=== PATIENT | male | born 1950 | race Caucasian/White ===

== ENCOUNTER 2018-02-13 07:35 | Inpatient (IN) ==
[2018-02-13] MEDS ORDERED: DUONEB 0.5 MG/3 MG NEB ONE (07:51)
[2018-02-13] MEDS ORDERED: DUONEB 0.5 MG/3 MG ONE (07:52)
[2018-02-13] MEDS ORDERED: SALINE 3% 15 ML NEB TX ONE (07:52)
[2018-02-13] MEDS ORDERED: SALINE 3% 15 ML NEB TX NEB ONE (07:55)
[2018-02-13] MEDS ORDERED: NS 1000 ML 1,000 ML IV ONE ×2 (07:58→09:52)
[2018-02-13] MEDS ORDERED: NS 1000 ML 1,000 ML ONE ×2 (07:58→09:50)
[2018-02-13] MEDS ORDERED: SOLU-Medrol 125 MG VIAL IVP ONE (08:11)
[2018-02-13 08:12] LABS: ABG ALLEN TEST POS; ABG HCO3 21.1 mmol/L (22-26)
[2018-02-13] MEDS ORDERED: SOLU-Medrol 125 MG VIAL ONE (08:12)
[2018-02-13 08:13] LABS: BASOPHILS # (AUTO) 0.1 X10^3/uL (0.0-0.1); BASOPHILS % (AUTO) 0.6 % (0.2-1.0); LYMPHOCYTES # (AUTO) 0.5 X10^3/uL (1.3-2.9); LYMPHOCYTES % (AUTO) 2.9 % (21.0-51.0); MEAN CORPUSCULAR HEMOGLOBIN 32.6 pg (27.0-34.0); MEAN CORPUSCULAR HGB CONC 34.9 g/dL (33.0-35.0); MEAN CORPUSCULAR VOLUME 93.3 fL (80.0-100.0); MONOCYTES # (AUTO) 2.8 x10^3/uL (0.3-0.8); NEUTROPHILS # (AUTO) 13.2 x10^3/uL (2.2-4.8); NEUTROPHILS % (AUTO) 79.5 % (42.0-75.0); PLATELET COUNT 135 X10^3/uL (150.0-450.0); RED BLOOD COUNT 4.61 X10^6/uL (4.7-6.0); RED CELL DISTRIBUTION WIDTH 13.5 % (11.6-16.5); WHITE BLOOD COUNT 16.6 X10^3/uL (3.6-10.0)
[2018-02-13 08:24] LABS: BLOOD UREA NITROGEN 24 mg/dL (7-18); CALCIUM 7.9 mg/dL (8.5-10.1); CARBON DIOXIDE 25.8 mmol/L (21-32); CHLORIDE 91 mmol/L (98-107); COR NA(FOR HYPERGLY) 127 mmol/L (136-145); CREATININE 1.47 mg/dL (0.70-1.30); SODIUM 126 mmol/L (136-145); TROPONIN I < 0.02 ng/mL (0-1.5); eGFR NON BLACK RACES 51 (>60)
[2018-02-13 08:28] LABS: ALANINE AMINOTRANSFERASE 10 Units/L (12-78); ALKALINE PHOSPHATASE 56 Units/L (46-116); ASPARTATE AMINO TRANSFERASE 10 Units/L (15-37); CKMB % 1.7 % (<4); COR CA(FOR HYPOALB) 8.7 mg/dL (8.5-10.1); CREATINE KINASE 59 Units/L (39-308); CREATINE KINASE MB < 1.0 ng/mL (0-4.0); MAGNESIUM 1.6 mg/dL (1.7-2.9); TOTAL PROTEIN 7.2 g/dL (6.4-8.2)
[2018-02-13 08:40] LABS: BAND NEUTROPHILS % 6 % (0-10); PLATELET MORPHOLOGY COMMENT NORMAL (NORMAL)
--- NOTE | 2018-02-13 08:41 | RAD ---
Chest, AP Indication: Left-sided chest pain Comparison: 01/16/2015 Findings: The costophrenic sulci were excluded. There is lung hyperinflation and chronic interstitial changes suggestive for COPD. There is dense infiltrate within the left upper lobe. The left lower daly ng and right lung are grossly clear. No evidence for large pleural effusion. The heart size is normal . Impression: Left upper lobe pneumonia. Radiographic follow-up to resolution recommended to exclude underlying les ion. Chronic findings of COPD. Reported By:
[2018-02-13] MEDS ORDERED: NS 1/2 1000 ML IV 1,000 ML IV ONE ×2 (09:16→22:31)
[2018-02-13] MEDS: LEVAQUIN PREMIX IV 750 MG 750 MG/150 ML BAG IV SCH (09:23)
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
[2018-02-13] MEDS: NS 1/2 1000 ML IV 1,000 ML IV SCH ×2 (09:53→22:34)
[2018-02-13] MEDS: ZOFRAN INJ 4 MG VIAL IVP PRN (11:15)
--- NOTE | 2018-02-13 11:24 | CT ---
HISTORY: Chest pain radiating to back Study: CT chest without contrast Comparison: None Technique: Axial noncontrast images with coronal and sagittal reformats. Dose reduction procedures we re used with mA/kv adjusted for body size. This examination is limited due to the lack of intravenous contrast. This limits the evaluation of the thoracic aorta the examination was performed in this mat ter at the sole discretion of the ordering caregiver and without input from Radiology. Findings: Examination of the mediastinum demonstrated no evidence for mediastinal masses, enlarged mediastinal adenopathy, or enlarged hilar adenopathy. Evaluation of the thoracic aorta is limited due to the lack of intravenous contrast. Mild calcific atherosclerotic changes present in a nondilated thoracic aort a. Dissection cannot be excluded due to the lack of contrast. No pleural effusions are identified. No chest wall or axillary abnormality is identified. Those portions of the upper abdominal organs visua lized were within normal limits to the limitations of an unenhanced examination. Examination of the l jason montejo demonstrated changes of centrilobular emphysema to be present bilaterally. There is alveol ar pneumonia involving the apical posterior segment of the left upper lobe as was identified on the c onventional chest x-ray. The remainder of the lung montejo are clear. IMPRESSION: Limited evaluation of the thoracic aorta demonstrates mild atherosclerotic change and no significant dilatation. Dissection cannot be excluded in the absence of contrast. Segmental pneumonia involving the apical posterior segment of the left upper lobe as was described on the conventional chest x-ray Centrilobular emphysema Reported By:
[2018-02-13] MEDS ORDERED: PREVNAR 13 IM ONE ×2 (11:29→21:23)
[2018-02-13] MEDS: TUSSIONEX PENNKINETIC SUSP PO PRN (11:49)
[2018-02-13 12:27] LABS: BILIRUBIN,URINE NEGATIVE (NEGATIVE); BLOOD/HEMOGLOBIN,URINE 2+ (NEGATIVE); GLUCOSE, URINE NEGATIVE (NEGATIVE); KETONES,URINE 1+ (NEGATIVE); LEUKOCYTE ESTERASE ,URINE 1+ (NEGATIVE); NITRITES,URINE NEGATIVE (NEGATIVE); PROTEIN,URINE 2+ (NEGATIVE); UROBILINOGEN,URINE NORMAL (NORMAL)
[2018-02-13 12:29] LABS: COLOR,URINE ORANGE (YELLOW)
[2018-02-13 12:30] LABS: APPEARANCE,URINE CLEAR (CLEAR)
[2018-02-13 12:38] LABS: BACTERIA,URINE TRACE /HPF (NEGATIVE); HYALINE CASTS, URINE MODERATE /LPF (NEGATIVE); MUCUS,URINE MODERATE /HPF (NEGATIVE); SQUAMOUS EPITHELIAL CELL,UR FEW /HPF (NEGATIVE)
[2018-02-13] MEDS: DUONEB 0.5 MG/3 MG NEB SCH ×4 (13:30→20:45)
[2018-02-13] MEDS: ROBITUSSIN DM PO SCH ×3 (13:41→21:11)
[2018-02-13] MEDS: FORTAZ or TAZICEF VIAL INJ 1 G in NS 100 ML IV + SPIKE MINIBAG* 100 ML IV SCH ×2 (13:41→21:45)
[2018-02-13 14:40] LABS: CKMB % 1.9 % (<4); CREATINE KINASE 54 Units/L (39-308); CREATINE KINASE MB < 1.0 ng/mL (0-4.0); TROPONIN I < 0.02 ng/mL (0-1.5)
[2018-02-13] MEDS: NICOTINE PATCH TD SCH (17:37)
[2018-02-13 20:26] LABS: CKMB % 1.8 % (<4); CREATINE KINASE 55 Units/L (39-308); TROPONIN I < 0.02 ng/mL (0-1.5)
[2018-02-14] MEDS ORDERED: XOPENEX 1.25 MG/3 ML NEBULE NEB ONE (04:57)
[2018-02-14] MEDS ORDERED: NS 1/2 1000 ML IV 1,000 ML IV ONE (06:12)
[2018-02-14] MEDS ORDERED: MAGNESIUM SULFATE 1 GRAM/100 mL PREMIX 2 G/200 ML BAG IV ONE (06:54)
[2018-02-14] MEDS ORDERED: NS 1000 ML 1,000 ML ONE (06:59)
[2018-02-14] MEDS ORDERED: K-DUR TAB 20 MEQ PO STA (07:20)
[2018-02-14] MEDS ORDERED: K-DUR TAB 20 MEQ PO ONE (07:46)
[2018-02-14] MEDS: LIBRIUM PO PRN ×2 (09:00→20:34)
[2018-02-14] MEDS ORDERED: LIBRIUM PO ONE (11:11)
[2018-02-14] MEDS ORDERED: CARDIZEM INJ 50 MG VIAL IVP ONE (12:32)
[2018-02-14] MEDS: FORTAZ or TAZICEF VIAL INJ 1 G in NS 100 ML IV + SPIKE MINIBAG* 100 ML IV SCH ×3 (13:30→21:20)
[2018-02-14 14:09] LABS: ALANINE AMINOTRANSFERASE 14 Units/L (12-78); ALBUMIN 2.2 g/dL (3.4-5.0); ALKALINE PHOSPHATASE 40 Units/L (46-116); ASPARTATE AMINO TRANSFERASE 9 Units/L (15-37); BASOPHILS % (AUTO) 0.2 % (0.2-1.0); BLOOD UREA NITROGEN 13 mg/dL (7-18); CALCIUM 7.2 mg/dL (8.5-10.1); CARBON DIOXIDE 21.4 mmol/L (21-32); CHLORIDE 98 mmol/L (98-107); CHOL/HDL RATIO 2.3 (0.0-5.0); CHOLESTEROL 83 mg/dL (0-200); COR CA(FOR HYPOALB) 8.6 mg/dL (8.5-10.1); COR NA(FOR HYPERGLY) 131 mmol/L (136-145); CREATININE 0.87 mg/dL (0.70-1.30); HDL CHOLESTEROL 36 mg/dL (40-60); HEMOGLOBIN 12.2 g/dL (13.5-18.0); LYMPHOCYTES # (AUTO) 0.3 X10^3/uL (1.3-2.9); LYMPHOCYTES % (AUTO) 2.6 % (21.0-51.0); MAGNESIUM 1.7 mg/dL (1.7-2.9); MEAN CORPUSCULAR HEMOGLOBIN 32.1 pg (27.0-34.0); MEAN CORPUSCULAR HGB CONC 34.7 g/dL (33.0-35.0); MEAN CORPUSCULAR VOLUME 92.4 fL (80.0-100.0); MEAN PLATELET VOLUME 8.7 fL (7.4-11.0); MONOCYTES # (AUTO) 2.3 x10^3/uL (0.3-0.8); MONOCYTES % (AUTO) 17.6 % (0.0-13.0); NEUTROPHILS # (AUTO) 10.2 x10^3/uL (2.2-4.8); NEUTROPHILS % (AUTO) 79.6 % (42.0-75.0); PLATELET COUNT 111 X10^3/uL (150.0-450.0); RED BLOOD COUNT 3.79 X10^6/uL (4.7-6.0); RED CELL DISTRIBUTION WIDTH 13.4 % (11.6-16.5); SODIUM 130 mmol/L (136-145); TOTAL PROTEIN 5.8 g/dL (6.4-8.2); TRIGLYCERIDES 50 mg/dL (0-150); WHITE BLOOD COUNT 12.9 X10^3/uL (3.6-10.0); eGFR NON BLACK RACES > 60 (>60)
[2018-02-14 15:21] LABS: BAND NEUTROPHILS % 4 % (0-10); PLATELET MORPHOLOGY COMMENT NORMAL (NORMAL)
[2018-02-14] MEDS: XOPENEX 1.25 MG/3 ML NEBULE NEB SCH ×2 (16:24→20:22)
[2018-02-14] MEDS: TYLENOL 325 MG TAB PO PRN (16:45)
[2018-02-14] MEDS ORDERED: TYLENOL 325 MG TAB PO ONE (16:46)
[2018-02-14] MEDS: MAGNESIUM SULFATE 1 GRAM/100 mL PREMIX 2 GM/200 ML BAG IV SCH (16:49)
[2018-02-14] MEDS: NICOTINE PATCH TD SCH (16:50)
[2018-02-14] MEDS: NS 1000 ML 1,000 ML IV SCH (16:50)
[2018-02-14] MEDS: LEVAQUIN PREMIX IV 750 MG 750 MG/150 ML BAG IV SCH (16:51)
[2018-02-14] MEDS: ROBITUSSIN DM PO SCH ×3 (16:51→20:34)
[2018-02-14] MEDS: MAALOX or MYLANTA PO PRN (19:25)
[2018-02-15] MEDS: TYLENOL 325 MG TAB PO PRN ×3 (00:50→15:34)
[2018-02-15] MEDS: FORTAZ or TAZICEF VIAL INJ 1 G in NS 100 ML IV + SPIKE MINIBAG* 100 ML IV SCH ×2 (05:15→14:40)
[2018-02-15 05:26] LABS: CRYPTOSPORIDIUM PARVUM ANTIGEN NEGATIVE (NEGATIVE); GIARDIA LAMBLIA ANTIGEN NEGATIVE (NEGATIVE)
[2018-02-15] MEDS: NS 1000 ML 1,000 ML IV SCH ×2 (05:28→06:43)
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
[2018-02-15 06:11] LABS: BASOPHILS % (AUTO) 0.2 % (0.2-1.0); HEMATOCRIT 40.4 % (42.0-54.0); HEMOGLOBIN 13.9 g/dL (13.5-18.0); LYMPHOCYTES # (AUTO) 0.3 X10^3/uL (1.3-2.9); LYMPHOCYTES % (AUTO) 2.4 % (21.0-51.0); MEAN CORPUSCULAR HEMOGLOBIN 31.9 pg (27.0-34.0); MEAN CORPUSCULAR HGB CONC 34.3 g/dL (33.0-35.0); MEAN CORPUSCULAR VOLUME 92.9 fL (80.0-100.0); MEAN PLATELET VOLUME 8.9 fL (7.4-11.0); MONOCYTES # (AUTO) 1.9 x10^3/uL (0.3-0.8); MONOCYTES % (AUTO) 16.3 % (0.0-13.0); NEUTROPHILS # (AUTO) 9.3 x10^3/uL (2.2-4.8); NEUTROPHILS % (AUTO) 81.1 % (42.0-75.0); PLATELET COUNT 132 X10^3/uL (150.0-450.0); RED BLOOD COUNT 4.35 X10^6/uL (4.7-6.0); RED CELL DISTRIBUTION WIDTH 13.6 % (11.6-16.5); WHITE BLOOD COUNT 11.4 X10^3/uL (3.6-10.0)
[2018-02-15 06:15] LABS: ALANINE AMINOTRANSFERASE 13 Units/L (12-78); ALBUMIN 2.2 g/dL (3.4-5.0); ALKALINE PHOSPHATASE 41 Units/L (46-116); ASPARTATE AMINO TRANSFERASE 17 Units/L (15-37); BLOOD UREA NITROGEN 5 mg/dL (7-18); CALCIUM 7.4 mg/dL (8.5-10.1); CHLORIDE 99 mmol/L (98-107); COR CA(FOR HYPOALB) 8.8 mg/dL (8.5-10.1); COR NA(FOR HYPERGLY) 132 mmol/L (136-145); CREATININE 0.86 mg/dL (0.70-1.30); MAGNESIUM 1.8 mg/dL (1.7-2.9); SODIUM 132 mmol/L (136-145); TOTAL PROTEIN 6.2 g/dL (6.4-8.2); eGFR NON BLACK RACES > 60 (>60)
[2018-02-15] MEDS ORDERED: POTASSIUM CHL 60 MEQ/NS 0.45% 500 ML IV PRN (06:23)
[2018-02-15] MEDS ORDERED: K-RIDER 10 MEQ/NS 100 ML 10 MEQ/100 ML BAG IV PRN (06:23)
[2018-02-15] MEDS ORDERED: POTASSIUM CHLORIDE LIQ 20 MEQ UDC PO PRN (06:23)
[2018-02-15] MEDS ORDERED: POTASSIUM CHL 40 MEQ/NS 0.45% 500 ML IV PRN (06:23)
[2018-02-15] MEDS: MAGNESIUM SULFATE 1 GRAM/100 mL PREMIX 1 GM/100 ML BAG IV PRN ×2 (06:37→07:45)
[2018-02-15] MEDS: K-LYTE EFFERVESCENT PO PRN (06:38)
[2018-02-15 07:51] LABS: BAND NEUTROPHILS % 3 % (0-10); BASOPHILS % (MANUAL) 1 % (0-1); PLATELET MORPHOLOGY COMMENT NORMAL (NORMAL)
[2018-02-15] MEDS: XOPENEX 1.25 MG/3 ML NEBULE NEB SCH ×4 (08:48→20:48)
[2018-02-15] MEDS: ROBITUSSIN DM PO SCH ×4 (09:00→20:21)
[2018-02-15] MEDS: LEVAQUIN PREMIX IV 750 MG 750 MG/150 ML BAG IV SCH (09:00)
--- NOTE | 2018-02-15 12:49 | PCM.PROG ---
Progress Note - Progress Note for Day of Date: 02/15/18 - Subjective Subjective: 67 WM ER ADMIT ON 02/13 WITH PNEUMONIA, CHEST CONGESTION, RESP DISTRESS. PT CURRENTLY ON IV ATBX AND RESP THERAPY WITH SUPPLEMENTAL O2, SPUTUM CUTLURE PENDING. PT CONTINUES WITH SOB AT REST, MODERATE DISTRESS WITH DIFFUSE RHONCHI. PT REPORTS HE FEELS MORE IMPROVED THIS AM, CONTINUES WITH PRODUCTIVE COUGH - Past Medical Family Social History Past Med/Fam/Surg Hx: No changes since H&P Allergies: Allergies No Known Drug Allergies Allergy (Verified 02/13/18 07:42) - Review of Systems ROS: No change since H&P - Vital Signs and I&O's Vital Signs: Temperature 100.7 F Pulse Rate [Apical] 107 Pulse Rate 116 Respiratory Rate 34 Blood Pressure [Right Arm] 118/73 Blood Pressure 107/55 O2 Sat by Pulse Oximetry 94 Intake and Output: Intake & Output 02/13/18 02/14/18 02/15/18 02/16/18 11:59 11:59 11:59 11:59 Intake Total 1450 / 1450 3151 / 3151 Output Total 1920 / 1920 Balance 1450 / 1450 1231 / 1231 - Physical Exam Oriented: Normal Eyes: Normal Ear: Normal Nose: Normal Throat: Normal Respiratory: Rhonchi Cardiovascular: Tachycardia : Normal Tenderness: Normal Skin: Normal Musculoskeletal: Normal Psychiatric: Normal Speech Pattern: Clear, Appropriate - Laboratory and Diagnostics Result Diagrams: 02/15/18 05:21 02/15/18 05:21 Labs: 02/13/18 07:55 Blood Blood Culture - Preliminary 02/13/18 07:50 Blood Blood Culture - Preliminary 02/14/18 07:25 Sputum - Expectorated Sputum Sputum Culture - Preliminary 02/14/18 07:25 Sputum - Expectorated Sputum - Final 02/13/18 08:26 Sputum - Expectorated Sputum Sputum Culture - Final Pseudomonas Aeruginosa 02/13/18 08:26 Sputum - Expectorated Sputum - Final 02/14/18 18:09 Stool - Final 02/15/18 02:28 Sputum - Expectorated Sputum - Final Laboratory WBC 11.4 X10^3/uL (3.6-10.0) H 02/15/18 05:21 RBC 4.35 X10^6/uL (4.7-6.0) L 02/15/18 05:21 Hgb 13.9 g/dL (13.5-18.0) 02/15/18 05:21 Hct 40.4 % (42.0-54.0) L 02/15/18 05:21 MCV 92.9 fL (80.0-100.0) 02/15/18 05:21 MCH 31.9 pg (27.0-34.0) 02/15/18 05:21 MCHC 34.3 g/dL (33.0-35.0) 02/15/18 05:21 RDW 13.6 % (11.6-16.5) 02/15/18 05:21 Plt Count 132 X10^3/uL (150.0-450.0) L 02/15/18 05:21 Plt Count Comment Decreased (ADEQUATE) 02/15/18 05:21 MPV 8.9 fL (7.4-11.0) 02/15/18 05:21 Neut % (Auto) 81.1 % (42.0-75.0) H 02/15/18 05:21 Lymph % (Auto) 2.4 % (21.0-51.0) L 02/15/18 05:21 [place] % (Auto) 16.3 % (0.0-13.0) H 02/15/18 05:21 Eos % (Auto) 0.0 % (0.9-2.9) L 02/15/18 05:21 Baso % (Auto) 0.2 % (0.2-1.0) 02/15/18 05:21 Neut # (Auto) 9.3 x10^3/uL (2.2-4.8) H 02/15/18 05:21 Lymph # (Auto) 0.3 X10^3/uL (1.3-2.9) L 02/15/18 05:21 [place] # (Auto) 1.9 x10^3/uL (0.3-0.8) H 02/15/18 05:21 Eos # (Auto) 0.0 x10^3/uL (0.0-0.2) 02/15/18 05:21 Baso # (Auto) 0.0 X10^3/uL (0.0-0.1) 02/15/18 05:21 Absolute Nucleated RBC 0.0 /100WBC 02/15/18 05:21 Total Counted 100 02/15/18 05:21 Neutrophils % (Manual) 78 % (39-76) H 02/15/18 05:21 Band Neutrophils % 3 % (0-10) 02/15/18 05:21 Lymphocytes % (Manual) 5 % (13-43) L 02/15/18 05:21 Monocytes % (Manual) 12 % (4-9) H 02/15/18 05:21 Eosinophils % (Manual) 1 % (0-6) 02/15/18 05:21 Basophils % (Manual) 1 % (0-1) 02/15/18 05:21 Plt Morphology Comment Normal (NORMAL) 02/15/18 05:21 RBC Morphology Normal (NORMAL) 02/15/18 05:21 INR Target Range - 02/13/18 07:50 INR 1.05 (0.8-1.3) 02/13/18 07:50 APTT 34.2 SECONDS (22.9-36.5) 02/13/18 07:50 PTT Comment - 02/13/18 07:50 Sample Site Lra 02/13/18 08:03 ABG pH 7.500 (7.35-7.45) H 02/13/18 08:03 ABG pCO2 27.0 mmHg (35.0-45.0) L 02/13/18 08:03 ABG pO2 78.0 mmHg (80.0-100.0) L 02/13/18 08:03 ABG HCO3 21.1 mmol/L (22-26) L 02/13/18 08:03 ABG O2 Saturation 97.0 % (90-100) 02/13/18 08:03 ABG Base Excess -1.0 mmol/L (-2.0-2.0) 02/13/18 08:03 Fernando Test Pos 02/13/18 08:03 A-a Gradient 88.0 mmHg 02/13/18 08:03 FiO2 28.000 02/13/18 08:03 Blood Gas Comments Samm well cn/cs 02/13/18 08:03 Sodium 132 mmol/L (136-145) L 02/15/18 05:21 Corrected Sodium 132 mmol/L (136-145) L 02/15/18 05:21 Potassium 3.5 mmol/L (3.5-5.1) 02/15/18 05:21 Chloride 99 mmol/L (98-107) 02/15/18 05:21 Carbon Dioxide 29.0 mmol/L (21-32) 02/15/18 05:21 BUN 5 mg/dL (7-18) L 02/15/18 05:21 Creatinine 0.86 mg/dL (0.70-1.30) 02/15/18 05:21 Est GFR (MDRD) Af Amer > 60 (>60) 02/15/18 05:21 Est GFR (MDRD) Non-Af > 60 (>60) 02/15/18 05:21 Glucose 112 mg/dL (65-99) H 02/15/18 05:21 Lactic Acid 1.6 mmol/L (0.4-2.0) 02/13/18 07:50 Calcium 7.4 mg/dL (8.5-10.1) L 02/15/18 05:21 Corrected Calcium 8.8 mg/dL (8.5-10.1) 02/15/18 05:21 Magnesium 1.8 mg/dL (1.7-2.9) 02/15/18 05:21 Total Bilirubin 0.40 mg/dL (0.2-1.0) 02/15/18 05:21 AST 17 Units/L (15-37) 02/15/18 05:21 ALT 13 Units/L (12-78) 02/15/18 05:21 Alkaline Phosphatase 41 Units/L (46-116) L 02/15/18 05:21 Creatine Kinase 55 Units/L (39-308) 02/13/18 19:59 CK-MB (CK-2) 1.0 ng/mL (0-4.0) 02/13/18 19:59 CK/CKMB % Calc 1.8 % (<4) 02/13/18 19:59 Troponin I < 0.02 ng/mL (0-1.5) 02/13/18 19:59 Total Protein 6.2 g/dL (6.4-8.2) L 02/15/18 05:21 Albumin 2.2 g/dL (3.4-5.0) L 02/15/18 05:21 Globulin 4.0 g/dL (2.5-4.5) 02/15/18 05:21 Albumin/Globulin Ratio 0.6 Ratio (1.1-2.1) L 02/15/18 05:21 Triglycerides 50 mg/dL (0-150) 02/14/18 05:29 Cholesterol 83 mg/dL (0-200) 02/14/18 05:29 LDL Cholesterol, Calc 37 mg/dL (0-100) 02/14/18 05:29 HDL Cholesterol 36 mg/dL (40-60) L 02/14/18 05:29 Cholesterol/HDL Ratio 2.3 (0.0-5.0) 02/14/18 05:29 Specimen Type Random urine 02/13/18 12:15 Urine Color [place] (YELLOW) 02/13/18 12:15 Urine Appearance Clear (CLEAR) 02/13/18 12:15 Urine pH 5.0 (5.0 - 8.0) 02/13/18 12:15 Ur Specific [place] 1.020 (1.000-1.030) 02/13/18 12:15 Urine Protein 2+ (NEGATIVE) 02/13/18 12:15 Urine Glucose (UA) Negative (NEGATIVE) 02/13/18 12:15 Urine Ketones 1+ (NEGATIVE) 02/13/18 12:15 Urine Occult Blood 2+ (NEGATIVE) 02/13/18 12:15 Urine Nitrite Negative (NEGATIVE) 02/13/18 12:15 Urine Bilirubin Negative (NEGATIVE) 02/13/18 12:15 Urine Urobilinogen Normal (NORMAL) 02/13/18 12:15 Ur Leukocyte Esterase 1+ (NEGATIVE) 02/13/18 12:15 Urine RBC 3-5 /HPF (NONE SEEN) 02/13/18 12:15 Urine WBC 3-5 /HPF (NONE SEEN) 02/13/18 12:15 Ur Squamous Epith Cells Few /HPF (NEGATIVE) 02/13/18 12:15 Urine Bacteria Trace /HPF (NEGATIVE) 02/13/18 12:15 Hyaline Casts Moderate /LPF (NEGATIVE) 02/13/18 12:15 Urine Mucus Moderate /HPF (NEGATIVE) 02/13/18 12:15 Ur Culture Indicated? No/not indicated 02/13/18 12:15 Stool Description 5g pale green 02/14/18 18:09 Stl Occult Blood (IFOB) Positive (NEGATIVE) A 02/14/18 18:09 Stl C. diff Tox B Gene Negative (NEGATIVE) 02/14/18 18:09 Stl C. diff [id number] Negative (NEGATIVE) 02/14/18 18:09 Cryptosporid parvum Ag Negative (NEGATIVE) 02/14/18 18:09 E. histolytica Antigen Negative (NEGATIVE) 02/14/18 18:09 Giardia lamblia Ag Negative (NEGATIVE) 02/14/18 18:09 - Plan (1) SOB (shortness of breath) Status: Acute Plan: CONTINUE PNEUMONIA PROTOCOL WITH SPUTUM AND BLOOD CULTURES PENDING. RESP THERAPY, SUPPLEMENTAL O2, HYDRATION. CARDIAC MONITORING, BP MONITORING. REPEAT AM LABS, VERIFY HOME MEDS (2) Respiratory distress Status: Acute (3) Pneumonia Status: Acute (4) Tachycardia Status: Acute
[2018-02-15] MEDS: NICOTINE PATCH TD SCH (14:39)
[2018-02-15] MEDS: LIBRIUM PO PRN (15:46)
[2018-02-15] MEDS ORDERED: XOPENEX 1.25 MG/3 ML NEBULE NEB PRN (20:15)
[2018-02-15] MEDS: TUSSIONEX PENNKINETIC SUSP PO PRN (20:21)
[2018-02-15] MEDS: MAALOX or MYLANTA PO PRN (20:25)
[2018-02-15] MEDS ORDERED: NS 100 ML IV 100 ML IV ONE (20:37)
[2018-02-15] MEDS ORDERED: MERREM VIAL ONE (20:38)
[2018-02-15] MEDS: Atrovent NEB TX 0.02% NEB SCH (20:48)
[2018-02-15] MEDS: PULMICORT NEB TX 0.5 MG NEB SCH (20:48)
[2018-02-15] MEDS: BROVANA IN SCH (20:48)
[2018-02-15] MEDS: MERREM VIAL 1 G in NS 100 ML IV + SPIKE MINIBAG* 100 ML IV SCH ×2 (20:49→21:37)
[2018-02-15] MEDS: SOLU-Medrol 40 MG VIAL IVP SCH ×2 (20:49→21:38)
[2018-02-15] MEDS: ULTRAM PO PRN (21:02)
[2018-02-15 22:36] LABS: CKMB % 0.6 % (<4); CREATINE KINASE 99 Units/L (39-308); CREATINE KINASE MB 0.6 ng/mL (0-4.0)
[2018-02-15 22:37] LABS: TROPONIN I < 0.02 ng/mL (0-1.5)
[2018-02-16] MEDS ORDERED: NS 100 ML IV 100 ML IV ONE ×3 (05:00→20:15)
[2018-02-16] MEDS ORDERED: MERREM VIAL ONE ×3 (05:00→20:15)
[2018-02-16] MEDS: SOLU-Medrol 40 MG VIAL IVP SCH ×3 (05:23→20:48)
[2018-02-16] MEDS: MERREM VIAL 1 G in NS 100 ML IV + SPIKE MINIBAG* 100 ML IV SCH ×3 (05:32→21:00)
[2018-02-16] MEDS: NS 1000 ML 1,000 ML IV SCH ×2 (05:32→06:41)
[2018-02-16 06:10] LABS: BASOPHILS % (AUTO) 0.1 % (0.2-1.0); HEMATOCRIT 40.2 % (42.0-54.0); HEMOGLOBIN 13.9 g/dL (13.5-18.0); LYMPHOCYTES # (AUTO) 0.2 X10^3/uL (1.3-2.9); LYMPHOCYTES % (AUTO) 1.6 % (21.0-51.0); MEAN CORPUSCULAR HEMOGLOBIN 32.3 pg (27.0-34.0); MEAN CORPUSCULAR HGB CONC 34.6 g/dL (33.0-35.0); MEAN CORPUSCULAR VOLUME 93.5 fL (80.0-100.0); MEAN PLATELET VOLUME 9.4 fL (7.4-11.0); MONOCYTES # (AUTO) 0.3 x10^3/uL (0.3-0.8); MONOCYTES % (AUTO) 2.4 % (0.0-13.0); NEUTROPHILS # (AUTO) 11.2 x10^3/uL (2.2-4.8); NEUTROPHILS % (AUTO) 95.9 % (42.0-75.0); PLATELET COUNT 139 X10^3/uL (150.0-450.0); WHITE BLOOD COUNT 11.7 X10^3/uL (3.6-10.0)
--- NOTE | 2018-02-16 06:21 | RAD ---
Chest portable Indication: Shortness of breath Comparison February 13, 2018 Findings: Changes of COPD are again seen. There is progressive left apical airspace opacity with supe rimposed increasing interstitial pneumonitis and/or other edema. The right lung remains negative for acute changes. The skeleton is stable. Impression: 1. Progressive left lung infiltrate. 2. Superimposed COPD. Reported By:
[2018-02-16 07:06] LABS: PLATELET MORPHOLOGY COMMENT NORMAL (NORMAL)
[2018-02-16 07:52] LABS: ALANINE AMINOTRANSFERASE 20 Units/L (12-78); ALBUMIN 2.1 g/dL (3.4-5.0); ALKALINE PHOSPHATASE 57 Units/L (46-116); ASPARTATE AMINO TRANSFERASE 25 Units/L (15-37); BLOOD UREA NITROGEN 9 mg/dL (7-18); CALCIUM 7.6 mg/dL (8.5-10.1); CARBON DIOXIDE 29.1 mmol/L (21-32); CHLORIDE 98 mmol/L (98-107); COR CA(FOR HYPOALB) 9.1 mg/dL (8.5-10.1); COR NA(FOR HYPERGLY) 137 mmol/L (136-145); CREATINE KINASE 99 Units/L (39-308); CREATINE KINASE MB < 1.0 ng/mL (0-4.0); CREATININE 0.82 mg/dL (0.70-1.30); MAGNESIUM 2.2 mg/dL (1.7-2.9); SODIUM 136 mmol/L (136-145); TOTAL PROTEIN 6.5 g/dL (6.4-8.2); TROPONIN I < 0.02 ng/mL (0-1.5); eGFR NON BLACK RACES > 60 (>60)
[2018-02-16] MEDS: LEVAQUIN PREMIX IV 750 MG 750 MG/150 ML BAG IV SCH (08:51)
[2018-02-16] MEDS: BROVANA IN SCH ×2 (08:51→21:52)
[2018-02-16] MEDS: Atrovent NEB TX 0.02% NEB SCH ×4 (08:51→21:52)
[2018-02-16] MEDS: ROBITUSSIN DM PO SCH ×5 (08:51→23:55)
[2018-02-16] MEDS: XOPENEX 1.25 MG/3 ML NEBULE NEB SCH ×4 (08:51→21:52)
[2018-02-16] MEDS: NICOTINE PATCH TD SCH (08:52)
[2018-02-16] MEDS: PULMICORT NEB TX 0.5 MG NEB SCH ×2 (08:52→21:52)
[2018-02-16] MEDS: MAALOX or MYLANTA PO PRN ×2 (13:42→19:50)
[2018-02-16] MEDS: LIBRIUM PO PRN (17:56)
[2018-02-16] MEDS: TUSSIONEX PENNKINETIC SUSP PO PRN (20:48)
[2018-02-17] MEDS: NS 1000 ML 1,000 ML IV SCH ×3 (00:30→21:39)
[2018-02-17] MEDS ORDERED: MERREM VIAL ONE ×3 (04:42→20:43)
[2018-02-17] MEDS ORDERED: NS 100 ML IV 100 ML IV ONE ×2 (04:42→20:43)
[2018-02-17] MEDS: MERREM VIAL 1 G in NS 100 ML IV + SPIKE MINIBAG* 100 ML IV SCH ×3 (05:03→21:38)
[2018-02-17] MEDS: SOLU-Medrol 40 MG VIAL IVP SCH ×3 (05:03→21:38)
[2018-02-17 06:12] LABS: BASOPHILS % (AUTO) 0.1 % (0.2-1.0); HEMATOCRIT 33.8 % (42.0-54.0); HEMOGLOBIN 11.6 g/dL (13.5-18.0); LYMPHOCYTES # (AUTO) 0.3 X10^3/uL (1.3-2.9); LYMPHOCYTES % (AUTO) 2.3 % (21.0-51.0); MEAN CORPUSCULAR HEMOGLOBIN 31.8 pg (27.0-34.0); MEAN CORPUSCULAR HGB CONC 34.3 g/dL (33.0-35.0); MEAN CORPUSCULAR VOLUME 92.8 fL (80.0-100.0); MEAN PLATELET VOLUME 8.9 fL (7.4-11.0); MONOCYTES # (AUTO) 0.6 x10^3/uL (0.3-0.8); MONOCYTES % (AUTO) 4.9 % (0.0-13.0); NEUTROPHILS # (AUTO) 10.6 x10^3/uL (2.2-4.8); NEUTROPHILS % (AUTO) 92.7 % (42.0-75.0); PLATELET COUNT 162 X10^3/uL (150.0-450.0); RED BLOOD COUNT 3.65 X10^6/uL (4.7-6.0); RED CELL DISTRIBUTION WIDTH 13.9 % (11.6-16.5); WHITE BLOOD COUNT 11.4 X10^3/uL (3.6-10.0)
[2018-02-17 06:25] LABS: ALANINE AMINOTRANSFERASE 13 Units/L (12-78); ALBUMIN 1.7 g/dL (3.4-5.0); ALKALINE PHOSPHATASE 46 Units/L (46-116); ASPARTATE AMINO TRANSFERASE 13 Units/L (15-37); BLOOD UREA NITROGEN 9 mg/dL (7-18); CALCIUM 7.4 mg/dL (8.5-10.1); CARBON DIOXIDE 30.3 mmol/L (21-32); CHLORIDE 102 mmol/L (98-107); COR CA(FOR HYPOALB) 9.2 mg/dL (8.5-10.1); COR NA(FOR HYPERGLY) 139 mmol/L (136-145); CREATININE 0.64 mg/dL (0.70-1.30); SODIUM 138 mmol/L (136-145); TOTAL PROTEIN 5.5 g/dL (6.4-8.2); eGFR NON BLACK RACES > 60 (>60)
[2018-02-17 07:11] LABS: BAND NEUTROPHILS % 1 % (0-10); PLATELET MORPHOLOGY COMMENT NORMAL (NORMAL)
[2018-02-17] MEDS: NICOTINE PATCH TD SCH (08:07)
[2018-02-17] MEDS: LEVAQUIN PREMIX IV 750 MG 750 MG/150 ML BAG IV SCH (08:08)
[2018-02-17] MEDS: ROBITUSSIN DM PO SCH ×4 (08:09→21:38)
[2018-02-17 08:26] VITALS: BMI 20.9
[2018-02-17] MEDS: XOPENEX 1.25 MG/3 ML NEBULE NEB SCH ×4 (08:48→20:22)
[2018-02-17] MEDS: PULMICORT NEB TX 0.5 MG NEB SCH ×2 (08:48→20:22)
[2018-02-17] MEDS: BROVANA IN SCH ×2 (08:48→20:22)
[2018-02-17] MEDS: Atrovent NEB TX 0.02% NEB SCH ×4 (08:48→20:22)
--- NOTE | 2018-02-17 11:54 | PCM.PROG ---
Progress Note - Progress Note for Day of Date: 02/16/18 - Subjective Subjective: 67 WM ER ADMIT ON 02/13 WITH PNEUMONIA, CHEST CONGESTION, RESP DISTRESS. PT CURRENTLY ON IV ATBX AND RESP THERAPY WITH SUPPLEMENTAL O2, SPUTUM CUTLURE PENDING. PT CONTINUES WITH SOB AT REST, MODERATE DISTRESS WITH DIFFUSE RHONCHI. PT REPORTS HE FEELS MORE IMPROVED THIS AM, CONTINUES WITH PRODUCTIVE COUGH - Past Medical Family Social History Past Med/Fam/Surg Hx: No changes since H&P Allergies: Allergies No Known Drug Allergies Allergy (Verified 02/13/18 07:42) - Review of Systems ROS: No change since H&P - Vital Signs and I&O's Vital Signs: Temperature 97.7 F Pulse Rate [Apical] 84 Pulse Rate 106 Respiratory Rate 22 Blood Pressure [Right Arm] 103/58 Blood Pressure 107/55 O2 Sat by Pulse Oximetry 96 Intake and Output: Intake & Output 02/14/18 02/15/18 02/16/18 02/17/18 11:59 11:59 11:59 11:59 Intake Total 1450 / 1450 3151 / 3151 1862 / 1862 3355 / 3355 Output Total 1920 / 1920 1320 / 1320 1500 / 1500 Balance 1450 / 1450 1231 / 1231 542 / 542 1855 / 1855 - Physical Exam Oriented: Normal Eyes: Normal Ear: Normal Nose: Normal Throat: Normal Respiratory: Rhonchi Cardiovascular: Tachycardia : Normal Tenderness: Normal Skin: Normal Musculoskeletal: Normal Psychiatric: Normal Speech Pattern: Clear, Appropriate - Laboratory and Diagnostics Result Diagrams: 02/17/18 04:35 02/17/18 04:35 Labs: 02/15/18 02:28 Sputum - Expectorated Sputum Sputum Culture - Preliminary 02/15/18 02:28 Sputum - Expectorated Sputum - Final 02/14/18 18:09 Stool Stool Culture - Final 02/14/18 18:09 Stool - Final 02/14/18 16:58 Blood Blood Culture - Preliminary 02/14/18 17:04 Blood Blood Culture - Preliminary 02/14/18 07:25 Sputum - Expectorated Sputum Sputum Culture - Final 02/14/18 07:25 Sputum - Expectorated Sputum - Final 02/13/18 07:55 Blood Blood Culture - Preliminary 02/13/18 07:50 Blood Blood Culture - Preliminary 02/13/18 08:26 Sputum - Expectorated Sputum Sputum Culture - Final Pseudomonas Aeruginosa 02/13/18 08:26 Sputum - Expectorated Sputum - Final Laboratory WBC 11.4 X10^3/uL (3.6-10.0) H 02/17/18 04:35 RBC 3.65 X10^6/uL (4.7-6.0) L 02/17/18 04:35 Hgb 11.6 g/dL (13.5-18.0) L D 02/17/18 04:35 Hct 33.8 % (42.0-54.0) L 02/17/18 04:35 MCV 92.8 fL (80.0-100.0) 02/17/18 04:35 MCH 31.8 pg (27.0-34.0) 02/17/18 04:35 MCHC 34.3 g/dL (33.0-35.0) 02/17/18 04:35 RDW 13.9 % (11.6-16.5) 02/17/18 04:35 Plt Count 162 X10^3/uL (150.0-450.0) 02/17/18 04:35 Plt Count Comment Adequate (ADEQUATE) 02/17/18 04:35 MPV 8.9 fL (7.4-11.0) 02/17/18 04:35 Neut % (Auto) 92.7 % (42.0-75.0) H 02/17/18 04:35 Lymph % (Auto) 2.3 % (21.0-51.0) L 02/17/18 04:35 [place] % (Auto) 4.9 % (0.0-13.0) 02/17/18 04:35 Eos % (Auto) 0.0 % (0.9-2.9) L 02/17/18 04:35 Baso % (Auto) 0.1 % (0.2-1.0) L 02/17/18 04:35 Neut # (Auto) 10.6 x10^3/uL (2.2-4.8) H 02/17/18 04:35 Lymph # (Auto) 0.3 X10^3/uL (1.3-2.9) L 02/17/18 04:35 [place] # (Auto) 0.6 x10^3/uL (0.3-0.8) 02/17/18 04:35 Eos # (Auto) 0.0 x10^3/uL (0.0-0.2) 02/17/18 04:35 Baso # (Auto) 0.0 X10^3/uL (0.0-0.1) 02/17/18 04:35 Absolute Nucleated RBC 0.0 /100WBC 02/17/18 04:35 Total Counted 100 02/17/18 04:35 Neutrophils % (Manual) 94 % (39-76) H 02/17/18 04:35 Band Neutrophils % 1 % (0-10) 02/17/18 04:35 Lymphocytes % (Manual) 3 % (13-43) L 02/17/18 04:35 Monocytes % (Manual) 2 % (4-9) L 02/17/18 04:35 Eosinophils % (Manual) 1 % (0-6) 02/15/18 05:21 Basophils % (Manual) 1 % (0-1) 02/15/18 05:21 Plt Morphology Comment Normal (NORMAL) 02/17/18 04:35 RBC Morphology Normal (NORMAL) 02/17/18 04:35 INR Target Range - 02/13/18 07:50 INR 1.05 (0.8-1.3) 02/13/18 07:50 APTT 34.2 SECONDS (22.9-36.5) 02/13/18 07:50 PTT Comment - 02/13/18 07:50 Sample Site Lra 02/13/18 08:03 ABG pH 7.500 (7.35-7.45) H 02/13/18 08:03 ABG pCO2 27.0 mmHg (35.0-45.0) L 02/13/18 08:03 ABG pO2 78.0 mmHg (80.0-100.0) L 02/13/18 08:03 ABG HCO3 21.1 mmol/L (22-26) L 02/13/18 08:03 ABG O2 Saturation 97.0 % (90-100) 02/13/18 08:03 ABG Base Excess -1.0 mmol/L (-2.0-2.0) 02/13/18 08:03 Fernando Test Pos 02/13/18 08:03 A-a Gradient 88.0 mmHg 02/13/18 08:03 FiO2 28.000 02/13/18 08:03 Blood Gas Comments Samm well cn/cs 02/13/18 08:03 Sodium 138 mmol/L (136-145) 02/17/18 04:35 Corrected Sodium 139 mmol/L (136-145) 02/17/18 04:35 Potassium 3.6 mmol/L (3.5-5.1) 02/17/18 04:35 Chloride 102 mmol/L (98-107) 02/17/18 04:35 Carbon Dioxide 30.3 mmol/L (21-32) 02/17/18 04:35 BUN 9 mg/dL (7-18) 02/17/18 04:35 Creatinine 0.64 mg/dL (0.70-1.30) L 02/17/18 04:35 Est GFR (MDRD) Af Amer > 60 (>60) 02/17/18 04:35 Est GFR (MDRD) Non-Af > 60 (>60) 02/17/18 04:35 Glucose 159 mg/dL (65-99) H 02/17/18 04:35 Lactic Acid 1.6 mmol/L (0.4-2.0) 02/13/18 07:50 Calcium 7.4 mg/dL (8.5-10.1) L 02/17/18 04:35 Corrected Calcium 9.2 mg/dL (8.5-10.1) 02/17/18 04:35 Magnesium 2.2 mg/dL (1.7-2.9) 02/16/18 04:35 Total Bilirubin 0.20 mg/dL (0.2-1.0) 02/17/18 04:35 AST 13 Units/L (15-37) L 02/17/18 04:35 ALT 13 Units/L (12-78) 02/17/18 04:35 Alkaline Phosphatase 46 Units/L (46-116) 02/17/18 04:35 Creatine Kinase 99 Units/L (39-308) 02/16/18 04:35 CK-MB (CK-2) < 1.0 ng/mL (0-4.0) 02/16/18 04:35 CK/CKMB % Calc 1.0 % (<4) 02/16/18 04:35 Troponin I < 0.02 ng/mL (0-1.5) 02/16/18 04:35 Total Protein 5.5 g/dL (6.4-8.2) L 02/17/18 04:35 Albumin 1.7 g/dL (3.4-5.0) L 02/17/18 04:35 Globulin 3.8 g/dL (2.5-4.5) 02/17/18 04:35 Albumin/Globulin Ratio 0.4 Ratio (1.1-2.1) L 02/17/18 04:35 Triglycerides 50 mg/dL (0-150) 02/14/18 05:29 Cholesterol 83 mg/dL (0-200) 02/14/18 05:29 LDL Cholesterol, Calc 37 mg/dL (0-100) 02/14/18 05:29 HDL Cholesterol 36 mg/dL (40-60) L 02/14/18 05:29 Cholesterol/HDL Ratio 2.3 (0.0-5.0) 02/14/18 05:29 Specimen Type Random urine 02/13/18 12:15 Urine Color [place] (YELLOW) 02/13/18 12:15 Urine Appearance Clear (CLEAR) 02/13/18 12:15 Urine pH 5.0 (5.0 - 8.0) 02/13/18 12:15 Ur Specific [place] 1.020 (1.000-1.030) 02/13/18 12:15 Urine Protein 2+ (NEGATIVE) 02/13/18 12:15 Urine Glucose (UA) Negative (NEGATIVE) 02/13/18 12:15 Urine Ketones 1+ (NEGATIVE) 02/13/18 12:15 Urine Occult Blood 2+ (NEGATIVE) 02/13/18 12:15 Urine Nitrite Negative (NEGATIVE) 02/13/18 12:15 Urine Bilirubin Negative (NEGATIVE) 02/13/18 12:15 Urine Urobilinogen Normal (NORMAL) 02/13/18 12:15 Ur Leukocyte Esterase 1+ (NEGATIVE) 02/13/18 12:15 Urine RBC 3-5 /HPF (NONE SEEN) 02/13/18 12:15 Urine WBC 3-5 /HPF (NONE SEEN) 02/13/18 12:15 Ur Squamous Epith Cells Few /HPF (NEGATIVE) 02/13/18 12:15 Urine Bacteria Trace /HPF (NEGATIVE) 02/13/18 12:15 Hyaline Casts Moderate /LPF (NEGATIVE) 02/13/18 12:15 Urine Mucus Moderate /HPF (NEGATIVE) 02/13/18 12:15 Ur Culture Indicated? No/not indicated 02/13/18 12:15 Stool Description 5g pale green 02/14/18 18:09 Stl Occult Blood (IFOB) Positive (NEGATIVE) A 02/14/18 18:09 Stl C. diff Tox B Gene Negative (NEGATIVE) 02/14/18 18:09 Stl C. diff [id number] Negative (NEGATIVE) 02/14/18 18:09 Cryptosporid parvum Ag Negative (NEGATIVE) 02/14/18 18:09 E. histolytica Antigen Negative (NEGATIVE) 02/14/18 18:09 Giardia lamblia Ag Negative (NEGATIVE) 02/14/18 18:09 - Plan (1) SOB (shortness of breath) Status: Acute Plan: CONTINUE PNEUMONIA PROTOCOL WITH SPUTUM AND BLOOD CULTURES PENDING. RESP THERAPY, SUPPLEMENTAL O2, HYDRATION. CARDIAC MONITORING, BP MONITORING. REPEAT AM LABS, VERIFY HOME MEDS (2) Respiratory distress Status: Acute (3) Pneumonia Status: Acute Plan: sputum positive for pseudomonas, continue iv atbx. resp therapy (4) Tachycardia Status: Acute
--- NOTE | 2018-02-17 12:28 | RAD ---
STUDY: CHEST, ONE VIEW History: Shortness of breath. Pneumonia. Comparison: February 16, 2018. Findings: The trachea is midline. Since prior examination there has been no significant change in previously no yue airspace disease involving the left upper lobe left lower lobe. There may be a small pleural effu bhupendra at the left lung base. The right lung is clear. The cardiac silhouette, mediastinum and osseous structures are unremarkable. IMPRESSION: 1. No significant change in airspace opacity in the left lung. Reported By:
[2018-02-17] MEDS ORDERED: NS 100 ML IV + SPIKE MINIBAG* 100 ML IV ONE (13:56)
[2018-02-17] MEDS: TUSSIONEX PENNKINETIC SUSP PO PRN (14:11)
[2018-02-17] MEDS ORDERED: LASIX IVP ONE (17:51)
[2018-02-17] MEDS: K-DUR TAB 20 MEQ PO SCH (18:17)
[2018-02-17] MEDS: ZOFRAN INJ 4 MG VIAL IVP PRN (19:50)
[2018-02-17] MEDS: MAALOX or MYLANTA PO PRN (21:39)
[2018-02-17] MEDS: ULTRAM PO PRN (21:50)
[2018-02-17] MEDS: LIBRIUM PO PRN (21:50)
[2018-02-18] MEDS: ULTRAM PO PRN ×3 (03:06→22:48)
[2018-02-18] MEDS: TUSSIONEX PENNKINETIC SUSP PO PRN (03:15)
[2018-02-18] MEDS: MAALOX or MYLANTA PO PRN ×2 (04:39→18:36)
[2018-02-18] MEDS: SOLU-Medrol 40 MG VIAL IVP SCH ×2 (05:04→13:14)
[2018-02-18] MEDS: MERREM VIAL 1 G in NS 100 ML IV + SPIKE MINIBAG* 100 ML IV SCH ×3 (05:04→22:31)
[2018-02-18 06:13] LABS: ALANINE AMINOTRANSFERASE 16 Units/L (12-78); ALBUMIN 1.9 g/dL (3.4-5.0); ALKALINE PHOSPHATASE 40 Units/L (46-116); ASPARTATE AMINO TRANSFERASE 17 Units/L (15-37); BLOOD UREA NITROGEN 12 mg/dL (7-18); CALCIUM 7.4 mg/dL (8.5-10.1); CARBON DIOXIDE 33.3 mmol/L (21-32); CHLORIDE 104 mmol/L (98-107); COR CA(FOR HYPOALB) 9.1 mg/dL (8.5-10.1); COR NA(FOR HYPERGLY) 143 mmol/L (136-145); CREATININE 0.74 mg/dL (0.70-1.30); SODIUM 142 mmol/L (136-145); TOTAL PROTEIN 5.6 g/dL (6.4-8.2); eGFR NON BLACK RACES > 60 (>60)
[2018-02-18] MEDS: NS 1000 ML 1,000 ML IV SCH (06:20)
[2018-02-18 06:22] LABS: BASOPHILS % (AUTO) 0.1 % (0.2-1.0); HEMOGLOBIN 12.2 g/dL (13.5-18.0); LYMPHOCYTES # (AUTO) 0.3 X10^3/uL (1.3-2.9); LYMPHOCYTES % (AUTO) 3.2 % (21.0-51.0); MEAN CORPUSCULAR HEMOGLOBIN 31.8 pg (27.0-34.0); MEAN CORPUSCULAR HGB CONC 33.9 g/dL (33.0-35.0); MEAN CORPUSCULAR VOLUME 93.9 fL (80.0-100.0); MEAN PLATELET VOLUME 8.4 fL (7.4-11.0); MONOCYTES # (AUTO) 0.5 x10^3/uL (0.3-0.8); MONOCYTES % (AUTO) 6.6 % (0.0-13.0); NEUTROPHILS # (AUTO) 7.3 x10^3/uL (2.2-4.8); NEUTROPHILS % (AUTO) 90.1 % (42.0-75.0); PLATELET COUNT 226 X10^3/uL (150.0-450.0); RED BLOOD COUNT 3.84 X10^6/uL (4.7-6.0); RED CELL DISTRIBUTION WIDTH 13.7 % (11.6-16.5); WHITE BLOOD COUNT 8.1 X10^3/uL (3.6-10.0)
[2018-02-18 06:25] LABS: ABG BASE EXCESS 13.2 mmol/L (-2.0-2.0)
[2018-02-18 06:27] LABS: ABG HCO3 38.7 mmol/L (22-26)
[2018-02-18] MEDS: PEPCID 20 MG IV PREMIX* 20 MG/50 ML BAG IV SCH ×2 (06:40→22:30)
[2018-02-18 07:07] LABS: PLATELET MORPHOLOGY COMMENT NORMAL (NORMAL)
[2018-02-18] MEDS: K-LYTE EFFERVESCENT PO PRN (07:08)
[2018-02-18] MEDS: ROBITUSSIN DM PO SCH ×4 (08:53→22:31)
[2018-02-18] MEDS: K-DUR TAB 20 MEQ PO SCH (08:53)
[2018-02-18] MEDS: LIBRIUM PO PRN ×2 (08:54→22:50)
[2018-02-18] MEDS: NICOTINE PATCH TD SCH (08:54)
[2018-02-18] MEDS: LEVAQUIN PREMIX IV 750 MG 750 MG/150 ML BAG IV SCH (08:54)
[2018-02-18] MEDS: PULMICORT NEB TX 0.5 MG NEB SCH ×2 (09:55→20:07)
[2018-02-18] MEDS: BROVANA IN SCH ×2 (09:55→20:06)
[2018-02-18] MEDS: XOPENEX 1.25 MG/3 ML NEBULE NEB SCH ×5 (09:55→20:07)
[2018-02-18] MEDS: Atrovent NEB TX 0.02% NEB SCH ×4 (09:55→20:06)
[2018-02-19 04:57] LABS: ABG BASE EXCESS 12.2 mmol/L (-2.0-2.0)
[2018-02-19 04:59] LABS: ABG ALLEN TEST POS; ABG HCO3 37.3 mmol/L (22-26)
[2018-02-19] MEDS: MERREM VIAL 1 G in NS 100 ML IV + SPIKE MINIBAG* 100 ML IV SCH ×3 (05:37→21:23)
[2018-02-19 06:16] LABS: BASOPHILS % (AUTO) 0.1 % (0.2-1.0); HEMOGLOBIN 12.1 g/dL (13.5-18.0); LYMPHOCYTES # (AUTO) 0.3 X10^3/uL (1.3-2.9); LYMPHOCYTES % (AUTO) 3.8 % (21.0-51.0); MEAN CORPUSCULAR HEMOGLOBIN 32.2 pg (27.0-34.0); MEAN CORPUSCULAR HGB CONC 34.7 g/dL (33.0-35.0); MEAN CORPUSCULAR VOLUME 92.8 fL (80.0-100.0); MONOCYTES # (AUTO) 0.3 x10^3/uL (0.3-0.8); MONOCYTES % (AUTO) 4.3 % (0.0-13.0); NEUTROPHILS # (AUTO) 6.7 x10^3/uL (2.2-4.8); NEUTROPHILS % (AUTO) 91.8 % (42.0-75.0); PLATELET COUNT 248 X10^3/uL (150.0-450.0); RED BLOOD COUNT 3.77 X10^6/uL (4.7-6.0); RED CELL DISTRIBUTION WIDTH 13.7 % (11.6-16.5); WHITE BLOOD COUNT 7.3 X10^3/uL (3.6-10.0)
[2018-02-19 06:33] LABS: ALANINE AMINOTRANSFERASE 19 Units/L (12-78); ALBUMIN 1.9 g/dL (3.4-5.0); ALKALINE PHOSPHATASE 43 Units/L (46-116); ASPARTATE AMINO TRANSFERASE 22 Units/L (15-37); BLOOD UREA NITROGEN 13 mg/dL (7-18); CALCIUM 7.4 mg/dL (8.5-10.1); CARBON DIOXIDE 33.7 mmol/L (21-32); CHLORIDE 104 mmol/L (98-107); COR CA(FOR HYPOALB) 9.1 mg/dL (8.5-10.1); COR NA(FOR HYPERGLY) 141 mmol/L (136-145); CREATININE 0.59 mg/dL (0.70-1.30); SODIUM 140 mmol/L (136-145); TOTAL PROTEIN 5.4 g/dL (6.4-8.2); eGFR NON BLACK RACES > 60 (>60)
[2018-02-19] MEDS ORDERED: NS 100 ML IV 100 ML IV ONE (06:41)
[2018-02-19 06:52] LABS: PLATELET MORPHOLOGY COMMENT NORMAL (NORMAL)
--- NOTE | 2018-02-19 07:31 | CT ---
HISTORY: Shortness of breath, pneumonia Study: CT chest with contrast Comparison: 02/13/2018 Technique: Axial post-contrast images with coronal and sagittal reformats. Dose reduction procedures were used with mA/kv adjusted for body size. Findings: Examination of the mediastinum demonstrated no evidence for mediastinal masses, enlarged mediastinal adenopathy, or enlarged hilar adenopathy. The thoracic aorta is within normal limits. Bilateral pleur al effusions are present left greater than right. No chest wall or axillary abnormality is identified . Those portions of the upper abdominal organs visualized were within normal limits. A examination of the lung montejo demonstrated changes of centrilobular emphysema to be present bilaterally. The right lung is free of acute alveolar infiltrates nodules and masses. Increasing consolidation is present i n the left upper lobe when compared with the prior examination. There is now some associated upper lo be volume loss. The left lower lobe is clear. IMPRESSION: Increasing consolidation involving a larger portion of the left upper lobe than on the prior examinat ion and now of also some underlying volume loss Interval development of bilateral pleural effusions, small, left greater than right Centrilobular emphysema Reported By:
[2018-02-19] MEDS: BROVANA IN SCH ×2 (08:49→20:10)
[2018-02-19] MEDS: PULMICORT NEB TX 0.5 MG NEB SCH ×2 (08:49→20:10)
[2018-02-19] MEDS: Atrovent NEB TX 0.02% NEB SCH ×4 (08:49→20:10)
[2018-02-19] MEDS: XOPENEX 1.25 MG/3 ML NEBULE NEB SCH ×4 (08:49→20:10)
[2018-02-19] MEDS: NS 1000 ML 1,000 ML IV SCH (09:41)
[2018-02-19] MEDS: NICOTINE PATCH TD SCH (09:42)
[2018-02-19] MEDS: LEVAQUIN PREMIX IV 750 MG 750 MG/150 ML BAG IV SCH (09:42)
[2018-02-19] MEDS: K-DUR TAB 20 MEQ PO SCH (09:42)
[2018-02-19] MEDS: ROBITUSSIN DM PO SCH ×4 (09:43→20:01)
[2018-02-19] MEDS: PEPCID 20 MG IV PREMIX* 20 MG/50 ML BAG IV SCH ×2 (09:43→20:00)
[2018-02-19] MEDS: ULTRAM PO PRN ×3 (09:46→21:22)
--- NOTE | 2018-02-19 13:19 | PCM.PROG ---
Progress Note - Progress Note for Day of Date: 02/19/18 - Subjective Subjective: 67 WM ER ADMIT ON 02/13 WITH PNEUMONIA, CHEST CONGESTION, RESP DISTRESS. PT CURRENTLY ON IV ATBX AND RESP THERAPY WITH SUPPLEMENTAL O2, SPUTUM CUTLURE PENDING. PT CONTINUES WITH SOB AT REST, MODERATE DISTRESS WITH DIFFUSE RHONCHI. PT REPORTS HE FEELS MORE IMPROVED THIS AM, CONTINUES WITH PRODUCTIVE COUGH. CT CHEST REVEALS WORSENED INFILTRATE, DISCUSSED REPEAT STEROIDS, SMART VEST AND MUCOMYST, PT - Past Medical Family Social History Past Med/Fam/Surg Hx: No changes since H&P Allergies: Allergies No Known Drug Allergies Allergy (Verified 02/13/18 07:42) - Review of Systems ROS: No change since H&P - Vital Signs and I&O's Vital Signs: Temperature 98.0 F Pulse Rate [Apical] 90 Pulse Rate 90 Respiratory Rate 20 Blood Pressure [Right Arm] 138/70 Blood Pressure 107/55 O2 Sat by Pulse Oximetry 90 Intake and Output: Intake & Output 02/17/18 02/18/18 02/19/18 02/20/18 11:59 11:59 11:59 11:59 Intake Total 3355 / 3355 2141 / 2141 1392 / 1392 Output Total 1500 / 1500 3553 / 3553 200 / 200 Balance 1855 / 1855 -1412 / -1412 1192 / 1192 - Physical Exam Oriented: Normal Eyes: Normal Ear: Normal Nose: Normal Throat: Normal Respiratory: Diminished, Rhonchi Cardiovascular: Tachycardia : Normal Tenderness: Normal Skin: Normal Musculoskeletal: Normal Psychiatric: Normal Speech Pattern: Clear, Appropriate - Laboratory and Diagnostics Result Diagrams: 02/19/18 05:00 02/19/18 05:00 Labs: 02/13/18 07:55 Blood Blood Culture - Final 02/13/18 07:50 Blood Blood Culture - Final 02/15/18 02:28 Sputum - Expectorated Sputum Sputum Culture - Preliminary 02/15/18 02:28 Sputum - Expectorated Sputum - Final 02/14/18 18:09 Stool Stool Culture - Final 02/14/18 18:09 Stool - Final 02/14/18 16:58 Blood Blood Culture - Preliminary 02/14/18 17:04 Blood Blood Culture - Preliminary 02/14/18 07:25 Sputum - Expectorated Sputum Sputum Culture - Final 02/14/18 07:25 Sputum - Expectorated Sputum - Final 02/13/18 08:26 Sputum - Expectorated Sputum Sputum Culture - Final Pseudomonas Aeruginosa 02/13/18 08:26 Sputum - Expectorated Sputum - Final Laboratory WBC 7.3 X10^3/uL (3.6-10.0) 02/19/18 05:00 RBC 3.77 X10^6/uL (4.7-6.0) L 02/19/18 05:00 Hgb 12.1 g/dL (13.5-18.0) L 02/19/18 05:00 Hct 35.0 % (42.0-54.0) L 02/19/18 05:00 MCV 92.8 fL (80.0-100.0) 02/19/18 05:00 MCH 32.2 pg (27.0-34.0) 02/19/18 05:00 MCHC 34.7 g/dL (33.0-35.0) 02/19/18 05:00 RDW 13.7 % (11.6-16.5) 02/19/18 05:00 Plt Count 248 X10^3/uL (150.0-450.0) 02/19/18 05:00 Plt Count Comment Adequate (ADEQUATE) 02/19/18 05:00 MPV 8.0 fL (7.4-11.0) 02/19/18 05:00 Neut % (Auto) 91.8 % (42.0-75.0) H 02/19/18 05:00 Lymph % (Auto) 3.8 % (21.0-51.0) L 02/19/18 05:00 [place] % (Auto) 4.3 % (0.0-13.0) 02/19/18 05:00 Eos % (Auto) 0.0 % (0.9-2.9) L 02/19/18 05:00 Baso % (Auto) 0.1 % (0.2-1.0) L 02/19/18 05:00 Neut # (Auto) 6.7 x10^3/uL (2.2-4.8) H 02/19/18 05:00 Lymph # (Auto) 0.3 X10^3/uL (1.3-2.9) L 02/19/18 05:00 [place] # (Auto) 0.3 x10^3/uL (0.3-0.8) 02/19/18 05:00 Eos # (Auto) 0.0 x10^3/uL (0.0-0.2) 02/19/18 05:00 Baso # (Auto) 0.0 X10^3/uL (0.0-0.1) 02/19/18 05:00 Absolute Nucleated RBC 0.1 /100WBC 02/19/18 05:00 Total Counted 100 02/19/18 05:00 Neutrophils % (Manual) 89 % (39-76) H 02/19/18 05:00 Band Neutrophils % 1 % (0-10) 02/17/18 04:35 Lymphocytes % (Manual) 9 % (13-43) L 02/19/18 05:00 Monocytes % (Manual) 2 % (4-9) L 02/19/18 05:00 Eosinophils % (Manual) 1 % (0-6) 02/15/18 05:21 Basophils % (Manual) 1 % (0-1) 02/15/18 05:21 Plt Morphology Comment Normal (NORMAL) 02/19/18 05:00 RBC Morphology Normal (NORMAL) 02/19/18 05:00 INR Target Range - 02/13/18 07:50 INR 1.05 (0.8-1.3) 02/13/18 07:50 APTT 34.2 SECONDS (22.9-36.5) 02/13/18 07:50 PTT Comment - 02/13/18 07:50 Sample Site Rr 02/19/18 04:46 ABG pH 7.490 (7.35-7.45) H 02/19/18 04:46 ABG pCO2 49.0 mmHg (35.0-45.0) H 02/19/18 04:46 ABG pO2 50.0 mmHg (80.0-100.0) L 02/19/18 04:46 ABG HCO3 37.3 mmol/L (22-26) H* 02/19/18 04:46 ABG O2 Saturation 88.0 % (90-100) L 02/19/18 04:46 ABG Base Excess 12.2 mmol/L (-2.0-2.0) H 02/19/18 04:46 Fernando Test Pos 02/19/18 04:46 A-a Gradient 88.0 mmHg 02/19/18 04:46 FiO2 28.000 02/19/18 04:46 Blood Gas Comments Samm well ae 02/19/18 04:46 Sodium 140 mmol/L (136-145) 02/19/18 05:00 Corrected Sodium 141 mmol/L (136-145) 02/19/18 05:00 Potassium 3.8 mmol/L (3.5-5.1) 02/19/18 05:00 Chloride 104 mmol/L (98-107) 02/19/18 05:00 Carbon Dioxide 33.7 mmol/L (21-32) H 02/19/18 05:00 BUN 13 mg/dL (7-18) 02/19/18 05:00 Creatinine 0.59 mg/dL (0.70-1.30) L 02/19/18 05:00 Est GFR (MDRD) Af Amer > 60 (>60) 02/19/18 05:00 Est GFR (MDRD) Non-Af > 60 (>60) 02/19/18 05:00 Glucose 127 mg/dL (65-99) H 02/19/18 05:00 Lactic Acid 1.6 mmol/L (0.4-2.0) 02/13/18 07:50 Calcium 7.4 mg/dL (8.5-10.1) L 02/19/18 05:00 Corrected Calcium 9.1 mg/dL (8.5-10.1) 02/19/18 05:00 Magnesium 2.2 mg/dL (1.7-2.9) 02/18/18 04:33 Total Bilirubin 0.20 mg/dL (0.2-1.0) 02/19/18 05:00 AST 22 Units/L (15-37) 02/19/18 05:00 ALT 19 Units/L (12-78) 02/19/18 05:00 Alkaline Phosphatase 43 Units/L (46-116) L 02/19/18 05:00 Creatine Kinase 99 Units/L (39-308) 02/16/18 04:35 CK-MB (CK-2) < 1.0 ng/mL (0-4.0) 02/16/18 04:35 CK/CKMB % Calc 1.0 % (<4) 02/16/18 04:35 Troponin I < 0.02 ng/mL (0-1.5) 02/16/18 04:35 Total Protein 5.4 g/dL (6.4-8.2) L 02/19/18 05:00 Albumin 1.9 g/dL (3.4-5.0) L 02/19/18 05:00 Globulin 3.5 g/dL (2.5-4.5) 02/19/18 05:00 Albumin/Globulin Ratio 0.5 Ratio (1.1-2.1) L 02/19/18 05:00 Triglycerides 50 mg/dL (0-150) 02/14/18 05:29 Cholesterol 83 mg/dL (0-200) 02/14/18 05:29 LDL Cholesterol, Calc 37 mg/dL (0-100) 02/14/18 05:29 HDL Cholesterol 36 mg/dL (40-60) L 02/14/18 05:29 Cholesterol/HDL Ratio 2.3 (0.0-5.0) 02/14/18 05:29 Specimen Type Random urine 02/13/18 12:15 Urine Color [place] (YELLOW) 02/13/18 12:15 Urine Appearance Clear (CLEAR) 02/13/18 12:15 Urine pH 5.0 (5.0 - 8.0) 02/13/18 12:15 Ur Specific [place] 1.020 (1.000-1.030) 02/13/18 12:15 Urine Protein 2+ (NEGATIVE) 02/13/18 12:15 Urine Glucose (UA) Negative (NEGATIVE) 02/13/18 12:15 Urine Ketones 1+ (NEGATIVE) 02/13/18 12:15 Urine Occult Blood 2+ (NEGATIVE) 02/13/18 12:15 Urine Nitrite Negative (NEGATIVE) 02/13/18 12:15 Urine Bilirubin Negative (NEGATIVE) 02/13/18 12:15 Urine Urobilinogen Normal (NORMAL) 02/13/18 12:15 Ur Leukocyte Esterase 1+ (NEGATIVE) 02/13/18 12:15 Urine RBC 3-5 /HPF (NONE SEEN) 02/13/18 12:15 Urine WBC 3-5 /HPF (NONE SEEN) 02/13/18 12:15 Ur Squamous Epith Cells Few /HPF (NEGATIVE) 02/13/18 12:15 Urine Bacteria Trace /HPF (NEGATIVE) 02/13/18 12:15 Hyaline Casts Moderate /LPF (NEGATIVE) 02/13/18 12:15 Urine Mucus Moderate /HPF (NEGATIVE) 02/13/18 12:15 Ur Culture Indicated? No/not indicated 02/13/18 12:15 Stool Description 5g pale green 02/14/18 18:09 Stl Occult Blood (IFOB) Positive (NEGATIVE) A 02/14/18 18:09 Stl C. diff Tox B Gene Negative (NEGATIVE) 02/14/18 18:09 Stl C. diff [id number] Negative (NEGATIVE) 02/14/18 18:09 Cryptosporid parvum Ag Negative (NEGATIVE) 02/14/18 18:09 E. histolytica Antigen Negative (NEGATIVE) 02/14/18 18:09 Giardia lamblia Ag Negative (NEGATIVE) 02/14/18 18:09 - Plan (1) SOB (shortness of breath) Status: Acute Plan: CONTINUE PNEUMONIA PROTOCOL WITH SPUTUM AND BLOOD CULTURES COLLECTED ON ADMISSION. RESP THERAPY, SUPPLEMENTAL O2, HYDRATION. CARDIAC MONITORING, BP MONITORING. REPEAT AM LABS, VERIFY HOME MEDS (2) Respiratory distress Status: Acute Plan: AM ABG, SUPPLEMENTAL O2 (3) Pneumonia Status: Acute Plan: sputum positive for pseudomonas, continue iv atbx. resp therapy (4) Tachycardia Status: Acute Plan: CONTINUE CARDIAC MONITORING
[2018-02-19] MEDS: SOLU-Medrol 40 MG VIAL IVP SCH ×2 (13:59→21:23)
[2018-02-19] MEDS ORDERED: LASIX IVP SCH (14:00)
[2018-02-19] MEDS: MUCOMYST 20% 200 MG/ML NEB SCH ×3 (17:05→20:10)
[2018-02-19] MEDS: LIBRIUM PO PRN (20:01)
[2018-02-20] MEDS: ULTRAM PO PRN ×2 (04:45→21:25)
[2018-02-20] MEDS: SOLU-Medrol 40 MG VIAL IVP SCH ×3 (05:07→21:22)
[2018-02-20] MEDS: MERREM VIAL 1 G in NS 100 ML IV + SPIKE MINIBAG* 100 ML IV SCH ×3 (05:07→21:26)
[2018-02-20 06:15] LABS: BASOPHILS % (AUTO) 0.1 % (0.2-1.0); HEMATOCRIT 38.5 % (42.0-54.0); HEMOGLOBIN 13.2 g/dL (13.5-18.0); LYMPHOCYTES # (AUTO) 0.4 X10^3/uL (1.3-2.9); MEAN CORPUSCULAR HEMOGLOBIN 31.9 pg (27.0-34.0); MEAN CORPUSCULAR HGB CONC 34.2 g/dL (33.0-35.0); MEAN CORPUSCULAR VOLUME 93.1 fL (80.0-100.0); MEAN PLATELET VOLUME 8.2 fL (7.4-11.0); MONOCYTES # (AUTO) 0.1 x10^3/uL (0.3-0.8); NEUTROPHILS # (AUTO) 9.1 x10^3/uL (2.2-4.8); NEUTROPHILS % (AUTO) 94.9 % (42.0-75.0); PLATELET COUNT 260 X10^3/uL (150.0-450.0); RED BLOOD COUNT 4.14 X10^6/uL (4.7-6.0); RED CELL DISTRIBUTION WIDTH 13.7 % (11.6-16.5); WHITE BLOOD COUNT 9.5 X10^3/uL (3.6-10.0)
[2018-02-20 06:19] LABS: ALANINE AMINOTRANSFERASE 13 Units/L (12-78); ALBUMIN 2.1 g/dL (3.4-5.0); ALKALINE PHOSPHATASE 54 Units/L (46-116); ASPARTATE AMINO TRANSFERASE 20 Units/L (15-37); BLOOD UREA NITROGEN 13 mg/dL (7-18); CALCIUM 8.1 mg/dL (8.5-10.1); CARBON DIOXIDE 31.3 mmol/L (21-32); CHLORIDE 103 mmol/L (98-107); COR CA(FOR HYPOALB) 9.6 mg/dL (8.5-10.1); COR NA(FOR HYPERGLY) 140 mmol/L (136-145); CREATININE 0.69 mg/dL (0.70-1.30); SODIUM 139 mmol/L (136-145); TOTAL PROTEIN 5.7 g/dL (6.4-8.2); eGFR NON BLACK RACES > 60 (>60)
[2018-02-20 06:42] LABS: PLATELET MORPHOLOGY COMMENT NORMAL (NORMAL)
[2018-02-20] MEDS: BROVANA IN SCH ×2 (09:00→21:59)
[2018-02-20] MEDS: MUCOMYST 20% 200 MG/ML NEB SCH ×4 (09:00→21:59)
[2018-02-20] MEDS: XOPENEX 1.25 MG/3 ML NEBULE NEB SCH ×4 (09:00→21:59)
[2018-02-20] MEDS: PULMICORT NEB TX 0.5 MG NEB SCH ×2 (09:00→21:59)
[2018-02-20] MEDS: Atrovent NEB TX 0.02% NEB SCH ×4 (09:00→21:59)
[2018-02-20] MEDS: K-DUR TAB 20 MEQ PO SCH (09:19)
[2018-02-20] MEDS: NS 1000 ML 1,000 ML IV SCH (09:19)
[2018-02-20] MEDS: ROBITUSSIN DM PO SCH ×4 (09:19→21:25)
[2018-02-20] MEDS: PEPCID 20 MG IV PREMIX* 20 MG/50 ML BAG IV SCH ×2 (09:20→21:22)
[2018-02-20] MEDS: LEVAQUIN PREMIX IV 750 MG 750 MG/150 ML BAG IV SCH (09:20)
[2018-02-20] MEDS: LIBRIUM PO PRN ×2 (09:20→21:25)
[2018-02-20] MEDS: NICOTINE PATCH TD SCH (09:20)
[2018-02-20 10:10] LABS: ABG BASE EXCESS 10.4 mmol/L (-2.0-2.0)
[2018-02-20 10:11] LABS: ABG ALLEN TEST POS; ABG HCO3 35.1 mmol/L (22-26)
[2018-02-20] MEDS ORDERED: NS 100 ML IV 100 ML IV ONE ×2 (13:13→21:08)
[2018-02-20] MEDS ORDERED: MERREM VIAL ONE ×2 (13:13→21:08)
--- NOTE | 2018-02-20 13:16 | PCM.PROG ---
Progress Note - Progress Note for Day of Date: 02/20/18 - Subjective Subjective: 67 WM ER ADMIT ON 02/13 WITH PNEUMONIA, CHEST CONGESTION, RESP DISTRESS. PT CURRENTLY ON IV ATBX AND RESP THERAPY WITH SUPPLEMENTAL O2, SPUTUM CUTLURE PENDING. PT CONTINUES WITH SOB AT REST, MODERATE DISTRESS WITH DIFFUSE RHONCHI. PT REPORTS HE FEELS MORE IMPROVED THIS AM, CONTINUES WITH PRODUCTIVE COUGH. REPEAT CT CHEST REVEALED WORSENED INFILTRATE, CONTINUE STEROIDS, SMART VEST AND MUCOMYST, PT STATES HE FEELS LITTLE IMPROVEMENT, NOT MUCH SOB - Past Medical Family Social History Past Med/Fam/Surg Hx: No changes since H&P Allergies: Allergies No Known Drug Allergies Allergy (Verified 02/13/18 07:42) - Review of Systems ROS: No change since H&P - Vital Signs and I&O's Vital Signs: Temperature 98.5 F Pulse Rate [Apical] 92 Pulse Rate 71 Respiratory Rate 22 Blood Pressure [Right Arm] 142/80 Blood Pressure 107/55 O2 Sat by Pulse Oximetry 97 Intake and Output: Intake & Output 02/18/18 02/19/18 02/20/18 02/21/18 11:59 11:59 11:59 11:59 Intake Total 2141 / 2141 1392 / 1392 1625 / 1625 Output Total 3553 / 3553 200 / 200 700 / 700 Balance -1412 / -1412 1192 / 1192 925 / 925 - Physical Exam Oriented: Normal Eyes: Normal Ear: Normal Nose: Normal Throat: Normal Respiratory: Diminished, Rhonchi Cardiovascular: Tachycardia : Normal Tenderness: Normal Skin: Normal Musculoskeletal: Normal Psychiatric: Normal Speech Pattern: Clear, Appropriate - Laboratory and Diagnostics Result Diagrams: 02/20/18 04:40 02/20/18 04:40 Labs: 02/14/18 17:04 Blood Blood Culture - Final 02/14/18 16:58 Blood Blood Culture - Final 02/13/18 07:55 Blood Blood Culture - Final 02/13/18 07:50 Blood Blood Culture - Final 02/15/18 02:28 Sputum - Expectorated Sputum Sputum Culture - Preliminary 02/15/18 02:28 Sputum - Expectorated Sputum - Final 02/14/18 18:09 Stool Stool Culture - Final 02/14/18 18:09 Stool - Final 02/14/18 07:25 Sputum - Expectorated Sputum Sputum Culture - Final 02/14/18 07:25 Sputum - Expectorated Sputum - Final 02/13/18 08:26 Sputum - Expectorated Sputum Sputum Culture - Final Pseudomonas Aeruginosa 02/13/18 08:26 Sputum - Expectorated Sputum - Final Laboratory WBC 9.5 X10^3/uL (3.6-10.0) 02/20/18 04:40 RBC 4.14 X10^6/uL (4.7-6.0) L 02/20/18 04:40 Hgb 13.2 g/dL (13.5-18.0) L 02/20/18 04:40 Hct 38.5 % (42.0-54.0) L 02/20/18 04:40 MCV 93.1 fL (80.0-100.0) 02/20/18 04:40 MCH 31.9 pg (27.0-34.0) 02/20/18 04:40 MCHC 34.2 g/dL (33.0-35.0) 02/20/18 04:40 RDW 13.7 % (11.6-16.5) 02/20/18 04:40 Plt Count 260 X10^3/uL (150.0-450.0) 02/20/18 04:40 Plt Count Comment Adequate (ADEQUATE) 02/20/18 04:40 MPV 8.2 fL (7.4-11.0) 02/20/18 04:40 Neut % (Auto) 94.9 % (42.0-75.0) H 02/20/18 04:40 Lymph % (Auto) 4.0 % (21.0-51.0) L 02/20/18 04:40 [place] % (Auto) 1.0 % (0.0-13.0) 02/20/18 04:40 Eos % (Auto) 0.0 % (0.9-2.9) L 02/20/18 04:40 Baso % (Auto) 0.1 % (0.2-1.0) L 02/20/18 04:40 Neut # (Auto) 9.1 x10^3/uL (2.2-4.8) H 02/20/18 04:40 Lymph # (Auto) 0.4 X10^3/uL (1.3-2.9) L 02/20/18 04:40 [place] # (Auto) 0.1 x10^3/uL (0.3-0.8) L 02/20/18 04:40 Eos # (Auto) 0.0 x10^3/uL (0.0-0.2) 02/20/18 04:40 Baso # (Auto) 0.0 X10^3/uL (0.0-0.1) 02/20/18 04:40 Absolute Nucleated RBC 0.0 /100WBC 02/20/18 04:40 Total Counted 100 02/20/18 04:40 Neutrophils % (Manual) 91 % (39-76) H 02/20/18 04:40 Band Neutrophils % 1 % (0-10) 02/17/18 04:35 Lymphocytes % (Manual) 8 % (13-43) L 02/20/18 04:40 Monocytes % (Manual) 1 % (4-9) L 02/20/18 04:40 Eosinophils % (Manual) 1 % (0-6) 02/15/18 05:21 Basophils % (Manual) 1 % (0-1) 02/15/18 05:21 Plt Morphology Comment Normal (NORMAL) 02/20/18 04:40 RBC Morphology Normal (NORMAL) 02/20/18 04:40 INR Target Range - 02/13/18 07:50 INR 1.05 (0.8-1.3) 02/13/18 07:50 APTT 34.2 SECONDS (22.9-36.5) 02/13/18 07:50 PTT Comment - 02/13/18 07:50 Sample Site Rra 02/20/18 10:00 ABG pH 7.490 (7.35-7.45) H 02/20/18 10:00 ABG pCO2 46.0 mmHg (35.0-45.0) H 02/20/18 10:00 ABG pO2 66.0 mmHg (80.0-100.0) L 02/20/18 10:00 ABG HCO3 35.1 mmol/L (22-26) H* 02/20/18 10:00 ABG O2 Saturation 94.0 % (90-100) 02/20/18 10:00 ABG Base Excess 10.4 mmol/L (-2.0-2.0) H 02/20/18 10:00 Fernando Test Pos 02/20/18 10:00 A-a Gradient 76.0 mmHg 02/20/18 10:00 FiO2 28.000 02/20/18 10:00 Blood Gas Comments Samm well cs 02/20/18 10:00 Sodium 139 mmol/L (136-145) 02/20/18 04:40 Corrected Sodium 140 mmol/L (136-145) 02/20/18 04:40 Potassium 4.2 mmol/L (3.5-5.1) 02/20/18 04:40 Chloride 103 mmol/L (98-107) 02/20/18 04:40 Carbon Dioxide 31.3 mmol/L (21-32) 02/20/18 04:40 BUN 13 mg/dL (7-18) 02/20/18 04:40 Creatinine 0.69 mg/dL (0.70-1.30) L 02/20/18 04:40 Est GFR (MDRD) Af Amer > 60 (>60) 02/20/18 04:40 Est GFR (MDRD) Non-Af > 60 (>60) 02/20/18 04:40 Glucose 132 mg/dL (65-99) H 02/20/18 04:40 Lactic Acid 1.6 mmol/L (0.4-2.0) 02/13/18 07:50 Calcium 8.1 mg/dL (8.5-10.1) L 02/20/18 04:40 Corrected Calcium 9.6 mg/dL (8.5-10.1) 02/20/18 04:40 Magnesium 2.2 mg/dL (1.7-2.9) 02/18/18 04:33 Total Bilirubin 0.20 mg/dL (0.2-1.0) 02/20/18 04:40 AST 20 Units/L (15-37) 02/20/18 04:40 ALT 13 Units/L (12-78) 02/20/18 04:40 Alkaline Phosphatase 54 Units/L (46-116) 02/20/18 04:40 Creatine Kinase 99 Units/L (39-308) 02/16/18 04:35 CK-MB (CK-2) < 1.0 ng/mL (0-4.0) 02/16/18 04:35 CK/CKMB % Calc 1.0 % (<4) 02/16/18 04:35 Troponin I < 0.02 ng/mL (0-1.5) 02/16/18 04:35 Total Protein 5.7 g/dL (6.4-8.2) L 02/20/18 04:40 Albumin 2.1 g/dL (3.4-5.0) L 02/20/18 04:40 Globulin 3.6 g/dL (2.5-4.5) 02/20/18 04:40 Albumin/Globulin Ratio 0.6 Ratio (1.1-2.1) L 02/20/18 04:40 Triglycerides 50 mg/dL (0-150) 02/14/18 05:29 Cholesterol 83 mg/dL (0-200) 02/14/18 05:29 LDL Cholesterol, Calc 37 mg/dL (0-100) 02/14/18 05:29 HDL Cholesterol 36 mg/dL (40-60) L 02/14/18 05:29 Cholesterol/HDL Ratio 2.3 (0.0-5.0) 02/14/18 05:29 Specimen Type Random urine 02/13/18 12:15 Urine Color [place] (YELLOW) 02/13/18 12:15 Urine Appearance Clear (CLEAR) 02/13/18 12:15 Urine pH 5.0 (5.0 - 8.0) 02/13/18 12:15 Ur Specific [place] 1.020 (1.000-1.030) 02/13/18 12:15 Urine Protein 2+ (NEGATIVE) 02/13/18 12:15 Urine Glucose (UA) Negative (NEGATIVE) 02/13/18 12:15 Urine Ketones 1+ (NEGATIVE) 02/13/18 12:15 Urine Occult Blood 2+ (NEGATIVE) 02/13/18 12:15 Urine Nitrite Negative (NEGATIVE) 02/13/18 12:15 Urine Bilirubin Negative (NEGATIVE) 02/13/18 12:15 Urine Urobilinogen Normal (NORMAL) 02/13/18 12:15 Ur Leukocyte Esterase 1+ (NEGATIVE) 02/13/18 12:15 Urine RBC 3-5 /HPF (NONE SEEN) 02/13/18 12:15 Urine WBC 3-5 /HPF (NONE SEEN) 02/13/18 12:15 Ur Squamous Epith Cells Few /HPF (NEGATIVE) 02/13/18 12:15 Urine Bacteria Trace /HPF (NEGATIVE) 02/13/18 12:15 Hyaline Casts Moderate /LPF (NEGATIVE) 02/13/18 12:15 Urine Mucus Moderate /HPF (NEGATIVE) 02/13/18 12:15 Ur Culture Indicated? No/not indicated 02/13/18 12:15 Stool Description 5g pale green 02/14/18 18:09 Stl Occult Blood (IFOB) Positive (NEGATIVE) A 02/14/18 18:09 Stl C. diff Tox B Gene Negative (NEGATIVE) 02/14/18 18:09 Stl C. diff [id number] Negative (NEGATIVE) 02/14/18 18:09 Cryptosporid parvum Ag Negative (NEGATIVE) 02/14/18 18:09 E. histolytica Antigen Negative (NEGATIVE) 02/14/18 18:09 Giardia lamblia Ag Negative (NEGATIVE) 02/14/18 18:09 - Plan (1) SOB (shortness of breath) Status: Acute Plan: CONTINUE PNEUMONIA PROTOCOL WITH SPUTUM AND BLOOD CULTURES COLLECTED ON ADMISSION. RESP THERAPY, SUPPLEMENTAL O2, HYDRATION. CARDIAC MONITORING, BP MONITORING. REPEAT AM LABS, VERIFY HOME MEDS (2) Respiratory distress Status: Acute Plan: AM ABG, SUPPLEMENTAL O2 (3) Pneumonia Status: Acute Plan: sputum positive for pseudomonas, continue iv atbx. resp therapy, pulmonary toileting (4) Tachycardia Status: Acute Plan: CONTINUE CARDIAC MONITORING
[2018-02-21] MEDS ORDERED: MERREM VIAL ONE ×2 (05:36→14:01)
[2018-02-21] MEDS ORDERED: NS 100 ML IV 100 ML IV ONE ×2 (05:37→14:00)
[2018-02-21] MEDS: SOLU-Medrol 40 MG VIAL IVP SCH ×3 (05:52→21:00)
[2018-02-21] MEDS: MERREM VIAL 1 G in NS 100 ML IV + SPIKE MINIBAG* 100 ML IV SCH ×3 (05:52→21:43)
[2018-02-21 05:54] LABS: BASOPHILS % (AUTO) 0.2 % (0.2-1.0); HEMATOCRIT 39.4 % (42.0-54.0); HEMOGLOBIN 13.4 g/dL (13.5-18.0); LYMPHOCYTES # (AUTO) 0.5 X10^3/uL (1.3-2.9); LYMPHOCYTES % (AUTO) 4.5 % (21.0-51.0); MEAN CORPUSCULAR HEMOGLOBIN 32.1 pg (27.0-34.0); MEAN CORPUSCULAR HGB CONC 34.1 g/dL (33.0-35.0); MEAN CORPUSCULAR VOLUME 94.2 fL (80.0-100.0); MEAN PLATELET VOLUME 7.5 fL (7.4-11.0); MONOCYTES # (AUTO) 0.7 x10^3/uL (0.3-0.8); MONOCYTES % (AUTO) 6.6 % (0.0-13.0); NEUTROPHILS # (AUTO) 9.7 x10^3/uL (2.2-4.8); NEUTROPHILS % (AUTO) 88.7 % (42.0-75.0); PLATELET COUNT 299 X10^3/uL (150.0-450.0); RED BLOOD COUNT 4.18 X10^6/uL (4.7-6.0); RED CELL DISTRIBUTION WIDTH 14.1 % (11.6-16.5)
[2018-02-21 06:19] LABS: ALANINE AMINOTRANSFERASE 22 Units/L (12-78); ALBUMIN 2.2 g/dL (3.4-5.0); ALKALINE PHOSPHATASE 57 Units/L (46-116); ASPARTATE AMINO TRANSFERASE 17 Units/L (15-37); BLOOD UREA NITROGEN 12 mg/dL (7-18); CALCIUM 7.8 mg/dL (8.5-10.1); CHLORIDE 103 mmol/L (98-107); COR CA(FOR HYPOALB) 9.2 mg/dL (8.5-10.1); COR NA(FOR HYPERGLY) 141 mmol/L (136-145); CREATININE 0.66 mg/dL (0.70-1.30); SODIUM 140 mmol/L (136-145); TOTAL PROTEIN 5.8 g/dL (6.4-8.2); eGFR NON BLACK RACES > 60 (>60)
[2018-02-21] MEDS: Atrovent NEB TX 0.02% NEB SCH ×4 (08:53→21:57)
[2018-02-21] MEDS: MUCOMYST 20% 200 MG/ML NEB SCH ×4 (08:53→21:57)
[2018-02-21] MEDS: BROVANA IN SCH ×2 (08:53→21:57)
[2018-02-21] MEDS: PULMICORT NEB TX 0.5 MG NEB SCH ×2 (08:54→21:57)
[2018-02-21] MEDS: XOPENEX 1.25 MG/3 ML NEBULE NEB SCH ×4 (08:54→21:57)
[2018-02-21] MEDS: K-DUR TAB 20 MEQ PO SCH (09:20)
[2018-02-21] MEDS: ROBITUSSIN DM PO SCH ×4 (09:20→21:00)
[2018-02-21] MEDS: NICOTINE PATCH TD SCH (09:20)
[2018-02-21] MEDS: PEPCID 20 MG IV PREMIX* 20 MG/50 ML BAG IV SCH ×2 (09:21→21:00)
[2018-02-21] MEDS: LEVAQUIN PREMIX IV 750 MG 750 MG/150 ML BAG IV SCH (09:23)
[2018-02-21] MEDS: NS 1000 ML 1,000 ML IV SCH (11:40)
[2018-02-21] MEDS: LIBRIUM PO PRN (21:00)
[2018-02-21] MEDS: ULTRAM PO PRN (21:00)
[2018-02-22] MEDS: MERREM VIAL 1 G in NS 100 ML IV + SPIKE MINIBAG* 100 ML IV SCH ×3 (05:45→21:12)
[2018-02-22] MEDS: SOLU-Medrol 40 MG VIAL IVP SCH ×2 (05:45→13:35)
[2018-02-22 06:08] LABS: BASOPHILS % (AUTO) 0.1 % (0.2-1.0); EOSINOPHILS % (AUTO) 0.1 % (0.9-2.9); HEMATOCRIT 36.5 % (42.0-54.0); HEMOGLOBIN 12.5 g/dL (13.5-18.0); LYMPHOCYTES # (AUTO) 0.5 X10^3/uL (1.3-2.9); LYMPHOCYTES % (AUTO) 4.7 % (21.0-51.0); MEAN CORPUSCULAR HEMOGLOBIN 31.5 pg (27.0-34.0); MEAN CORPUSCULAR HGB CONC 34.1 g/dL (33.0-35.0); MEAN CORPUSCULAR VOLUME 92.6 fL (80.0-100.0); MEAN PLATELET VOLUME 7.8 fL (7.4-11.0); MONOCYTES # (AUTO) 0.7 x10^3/uL (0.3-0.8); MONOCYTES % (AUTO) 6.8 % (0.0-13.0); NEUTROPHILS # (AUTO) 9.6 x10^3/uL (2.2-4.8); NEUTROPHILS % (AUTO) 88.3 % (42.0-75.0); PLATELET COUNT 280 X10^3/uL (150.0-450.0); RED BLOOD COUNT 3.95 X10^6/uL (4.7-6.0); RED CELL DISTRIBUTION WIDTH 13.9 % (11.6-16.5); WHITE BLOOD COUNT 10.8 X10^3/uL (3.6-10.0)
--- NOTE | 2018-02-22 06:24 | RAD ---
Examination: AP chest History: SOB Comparison 02/17/2018 Findings: Persistent extensive infiltrate and consolidation involving the left lung. The diaphragm re christy obscured. Heart size normal. There may be early developing infiltrate in the right base, this i s equivocal. No pneumothorax is seen. Impression: Persistent consolidation left lung. Suspect early developing infiltrate right lower lobe. Continued follow-up indicated. Reported By:
[2018-02-22 06:25] LABS: ALANINE AMINOTRANSFERASE 19 Units/L (12-78); ALKALINE PHOSPHATASE 55 Units/L (46-116); ASPARTATE AMINO TRANSFERASE 15 Units/L (15-37); BLOOD UREA NITROGEN 11 mg/dL (7-18); CALCIUM 7.9 mg/dL (8.5-10.1); CARBON DIOXIDE 31.1 mmol/L (21-32); CHLORIDE 104 mmol/L (98-107); COR CA(FOR HYPOALB) 9.5 mg/dL (8.5-10.1); CREATININE 0.59 mg/dL (0.70-1.30); SODIUM 140 mmol/L (136-145); TOTAL PROTEIN 5.3 g/dL (6.4-8.2); eGFR NON BLACK RACES > 60 (>60)
[2018-02-22 06:29] LABS: BAND NEUTROPHILS % 1 % (0-10); PLATELET MORPHOLOGY COMMENT NORMAL (NORMAL)
[2018-02-22] MEDS: NICOTINE PATCH TD SCH (08:34)
[2018-02-22] MEDS: ULTRAM PO PRN ×2 (08:35→20:55)
[2018-02-22] MEDS: ROBITUSSIN DM PO SCH ×4 (08:35→20:53)
[2018-02-22] MEDS: LEVAQUIN PREMIX IV 750 MG 750 MG/150 ML BAG IV SCH (08:35)
[2018-02-22] MEDS: PEPCID 20 MG IV PREMIX* 20 MG/50 ML BAG IV SCH ×2 (08:35→20:53)
[2018-02-22] MEDS: TUSSIONEX PENNKINETIC SUSP PO PRN (08:35)
[2018-02-22] MEDS: NS 1000 ML 1,000 ML IV SCH (08:36)
[2018-02-22] MEDS: K-DUR TAB 20 MEQ PO SCH (08:36)
[2018-02-22] MEDS: Atrovent NEB TX 0.02% NEB SCH ×4 (10:00→21:08)
[2018-02-22] MEDS: XOPENEX 1.25 MG/3 ML NEBULE NEB SCH ×4 (10:00→21:08)
[2018-02-22] MEDS: BROVANA IN SCH ×2 (10:00→21:08)
[2018-02-22] MEDS: MUCOMYST 20% 200 MG/ML NEB SCH (10:00)
[2018-02-22] MEDS: PULMICORT NEB TX 0.5 MG NEB SCH ×2 (10:00→21:08)
[2018-02-22] MEDS: LIBRIUM PO PRN (20:54)
[2018-02-23] MEDS: MERREM VIAL 1 G in NS 100 ML IV + SPIKE MINIBAG* 100 ML IV SCH ×3 (05:36→21:26)
[2018-02-23 06:46] LABS: BASOPHILS % (AUTO) 0.3 % (0.2-1.0); EOSINOPHILS % (AUTO) 0.1 % (0.9-2.9); HEMATOCRIT 38.2 % (42.0-54.0); HEMOGLOBIN 12.9 g/dL (13.5-18.0); LYMPHOCYTES # (AUTO) 1.3 X10^3/uL (1.3-2.9); LYMPHOCYTES % (AUTO) 9.6 % (21.0-51.0); MEAN CORPUSCULAR HEMOGLOBIN 31.6 pg (27.0-34.0); MEAN CORPUSCULAR HGB CONC 33.8 g/dL (33.0-35.0); MEAN CORPUSCULAR VOLUME 93.5 fL (80.0-100.0); MEAN PLATELET VOLUME 7.4 fL (7.4-11.0); MONOCYTES # (AUTO) 1.8 x10^3/uL (0.3-0.8); MONOCYTES % (AUTO) 13.1 % (0.0-13.0); NEUTROPHILS # (AUTO) 10.7 x10^3/uL (2.2-4.8); NEUTROPHILS % (AUTO) 76.9 % (42.0-75.0); PLATELET COUNT 286 X10^3/uL (150.0-450.0); RED BLOOD COUNT 4.09 X10^6/uL (4.7-6.0)
[2018-02-23 07:05] LABS: ALANINE AMINOTRANSFERASE 22 Units/L (12-78); ALBUMIN 2.2 g/dL (3.4-5.0); ALKALINE PHOSPHATASE 63 Units/L (46-116); ASPARTATE AMINO TRANSFERASE 17 Units/L (15-37); BLOOD UREA NITROGEN 10 mg/dL (7-18); CALCIUM 8.1 mg/dL (8.5-10.1); CARBON DIOXIDE 34.4 mmol/L (21-32); CHLORIDE 102 mmol/L (98-107); COR CA(FOR HYPOALB) 9.5 mg/dL (8.5-10.1); CREATININE 0.74 mg/dL (0.70-1.30); SODIUM 140 mmol/L (136-145); TOTAL PROTEIN 5.7 g/dL (6.4-8.2); eGFR NON BLACK RACES > 60 (>60)
--- NOTE | 2018-02-23 07:25 | RAD ---
Examination: AP chest History: SOB, COPD Comparison reference 02/22/2018 Findings: Normal heart size. The right lung is now clear and well inflated. There is increasing airsp vale consolidation in the left upper lobe. There is persistent opacity at the left base consistent wit h infiltrate and pleural fluid. No pneumothorax is seen. Impression: Increasing airspace disease/pneumonia left upper lobe. Persistent similar findings left b ase. Previous suspicion of developing right lower lobe infiltrate not confirmed on this follow-up aristeo dy. Reported By:
[2018-02-23] MEDS: PULMICORT NEB TX 0.5 MG NEB SCH ×2 (08:35→21:24)
[2018-02-23] MEDS: Atrovent NEB TX 0.02% NEB SCH ×4 (08:35→21:23)
[2018-02-23] MEDS: BROVANA IN SCH ×2 (08:35→21:23)
[2018-02-23] MEDS: XOPENEX 1.25 MG/3 ML NEBULE NEB SCH ×4 (08:35→21:24)
[2018-02-23] MEDS: NS 1000 ML 1,000 ML IV SCH (09:43)
[2018-02-23] MEDS: NICOTINE PATCH TD SCH (09:43)
[2018-02-23] MEDS: TUSSIONEX PENNKINETIC SUSP PO PRN (09:44)
[2018-02-23] MEDS: ULTRAM PO PRN ×2 (09:44→20:26)
[2018-02-23] MEDS: ROBITUSSIN DM PO SCH ×4 (09:44→20:21)
[2018-02-23] MEDS: K-DUR TAB 20 MEQ PO SCH (09:45)
[2018-02-23] MEDS: LEVAQUIN PREMIX IV 750 MG 750 MG/150 ML BAG IV SCH (09:45)
[2018-02-23] MEDS: PEPCID 20 MG IV PREMIX* 20 MG/50 ML BAG IV SCH ×2 (09:45→20:21)
[2018-02-23 14:10] LABS: BILIRUBIN,URINE NEGATIVE (NEGATIVE); BLOOD/HEMOGLOBIN,URINE 2+ (NEGATIVE); GLUCOSE, URINE NEGATIVE (NEGATIVE); KETONES,URINE NEGATIVE (NEGATIVE); LEUKOCYTE ESTERASE ,URINE NEGATIVE (NEGATIVE); NITRITES,URINE NEGATIVE (NEGATIVE); PROTEIN,URINE 1+ (NEGATIVE); UROBILINOGEN,URINE NORMAL (NORMAL)
[2018-02-23 14:22] LABS: APPEARANCE,URINE CLEAR (CLEAR); COLOR,URINE YELLOW (YELLOW)
[2018-02-23 14:33] LABS: BACTERIA,URINE NEGATIVE /HPF (NEGATIVE); HYALINE CASTS, URINE RARE /LPF (NEGATIVE); MUCUS,URINE MODERATE /HPF (NEGATIVE); SQUAMOUS EPITHELIAL CELL,UR RARE /HPF (NEGATIVE)
[2018-02-23 14:34] LABS: SPERM,URINE FEW /HPF (NEGATIVE)
--- NOTE | 2018-02-23 19:08 | PCM.PROG ---
Progress Note - Progress Note for Day of Date: 02/22/18 - Subjective Subjective: 67 WM ER ADMIT ON 02/13 WITH PNEUMONIA, CHEST CONGESTION, RESP DISTRESS. PT CURRENTLY ON IV ATBX AND RESP THERAPY WITH SUPPLEMENTAL O2, SPUTUM CUTLURE REPORTS GROWTH OF PSEUDOMONAS AERUGINOSA. PT CONTINUES WITH SOB AT REST , MODERATE DISTRESS WITH DIFFUSE RHONCHI. HE CONTINUES WITH PRODUCTIVE COUGH. TODAYS CHEST XRAY REVEALED PERSISTENT CONSOLIDATION LEFT LUNG. SUSPECT EARLY DEVELOPING INFILTRATE RIGHT LOWER LOBE. ABNORMAL LAB VALUES TODAY INCLUDE THE FOLLOWING: WBC 10.8, RBC 3.95, HGB 12.5, HCT 36.5, CREATININE 0.59, GLUCOSE 101 , CALCIUM 7.9, TOTAL PROTEIN 5.3, ALBUMIN 2.0. WE WILL CONTINUE WITH IV ANTIBIOTICS AND RESPIRATORY TREATMENTS TODAY. OTHERWISE, WE WILL FOLLOW UP WITH AM LABS AND CONTINUE TO MONITOR PATIENT. - Past Medical Family Social History Past Med/Fam/Surg Hx: No changes since H&P Allergies: Allergies No Known Drug Allergies Allergy (Verified 02/13/18 07:42) - Review of Systems ROS: No change since H&P - Vital Signs and I&O's Vital Signs: Temperature 99.0 F Pulse Rate [Apical] 104 Pulse Rate 80 Respiratory Rate 19 Blood Pressure [Right Arm] 118/71 Blood Pressure 107/55 O2 Sat by Pulse Oximetry 97 Intake and Output: Intake & Output 02/21/18 02/22/18 02/23/18 02/24/18 11:59 11:59 11:59 11:59 Intake Total 2488 / 2488 2792 / 2792 3412 / 3412 1420 / 1420 Output Total 1150 / 1150 820 / 820 1400 / 1400 1000 / 1000 Balance 1338 / 1338 1971 / 1971 2011 / 2011 420 / 420 - Physical Exam Oriented: Normal Eyes: Normal Ear: Normal Nose: Normal Throat: Normal Respiratory: Diminished, Rhonchi Cardiovascular: Tachycardia : Normal Tenderness: Normal Skin: Normal Musculoskeletal: Normal Psychiatric: Normal Speech Pattern: Clear, Appropriate - Laboratory and Diagnostics Result Diagrams: 02/23/18 06:22 02/23/18 06:22 Labs: 02/14/18 17:04 Blood Blood Culture - Final 02/14/18 16:58 Blood Blood Culture - Final 02/13/18 07:55 Blood Blood Culture - Final 02/13/18 07:50 Blood Blood Culture - Final 02/15/18 02:28 Sputum - Expectorated Sputum Sputum Culture - Preliminary 02/15/18 02:28 Sputum - Expectorated Sputum - Final 02/14/18 18:09 Stool Stool Culture - Final 02/14/18 18:09 Stool - Final 02/14/18 07:25 Sputum - Expectorated Sputum Sputum Culture - Final 02/14/18 07:25 Sputum - Expectorated Sputum - Final 02/13/18 08:26 Sputum - Expectorated Sputum Sputum Culture - Final Pseudomonas Aeruginosa 02/13/18 08:26 Sputum - Expectorated Sputum - Final Laboratory WBC 14.0 X10^3/uL (3.6-10.0) H 02/23/18 06:22 RBC 4.09 X10^6/uL (4.7-6.0) L 02/23/18 06:22 Hgb 12.9 g/dL (13.5-18.0) L 02/23/18 06:22 Hct 38.2 % (42.0-54.0) L 02/23/18 06:22 MCV 93.5 fL (80.0-100.0) 02/23/18 06:22 MCH 31.6 pg (27.0-34.0) 02/23/18 06:22 MCHC 33.8 g/dL (33.0-35.0) 02/23/18 06:22 RDW 14.0 % (11.6-16.5) 02/23/18 06:22 Plt Count 286 X10^3/uL (150.0-450.0) 02/23/18 06:22 Plt Count Comment Adequate (ADEQUATE) 02/22/18 05:19 MPV 7.4 fL (7.4-11.0) 02/23/18 06:22 Neut % (Auto) 76.9 % (42.0-75.0) H 02/23/18 06:22 Lymph % (Auto) 9.6 % (21.0-51.0) L 02/23/18 06:22 [place] % (Auto) 13.1 % (0.0-13.0) H 02/23/18 06:22 Eos % (Auto) 0.1 % (0.9-2.9) L 02/23/18 06:22 Baso % (Auto) 0.3 % (0.2-1.0) 02/23/18 06:22 Neut # (Auto) 10.7 x10^3/uL (2.2-4.8) H 02/23/18 06:22 Lymph # (Auto) 1.3 X10^3/uL (1.3-2.9) 02/23/18 06:22 [place] # (Auto) 1.8 x10^3/uL (0.3-0.8) H 02/23/18 06:22 Eos # (Auto) 0.0 x10^3/uL (0.0-0.2) 02/23/18 06:22 Baso # (Auto) 0.0 X10^3/uL (0.0-0.1) 02/23/18 06:22 Absolute Nucleated RBC 0.0 /100WBC 02/23/18 06:22 Total Counted 100 02/22/18 05:19 Neutrophils % (Manual) 85 % (39-76) H 02/22/18 05:19 Band Neutrophils % 1 % (0-10) 02/22/18 05:19 Lymphocytes % (Manual) 6 % (13-43) L 02/22/18 05:19 Monocytes % (Manual) 8 % (4-9) 02/22/18 05:19 Eosinophils % (Manual) 1 % (0-6) 02/15/18 05:21 Basophils % (Manual) 1 % (0-1) 02/15/18 05:21 Plt Morphology Comment Normal (NORMAL) 02/22/18 05:19 RBC Morphology Normal (NORMAL) 02/22/18 05:19 INR Target Range - 02/13/18 07:50 INR 1.05 (0.8-1.3) 02/13/18 07:50 APTT 34.2 SECONDS (22.9-36.5) 02/13/18 07:50 PTT Comment - 02/13/18 07:50 Sample Site Rra 02/20/18 10:00 ABG pH 7.490 (7.35-7.45) H 02/20/18 10:00 ABG pCO2 46.0 mmHg (35.0-45.0) H 02/20/18 10:00 ABG pO2 66.0 mmHg (80.0-100.0) L 02/20/18 10:00 ABG HCO3 35.1 mmol/L (22-26) H* 02/20/18 10:00 ABG O2 Saturation 94.0 % (90-100) 02/20/18 10:00 ABG Base Excess 10.4 mmol/L (-2.0-2.0) H 02/20/18 10:00 Fernando Test Pos 02/20/18 10:00 A-a Gradient 76.0 mmHg 02/20/18 10:00 FiO2 28.000 02/20/18 10:00 Blood Gas Comments Samm well cs 02/20/18 10:00 Sodium 140 mmol/L (136-145) 02/23/18 06:22 Corrected Sodium TNP 02/23/18 06:22 Potassium 3.7 mmol/L (3.5-5.1) 02/23/18 06:22 Chloride 102 mmol/L (98-107) 02/23/18 06:22 Carbon Dioxide 34.4 mmol/L (21-32) H 02/23/18 06:22 BUN 10 mg/dL (7-18) 02/23/18 06:22 Creatinine 0.74 mg/dL (0.70-1.30) 02/23/18 06:22 Est GFR (MDRD) Af Amer > 60 (>60) 02/23/18 06:22 Est GFR (MDRD) Non-Af > 60 (>60) 02/23/18 06:22 Glucose 80 mg/dL (65-99) 02/23/18 06:22 Lactic Acid 1.6 mmol/L (0.4-2.0) 02/13/18 07:50 Calcium 8.1 mg/dL (8.5-10.1) L 02/23/18 06:22 Corrected Calcium 9.5 mg/dL (8.5-10.1) 02/23/18 06:22 Magnesium 2.2 mg/dL (1.7-2.9) 02/18/18 04:33 Total Bilirubin 0.20 mg/dL (0.2-1.0) 02/23/18 06:22 AST 17 Units/L (15-37) 02/23/18 06:22 ALT 22 Units/L (12-78) 02/23/18 06:22 Alkaline Phosphatase 63 Units/L (46-116) 02/23/18 06:22 Creatine Kinase 99 Units/L (39-308) 02/16/18 04:35 CK-MB (CK-2) < 1.0 ng/mL (0-4.0) 02/16/18 04:35 CK/CKMB % Calc 1.0 % (<4) 02/16/18 04:35 Troponin I < 0.02 ng/mL (0-1.5) 02/16/18 04:35 Total Protein 5.7 g/dL (6.4-8.2) L 02/23/18 06:22 Albumin 2.2 g/dL (3.4-5.0) L 02/23/18 06:22 Globulin 3.5 g/dL (2.5-4.5) 02/23/18 06:22 Albumin/Globulin Ratio 0.6 Ratio (1.1-2.1) L 02/23/18 06:22 Triglycerides 50 mg/dL (0-150) 02/14/18 05:29 Cholesterol 83 mg/dL (0-200) 02/14/18 05:29 LDL Cholesterol, Calc 37 mg/dL (0-100) 02/14/18 05:29 HDL Cholesterol 36 mg/dL (40-60) L 02/14/18 05:29 Cholesterol/HDL Ratio 2.3 (0.0-5.0) 02/14/18 05:29 Specimen Type Catherized urine 02/23/18 14:01 Urine Color Yellow (YELLOW) 02/23/18 14:01 Urine Appearance Clear (CLEAR) 02/23/18 14:01 Urine pH 7.0 (5.0 - 8.0) 02/23/18 14:01 Ur Specific [place] 1.010 (1.000-1.030) 02/23/18 14:01 Urine Protein 1+ (NEGATIVE) 02/23/18 14:01 Urine Glucose (UA) Negative (NEGATIVE) 02/23/18 14:01 Urine Ketones Negative (NEGATIVE) 02/23/18 14:01 Urine Occult Blood 2+ (NEGATIVE) 02/23/18 14:01 Urine Nitrite Negative (NEGATIVE) 02/23/18 14:01 Urine Bilirubin Negative (NEGATIVE) 02/23/18 14:01 Urine Urobilinogen Normal (NORMAL) 02/23/18 14:01 Ur Leukocyte Esterase Negative (NEGATIVE) 02/23/18 14:01 Urine RBC 3-5 /HPF (NONE SEEN) 02/23/18 14:01 Urine WBC 0-2 /HPF (NONE SEEN) 02/23/18 14:01 Ur Squamous Epith Cells Rare /HPF (NEGATIVE) 02/23/18 14:01 Urine Bacteria Negative /HPF (NEGATIVE) 02/23/18 14:01 Hyaline Casts Rare /LPF (NEGATIVE) 02/23/18 14:01 Urine Mucus Moderate /HPF (NEGATIVE) 02/23/18 14:01 Urine Sperm Few /HPF (NEGATIVE) 02/23/18 14:01 Ur Culture Indicated? No/not indicated 02/23/18 14:01 Stool Description 5g pale green 02/14/18 18:09 Stl Occult Blood (IFOB) Positive (NEGATIVE) A 02/14/18 18:09 Stl C. diff Tox B Gene Negative (NEGATIVE) 02/14/18 18:09 Stl C. diff [id number] Negative (NEGATIVE) 02/14/18 18:09 Cryptosporid parvum Ag Negative (NEGATIVE) 02/14/18 18:09 E. histolytica Antigen Negative (NEGATIVE) 02/14/18 18:09 Giardia lamblia Ag Negative (NEGATIVE) 02/14/18 18:09
--- NOTE | 2018-02-23 19:09 | PCM.PROG ---
Progress Note - Progress Note for Day of Date: 02/23/18 - Subjective Subjective: 67 WM ER ADMIT ON 02/13 WITH PNEUMONIA, CHEST CONGESTION, RESP DISTRESS. PT CURRENTLY ON IV ATBX AND RESP THERAPY WITH SUPPLEMENTAL O2, SPUTUM CUTLURE REPORTS GROWTH OF PSEUDOMONAS AERUGINOSA. PT CONTINUES WITH SOB AT REST , MODERATE DISTRESS WITH DIFFUSE RHONCHI. HE CONTINUES WITH PRODUCTIVE COUGH. TODAYS CHEST XRAY REVEALED INCREASING AIRSPACE DISEASE/PNEUMONIA LEFT UPPER LOBE. PERSISTENT SIMILAR FINDINGS LEFT BASE, PREVIOUS SUSPICION OF DEVELOPING RIGHT LOWER LOBE INFILTRATE NOT CONFIRMED ON THIS FOLLOW UP STUDY. ABNORMAL LAB VALUES TODAY INCLUDE THE FOLLOWING: WBC 14.0, RBC 4.09, HGB 12.9, HCT 32.8, CARBON DIOXIDE 34.4, CALCIUM 8.1, TOTAL PROTEIN 5.7, ALBUMIN 2.2. WE WILL CONTINUE WITH IV ANTIBIOTICS AND RESPIRATORY TREATMENTS TODAY. OTHERWISE, WE WILL FOLLOW UP WITH AM LABS AND CONTINUE TO MONITOR PATIENT. - Past Medical Family Social History Past Med/Fam/Surg Hx: No changes since H&P Allergies: Allergies No Known Drug Allergies Allergy (Verified 02/13/18 07:42) - Review of Systems ROS: No change since H&P - Vital Signs and I&O's Vital Signs: Temperature 99.0 F Pulse Rate [Apical] 104 Pulse Rate 80 Respiratory Rate 19 Blood Pressure [Right Arm] 118/71 Blood Pressure 107/55 O2 Sat by Pulse Oximetry 97 Intake and Output: Intake & Output 02/21/18 02/22/18 02/23/18 02/24/18 11:59 11:59 11:59 11:59 Intake Total 2488 / 2488 2792 / 2792 3412 / 3412 1420 / 1420 Output Total 1150 / 1150 820 / 820 1400 / 1400 1000 / 1000 Balance 1338 / 1338 1971 / 1971 420 / 420 - Physical Exam Oriented: Normal Eyes: Normal Ear: Normal Nose: Normal Throat: Normal Respiratory: Diminished, Rhonchi Cardiovascular: Tachycardia : Normal Tenderness: Normal Skin: Normal Musculoskeletal: Normal Psychiatric: Normal Speech Pattern: Clear, Appropriate - Laboratory and Diagnostics Result Diagrams: 02/23/18 06:22 02/23/18 06:22 Labs: 02/14/18 17:04 Blood Blood Culture - Final 02/14/18 16:58 Blood Blood Culture - Final 02/13/18 07:55 Blood Blood Culture - Final 02/13/18 07:50 Blood Blood Culture - Final 02/15/18 02:28 Sputum - Expectorated Sputum Sputum Culture - Preliminary 02/15/18 02:28 Sputum - Expectorated Sputum - Final 02/14/18 18:09 Stool Stool Culture - Final 02/14/18 18:09 Stool - Final 02/14/18 07:25 Sputum - Expectorated Sputum Sputum Culture - Final 02/14/18 07:25 Sputum - Expectorated Sputum - Final 02/13/18 08:26 Sputum - Expectorated Sputum Sputum Culture - Final Pseudomonas Aeruginosa 02/13/18 08:26 Sputum - Expectorated Sputum - Final Laboratory WBC 14.0 X10^3/uL (3.6-10.0) H 02/23/18 06:22 RBC 4.09 X10^6/uL (4.7-6.0) L 02/23/18 06:22 Hgb 12.9 g/dL (13.5-18.0) L 02/23/18 06:22 Hct 38.2 % (42.0-54.0) L 02/23/18 06:22 MCV 93.5 fL (80.0-100.0) 02/23/18 06:22 MCH 31.6 pg (27.0-34.0) 02/23/18 06:22 MCHC 33.8 g/dL (33.0-35.0) 02/23/18 06:22 RDW 14.0 % (11.6-16.5) 02/23/18 06:22 Plt Count 286 X10^3/uL (150.0-450.0) 02/23/18 06:22 Plt Count Comment Adequate (ADEQUATE) 02/22/18 05:19 MPV 7.4 fL (7.4-11.0) 02/23/18 06:22 Neut % (Auto) 76.9 % (42.0-75.0) H 02/23/18 06:22 Lymph % (Auto) 9.6 % (21.0-51.0) L 02/23/18 06:22 [place] % (Auto) 13.1 % (0.0-13.0) H 02/23/18 06:22 Eos % (Auto) 0.1 % (0.9-2.9) L 02/23/18 06:22 Baso % (Auto) 0.3 % (0.2-1.0) 02/23/18 06:22 Neut # (Auto) 10.7 x10^3/uL (2.2-4.8) H 02/23/18 06:22 Lymph # (Auto) 1.3 X10^3/uL (1.3-2.9) 02/23/18 06:22 [place] # (Auto) 1.8 x10^3/uL (0.3-0.8) H 02/23/18 06:22 Eos # (Auto) 0.0 x10^3/uL (0.0-0.2) 02/23/18 06:22 Baso # (Auto) 0.0 X10^3/uL (0.0-0.1) 02/23/18 06:22 Absolute Nucleated RBC 0.0 /100WBC 02/23/18 06:22 Total Counted 100 02/22/18 05:19 Neutrophils % (Manual) 85 % (39-76) H 02/22/18 05:19 Band Neutrophils % 1 % (0-10) 02/22/18 05:19 Lymphocytes % (Manual) 6 % (13-43) L 02/22/18 05:19 Monocytes % (Manual) 8 % (4-9) 02/22/18 05:19 Eosinophils % (Manual) 1 % (0-6) 02/15/18 05:21 Basophils % (Manual) 1 % (0-1) 02/15/18 05:21 Plt Morphology Comment Normal (NORMAL) 02/22/18 05:19 RBC Morphology Normal (NORMAL) 02/22/18 05:19 INR Target Range - 02/13/18 07:50 INR 1.05 (0.8-1.3) 02/13/18 07:50 APTT 34.2 SECONDS (22.9-36.5) 02/13/18 07:50 PTT Comment - 02/13/18 07:50 Sample Site Rra 02/20/18 10:00 ABG pH 7.490 (7.35-7.45) H 02/20/18 10:00 ABG pCO2 46.0 mmHg (35.0-45.0) H 02/20/18 10:00 ABG pO2 66.0 mmHg (80.0-100.0) L 02/20/18 10:00 ABG HCO3 35.1 mmol/L (22-26) H* 02/20/18 10:00 ABG O2 Saturation 94.0 % (90-100) 02/20/18 10:00 ABG Base Excess 10.4 mmol/L (-2.0-2.0) H 02/20/18 10:00 Fernando Test Pos 02/20/18 10:00 A-a Gradient 76.0 mmHg 02/20/18 10:00 FiO2 28.000 02/20/18 10:00 Blood Gas Comments Samm well cs 02/20/18 10:00 Sodium 140 mmol/L (136-145) 02/23/18 06:22 Corrected Sodium TNP 02/23/18 06:22 Potassium 3.7 mmol/L (3.5-5.1) 02/23/18 06:22 Chloride 102 mmol/L (98-107) 02/23/18 06:22 Carbon Dioxide 34.4 mmol/L (21-32) H 02/23/18 06:22 BUN 10 mg/dL (7-18) 02/23/18 06:22 Creatinine 0.74 mg/dL (0.70-1.30) 02/23/18 06:22 Est GFR (MDRD) Af Amer > 60 (>60) 02/23/18 06:22 Est GFR (MDRD) Non-Af > 60 (>60) 02/23/18 06:22 Glucose 80 mg/dL (65-99) 02/23/18 06:22 Lactic Acid 1.6 mmol/L (0.4-2.0) 02/13/18 07:50 Calcium 8.1 mg/dL (8.5-10.1) L 02/23/18 06:22 Corrected Calcium 9.5 mg/dL (8.5-10.1) 02/23/18 06:22 Magnesium 2.2 mg/dL (1.7-2.9) 02/18/18 04:33 Total Bilirubin 0.20 mg/dL (0.2-1.0) 02/23/18 06:22 AST 17 Units/L (15-37) 02/23/18 06:22 ALT 22 Units/L (12-78) 02/23/18 06:22 Alkaline Phosphatase 63 Units/L (46-116) 02/23/18 06:22 Creatine Kinase 99 Units/L (39-308) 02/16/18 04:35 CK-MB (CK-2) < 1.0 ng/mL (0-4.0) 02/16/18 04:35 CK/CKMB % Calc 1.0 % (<4) 02/16/18 04:35 Troponin I < 0.02 ng/mL (0-1.5) 02/16/18 04:35 Total Protein 5.7 g/dL (6.4-8.2) L 02/23/18 06:22 Albumin 2.2 g/dL (3.4-5.0) L 02/23/18 06:22 Globulin 3.5 g/dL (2.5-4.5) 02/23/18 06:22 Albumin/Globulin Ratio 0.6 Ratio (1.1-2.1) L 02/23/18 06:22 Triglycerides 50 mg/dL (0-150) 02/14/18 05:29 Cholesterol 83 mg/dL (0-200) 02/14/18 05:29 LDL Cholesterol, Calc 37 mg/dL (0-100) 02/14/18 05:29 HDL Cholesterol 36 mg/dL (40-60) L 02/14/18 05:29 Cholesterol/HDL Ratio 2.3 (0.0-5.0) 02/14/18 05:29 Specimen Type Catherized urine 02/23/18 14:01 Urine Color Yellow (YELLOW) 02/23/18 14:01 Urine Appearance Clear (CLEAR) 02/23/18 14:01 Urine pH 7.0 (5.0 - 8.0) 02/23/18 14:01 Ur Specific [place] 1.010 (1.000-1.030) 02/23/18 14:01 Urine Protein 1+ (NEGATIVE) 02/23/18 14:01 Urine Glucose (UA) Negative (NEGATIVE) 02/23/18 14:01 Urine Ketones Negative (NEGATIVE) 02/23/18 14:01 Urine Occult Blood 2+ (NEGATIVE) 02/23/18 14:01 Urine Nitrite Negative (NEGATIVE) 02/23/18 14:01 Urine Bilirubin Negative (NEGATIVE) 02/23/18 14:01 Urine Urobilinogen Normal (NORMAL) 02/23/18 14:01 Ur Leukocyte Esterase Negative (NEGATIVE) 02/23/18 14:01 Urine RBC 3-5 /HPF (NONE SEEN) 02/23/18 14:01 Urine WBC 0-2 /HPF (NONE SEEN) 02/23/18 14:01 Ur Squamous Epith Cells Rare /HPF (NEGATIVE) 02/23/18 14:01 Urine Bacteria Negative /HPF (NEGATIVE) 02/23/18 14:01 Hyaline Casts Rare /LPF (NEGATIVE) 02/23/18 14:01 Urine Mucus Moderate /HPF (NEGATIVE) 02/23/18 14:01 Urine Sperm Few /HPF (NEGATIVE) 02/23/18 14:01 Ur Culture Indicated? No/not indicated 02/23/18 14:01 Stool Description 5g pale green 02/14/18 18:09 Stl Occult Blood (IFOB) Positive (NEGATIVE) A 02/14/18 18:09 Stl C. diff Tox B Gene Negative (NEGATIVE) 02/14/18 18:09 Stl C. diff [id number] Negative (NEGATIVE) 02/14/18 18:09 Cryptosporid parvum Ag Negative (NEGATIVE) 02/14/18 18:09 E. histolytica Antigen Negative (NEGATIVE) 02/14/18 18:09 Giardia lamblia Ag Negative (NEGATIVE) 02/14/18 18:09
[2018-02-24] MEDS: MERREM VIAL 1 G in NS 100 ML IV + SPIKE MINIBAG* 100 ML IV SCH ×2 (05:39→14:14)
[2018-02-24 06:27] LABS: BASOPHILS # (AUTO) 0.1 X10^3/uL (0.0-0.1); BASOPHILS % (AUTO) 0.4 % (0.2-1.0); EOSINOPHILS % (AUTO) 0.1 % (0.9-2.9); HEMATOCRIT 39.4 % (42.0-54.0); HEMOGLOBIN 13.4 g/dL (13.5-18.0); LYMPHOCYTES % (AUTO) 7.2 % (21.0-51.0); MEAN CORPUSCULAR HEMOGLOBIN 31.4 pg (27.0-34.0); MEAN CORPUSCULAR HGB CONC 33.9 g/dL (33.0-35.0); MEAN CORPUSCULAR VOLUME 92.6 fL (80.0-100.0); MEAN PLATELET VOLUME 7.5 fL (7.4-11.0); MONOCYTES # (AUTO) 2.2 x10^3/uL (0.3-0.8); MONOCYTES % (AUTO) 16.5 % (0.0-13.0); NEUTROPHILS # (AUTO) 10.3 x10^3/uL (2.2-4.8); NEUTROPHILS % (AUTO) 75.8 % (42.0-75.0); PLATELET COUNT 270 X10^3/uL (150.0-450.0); RED BLOOD COUNT 4.26 X10^6/uL (4.7-6.0); RED CELL DISTRIBUTION WIDTH 13.7 % (11.6-16.5); WHITE BLOOD COUNT 13.5 X10^3/uL (3.6-10.0)
--- NOTE | 2018-02-24 06:53 | RAD ---
HISTORY: Shortness of breath Study: Chest AP portable Comparison: 02/23/2018, 02/22/2018, CT chest 02/19/2018 Findings: The heart is within normal limits in size. The juice are normal. The right lung is clear. Emphysematou s changes are present in the upper lobes. Persistent left upper lobe consolidation is again identifie d. There is increasing density in the retrocardiac area of the left lower lobe which could be on the basis of increasing left pleural effusion, however, underlying atelectasis or infiltrate cannot be ex cluded. The bony thorax is unremarkable. IMPRESSION: Persistent consolidation in the left upper lobe most consistent with pneumonia Increasing density in the retrocardiac area of the left lower lobe which could be due to increasing l eft pleural effusion however underlying atelectasis or infiltrate cannot be excluded. Emphysematous changes in the upper lobes Reported By:
[2018-02-24 07:05] LABS: ALANINE AMINOTRANSFERASE 21 Units/L (12-78); ALBUMIN 2.2 g/dL (3.4-5.0); ALKALINE PHOSPHATASE 66 Units/L (46-116); ASPARTATE AMINO TRANSFERASE 21 Units/L (15-37); BLOOD UREA NITROGEN 10 mg/dL (7-18); CALCIUM 8.1 mg/dL (8.5-10.1); CARBON DIOXIDE 33.4 mmol/L (21-32); CHLORIDE 99 mmol/L (98-107); COR CA(FOR HYPOALB) 9.5 mg/dL (8.5-10.1); CREATININE 0.58 mg/dL (0.70-1.30); SODIUM 135 mmol/L (136-145); TOTAL PROTEIN 5.9 g/dL (6.4-8.2); eGFR NON BLACK RACES > 60 (>60)
[2018-02-24 07:28] LABS: BAND NEUTROPHILS % 6 % (0-10)
[2018-02-24 07:30] LABS: PLATELET MORPHOLOGY COMMENT NORMAL (NORMAL)
[2018-02-24] MEDS: Atrovent NEB TX 0.02% NEB SCH ×4 (09:17→21:09)
[2018-02-24] MEDS: XOPENEX 1.25 MG/3 ML NEBULE NEB SCH ×4 (09:17→21:09)
[2018-02-24] MEDS: BROVANA IN SCH ×2 (09:17→21:09)
[2018-02-24] MEDS: PULMICORT NEB TX 0.5 MG NEB SCH ×2 (09:17→21:09)
[2018-02-24] MEDS: LEVAQUIN PREMIX IV 750 MG 750 MG/150 ML BAG IV SCH (09:49)
[2018-02-24] MEDS: ROBITUSSIN DM PO SCH ×4 (09:50→21:21)
[2018-02-24] MEDS: K-DUR TAB 20 MEQ PO SCH (09:50)
[2018-02-24] MEDS: PEPCID 20 MG IV PREMIX* 20 MG/50 ML BAG IV SCH ×2 (09:50→21:17)
[2018-02-24] MEDS: NICOTINE PATCH TD SCH (09:51)
[2018-02-24] MEDS: LASIX IVP SCH ×2 (09:53→21:17)
[2018-02-24] MEDS: LIBRIUM PO PRN ×2 (10:15→21:19)
[2018-02-24] MEDS: ULTRAM PO PRN ×2 (10:16→21:20)
--- NOTE | 2018-02-24 13:41 | PCM.PROG ---
Progress Note - Progress Note for Day of Date: 02/24/18 - Subjective Subjective: 67 WM ER ADMIT ON 02/13 WITH PNEUMONIA, CHEST CONGESTION, RESP DISTRESS. PT CURRENTLY ON IV ATBX AND RESP THERAPY WITH SUPPLEMENTAL O2, SPUTUM CUTLURE REPORTS GROWTH OF PSEUDOMONAS AERUGINOSA. PT IMPROVING SOB AT REST, MODERATE DISTRESS WITH DIFFUSE RHONCHI. HE CONTINUES WITH PRODUCTIVE COUGH. TODAYS CHEST XRAY REVEALED INCREASING AIRSPACE DISEASE/PNEUMONIA LEFT UPPER LOBE. PE WE WILL CONTINUE WITH IV ANTIBIOTICS AND RESPIRATORY TREATMENTS TODAY, IV LASIX X 2 DOSES, AND ECHO ORDERED. OTHERWISE, WE WILL FOLLOW UP WITH AM LABS AND CONTINUE TO MONITOR PATIENT. - Past Medical Family Social History Past Med/Fam/Surg Hx: No changes since H&P Allergies: Allergies No Known Drug Allergies Allergy (Verified 02/13/18 07:42) - Review of Systems ROS: No change since H&P - Vital Signs and I&O's Vital Signs: Temperature 98.2 F Pulse Rate [Apical] 86 Pulse Rate 101 Respiratory Rate 20 Blood Pressure [Right Arm] 130/68 Blood Pressure 107/55 O2 Sat by Pulse Oximetry 97 Intake and Output: Intake & Output 02/22/18 02/23/18 02/24/18 02/25/18 11:59 11:59 11:59 11:59 Intake Total 2792 / 2792 3412 / 3412 2299 / 2299 Output Total 820 / 820 1400 / 1400 3520 / 3520 Balance 1971 / 1971 2011 / 2011 -1221 / -1221 - Physical Exam Oriented: Normal Eyes: Normal Ear: Normal Nose: Normal Throat: Normal Respiratory: Diminished, Rhonchi Cardiovascular: Tachycardia : Normal Tenderness: Normal Skin: Normal Musculoskeletal: Normal Psychiatric: Normal Speech Pattern: Clear, Appropriate - Laboratory and Diagnostics Result Diagrams: 02/24/18 05:14 02/24/18 05:14 Labs: 02/23/18 14:01 Urine,Catheterized Urine Culture - Preliminary 02/15/18 02:28 Sputum - Expectorated Sputum Sputum Culture - Final 02/15/18 02:28 Sputum - Expectorated Sputum - Final 02/14/18 17:04 Blood Blood Culture - Final 02/14/18 16:58 Blood Blood Culture - Final 02/13/18 07:55 Blood Blood Culture - Final 02/13/18 07:50 Blood Blood Culture - Final 02/14/18 18:09 Stool Stool Culture - Final 02/14/18 18:09 Stool - Final 02/14/18 07:25 Sputum - Expectorated Sputum Sputum Culture - Final 02/14/18 07:25 Sputum - Expectorated Sputum - Final 02/13/18 08:26 Sputum - Expectorated Sputum Sputum Culture - Final Pseudomonas Aeruginosa 02/13/18 08:26 Sputum - Expectorated Sputum - Final Laboratory WBC 13.5 X10^3/uL (3.6-10.0) H 02/24/18 05:14 RBC 4.26 X10^6/uL (4.7-6.0) L 02/24/18 05:14 Hgb 13.4 g/dL (13.5-18.0) L 02/24/18 05:14 Hct 39.4 % (42.0-54.0) L 02/24/18 05:14 MCV 92.6 fL (80.0-100.0) 02/24/18 05:14 MCH 31.4 pg (27.0-34.0) 02/24/18 05:14 MCHC 33.9 g/dL (33.0-35.0) 02/24/18 05:14 RDW 13.7 % (11.6-16.5) 02/24/18 05:14 Plt Count 270 X10^3/uL (150.0-450.0) 02/24/18 05:14 Plt Count Comment Adequate (ADEQUATE) 02/24/18 05:14 MPV 7.5 fL (7.4-11.0) 02/24/18 05:14 Neut % (Auto) 75.8 % (42.0-75.0) H 02/24/18 05:14 Lymph % (Auto) 7.2 % (21.0-51.0) L 02/24/18 05:14 [place] % (Auto) 16.5 % (0.0-13.0) H 02/24/18 05:14 Eos % (Auto) 0.1 % (0.9-2.9) L 02/24/18 05:14 Baso % (Auto) 0.4 % (0.2-1.0) 02/24/18 05:14 Neut # (Auto) 10.3 x10^3/uL (2.2-4.8) H 02/24/18 05:14 Lymph # (Auto) 1.0 X10^3/uL (1.3-2.9) L 02/24/18 05:14 [place] # (Auto) 2.2 x10^3/uL (0.3-0.8) H 02/24/18 05:14 Eos # (Auto) 0.0 x10^3/uL (0.0-0.2) 02/24/18 05:14 Baso # (Auto) 0.1 X10^3/uL (0.0-0.1) 02/24/18 05:14 Absolute Nucleated RBC 0.0 /100WBC 02/24/18 05:14 Total Counted 100 02/24/18 05:14 Neutrophils % (Manual) 72 % (39-76) 02/24/18 05:14 Band Neutrophils % 6 % (0-10) 02/24/18 05:14 Lymphocytes % (Manual) 12 % (13-43) L 02/24/18 05:14 Monocytes % (Manual) 8 % (4-9) 02/24/18 05:14 Eosinophils % (Manual) 2 % (0-6) 02/24/18 05:14 Basophils % (Manual) 1 % (0-1) 02/15/18 05:21 Plt Morphology Comment Normal (NORMAL) 02/24/18 05:14 RBC Morphology Normal (NORMAL) 02/24/18 05:14 INR Target Range - 02/13/18 07:50 INR 1.05 (0.8-1.3) 02/13/18 07:50 APTT 34.2 SECONDS (22.9-36.5) 02/13/18 07:50 PTT Comment - 02/13/18 07:50 Sample Site Rra 02/20/18 10:00 ABG pH 7.490 (7.35-7.45) H 02/20/18 10:00 ABG pCO2 46.0 mmHg (35.0-45.0) H 02/20/18 10:00 ABG pO2 66.0 mmHg (80.0-100.0) L 02/20/18 10:00 ABG HCO3 35.1 mmol/L (22-26) H* 02/20/18 10:00 ABG O2 Saturation 94.0 % (90-100) 02/20/18 10:00 ABG Base Excess 10.4 mmol/L (-2.0-2.0) H 02/20/18 10:00 Fernando Test Pos 02/20/18 10:00 A-a Gradient 76.0 mmHg 02/20/18 10:00 FiO2 28.000 02/20/18 10:00 Blood Gas Comments Samm well cs 02/20/18 10:00 Sodium 135 mmol/L (136-145) L 02/24/18 05:14 Corrected Sodium TNP 02/24/18 05:14 Potassium 4.4 mmol/L (3.5-5.1) 02/24/18 05:14 Chloride 99 mmol/L (98-107) 02/24/18 05:14 Carbon Dioxide 33.4 mmol/L (21-32) H 02/24/18 05:14 BUN 10 mg/dL (7-18) 02/24/18 05:14 Creatinine 0.58 mg/dL (0.70-1.30) L 02/24/18 05:14 Est GFR (MDRD) Af Amer > 60 (>60) 02/24/18 05:14 Est GFR (MDRD) Non-Af > 60 (>60) 02/24/18 05:14 Glucose 83 mg/dL (65-99) 02/24/18 05:14 Lactic Acid 1.6 mmol/L (0.4-2.0) 02/13/18 07:50 Calcium 8.1 mg/dL (8.5-10.1) L 02/24/18 05:14 Corrected Calcium 9.5 mg/dL (8.5-10.1) 02/24/18 05:14 Magnesium 2.2 mg/dL (1.7-2.9) 02/18/18 04:33 Total Bilirubin 0.40 mg/dL (0.2-1.0) 02/24/18 05:14 AST 21 Units/L (15-37) 02/24/18 05:14 ALT 21 Units/L (12-78) 02/24/18 05:14 Alkaline Phosphatase 66 Units/L (46-116) 02/24/18 05:14 Creatine Kinase 99 Units/L (39-308) 02/16/18 04:35 CK-MB (CK-2) < 1.0 ng/mL (0-4.0) 02/16/18 04:35 CK/CKMB % Calc 1.0 % (<4) 02/16/18 04:35 Troponin I < 0.02 ng/mL (0-1.5) 02/16/18 04:35 Total Protein 5.9 g/dL (6.4-8.2) L 02/24/18 05:14 Albumin 2.2 g/dL (3.4-5.0) L 02/24/18 05:14 Globulin 3.7 g/dL (2.5-4.5) 02/24/18 05:14 Albumin/Globulin Ratio 0.6 Ratio (1.1-2.1) L 02/24/18 05:14 Triglycerides 50 mg/dL (0-150) 02/14/18 05:29 Cholesterol 83 mg/dL (0-200) 02/14/18 05:29 LDL Cholesterol, Calc 37 mg/dL (0-100) 02/14/18 05:29 HDL Cholesterol 36 mg/dL (40-60) L 02/14/18 05:29 Cholesterol/HDL Ratio 2.3 (0.0-5.0) 02/14/18 05:29 Specimen Type Catherized urine 02/23/18 14:01 Urine Color Yellow (YELLOW) 02/23/18 14:01 Urine Appearance Clear (CLEAR) 02/23/18 14:01 Urine pH 7.0 (5.0 - 8.0) 02/23/18 14:01 Ur Specific [place] 1.010 (1.000-1.030) 02/23/18 14:01 Urine Protein 1+ (NEGATIVE) 02/23/18 14:01 Urine Glucose (UA) Negative (NEGATIVE) 02/23/18 14:01 Urine Ketones Negative (NEGATIVE) 02/23/18 14:01 Urine Occult Blood 2+ (NEGATIVE) 02/23/18 14:01 Urine Nitrite Negative (NEGATIVE) 02/23/18 14:01 Urine Bilirubin Negative (NEGATIVE) 02/23/18 14:01 Urine Urobilinogen Normal (NORMAL) 02/23/18 14:01 Ur Leukocyte Esterase Negative (NEGATIVE) 02/23/18 14:01 Urine RBC 3-5 /HPF (NONE SEEN) 02/23/18 14:01 Urine WBC 0-2 /HPF (NONE SEEN) 02/23/18 14:01 Ur Squamous Epith Cells Rare /HPF (NEGATIVE) 02/23/18 14:01 Urine Bacteria Negative /HPF (NEGATIVE) 02/23/18 14:01 Hyaline Casts Rare /LPF (NEGATIVE) 02/23/18 14:01 Urine Mucus Moderate /HPF (NEGATIVE) 02/23/18 14:01 Urine Sperm Few /HPF (NEGATIVE) 02/23/18 14:01 Ur Culture Indicated? No/not indicated 02/23/18 14:01 Stool Description 5g pale green 02/14/18 18:09 Stl Occult Blood (IFOB) Positive (NEGATIVE) A 02/14/18 18:09 Stl C. diff Tox B Gene Negative (NEGATIVE) 02/14/18 18:09 Stl C. diff [id number] Negative (NEGATIVE) 02/14/18 18:09 Cryptosporid parvum Ag Negative (NEGATIVE) 02/14/18 18:09 E. histolytica Antigen Negative (NEGATIVE) 02/14/18 18:09 Giardia lamblia Ag Negative (NEGATIVE) 02/14/18 18:09 - Plan (1) SOB (shortness of breath) Status: Acute Plan: CONTINUE PNEUMONIA PROTOCOL WITH SPUTUM AND BLOOD CULTURES COLLECTED ON ADMISSION. RESP THERAPY, SUPPLEMENTAL O2, HYDRATION. CARDIAC MONITORING, BP MONITORING. REPEAT AM LABS, VERIFY HOME MEDS (2) Respiratory distress Status: Acute Plan: AM ABG, SUPPLEMENTAL O2 (3) Pneumonia Status: Acute Plan: sputum positive for pseudomonas, continue iv atbx. resp therapy, pulmonary toileting (4) Tachycardia Status: Acute Plan: CONTINUE CARDIAC MONITORING (5) Pleural effusion Status: Acute Plan: IV LASIX, O2, RESP THERAPY. TREATMENT FOR PNEUMONIA, ECHO
[2018-02-24] MEDS: NS 1000 ML 1,000 ML IV SCH (13:53)
[2018-02-24] MEDS: ZYVOX 600MG IV 600 MG/300 ML BAG IV SCH (21:19)
[2018-02-24] MEDS: TUSSIONEX PENNKINETIC SUSP PO PRN (21:20)
[2018-02-25 06:45] LABS: BASOPHILS % (AUTO) 0.2 % (0.2-1.0); EOSINOPHILS % (AUTO) 0.1 % (0.9-2.9); HEMATOCRIT 38.9 % (42.0-54.0); HEMOGLOBIN 13.4 g/dL (13.5-18.0); LYMPHOCYTES # (AUTO) 1.2 X10^3/uL (1.3-2.9); MEAN CORPUSCULAR HGB CONC 34.6 g/dL (33.0-35.0); MEAN CORPUSCULAR VOLUME 92.6 fL (80.0-100.0); MEAN PLATELET VOLUME 7.5 fL (7.4-11.0); NEUTROPHILS # (AUTO) 10.3 x10^3/uL (2.2-4.8); NEUTROPHILS % (AUTO) 75.7 % (42.0-75.0); PLATELET COUNT 216 X10^3/uL (150.0-450.0); RED CELL DISTRIBUTION WIDTH 14.3 % (11.6-16.5); WHITE BLOOD COUNT 13.6 X10^3/uL (3.6-10.0)
[2018-02-25 07:08] LABS: BAND NEUTROPHILS % 6 % (0-10); PLATELET MORPHOLOGY COMMENT NORMAL (NORMAL)
[2018-02-25 07:18] LABS: ALANINE AMINOTRANSFERASE 19 Units/L (12-78); ALBUMIN 2.2 g/dL (3.4-5.0); ALKALINE PHOSPHATASE 65 Units/L (46-116); ASPARTATE AMINO TRANSFERASE 15 Units/L (15-37); BLOOD UREA NITROGEN 13 mg/dL (7-18); CALCIUM 8.2 mg/dL (8.5-10.1); CARBON DIOXIDE 32.4 mmol/L (21-32); CHLORIDE 100 mmol/L (98-107); COR CA(FOR HYPOALB) 9.6 mg/dL (8.5-10.1); CREATININE 0.74 mg/dL (0.70-1.30); SODIUM 136 mmol/L (136-145); eGFR NON BLACK RACES > 60 (>60)
[2018-02-25] MEDS: ZYVOX 600MG IV 600 MG/300 ML BAG IV SCH ×2 (09:11→20:13)
[2018-02-25] MEDS: K-DUR TAB 20 MEQ PO SCH (09:12)
[2018-02-25] MEDS: PEPCID 20 MG IV PREMIX* 20 MG/50 ML BAG IV SCH ×2 (09:12→20:13)
[2018-02-25] MEDS: NICOTINE PATCH TD SCH (09:12)
[2018-02-25] MEDS: ROBITUSSIN DM PO SCH ×3 (09:13→20:13)
[2018-02-25] MEDS: PULMICORT NEB TX 0.5 MG NEB SCH ×2 (09:18→21:56)
[2018-02-25] MEDS: Atrovent NEB TX 0.02% NEB SCH ×4 (09:18→21:56)
[2018-02-25] MEDS: BROVANA IN SCH ×2 (09:18→21:56)
[2018-02-25] MEDS: XOPENEX 1.25 MG/3 ML NEBULE NEB SCH ×4 (09:18→21:56)
[2018-02-25] MEDS ORDERED: FLOMAX ONE (09:50)
[2018-02-25] MEDS ORDERED: FLOMAX PO SCH (10:00)
[2018-02-25 13:39] LABS: CRYPTOSPORIDIUM PARVUM ANTIGEN NEGATIVE (NEGATIVE); GIARDIA LAMBLIA ANTIGEN NEGATIVE (NEGATIVE)
--- NOTE | 2018-02-25 17:42 | PCM.PROG ---
Progress Note - Progress Note for Day of Date: 02/25/18 - Subjective Subjective: 67 WM ER ADMIT ON 02/13 WITH PNEUMONIA, CHEST CONGESTION, RESP DISTRESS. PT CURRENTLY ON IV ATBX AND RESP THERAPY WITH SUPPLEMENTAL O2, SPUTUM CUTLURE REPORTS GROWTH OF PSEUDOMONAS AERUGINOSA. PT IMPROVING SOB AT REST, MODERATE DISTRESS WITH DIFFUSE RHONCHI. HE CONTINUES WITH PRODUCTIVE COUGH, REPORTS FEELING BETTER. CO DIFFICULTY URINATING. CURRENTLY HAS MARRERO, ADD FLOMAX PO AND PSA. CT CHEST Q AM - Past Medical Family Social History Past Med/Fam/Surg Hx: No changes since H&P Allergies: Allergies No Known Drug Allergies Allergy (Verified 02/13/18 07:42) - Review of Systems ROS: No change since H&P - Vital Signs and I&O's Vital Signs: Temperature 98.5 F Pulse Rate [Apical] 103 Pulse Rate 100 Respiratory Rate 22 Blood Pressure [Right Arm] 139/79 Blood Pressure 107/55 O2 Sat by Pulse Oximetry 96 Intake and Output: Intake & Output 02/23/18 02/24/18 02/25/18 02/26/18 11:59 11:59 11:59 11:59 Intake Total 3412 / 3412 2299 / 2299 3236 / 3236 1235 / 1235 Output Total 1400 / 1400 3520 / 3520 5000 / 5000 1350 / 1350 Balance 2011 -1221 / -1221 -1764 / -1764 -115 / -115 - Physical Exam Oriented: Normal Eyes: Normal Ear: Normal Nose: Normal Throat: Normal Respiratory: Diminished, Rhonchi Cardiovascular: Tachycardia : Normal Tenderness: Normal Skin: Normal Musculoskeletal: Normal Psychiatric: Normal Speech Pattern: Clear, Appropriate - Laboratory and Diagnostics Result Diagrams: 02/25/18 05:50 02/25/18 05:50 Labs: 02/25/18 11:35 Stool - Final 02/23/18 14:01 Urine,Catheterized Urine Culture - Final 02/15/18 02:28 Sputum - Expectorated Sputum Sputum Culture - Final 02/15/18 02:28 Sputum - Expectorated Sputum - Final 02/14/18 17:04 Blood Blood Culture - Final 02/14/18 16:58 Blood Blood Culture - Final 02/13/18 07:55 Blood Blood Culture - Final 02/13/18 07:50 Blood Blood Culture - Final 06/01/18 18:09 Stool Stool Culture - Final 02/14/18 18:09 Stool - Final 02/14/18 07:25 Sputum - Expectorated Sputum Sputum Culture - Final 02/14/18 07:25 Sputum - Expectorated Sputum - Final 02/13/18 08:26 Sputum - Expectorated Sputum Sputum Culture - Final Pseudomonas Aeruginosa 02/13/18 08:26 Sputum - Expectorated Sputum - Final Laboratory WBC 13.6 X10^3/uL (3.6-10.0) H 02/25/18 05:50 RBC 4.20 X10^6/uL (4.7-6.0) L 02/25/18 05:50 Hgb 13.4 g/dL (13.5-18.0) L 02/25/18 05:50 Hct 38.9 % (42.0-54.0) L 02/25/18 05:50 MCV 92.6 fL (80.0-100.0) 02/25/18 05:50 MCH 32.0 pg (27.0-34.0) 02/25/18 05:50 MCHC 34.6 g/dL (33.0-35.0) 02/25/18 05:50 RDW 14.3 % (11.6-16.5) 02/25/18 05:50 Plt Count 216 X10^3/uL (150.0-450.0) 02/25/18 05:50 Plt Count Comment Adequate (ADEQUATE) 02/25/18 05:50 MPV 7.5 fL (7.4-11.0) 02/25/18 05:50 Neut % (Auto) 75.7 % (42.0-75.0) H 02/25/18 05:50 Lymph % (Auto) 9.0 % (21.0-51.0) L 02/25/18 05:50 [place] % (Auto) 15.0 % (0.0-13.0) H 02/25/18 05:50 Eos % (Auto) 0.1 % (0.9-2.9) L 02/25/18 05:50 Baso % (Auto) 0.2 % (0.2-1.0) 02/25/18 05:50 Neut # (Auto) 10.3 x10^3/uL (2.2-4.8) H 02/25/18 05:50 Lymph # (Auto) 1.2 X10^3/uL (1.3-2.9) L 02/25/18 05:50 [place] # (Auto) 2.0 x10^3/uL (0.3-0.8) H 02/25/18 05:50 Eos # (Auto) 0.0 x10^3/uL (0.0-0.2) 02/25/18 05:50 Baso # (Auto) 0.0 X10^3/uL (0.0-0.1) 02/25/18 05:50 Absolute Nucleated RBC 0.0 /100WBC 02/25/18 05:50 Total Counted 100 02/25/18 05:50 Neutrophils % (Manual) 79 % (39-76) H 02/25/18 05:50 Band Neutrophils % 6 % (0-10) 02/25/18 05:50 Lymphocytes % (Manual) 10 % (13-43) L 02/25/18 05:50 Monocytes % (Manual) 5 % (4-9) 02/25/18 05:50 Eosinophils % (Manual) 2 % (0-6) 02/24/18 05:14 Basophils % (Manual) 1 % (0-1) 02/15/18 05:21 Plt Morphology Comment Normal (NORMAL) 02/25/18 05:50 RBC Morphology Normal (NORMAL) 02/25/18 05:50 INR Target Range - 02/13/18 07:50 INR 1.05 (0.8-1.3) 02/13/18 07:50 APTT 34.2 SECONDS (22.9-36.5) 02/13/18 07:50 PTT Comment - 02/13/18 07:50 Sample Site Rra 02/20/18 10:00 ABG pH 7.490 (7.35-7.45) H 02/20/18 10:00 ABG pCO2 46.0 mmHg (35.0-45.0) H 02/20/18 10:00 ABG pO2 66.0 mmHg (80.0-100.0) L 02/20/18 10:00 ABG HCO3 35.1 mmol/L (22-26) H* 02/20/18 10:00 ABG O2 Saturation 94.0 % (90-100) 02/20/18 10:00 ABG Base Excess 10.4 mmol/L (-2.0-2.0) H 02/20/18 10:00 Fernando Test Pos 02/20/18 10:00 A-a Gradient 76.0 mmHg 02/20/18 10:00 FiO2 28.000 02/20/18 10:00 Blood Gas Comments Samm well cs 02/20/18 10:00 Sodium 136 mmol/L (136-145) 02/25/18 05:50 Corrected Sodium TNP 02/25/18 05:50 Potassium 4.4 mmol/L (3.5-5.1) 02/25/18 05:50 Chloride 100 mmol/L (98-107) 02/25/18 05:50 Carbon Dioxide 32.4 mmol/L (21-32) H 02/25/18 05:50 BUN 13 mg/dL (7-18) 02/25/18 05:50 Creatinine 0.74 mg/dL (0.70-1.30) 02/25/18 05:50 Est GFR (MDRD) Af Amer > 60 (>60) 02/25/18 05:50 Est GFR (MDRD) Non-Af > 60 (>60) 02/25/18 05:50 Glucose 89 mg/dL (65-99) 02/25/18 05:50 Lactic Acid 1.6 mmol/L (0.4-2.0) 02/13/18 07:50 Calcium 8.2 mg/dL (8.5-10.1) L 02/25/18 05:50 Corrected Calcium 9.6 mg/dL (8.5-10.1) 02/25/18 05:50 Magnesium 2.2 mg/dL (1.7-2.9) 02/18/18 04:33 Total Bilirubin 0.40 mg/dL (0.2-1.0) 02/25/18 05:50 AST 15 Units/L (15-37) 02/25/18 05:50 ALT 19 Units/L (12-78) 02/25/18 05:50 Alkaline Phosphatase 65 Units/L (46-116) 02/25/18 05:50 Creatine Kinase 99 Units/L (39-308) 02/16/18 04:35 CK-MB (CK-2) < 1.0 ng/mL (0-4.0) 02/16/18 04:35 CK/CKMB % Calc 1.0 % (<4) 02/16/18 04:35 Troponin I < 0.02 ng/mL (0-1.5) 02/16/18 04:35 Total Protein 6.0 g/dL (6.4-8.2) L 02/25/18 05:50 Albumin 2.2 g/dL (3.4-5.0) L 02/25/18 05:50 Globulin 3.8 g/dL (2.5-4.5) 02/25/18 05:50 Albumin/Globulin Ratio 0.6 Ratio (1.1-2.1) L 02/25/18 05:50 Triglycerides 50 mg/dL (0-150) 02/14/18 05:29 Cholesterol 83 mg/dL (0-200) 02/14/18 05:29 LDL Cholesterol, Calc 37 mg/dL (0-100) 02/14/18 05:29 HDL Cholesterol 36 mg/dL (40-60) L 02/14/18 05:29 Cholesterol/HDL Ratio 2.3 (0.0-5.0) 02/14/18 05:29 Total PSA 6.18 ng/mL (0.13-4.0) H 02/25/18 05:50 Specimen Type Catherized urine 02/23/18 14:01 Urine Color Yellow (YELLOW) 02/23/18 14:01 Urine Appearance Clear (CLEAR) 02/23/18 14:01 Urine pH 7.0 (5.0 - 8.0) 02/23/18 14:01 Ur Specific [place] 1.010 (1.000-1.030) 02/23/18 14:01 Urine Protein 1+ (NEGATIVE) 02/23/18 14:01 Urine Glucose (UA) Negative (NEGATIVE) 02/23/18 14: Urine Ketones Negative (NEGATIVE) 02/23/18 14:01 Urine Occult Blood 2+ (NEGATIVE) 02/23/18 14:01 Urine Nitrite Negative (NEGATIVE) 02/23/18 14:01 Urine Bilirubin Negative (NEGATIVE) 02/23/18 14:01 Urine Urobilinogen Normal (NORMAL) 02/23/18 14:01 Ur Leukocyte Esterase Negative (NEGATIVE) 02/23/18 14:01 Urine RBC 3-5 /HPF (NONE SEEN) 02/23/18 14:01 Urine WBC 0-2 /HPF (NONE SEEN) 02/23/18 14:01 Ur Squamous Epith Cells Rare /HPF (NEGATIVE) 02/23/18 14:01 Urine Bacteria Negative /HPF (NEGATIVE) 02/23/18 14:01 Hyaline Casts Rare /LPF (NEGATIVE) 02/23/18 14:01 Urine Mucus Moderate /HPF (NEGATIVE) 02/23/18 14:01 Urine Sperm Few /HPF (NEGATIVE) 02/23/18 14:01 Ur Culture Indicated? No/not indicated 02/23/18 14:01 Stool Description 10g brown mucoid 02/25/18 11:35 Stl Occult Blood (IFOB) Positive (NEGATIVE) A 02/14/18 18:09 Stl C. diff Tox B Gene Negative (NEGATIVE) 02/25/18 11:35 Stl C. diff [id number] Negative (NEGATIVE) 02/25/18 11:35 Cryptosporid parvum Ag Negative (NEGATIVE) 02/25/18 11:35 E. histolytica Antigen Negative (NEGATIVE) 02/14/18 18:09 Giardia lamblia Ag Negative (NEGATIVE) 02/25/18 11:35 - Plan (1) SOB (shortness of breath) Status: Acute Plan: CONTINUE PNEUMONIA PROTOCOL WITH SPUTUM AND BLOOD CULTURES COLLECTED ON ADMISSION. RESP THERAPY, SUPPLEMENTAL O2, HYDRATION. CARDIAC MONITORING, BP MONITORING. REPEAT AM LABS, VERIFY HOME MEDS (2) Respiratory distress Status: Acute Plan: AM ABG, SUPPLEMENTAL O2 (3) Pneumonia Status: Acute Plan: sputum positive for pseudomonas, continue iv atbx. resp therapy, pulmonary toileting (4) Tachycardia Status: Acute Plan: CONTINUE CARDIAC MONITORING (5) Pleural effusion Status: Acute Plan: IV LASIX, O2, RESP THERAPY. TREATMENT FOR PNEUMONIA, ECHO (6) BPH (benign prostatic hyperplasia) Status: Acute Plan: PSA, FLOMAX. CURRENTLY HAS MARRERO, CONTINUE I & OS, WILL ATTEMPT TO BLADDER TRAINING AND D/C MARRERO PRIOR TO DC
[2018-02-25] MEDS: TUSSIONEX PENNKINETIC SUSP PO PRN (20:12)
[2018-02-25] MEDS: ULTRAM PO PRN (20:12)
[2018-02-25] MEDS: LIBRIUM PO PRN (20:12)
[2018-02-25] MEDS: NS 1000 ML 1,000 ML IV SCH (20:12)
[2018-02-26 05:16] LABS: BASOPHILS % (AUTO) 0.3 % (0.2-1.0); EOSINOPHILS % (AUTO) 0.2 % (0.9-2.9); HEMATOCRIT 41.7 % (42.0-54.0); HEMOGLOBIN 14.1 g/dL (13.5-18.0); LYMPHOCYTES # (AUTO) 1.2 X10^3/uL (1.3-2.9); LYMPHOCYTES % (AUTO) 8.4 % (21.0-51.0); MEAN CORPUSCULAR HEMOGLOBIN 31.8 pg (27.0-34.0); MEAN CORPUSCULAR HGB CONC 33.8 g/dL (33.0-35.0); MEAN CORPUSCULAR VOLUME 94.1 fL (80.0-100.0); MEAN PLATELET VOLUME 7.4 fL (7.4-11.0); MONOCYTES # (AUTO) 2.6 x10^3/uL (0.3-0.8); NEUTROPHILS # (AUTO) 10.5 x10^3/uL (2.2-4.8); NEUTROPHILS % (AUTO) 73.1 % (42.0-75.0); PLATELET COUNT 177 X10^3/uL (150.0-450.0); RED BLOOD COUNT 4.43 X10^6/uL (4.7-6.0); RED CELL DISTRIBUTION WIDTH 14.1 % (11.6-16.5); WHITE BLOOD COUNT 14.4 X10^3/uL (3.6-10.0)
[2018-02-26 05:33] LABS: ALANINE AMINOTRANSFERASE 18 Units/L (12-78); ALBUMIN 2.2 g/dL (3.4-5.0); ALKALINE PHOSPHATASE 67 Units/L (46-116); ASPARTATE AMINO TRANSFERASE 15 Units/L (15-37); BLOOD UREA NITROGEN 10 mg/dL (7-18); CALCIUM 8.2 mg/dL (8.5-10.1); CARBON DIOXIDE 29.2 mmol/L (21-32); CHLORIDE 99 mmol/L (98-107); COR CA(FOR HYPOALB) 9.6 mg/dL (8.5-10.1); SODIUM 135 mmol/L (136-145); TOTAL PROTEIN 6.3 g/dL (6.4-8.2); eGFR NON BLACK RACES > 60 (>60)
[2018-02-26 05:47] LABS: BAND NEUTROPHILS % 1 % (0-10); PLATELET MORPHOLOGY COMMENT NORMAL (NORMAL)
[2018-02-26] MEDS ORDERED: NS 100 ML IV 100 ML IV ONE (06:25)
--- NOTE | 2018-02-26 07:04 | CT ---
HISTORY: Shortness of breath, follow-up pneumonia Study: CT chest with contrast Comparison: 02/19/2018 Technique: Axial post-contrast images with coronal and sagittal reformats. Dose reduction procedures were used with mA/kv adjusted for body size. Findings: Examination of the mediastinum demonstrated no evidence for mediastinal masses, enlarged mediastinal adenopathy, or enlarged hilar adenopathy. Left pleural effusion is unchanged. No right pleural effusi on of significance is identified. No chest wall or axillary abnormality is identified. Those portions of the upper abdominal organs visualized were within normal limits. Examination of the lung monte[place] a gain demonstrate changes of centrilobular emphysema. The right lung is clear with the exception of a focus of subsegmental atelectasis in the right lung base. Consolidating pneumonia is present predomin antly apical posterior segment of the left upper lobe. The it is not significantly changed from the p rior examination. Continued follow-up is recommended until complete resolution. If this does not reso lve bronchoscopy may be of further diagnostic value in excluding an endobronchial abnormality. There is some subsegmental atelectasis in the left lung base. IMPRESSION: No significant change in the consolidating pneumonia involving the apical posterior segment of the le ft upper lobe. No change left pleural effusion Centrilobular emphysema Reported By:
[2018-02-26] MEDS: ROBITUSSIN DM PO SCH ×4 (08:40→21:10)
[2018-02-26] MEDS: PEPCID 20 MG IV PREMIX* 20 MG/50 ML BAG IV SCH ×2 (08:40→21:10)
[2018-02-26] MEDS: K-DUR TAB 20 MEQ PO SCH (08:40)
[2018-02-26] MEDS: ZYVOX 600MG IV 600 MG/300 ML BAG IV SCH ×2 (08:40→21:35)
[2018-02-26] MEDS: NICOTINE PATCH TD SCH (08:41)
[2018-02-26] MEDS: PULMICORT NEB TX 0.5 MG NEB SCH ×2 (09:10→22:04)
[2018-02-26] MEDS: XOPENEX 1.25 MG/3 ML NEBULE NEB SCH ×4 (09:10→22:04)
[2018-02-26] MEDS: BROVANA IN SCH ×2 (09:10→22:04)
[2018-02-26] MEDS: Atrovent NEB TX 0.02% NEB SCH ×4 (09:10→22:04)
[2018-02-26] MEDS: ULTRAM PO PRN ×2 (12:03→16:14)
--- NOTE | 2018-02-26 13:37 | PCM.PROG ---
Progress Note - Progress Note for Day of Date: 02/26/18 - Subjective Subjective: 67 WM ER ADMIT ON 02/13 WITH PNEUMONIA, CHEST CONGESTION, RESP DISTRESS. PT CURRENTLY ON IV ATBX AND RESP THERAPY WITH SUPPLEMENTAL O2, PT IMPROVING SOB AT REST, IMPROVING WHEEZING BUT CONTINUES WITH DIFFUSE DIMINISHED LEFT LUNG HARVEY. HE CONTINUES WITH PRODUCTIVE COUGH. PT CT CHEST WITH CONTRAST REVEALED CONTINUE LEFT UL PNEUMONIA WITH EFFUSION. PT WAS STARTED ON FLOMAX 0.4 FOR BPH, TOLERATING WELL, DISCUSSED BLADDER TRAINING - Past Medical Family Social History Past Med/Fam/Surg Hx: No changes since H&P Allergies: Allergies No Known Drug Allergies Allergy (Verified 02/13/18 07:42) - Review of Systems ROS: No change since H&P - Vital Signs and I&O's Vital Signs: Temperature 99.1 F Pulse Rate [Apical] 109 Pulse Rate 80 Respiratory Rate 22 Blood Pressure [Right Arm] 122/66 Blood Pressure 107/55 O2 Sat by Pulse Oximetry 98 Intake and Output: Intake & Output 02/24/18 02/25/18 02/26/18 02/27/18 11:59 11:59 11:59 11:59 Intake Total 2299 / 2299 3236 / 3236 2089 / 2089 Output Total 3520 / 3520 5000 / 5000 3050 / 3050 Balance -1221 / -1221 -1764 / -1764 -961 / -961 - Physical Exam Oriented: Normal Eyes: Normal Ear: Normal Nose: Normal Throat: Normal Respiratory: Diminished, Rhonchi Cardiovascular: Tachycardia : Normal Tenderness: Normal Skin: Normal Musculoskeletal: Normal Psychiatric: Normal Speech Pattern: Clear, Appropriate - Laboratory and Diagnostics Result Diagrams: 02/26/18 05:00 02/26/18 05:00 Labs: 02/25/18 11:35 Stool Stool Culture - Preliminary 02/25/18 11:35 Stool - Final 02/23/18 14:01 Urine,Catheterized Urine Culture - Final 02/15/18 02:28 Sputum - Expectorated Sputum Sputum Culture - Final 02/15/18 02:28 Sputum - Expectorated Sputum - Final 02/14/18 17:04 Blood Blood Culture - Final 02/14/18 16:58 Blood Blood Culture - Final 02/13/18 07:55 Blood Blood Culture - Final 02/13/18 07:50 Blood Blood Culture - Final 02/14/18 18:09 Stool Stool Culture - Final 02/14/18 18:09 Stool - Final 02/14/18 07:25 Sputum - Expectorated Sputum Sputum Culture - Final 02/14/18 07:25 Sputum - Expectorated Sputum - Final 02/13/18 08:26 Sputum - Expectorated Sputum Sputum Culture - Final Pseudomonas Aeruginosa 02/13/18 08:26 Sputum - Expectorated Sputum - Final Laboratory WBC 14.4 X10^3/uL (3.6-10.0) H 02/26/18 05:00 RBC 4.43 X10^6/uL (4.7-6.0) L 02/26/18 05:00 Hgb 14.1 g/dL (13.5-18.0) 02/26/18 05:00 Hct 41.7 % (42.0-54.0) L 02/26/18 05:00 MCV 94.1 fL (80.0-100.0) 02/26/18 05:00 MCH 31.8 pg (27.0-34.0) 02/26/18 05:00 MCHC 33.8 g/dL (33.0-35.0) 02/26/18 05:00 RDW 14.1 % (11.6-16.5) 02/26/18 05:00 Plt Count 177 X10^3/uL (150.0-450.0) 02/26/18 05:00 Plt Count Comment Adequate (ADEQUATE) 02/26/18 05:00 MPV 7.4 fL (7.4-11.0) 02/26/18 05:00 Neut % (Auto) 73.1 % (42.0-75.0) 02/26/18 05:00 Lymph % (Auto) 8.4 % (21.0-51.0) L 02/26/18 05:00 [place] % (Auto) 18.0 % (0.0-13.0) H 02/26/18 05:00 Eos % (Auto) 0.2 % (0.9-2.9) L 02/26/18 05:00 Baso % (Auto) 0.3 % (0.2-1.0) 02/26/18 05:00 Neut # (Auto) 10.5 x10^3/uL (2.2-4.8) H 02/26/18 05:00 Lymph # (Auto) 1.2 X10^3/uL (1.3-2.9) L 02/26/18 05:00 [place] # (Auto) 2.6 x10^3/uL (0.3-0.8) H 02/26/18 05:00 Eos # (Auto) 0.0 x10^3/uL (0.0-0.2) 02/26/18 05:00 Baso # (Auto) 0.0 X10^3/uL (0.0-0.1) 02/26/18 05:00 Absolute Nucleated RBC 0.0 /100WBC 02/26/18 05:00 Total Counted 100 02/26/18 05:00 Neutrophils % (Manual) 78 % (39-76) H 02/26/18 05:00 Band Neutrophils % 1 % (0-10) 02/26/18 05:00 Lymphocytes % (Manual) 6 % (13-43) L 02/26/18 05:00 Monocytes % (Manual) 15 % (4-9) H 02/26/18 05:00 Eosinophils % (Manual) 2 % (0-6) 02/24/18 05:14 Basophils % (Manual) 1 % (0-1) 02/15/18 05:21 Plt Morphology Comment Normal (NORMAL) 02/26/18 05:00 RBC Morphology Normal (NORMAL) 02/26/18 05:00 INR Target Range - 02/13/18 07:50 INR 1.05 (0.8-1.3) 02/13/18 07:50 APTT 34.2 SECONDS (22.9-36.5) 02/13/18 07:50 PTT Comment - 02/13/18 07:50 Sample Site Rra 02/20/18 10:00 ABG pH 7.490 (7.35-7.45) H 02/20/18 10:00 ABG pCO2 46.0 mmHg (35.0-45.0) H 02/20/18 10:00 ABG pO2 66.0 mmHg (80.0-100.0) L 02/20/18 10:00 ABG HCO3 35.1 mmol/L (22-26) H* 02/20/18 10:00 ABG O2 Saturation 94.0 % (90-100) 02/20/18 10:00 ABG Base Excess 10.4 mmol/L (-2.0-2.0) H 02/20/18 10:00 Fernando Test Pos 02/20/18 10:00 A-a Gradient 76.0 mmHg 02/20/18 10:00 FiO2 28.000 02/20/18 10:00 Blood Gas Comments Samm well cs 02/20/18 10:00 Sodium 135 mmol/L (136-145) L 02/26/18 05:00 Corrected Sodium TNP 02/26/18 05:00 Potassium 4.8 mmol/L (3.5-5.1) 02/26/18 05:00 Chloride 99 mmol/L (98-107) 02/26/18 05:00 Carbon Dioxide 29.2 mmol/L (21-32) 02/26/18 05:00 BUN 10 mg/dL (7-18) 02/26/18 05:00 Creatinine 0.70 mg/dL (0.70-1.30) 02/26/18 05:00 Est GFR (MDRD) Af Amer > 60 (>60) 02/26/18 05:00 Est GFR (MDRD) Non-Af > 60 (>60) 02/26/18 05:00 Glucose 85 mg/dL (65-99) 02/26/18 05:00 Lactic Acid 1.6 mmol/L (0.4-2.0) 02/13/18 07:50 Calcium 8.2 mg/dL (8.5-10.1) L 02/26/18 05:00 Corrected Calcium 9.6 mg/dL (8.5-10.1) 02/26/18 05:00 Magnesium 2.2 mg/dL (1.7-2.9) 02/18/18 04:33 Total Bilirubin 0.50 mg/dL (0.2-1.0) 02/26/18 05:00 AST 15 Units/L (15-37) 02/26/18 05:00 ALT 18 Units/L (12-78) 02/26/18 05:00 Alkaline Phosphatase 67 Units/L (46-116) 02/26/18 05:00 Creatine Kinase 99 Units/L (39-308) 02/16/18 04:35 CK-MB (CK-2) < 1.0 ng/mL (0-4.0) 02/16/18 04:35 CK/CKMB % Calc 1.0 % (<4) 02/16/18 04:35 Troponin I < 0.02 ng/mL (0-1.5) 02/16/18 04:35 Total Protein 6.3 g/dL (6.4-8.2) L 02/26/18 05:00 Albumin 2.2 g/dL (3.4-5.0) L 02/26/18 05:00 Globulin 4.1 g/dL (2.5-4.5) 02/26/18 05:00 Albumin/Globulin Ratio 0.5 Ratio (1.1-2.1) L 02/26/18 05:00 Triglycerides 50 mg/dL (0-150) 02/14/18 05:29 Cholesterol 83 mg/dL (0-200) 02/14/18 05:29 LDL Cholesterol, Calc 37 mg/dL (0-100) 02/14/18 05:29 HDL Cholesterol 36 mg/dL (40-60) L 02/14/18 05:29 Cholesterol/HDL Ratio 2.3 (0.0-5.0) 02/14/18 05:29 Total PSA 6.18 ng/mL (0.13-4.0) H 02/25/18 05:50 Specimen Type Catherized urine 02/23/18 14:01 Urine Color Yellow (YELLOW) 02/23/18 14:01 Urine Appearance Clear (CLEAR) 02/23/18 14:01 Urine pH 7.0 (5.0 - 8.0) 02/23/18 14:01 Ur Specific [place] 1.010 (1.000-1.030) 02/23/18 14:01 Urine Protein 1+ (NEGATIVE) 02/23/18 14:01 Urine Glucose (UA) Negative (NEGATIVE) 02/23/18 14:01 Urine Ketones Negative (NEGATIVE) 02/23/18 14:01 Urine Occult Blood 2+ (NEGATIVE) 02/23/18 14:01 Urine Nitrite Negative (NEGATIVE) 02/23/18 14:01 Urine Bilirubin Negative (NEGATIVE) 02/23/18 14:01 Urine Urobilinogen Normal (NORMAL) 02/23/18 14:01 Ur Leukocyte Esterase Negative (NEGATIVE) 02/23/18 14:01 Urine RBC 3-5 /HPF (NONE SEEN) 02/23/18 14:01 Urine WBC 0-2 /HPF (NONE SEEN) 02/23/18 14:01 Ur Squamous Epith Cells Rare /HPF (NEGATIVE) 02/23/18 14:01 Urine Bacteria Negative /HPF (NEGATIVE) 02/23/18 14:01 Hyaline Casts Rare /LPF (NEGATIVE) 02/23/18 14:01 Urine Mucus Moderate /HPF (NEGATIVE) 02/23/18 14:01 Urine Sperm Few /HPF (NEGATIVE) 02/23/18 14:01 Ur Culture Indicated? No/not indicated 02/23/18 14:01 Stool Description 10g brown mucoid 02/25/18 11:35 Stl Occult Blood (IFOB) Positive (NEGATIVE) A 02/14/18 18:09 Stl C. diff Tox B Gene Negative (NEGATIVE) 02/25/18 11:35 Stl C. diff 027-NAP1-BI Negative (NEGATIVE) 02/25/18 11:35 Cryptosporid parvum Ag Negative (NEGATIVE) 02/25/18 11:35 E. histolytica Antigen Negative (NEGATIVE) 02/14/18 18:09 Giardia lamblia Ag Negative (NEGATIVE) 02/25/18 11:35 - Plan (1) SOB (shortness of breath) Status: Acute Plan: CONTINUE PNEUMONIA PROTOCOL WITH SPUTUM AND BLOOD CULTURES COLLECTED ON ADMISSION. RESP THERAPY, SUPPLEMENTAL O2, HYDRATION. CARDIAC MONITORING, BP MONITORING. REPEAT AM LABS, PERSISTANT RICHIE PNEUMONIA, DISCUSSED TRANSFER FOR PULMONOLOGY INTERVENTION (2) Respiratory distress Status: Acute Plan: REPEAT ROOM AIR ABG, SUPPLEMENTAL O2 (3) Pneumonia Status: Acute Plan: sputum positive for pseudomonas, continue iv atbx. resp therapy, pulmonary toileting (4) Pleural effusion Status: Acute Plan: IV LASIX, O2, RESP THERAPY. TREATMENT FOR PNEUMONIA, ECHO (5) BPH (benign prostatic hyperplasia) Status: Acute Plan: PSA, FLOMAX. CURRENTLY HAS MARRERO, CONTINUE I & OS, WILL ATTEMPT TO BLADDER TRAINING AND D/C MARRERO PRIOR TO DC
[2018-02-26 14:52] LABS: ABG BASE EXCESS 5.6 mmol/L (-2.0-2.0); ABG HCO3 29.8 mmol/L (22-26)
[2018-02-26 14:53] LABS: ABG ALLEN TEST POS
[2018-02-26] MEDS ORDERED: FLOMAX PO SCH (21:00)
[2018-02-27 05:40] LABS: BASOPHILS % (AUTO) 0.3 % (0.2-1.0); EOSINOPHILS % (AUTO) 0.2 % (0.9-2.9); HEMATOCRIT 37.8 % (42.0-54.0); LYMPHOCYTES # (AUTO) 0.8 X10^3/uL (1.3-2.9); LYMPHOCYTES % (AUTO) 8.1 % (21.0-51.0); MEAN CORPUSCULAR HEMOGLOBIN 32.1 pg (27.0-34.0); MEAN CORPUSCULAR HGB CONC 34.3 g/dL (33.0-35.0); MEAN CORPUSCULAR VOLUME 93.5 fL (80.0-100.0); MEAN PLATELET VOLUME 7.3 fL (7.4-11.0); MONOCYTES # (AUTO) 1.9 x10^3/uL (0.3-0.8); MONOCYTES % (AUTO) 18.2 % (0.0-13.0); NEUTROPHILS # (AUTO) 7.5 x10^3/uL (2.2-4.8); NEUTROPHILS % (AUTO) 73.2 % (42.0-75.0); PLATELET COUNT 242 X10^3/uL (150.0-450.0); RED BLOOD COUNT 4.04 X10^6/uL (4.7-6.0); RED CELL DISTRIBUTION WIDTH 14.2 % (11.6-16.5); WHITE BLOOD COUNT 10.2 X10^3/uL (3.6-10.0)
[2018-02-27 05:55] LABS: ALANINE AMINOTRANSFERASE 19 Units/L (12-78); ALBUMIN 2.1 g/dL (3.4-5.0); ALKALINE PHOSPHATASE 62 Units/L (46-116); ASPARTATE AMINO TRANSFERASE 16 Units/L (15-37); BLOOD UREA NITROGEN 6 mg/dL (7-18); CALCIUM 8.1 mg/dL (8.5-10.1); CARBON DIOXIDE 30.1 mmol/L (21-32); CHLORIDE 100 mmol/L (98-107); COR CA(FOR HYPOALB) 9.6 mg/dL (8.5-10.1); SODIUM 135 mmol/L (136-145); TOTAL PROTEIN 6.1 g/dL (6.4-8.2); eGFR NON BLACK RACES > 60 (>60)
[2018-02-27] MEDS: BROVANA IN SCH (09:10)
[2018-02-27] MEDS: XOPENEX 1.25 MG/3 ML NEBULE NEB SCH ×3 (09:10→16:00)
[2018-02-27] MEDS: Atrovent NEB TX 0.02% NEB SCH ×3 (09:10→16:00)
[2018-02-27] MEDS: PULMICORT NEB TX 0.5 MG NEB SCH (09:10)
[2018-02-27] MEDS: ZYVOX 600MG IV 600 MG/300 ML BAG IV SCH (09:15)
[2018-02-27] MEDS: PEPCID 20 MG IV PREMIX* 20 MG/50 ML BAG IV SCH (09:15)
[2018-02-27] MEDS: ROBITUSSIN DM PO SCH (09:15)
[2018-02-27] MEDS: K-DUR TAB 20 MEQ PO SCH (09:15)
[2018-02-27] MEDS: NICOTINE PATCH TD SCH (09:15)
[2018-02-27] MEDS: NS 1000 ML 1,000 ML IV SCH ×2 (10:30→10:31)
[2018-02-27 16:09] VITALS: BP 125/76
--- NOTE | 2018-03-11 22:45 | PCM.DCPLAN ---
Discharge Summary - Admission Date Date of Admission: 02/13/18 - Discharge Date Discharge Date: 02/27/18 - Admission Diagnoses (1) BPH (benign prostatic hyperplasia) Status: Acute (2) Pleural effusion Status: Acute (3) Pneumonia Status: Acute (4) Respiratory distress Status: Acute (5) SOB (shortness of breath) Status: Acute - Discharge Diagnoses Discharge Diagnosis: SAME ADMISSION DIAGNOSIS - Discharge Medications Discharge Medications: Home Medication List NK 02/13/18 [History] Prescriptions: - Hospital Course Vital Signs: Temperature 99.7 F Pulse Rate [Apical] 95 Pulse Rate 100 Respiratory Rate 15 Blood Pressure [Right Arm] 125/76 Blood Pressure 107/55 O2 Sat by Pulse Oximetry 96 Latest Lab Results: Laboratory Last Values WBC 10.2 X10^3/uL (3.6-10.0) H 02/27/18 05:18 RBC 4.04 X10^6/uL (4.7-6.0) L 02/27/18 05:18 Hgb 13.0 g/dL (13.5-18.0) L 02/27/18 05:18 Hct 37.8 % (42.0-54.0) L 02/27/18 05:18 MCV 93.5 fL (80.0-100.0) 02/27/18 05:18 MCH 32.1 pg (27.0-34.0) 02/27/18 05:18 MCHC 34.3 g/dL (33.0-35.0) 02/27/18 05:18 RDW 14.2 % (11.6-16.5) 02/27/18 05:18 Plt Count 242 X10^3/uL (150.0-450.0) 02/27/18 05:18 Plt Count Comment Adequate (ADEQUATE) 02/26/18 05:00 MPV 7.3 fL (7.4-11.0) L 02/27/18 05:18 Neut % (Auto) 73.2 % (42.0-75.0) 02/27/18 05:18 Lymph % (Auto) 8.1 % (21.0-51.0) L 02/27/18 05:18 [place] % (Auto) 18.2 % (0.0-13.0) H 02/27/18 05:18 Eos % (Auto) 0.2 % (0.9-2.9) L 02/27/18 05:18 Baso % (Auto) 0.3 % (0.2-1.0) 02/27/18 05:18 Neut # (Auto) 7.5 x10^3/uL (2.2-4.8) H 02/27/18 05:18 Lymph # (Auto) 0.8 X10^3/uL (1.3-2.9) L 02/27/18 05:18 [place] # (Auto) 1.9 x10^3/uL (0.3-0.8) H 02/27/18 05:18 Eos # (Auto) 0.0 x10^3/uL (0.0-0.2) 02/27/18 05:18 Baso # (Auto) 0.0 X10^3/uL (0.0-0.1) 02/27/18 05:18 Absolute Nucleated RBC 0.0 /100WBC 02/27/18 05:18 Total Counted 100 02/26/18 05:00 Neutrophils % (Manual) 78 % (39-76) H 02/26/18 05:00 Band Neutrophils % 1 % (0-10) 02/26/18 05:00 Lymphocytes % (Manual) 6 % (13-43) L 02/26/18 05:00 Monocytes % (Manual) 15 % (4-9) H 02/26/18 05:00 Eosinophils % (Manual) 2 % (0-6) 02/24/18 05:14 Basophils % (Manual) 1 % (0-1) 02/15/18 05:21 Plt Morphology Comment Normal (NORMAL) 02/26/18 05:00 RBC Morphology Normal (NORMAL) 02/26/18 05:00 INR Target Range - 02/13/18 07:50 INR 1.05 (0.8-1.3) 02/13/18 07:50 APTT 34.2 SECONDS (22.9-36.5) 02/13/18 07:50 PTT Comment - 02/13/18 07:50 Sample Site Rra 02/26/18 14:45 ABG pH 7.470 (7.35-7.45) H 02/26/18 14:45 ABG pCO2 41.0 mmHg (35.0-45.0) 02/26/18 14:45 ABG pO2 91.0 mmHg (80.0-100.0) 02/26/18 14:45 ABG HCO3 29.8 mmol/L (22-26) H 02/26/18 14:45 ABG O2 Saturation 98.0 % (90-100) 02/26/18 14:45 ABG Base Excess 5.6 mmol/L (-2.0-2.0) H 02/26/18 14:45 Fernando Test Pos 02/26/18 14:45 A-a Gradient 57.0 mmHg 02/26/18 14:45 FiO2 28.000 02/26/18 14:45 Blood Gas Comments Samm well cs 02/26/18 14:45 Sodium 135 mmol/L (136-145) L 02/27/18 05:18 Corrected Sodium TNP 02/27/18 05:18 Potassium 4.5 mmol/L (3.5-5.1) 02/27/18 05:18 Chloride 100 mmol/L (98-107) 02/27/18 05:18 Carbon Dioxide 30.1 mmol/L (21-32) 02/27/18 05:18 BUN 6 mg/dL (7-18) L 02/27/18 05:18 Creatinine 0.70 mg/dL (0.70-1.30) 02/27/18 05:18 Est GFR (MDRD) Af Amer > 60 (>60) 02/27/18 05:18 Est GFR (MDRD) Non-Af > 60 (>60) 02/27/18 05:18 Glucose 105 mg/dL (65-99) H 02/27/18 05:18 Lactic Acid 1.6 mmol/L (0.4-2.0) 02/13/18 07:50 Calcium 8.1 mg/dL (8.5-10.1) L 02/27/18 05:18 Corrected Calcium 9.6 mg/dL (8.5-10.1) 02/27/18 05:18 Magnesium 2.2 mg/dL (1.7-2.9) 02/18/18 04:33 Total Bilirubin 0.40 mg/dL (0.2-1.0) 02/27/18 05:18 AST 16 Units/L (15-37) 02/27/18 05:18 ALT 19 Units/L (12-78) 02/27/18 05:18 Alkaline Phosphatase 62 Units/L (46-116) 02/27/18 05:18 Creatine Kinase 99 Units/L (39-308) 02/16/18 04:35 CK-MB (CK-2) < 1.0 ng/mL (0-4.0) 02/16/18 04:35 CK/CKMB % Calc 1.0 % (<4) 02/16/18 04:35 Troponin I < 0.02 ng/mL (0-1.5) 02/16/18 04:35 Total Protein 6.1 g/dL (6.4-8.2) L 02/27/18 05:18 Albumin 2.1 g/dL (3.4-5.0) L 02/27/18 05:18 Globulin 4.0 g/dL (2.5-4.5) 02/27/18 05:18 Albumin/Globulin Ratio 0.5 Ratio (1.1-2.1) L 02/27/18 05:18 Triglycerides 50 mg/dL (0-150) 02/14/18 05:29 Cholesterol 83 mg/dL (0-200) 02/14/18 05:29 LDL Cholesterol, Calc 37 mg/dL (0-100) 02/14/18 05:29 HDL Cholesterol 36 mg/dL (40-60) L 02/14/18 05:29 Cholesterol/HDL Ratio 2.3 (0.0-5.0) 02/14/18 05:29 Total PSA 6.18 ng/mL (0.13-4.0) H 02/25/18 05:50 Specimen Type Catherized urine 02/23/18 14:01 Urine Color Yellow (YELLOW) 02/23/18 14:01 Urine Appearance Clear (CLEAR) 02/23/18 14:01 Urine pH 7.0 (5.0 - 8.0) 02/23/18 14:01 Ur Specific [place] 1.010 (1.000-1.030) 02/23/18 14:01 Urine Protein 1+ (NEGATIVE) 02/23/18 14:01 Urine Glucose (UA) Negative (NEGATIVE) 02/23/18 14:01 Urine Ketones Negative (NEGATIVE) 02/23/18 14:01 Urine Occult Blood 2+ (NEGATIVE) 02/23/18 14:01 Urine Nitrite Negative (NEGATIVE) 02/23/18 14:01 Urine Bilirubin Negative (NEGATIVE) 02/23/18 14:01 Urine Urobilinogen Normal (NORMAL) 02/23/18 14:01 Ur Leukocyte Esterase Negative (NEGATIVE) 02/23/18 14:01 Urine RBC 3-5 /HPF (NONE SEEN) 02/23/18 14:01 Urine WBC 0-2 /HPF (NONE SEEN) 02/23/18 14:01 Ur Squamous Epith Cells Rare /HPF (NEGATIVE) 02/23/18 14:01 Urine Bacteria Negative /HPF (NEGATIVE) 02/23/18 14:01 Hyaline Casts Rare /LPF (NEGATIVE) 02/23/18 14:01 Urine Mucus Moderate /HPF (NEGATIVE) 02/23/18 14:01 Urine Sperm Few /HPF (NEGATIVE) 02/23/18 14:01 Ur Culture Indicated? No/not indicated 02/23/18 14:01 Stool Description 10g brown mucoid 02/25/18 11:35 Stool Neutral Fats Normal (Normal) 02/25/18 11:35 Stool Split Fat Normal (Normal) 02/25/18 11:35 Stool Sodium Cancelled 02/25/18 11:35 Stool Potassium Cancelled 02/25/18 11:35 Stool Chloride Cancelled 02/25/18 11:35 Stl Occult Blood (IFOB) Positive (NEGATIVE) A 02/14/18 18:09 Stl C. diff Tox B Gene Negative (NEGATIVE) 02/25/18 11:35 Stl C. diff 027-NAP1-BI Negative (NEGATIVE) 02/25/18 11:35 Cryptosporid parvum Ag Negative (NEGATIVE) 02/25/18 11:35 E. histolytica Antigen Negative (NEGATIVE) 02/14/18 18:09 Giardia lamblia Ag Negative (NEGATIVE) 02/25/18 11:35 Hospital Course: 67 WM ER ADMIT ON 02/13 WITH PNEUMONIA, CHEST CONGESTION, RESP DISTRESS. PATIENT FOUND TO HAVE PSEUDOMONAS AERUGINOSA. PATIENT GIVEN IV ANTIBIOTICS, NEBS AND OXYGEN THERAPY. PATIENT DID HAVE VOIDING DIFFICULTY AND WAS STARTED ON FLOMAX AND MARRERO CATHETER WITH BLADDER TRAINING. PATIENT WAS TRANSFERRED TO [facility] FOR FURTHER CARE. - Discharge Plan Disposition: XFER T-[facility] Condition: Stable - Follow ups/Referrals Follow ups/Referrals: [facility] [Other] - 1 WEEK NFD,None [Primary Care Provider] - 3 days - Instructions
== END 2018-02-27 16:24 | disposition short-term general hospital (02) | DRG 178 ==
LOC: ER 07:47 → ICU 10:22
PROVIDERS: ADMIT Internal Medicine; ATTEND Internal Medicine
DX: R07.89 Other chest pain; R11.2 Nausea with vomiting, unspecified; J15.1 Pneumonia due to Pseudomonas; R00.0 Tachycardia, unspecified; J44.9 Chronic obstructive pulmonary disease, unspecified; N40.0 Benign prostatic hyperplasia without lower urinary tract symptoms; Z66 Do not resuscitate; R06.03 Acute respiratory distress; I95.89 Other hypotension; Z23 Encounter for immunization; R06.02 Shortness of breath; J90 Pleural effusion, not elsewhere classified
CPT/HCPCS: 36415; 36600; 71010; 71020; 71045; 71046; 71250; 71260; 80053; 80061; 81001; 82270; 82438; 82550; 82553; 82705; 82803; 83605; 83735; 84153; 84302; 84484; 84999; 85025; 85610; 85730; 87040; 87045; 87070; 87077; 87086; 87153; 87186; 87205; 87328; 87329; 87336; 87427; 87449; 87493; 87899; 93005; 93010; 93306; 94640; 94669; 96365; 96367; 96374; 99231; 99283; 99285; A4222; S0028; 90670; J0713; J1940; J1956; J2020; J2185; J2405; J2920; J2930; J3475; J3490; J7030; J7050; J7608; J7620; J7626; J7644; J8499

== ENCOUNTER 2018-12-03 21:17 | Inpatient (IN) ==
[2018-12-03 21:49] VITALS: BMI 20.7
[2018-12-03] MEDS ORDERED: ZOFRAN INJ 4 MG VIAL IVP ONE (22:04)
[2018-12-03] MEDS ORDERED: PEPCID 20 MG IV PREMIX* 20 MG/50 ML BAG IV ONE (22:04)
[2018-12-03] MEDS ORDERED: NS 1000 ML 1,000 ML IV ONE (22:06)
--- NOTE | 2018-12-03 22:08 | DR.ABDMALE ---
HPI Time seen Time Seen by Provider: 12/03/18 22:02 PCP Primary Care Physician: SANTHOSH HPI comment HPI Comment: PATIENT IS 68YR OLD WHITE MALE HERE IN ED WITH ABDOMINAL PAIN, NAUSEA AND VOMITING. STARTED 3 DAYS AGO. PATIENT HAVE HISTORY OF RUPTURE VISCUS LEADING TO BOWEL RESECTION IN THE PAST. TONIGHT PAIN SEVERE. NO FEVER. NO DIARRHEA. Complaint Chief Complaint Doctors Comments: LOWER ABDOMINAL PAIN , INTERMITTENT TIMES 3 DAYS. Chief Complaint:: PT IN BY EMS COMPLAINTS OF LOWER STOMACH/PUBIC PAIN THAT STARTED 3 DAYS AGO , WENT AWAY AND COME BACK THIS MORNING. Self Treatment fo Chief Complaint: FLOMAX Reviewed Nurses Notes Review: Yes Mode of arrival Mode of Arrival: EMS Timing Onset of Chief Complaint: 12/03/18 Came on: Suddenly Duration Duration: Intermittent Duration: Days Location Location: RLQ, LLQ and Suprapubic Quality Quality: Sharp and Generalized Context Onset: Suddenly History of: Abdominal surgery Modifying factors Worsening Factors: Food Improving Factors: Nothing Associated signs and symptoms Associated Signs and Symptoms: Nausea and Vomiting Other history Other History: HISTORY BOWEL RESECTION. PMH PMH Past Medical History: Yes Past Medical History: COPD Past Medical History Comment: EYE DISEASE Past Surgical History: Yes Surgical History: Abdominal Surgery and Ortho Surgery Past Surgical History Comment: PROSTATE SURGERY ULCER RUPTURED 12 FOOT OF INTESTINE REMOVED Family History History of Family Medical Conditions: Yes Family Medical History: Diabetes Mellitus, Heart Failure and Hypertension Social History Does patient currently use any type of tobacco product: Yes Have you used tobacco products in the last 12 months: Yes Type of Tobacco Use: Cigarettes Does any household member use tobacco: No Alcohol Use: DAILY Do you use any recreational Drugs:: No Lives With: Alone Lives Where: Home infectious screening In the last 2 months have you had wt loss of >10#?: NO Have you had fever, night sweats or hemotysis?: No Have you traveled outside the country in the last 6 months?: No Isolation: Standard ROS Review of Systems Constitutional: Weakness and Fatigue; negative Fever Eyes: Tearing ENTM: No Symptoms Reported Respiratoy: No Symptoms Reported Cardiovascular: No Symptoms Reported Gastrointestinal/Abdominal: Abdominal Pain, Nausea and Vomiting Genitourinary: No Symptoms Reported Neurological: Weakness Musculoskeletal: No Symptoms Reported Integumentary: Dryness Hematologic/Lymphatic: No Symptoms Reported Endocrine: No Symptoms Reported Psychiatric: No Symptoms Reported All Other Systems: Reviewed and Negative PE Vital Signs Vital Signs: Temp Pulse Pulse Resp BP BP Pulse Ox 12/05/18 01:35 18 12/05/18 01:05 18 12/05/18 00:00 97.9 F 86 20 131/64 93 L 12/04/18 21:34 20 12/04/18 21:04 20 12/04/18 20:00 97.7 F 88 20 129/76 93 L 12/04/18 17:18 20 12/04/18 16:48 20 12/04/18 16:00 98.1 F 91 H 20 141/77 94 L 12/04/18 13:12 20 12/04/18 12:42 22 12/04/18 12:00 98.5 F 76 22 150/80 96 12/04/18 09:00 22 12/04/18 08:30 22 12/04/18 08:00 97.8 F 90 22 142/69 96 12/04/18 04:50 20 12/04/18 04:20 20 12/04/18 03:55 97 F L 90 18 147/85 97 12/04/18 02:37 22 12/04/18 02:30 90 24 135/84 95 12/04/18 02:14 22 12/04/18 01:44 20 12/03/18 23:21 20 12/03/18 22:53 87 120/67 12/03/18 22:52 89 134/85 12/03/18 22:51 24 12/03/18 21:42 98.2 F 93 H 22 138/94 98 02/27/18 16:00 125/76 125/76 General Limitations: No Limitations General Appearance: Alert and In No Apparent Distress Head Head Exam: Normal Inspection Eyes Eye exam: Normal Appearance ENT ENT Exam: Normal Exam Neck Neck Exam: Normal Inspection Chest Chest Inspection: Normal Inspection Respiratory Respiratory Exam: Normal Lung Sounds Bilat Respiratory Exam: Bilateral: Clear to Auscultation Cardiovascular Cardiovascular Exam: Regular Rate and Normal Rhythm Abdominal Exam Abdominal Exam: Distention, Tenderness and Dimnished Bowel Sounds Abdominal Tenderness: Diffuse and Moderate Rectal Rectal Exam: Deferred Back Back Exam: Normal Inspection Extremeties Extremities Exam: Normal Inspection Exam: Male: Deferred Neurologic Neurological Exam: Alert, Oriented X3 and CN II-XII Intact; negative Motor Sensory Deficit Psychiatric Psychiatric Exam: Normal Affect and Normal Mood Skin Skin Exam: Dry MDM Differential Diagnosis Differential Diagnosis: Bowel Obstruction, Diverticular disease, Gastritus/PUD, Gastroenteritis, Pancreatitis, Urinary tract infection and Urolithiasis COURSE Treatment Treatment: SEE ORDERS. IV NS, ZOFRAN AND PAIN MED. Consultation Consultation Comments: DISCUSS PATIENT WITH SURGEON DR. BARLOW. DR HERNANDEZ WILL ADMIT PATIENT. Education/Counseling Education/Counseling: Patient Educated On: Diagnosis ROR Labs Reviewed Laboratory Results Reviewed?: Yes Result Diagrams: 12/04/18 04:32 12/04/18 04:32 Laboratory: WBC 6.1 X10^3/uL (3.6-10.0) 12/04/18 04:32 RBC 4.64 X10^6/uL (4.7-6.0) L 12/04/18 04:32 Hgb 13.8 g/dL (13.5-18.0) 12/04/18 04:32 Hct 41.3 % (42.0-54.0) L 12/04/18 04:32 MCV 89.1 fL (80.0-100.0) 12/04/18 04:32 MCH 29.8 pg (27.0-34.0) 12/04/18 04:32 MCHC 33.5 g/dL (33.0-35.0) 12/04/18 04:32 RDW 13.7 % (11.6-16.5) 12/04/18 04:32 Plt Count 320 X10^3/uL (150.0-450.0) 12/04/18 04:32 Plt Count Comment Adequate (ADEQUATE) 12/03/18 22:15 MPV 8.2 fL (7.4-11.0) 12/04/18 04:32 Neut % (Auto) 77.5 % (42.0-75.0) H 12/04/18 04:32 Lymph % (Auto) 9.4 % (21.0-51.0) L 12/04/18 04:32 [place] % (Auto) 12.4 % (0.0-13.0) 12/04/18 04:32 Eos % (Auto) 0.2 % (0.9-2.9) L 12/04/18 04:32 Baso % (Auto) 0.5 % (0.2-1.0) 12/04/18 04:32 Neut # (Auto) 4.7 x10^3/uL (2.2-4.8) 12/04/18 04:32 Lymph # (Auto) 0.6 X10^3/uL (1.3-2.9) L 12/04/18 04:32 [place] # (Auto) 0.8 x10^3/uL (0.3-0.8) 12/04/18 04:32 Eos # (Auto) 0.0 x10^3/uL (0.0-0.2) 12/04/18 04:32 Baso # (Auto) 0.0 X10^3/uL (0.0-0.1) 12/04/18 04:32 Absolute Nucleated RBC 0.0 /100WBC 12/04/18 04:32 Total Counted 100 12/03/18 22:15 Neutrophils % (Manual) 77 % (39-76) H 12/03/18 22:15 Lymphocytes % (Manual) 13 % (13-43) 12/03/18 22:15 Monocytes % (Manual) 10 % (4-9) H 12/03/18 22:15 Plt Morphology Comment Normal (NORMAL) 12/03/18 22:15 RBC Morphology Normal (NORMAL) 12/03/18 22:15 Sodium 138 mmol/L (136-145) 12/04/18 04:32 Corrected Sodium 139 mmol/L (136-145) 12/04/18 04:32 Potassium 3.2 mmol/L (3.5-5.1) L 12/04/18 04:32 Chloride 101 mmol/L (98-107) 12/04/18 04:32 Carbon Dioxide 25.2 mmol/L (21-32) 12/04/18 04:32 BUN 8 mg/dL (7-18) 12/04/18 04:32 Creatinine 0.80 mg/dL (0.70-1.30) 12/04/18 04:32 Est GFR (MDRD) Af Amer > 60 (>60) 12/04/18 04:32 Est GFR (MDRD) Non-Af > 60 (>60) 12/04/18 04:32 Glucose 133 mg/dL (65-99) H 12/04/18 04:32 Calcium 8.4 mg/dL (8.5-10.1) L 12/04/18 04:32 Corrected Calcium TNP 12/04/18 04:32 Magnesium 1.9 mg/dL (1.7-2.9) 12/04/18 04:32 Total Bilirubin 0.60 mg/dL (0.2-1.0) 12/04/18 04:32 AST 15 Units/L (15-37) 12/04/18 04:32 ALT 12 Units/L (12-78) 12/04/18 04:32 Alkaline Phosphatase 78 Units/L (46-116) 12/04/18 04:32 Total Protein 7.1 g/dL (6.4-8.2) 12/04/18 04:32 Albumin 3.6 g/dL (3.4-5.0) 12/04/18 04:32 Globulin 3.5 g/dL (2.5-4.5) 12/04/18 04:32 Albumin/Globulin Ratio 1.0 Ratio (1.1-2.1) L 12/04/18 04:32 Amylase 26 Units/L (25-115) 12/04/18 04:32 Lipase 69 Units/L (73-393) L 12/04/18 04:32 Specimen Type Clean catch urine 12/04/18 08:56 Urine Color Dark yellow (YELLOW) 12/04/18 08:56 Urine Appearance Clear (CLEAR) 12/04/18 08:56 Urine pH 5.0 (5.0 - 8.0) 12/04/18 08:56 Ur Specific [place] 1.015 (1.000-1.030) 12/04/18 08:56 Urine Protein 2+ (NEGATIVE) 12/04/18 08:56 Urine Glucose (UA) Negative (NEGATIVE) 12/04/18 08:56 Urine Ketones 3+ (NEGATIVE) 12/04/18 08:56 Urine Occult Blood 5+ (NEGATIVE) 12/04/18 08:56 Urine Nitrite Negative (NEGATIVE) 12/04/18 08:56 Urine Bilirubin Negative (NEGATIVE) 12/04/18 08:56 Urine Urobilinogen Normal (NORMAL) 12/04/18 08:56 Ur Leukocyte Esterase 1+ (NEGATIVE) 12/04/18 08:56 Urine RBC 0-2 /HPF (NONE SEEN) 12/04/18 08:56 Urine WBC 5-10 /HPF (NONE SEEN) 12/04/18 08:56 Ur Squamous Epith Cells Negative /HPF (NEGATIVE) 12/04/18 08:56 Urine Bacteria Negative /HPF (NEGATIVE) 12/04/18 08:56 Urine Mucus Few /HPF (NEGATIVE) 12/04/18 08:56 Ur Culture Indicated? No/not indicated 12/04/18 08:56 XRAY XRAY Interpreted by: Radiologist XRAY Findings: REPORT ON RECORD NOTED AND DISCUSS WITH PATIENT.
[2018-12-03] MEDS ORDERED: ZOFRAN INJ 4 MG VIAL ONE (22:19)
[2018-12-03] MEDS ORDERED: NS 1000 ML 1,000 ML ONE (22:19)
[2018-12-03] MEDS ORDERED: PEPCID 20 MG IV PREMIX* 20 MG/50 ML BAG ONE (22:19)
[2018-12-03 22:25] LABS: BASOPHILS # (AUTO) 0.1 X10^3/uL (0.0-0.1); BASOPHILS % (AUTO) 0.8 % (0.2-1.0); EOSINOPHILS % (AUTO) 0.5 % (0.9-2.9); HEMATOCRIT 39.5 % (42.0-54.0); HEMOGLOBIN 13.4 g/dL (13.5-18.0); LYMPHOCYTES # (AUTO) 0.6 X10^3/uL (1.3-2.9); LYMPHOCYTES % (AUTO) 9.5 % (21.0-51.0); MEAN CORPUSCULAR HEMOGLOBIN 30.4 pg (27.0-34.0); MEAN CORPUSCULAR VOLUME 89.3 fL (80.0-100.0); MEAN PLATELET VOLUME 7.5 fL (7.4-11.0); MONOCYTES # (AUTO) 0.9 x10^3/uL (0.3-0.8); MONOCYTES % (AUTO) 14.1 % (0.0-13.0); NEUTROPHILS # (AUTO) 4.8 x10^3/uL (2.2-4.8); NEUTROPHILS % (AUTO) 75.1 % (42.0-75.0); PLATELET COUNT 339 X10^3/uL (150.0-450.0); RED BLOOD COUNT 4.43 X10^6/uL (4.7-6.0); RED CELL DISTRIBUTION WIDTH 13.6 % (11.6-16.5); WHITE BLOOD COUNT 6.4 X10^3/uL (3.6-10.0)
[2018-12-03 22:34] LABS: ALANINE AMINOTRANSFERASE 12 Units/L (12-78); ALBUMIN 3.5 g/dL (3.4-5.0); ALKALINE PHOSPHATASE 78 Units/L (46-116); AMYLASE 30 Units/L (25-115); ASPARTATE AMINO TRANSFERASE 13 Units/L (15-37); BLOOD UREA NITROGEN 10 mg/dL (7-18); CALCIUM 8.6 mg/dL (8.5-10.1); CARBON DIOXIDE 27.7 mmol/L (21-32); CHLORIDE 100 mmol/L (98-107); COR NA(FOR HYPERGLY) 139 mmol/L (136-145); CREATININE 0.96 mg/dL (0.70-1.30); LIPASE 88 Units/L (73-393); SODIUM 138 mmol/L (136-145); eGFR NON BLACK RACES > 60 (>60)
[2018-12-03] MEDS ORDERED: MORPHINE SULFATE INJ 4 MG IVP ONE (22:37)
[2018-12-03] MEDS ORDERED: MORPHINE SULFATE INJ 4 MG ONE (22:40)
[2018-12-03 22:41] LABS: PLATELET MORPHOLOGY COMMENT NORMAL (NORMAL)
[2018-12-04] MEDS ORDERED: NS 100 ML IV 100 ML ONE (00:28)
--- NOTE | 2018-12-04 01:22 | CT ---
CT abdomen and pelvis with contrast Indication: Abdominal pain Technique: Helical CT images of the abdomen and pelvis were obtained with IV contrast. Reformatted images in the coronal and sagittal planes were also generated for review. Comparison: 01/17/2015 Findings: Limited images of the lower chest demonstrate emphysema, small left pleural effusion and mild atelectasis of the left lower lobe. Degenerative changes of the lumbar spine noted. No acute osseous abnormality is identified. There is a significant amount of stool throughout the cecum and proximal colon with diffuse gaseous dilatation of the remaining colon to the level of the rectum. There is short segment narrowing of the distal rectum at what appears to be a distal rectal anastomosis, concerning for anastomotic stricture. Prior postsurgical changes from partial small-bowel resection with bowel anastomoses within the upper abdomen noted. There is a right inguinal hernia which contains a short segment of small bowel. There is no associated small bowel obstruction. A small amount of fluid is present within the right inguinal hernia. The appendix is normal. The liver, gallbladder, spleen, pancreas and adrenals are unremarkable. Both kidneys are normal apart from small bilateral probable cysts. 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 Scattered calcifications are present throughout the abdomen, compatible with free contrast related to prior perforated duodenal ulcer. The urinary bladder is grossly normal. The prostate is moderately enlarged. No free air, significant free fluid or bulky lymphadenopathy is identified. Impression: Imaging findings concerning for distal colonic obstruction secondary to suspected rectal anastomotic stricture as above. Direct visualization with colonoscopy is recommended to exclude underlying neoplasm. Small bowel containing right inguinal hernia without associated small bowel obstruction. However, there is small fluid within the hernia sac which could represent bowel strangulation. Clinical correlation for incarceration is necessary. Emphysema, small left pleural effusion, chronic occlusion of the left common iliac artery and multiple additional chronic findings as above. Reported By:
[2018-12-04] MEDS ORDERED: DEMEROL INJ IVP ONE ×2 (01:42→02:34)
[2018-12-04] MEDS ORDERED: DEMEROL INJ ONE ×2 (01:42→02:35)
[2018-12-04] MEDS ORDERED: ZOFRAN INJ 4 MG VIAL IVP ONE (01:43)
[2018-12-04] MEDS ORDERED: ZOFRAN INJ 4 MG VIAL ONE (01:43)
--- NOTE | 2018-12-04 02:18 | RAD ---
Abdomen, one view Indication: NG tube placement Comparison: CT from same day Findings: Tip of the nasogastric tube terminates over the mid lower abdomen with side-port distal to the GE junction. Moderate diffuse gaseous distention of the colon is again seen and unchanged since earlier today. No significant free air is identified. Small left pleural effusion noted. Impression: Satisfactory NG tube placement as above. Reported By:
[2018-12-04] MEDS ORDERED: NS 1000 ML 1,000 ML IV SCH (03:00)
[2018-12-04] MEDS ORDERED: NS 1000 ML 1,000 ML ONE (03:28)
[2018-12-04] MEDS: DILAUDID INJ IVP PRN ×5 (04:20→21:04)
[2018-12-04] MEDS: ZOFRAN INJ 4 MG VIAL IVP PRN (04:30)
[2018-12-04 05:02] LABS: BASOPHILS % (AUTO) 0.5 % (0.2-1.0); EOSINOPHILS % (AUTO) 0.2 % (0.9-2.9); HEMATOCRIT 41.3 % (42.0-54.0); HEMOGLOBIN 13.8 g/dL (13.5-18.0); LYMPHOCYTES # (AUTO) 0.6 X10^3/uL (1.3-2.9); LYMPHOCYTES % (AUTO) 9.4 % (21.0-51.0); MEAN CORPUSCULAR HEMOGLOBIN 29.8 pg (27.0-34.0); MEAN CORPUSCULAR HGB CONC 33.5 g/dL (33.0-35.0); MEAN CORPUSCULAR VOLUME 89.1 fL (80.0-100.0); MEAN PLATELET VOLUME 8.2 fL (7.4-11.0); MONOCYTES # (AUTO) 0.8 x10^3/uL (0.3-0.8); MONOCYTES % (AUTO) 12.4 % (0.0-13.0); NEUTROPHILS # (AUTO) 4.7 x10^3/uL (2.2-4.8); NEUTROPHILS % (AUTO) 77.5 % (42.0-75.0); PLATELET COUNT 320 X10^3/uL (150.0-450.0); RED BLOOD COUNT 4.64 X10^6/uL (4.7-6.0); RED CELL DISTRIBUTION WIDTH 13.7 % (11.6-16.5); WHITE BLOOD COUNT 6.1 X10^3/uL (3.6-10.0)
[2018-12-04 05:10] LABS: ALANINE AMINOTRANSFERASE 12 Units/L (12-78); ALBUMIN 3.6 g/dL (3.4-5.0); ALKALINE PHOSPHATASE 78 Units/L (46-116); AMYLASE 26 Units/L (25-115); ASPARTATE AMINO TRANSFERASE 15 Units/L (15-37); BLOOD UREA NITROGEN 8 mg/dL (7-18); CALCIUM 8.4 mg/dL (8.5-10.1); CARBON DIOXIDE 25.2 mmol/L (21-32); CHLORIDE 101 mmol/L (98-107); COR NA(FOR HYPERGLY) 139 mmol/L (136-145); LIPASE 69 Units/L (73-393); SODIUM 138 mmol/L (136-145); TOTAL PROTEIN 7.1 g/dL (6.4-8.2); eGFR NON BLACK RACES > 60 (>60)
[2018-12-04] MEDS ORDERED: POTASSIUM CHL 40 MEQ/NS 0.45% 500 ML IV PRN (06:11)
[2018-12-04] MEDS ORDERED: POTASSIUM CHLORIDE LIQ 20 MEQ UDC PO PRN (06:11)
[2018-12-04] MEDS ORDERED: K-RIDER 10 MEQ/NS 100 ML 10 MEQ/100 ML BAG IV PRN (06:11)
[2018-12-04] MEDS ORDERED: POTASSIUM CHL 60 MEQ/NS 0.45% 500 ML IV PRN (06:11)
[2018-12-04] MEDS ORDERED: MICRO K EXTEN CAP 10 MEQ PO PRN (06:11)
[2018-12-04] MEDS ORDERED: NS 1/2 + KCL 20 MEQ/L 1,000 ML IV ONE (06:16)
[2018-12-04] MEDS: NS 1/2 + KCL 20 MEQ/L 1,000 ML IV SCH ×4 (06:40→23:20)
[2018-12-04] MEDS: NICOTINE PATCH TD SCH (08:24)
[2018-12-04 09:07] LABS: BILIRUBIN,URINE NEGATIVE (NEGATIVE); BLOOD/HEMOGLOBIN,URINE 5+ (NEGATIVE); GLUCOSE, URINE NEGATIVE (NEGATIVE); KETONES,URINE 3+ (NEGATIVE); LEUKOCYTE ESTERASE ,URINE 1+ (NEGATIVE); NITRITES,URINE NEGATIVE (NEGATIVE); PROTEIN,URINE 2+ (NEGATIVE); UROBILINOGEN,URINE NORMAL (NORMAL)
[2018-12-04 09:14] LABS: APPEARANCE,URINE CLEAR (CLEAR); BACTERIA,URINE NEGATIVE /HPF (NEGATIVE); COLOR,URINE DARK YELLOW (YELLOW); MUCUS,URINE FEW /HPF (NEGATIVE); RBC,URINE 0-2 /HPF (NONE SEEN); SQUAMOUS EPITHELIAL CELL,UR NEGATIVE /HPF (NEGATIVE)
[2018-12-04] MEDS: PHENERGAN INJ 25 MG IM PRN ×3 (10:53→22:00)
[2018-12-04] MEDS: PEPCID 20 MG IV PREMIX* 20 MG/50 ML BAG IV PRN (10:53)
[2018-12-04] MEDS: ALBUMIN HUMAN 25%- 100 ML 100 ML IV SCH (10:54)
--- NOTE | 2018-12-04 11:12 | RAD ---
HISTORY: Bowel obstruction Study: Frontal view of the chest, flat and upright views of the abdomen Comparison: CT 1 day prior Findings: Cardiomediastinal silhouette is normal in size. Scarring and volume loss of the left lung. Findings of COPD.. Flat and upright views of the abdomen demonstrates a redemonstration of multiple loops of dilated large bowel as well as a large stool ball in the colon. No free air. No abnormal calcifications or abnormal soft tissue shadows. No acute bony abnormalities. IMPRESSION: 1. No acute cardiopulmonary disease. 2. Redemonstration of findings concerning for distal large bowel obstruction. Reported By:
--- NOTE | 2018-12-04 18:18 | DR.H&P ---
H&P - History & Physical for Day of: H&P Date: 12/04/18 - Chief Complaint Chief Complaint: ABDOMINAL PAIN, N/V - History of Present Illness History of Present Illness: This is a 68-year-old male who presented to the emergency room with acute onset of abdominal pain which was localized to the mid and lower abdomen. The pain was steady with episodes of increased intensity. This started about 3-4 days ago. The patient was complaining of nausea and a few episodes of vomiting. No bowel movement for a couple of days. In the emergency room, the patient was found to be distended. He has a right inguinal hernia and two incisional hernias of the mid abdomen and lower abdomen. Actually, the pain was more involving the mid abdomen around the hernia itself. His workup in the emergency room revealed dilated colon with a possible obstruction or stricture involving the rectal anastomosis. The patient has a previous surgery involving, as per the patients statement, a ruptured bowel that they had to remove several feet of the bowel. The exact nature of the procedure is not certain. We will obtain all of the records from [place]. The patient claims that he has a hernia for a long time but it wasnt giving him any trouble and he was planning on having it fixed after taking care of the prostate. PT HAS PMH OF COPD, PROSTATE CANCER IN REMISSION, HX PERFORATED BOWEL. PT ADMITTED NPO, NG TUBE PLACEMENT, SURGICAL CONSULTATION FOR TREATMENT OF ACUTE BOWEL OBSTRUCTION. - Past Medical History Past Medical History: COPD - Past Surgical History Surgical History: Abdominal Surgery, Bowel Resection, TURP - Family History Family Medical History: Diabetes Mellitus, Heart Failure, Hypertension - Social History Does patient currently use any type of tobacco product: Yes Have you used tobacco products in the last 12 months: Yes Type of Tobacco Use: Cigarettes Does any household member use tobacco: No Alcohol Use: Occasionally Drug Use: None - Medications Home Medications: No Known Drug Allergies Allergy (Verified 12/03/18 21:48) CONTINUE taking the following medications tamsulosin 1 cap PO DAILY 12/03/18 [History] - Review of Systems Constitutional: Weakness Eyes: No Symptoms Reported ENT: No Symptoms Reported Respiratory: No Symptoms Reported Cardiovascular: No Symptoms Reported Gastrointestinal: Nausea, Vomiting, Abdominal Pain Genitourinary: No Symptoms Reported Musculoskeletal: Back Pain Skin: No Symptoms Reported Neurological: Weakness - Physical Exam Vital Signs: Temperature 98.1 F Pulse Rate [Right] 91 Pulse Rate 93 Respiratory Rate 20 Blood Pressure [Right Arm] 141/77 Blood Pressure 138/94 O2 Sat by Pulse Oximetry 94 Oriented: Normal Eyes: Normal Ear: Normal Nose: Normal Throat: Normal Respiratory: RLL Diminished, LLL Diminished Cardiovascular: Tachycardia : Normal Auscultation: Bowel Sounds: Increased Palpation: Normal Tenderness: Diffuse Skin: Decreased Turgur Musculoskeletal: Back:Lumbar Psychiatric: Anxiety Affect: Anxious Speech Pattern: Clear, Appropriate - Assessment/Plan (1) Bowel obstruction Status: Acute Plan: NG tube to lower intermitted suction,IV Protonix. IV Hydration, pain and nausea control. EKG AND CXR ON ADMISSION. SURGICAL CONSULTATION (2) COPD (chronic obstructive pulmonary disease) Status: Acute - Allergies Allergies/Adverse Reactions: Allergies Allergy/AdvReac Type Severity Reaction Status Date / Time No Known Drug Allergies Allergy Verified 12/03/18 21:48
[2018-12-05] MEDS: DILAUDID INJ IVP PRN ×7 (01:05→22:08)
[2018-12-05] MEDS: PEPCID 20 MG IV PREMIX* 20 MG/50 ML BAG IV PRN (01:15)
[2018-12-05 05:05] LABS: BASOPHILS % (AUTO) 0.4 % (0.2-1.0); EOSINOPHILS % (AUTO) 0.2 % (0.9-2.9); HEMATOCRIT 38.8 % (42.0-54.0); LYMPHOCYTES # (AUTO) 0.7 X10^3/uL (1.3-2.9); LYMPHOCYTES % (AUTO) 7.9 % (21.0-51.0); MEAN CORPUSCULAR HEMOGLOBIN 29.7 pg (27.0-34.0); MEAN CORPUSCULAR HGB CONC 33.6 g/dL (33.0-35.0); MEAN CORPUSCULAR VOLUME 88.6 fL (80.0-100.0); MONOCYTES # (AUTO) 1.5 x10^3/uL (0.3-0.8); MONOCYTES % (AUTO) 16.9 % (0.0-13.0); NEUTROPHILS # (AUTO) 6.7 x10^3/uL (2.2-4.8); NEUTROPHILS % (AUTO) 74.6 % (42.0-75.0); PLATELET COUNT 304 X10^3/uL (150.0-450.0); RED BLOOD COUNT 4.38 X10^6/uL (4.7-6.0); RED CELL DISTRIBUTION WIDTH 13.5 % (11.6-16.5)
[2018-12-05 05:11] LABS: ALANINE AMINOTRANSFERASE 12 Units/L (12-78); ALBUMIN 3.3 g/dL (3.4-5.0); ALKALINE PHOSPHATASE 61 Units/L (46-116); ASPARTATE AMINO TRANSFERASE 20 Units/L (15-37); BLOOD UREA NITROGEN 8 mg/dL (7-18); CALCIUM 8.3 mg/dL (8.5-10.1); CARBON DIOXIDE 25.5 mmol/L (21-32); CHLORIDE 103 mmol/L (98-107); COR CA(FOR HYPOALB) 8.9 mg/dL (8.5-10.1); CREATININE 0.72 mg/dL (0.70-1.30); SODIUM 140 mmol/L (136-145); TOTAL PROTEIN 6.2 g/dL (6.4-8.2); eGFR NON BLACK RACES > 60 (>60)
[2018-12-05] MEDS: NS 1/2 + KCL 20 MEQ/L 1,000 ML IV SCH ×2 (05:20→06:25)
[2018-12-05] MEDS ORDERED: PHARMACY CONSULT - DOSE _____ XX SCH (07:00)
[2018-12-05] MEDS: NICOTINE PATCH TD SCH (08:13)
[2018-12-05] MEDS: ALBUMIN HUMAN 25%- 100 ML 100 ML IV SCH (08:13)
[2018-12-05] MEDS ORDERED: STERILE WATER IRRIGATION ONE (09:55)
--- NOTE | 2018-12-05 10:22 | RAD ---
HISTORY: Bowel obstruction Study: 12/04/2018 of the abdomen. Comparison: None Findings: Evaluation of the abdomen demonstrates a stable appearance of dilated loops of large bowel. No free air. No pathological soft tissue mass or calcification can be observed. The bony structures are grossly intact. IMPRESSION: 1. Findings again concerning for high-grade distal colonic obstruction. Reported By:
[2018-12-05] MEDS ORDERED: DIPRIVAN VIAL 20 ML ONE (11:27)
[2018-12-05] MEDS ORDERED: NS 1000 ML 1,000 ML ONE ×2 (13:53→14:23)
[2018-12-05] MEDS ORDERED: FENTANYL INJ 250 mcg ONE (14:03)
[2018-12-05] MEDS ORDERED: DILAUDID INJ ONE (14:04)
[2018-12-05] MEDS ORDERED: ANCEF 1 GRAM IV PREMIX* 1 G/50 ML BAG IV ONE (14:05)
[2018-12-05] MEDS ORDERED: FLAGYL IV PREMIX 500 MG BAG 500 MG/100 ML BAG IV ONE (14:06)
[2018-12-05] MEDS ORDERED: REGLAN INJ 10 MG VIAL IVP PRN (14:23)
[2018-12-05] MEDS ORDERED: PHENERGAN INJ 25 MG IM PRN (14:23)
[2018-12-05] MEDS ORDERED: ZOFRAN INJ 4 MG VIAL IVP PRN (14:23)
[2018-12-05] MEDS ORDERED: BENADRYL INJ 50 MG VIAL IVP PRN (14:23)
[2018-12-05] MEDS ORDERED: VERSED ONE (15:43)
[2018-12-05] MEDS ORDERED: NEOSTIGMINE INJ ONE (15:43)
[2018-12-05] MEDS ORDERED: DIPRIVAN VIAL ONE (15:43)
[2018-12-05] MEDS ORDERED: QUELICIN (OR ANECTINE) ONE (15:43)
[2018-12-05] MEDS ORDERED: NORCURON INJ 10 MG VIAL ONE (15:43)
[2018-12-05] MEDS ORDERED: ZOFRAN INJ 4 MG VIAL ONE (15:43)
[2018-12-05] MEDS ORDERED: SUPRANE ONE (15:43)
[2018-12-05] MEDS ORDERED: ROBINUL ONE (15:43)
[2018-12-05] MEDS ORDERED: BREVIBLOC ONE (15:43)
[2018-12-05] MEDS ORDERED: EPHEDRINE SULFATE INJ ONE (15:43)
--- NOTE | 2018-12-05 17:29 | OR.GENERIC ---
Post-Op Note Generic - Post-Op Note Operative Report: Transverse loop colostomy was done .. pt did well . will keep NPO for now . IV ATB , DVT prophylaxis . IV Protonix . incentive spirometer .
--- NOTE | 2018-12-05 18:29 | PCM.PROG ---
Progress Note - Progress Note for Day of Date of Exam: 12/05/18 - Subjective Subjective: 68 WM ADMITTED ON 12/04 WITH BOWEL OBSTRUCTION. PT HAS NG TUBE, WITH PAIN AND NAUSEA CONTROL, DR BALROW CONSULTING. PT CONTINUE WITH CO ABDOMINAL PAIN AND REPORTS VOMITING LARGE AMOUNT THIS AM. PT HAD KUB WITH LARGE GRADE OBSTRUCTION. PT HAS HAD ENEMAS THIS AM WITH MILD STOOL AND BROWN LIQUID OUTPT. PT TO HAVE COLONOSCOPY PER SURGEON TODAY. WBC NORMAL, HGB 13.0, K 3.0 THIS WITH POTASSIUM REPLACEMENT - Past Medical Family Social History Past Med/Fam/Surg Hx: No changes since H&P Allergies: Allergies No Known Drug Allergies Allergy (Verified 12/03/18 21:48) - Review of Systems ROS: No change since H&P - Vital Signs and I&O's Vital Signs: Temperature 99.8 F Pulse Rate [Apical] 81 Pulse Rate [Right] 80 Pulse Rate 73 Respiratory Rate 16 Blood Pressure [Right Arm] 121/73 Blood Pressure 124/71 O2 Sat by Pulse Oximetry 95 Intake and Output: Intake & Output 12/03/18 12/04/18 12/05/18 12/06/18 11:59 11:59 11:59 11:59 Intake Total 0 / 0 2600 / 2600 2000 / 2000 Output Total 50 / 50 1100 / 1100 800 / 800 Balance -50 / -50 1500 / 1500 1200 / 1200 - Physical Exam Oriented: Normal Eyes: Normal Ear: Normal Nose: Normal Throat: Normal Respiratory: Diminished Cardiovascular: Tachycardia : Normal Auscultation: Bowel Sounds: Increased Tenderness: Diffuse Skin: Decreased Turgur Musculoskeletal: Back:Lumbar Psychiatric: Anxiety Mood Description: Calm Affect: Anxious Speech Pattern: Clear, Appropriate - Laboratory and Diagnostics Result Diagrams: 12/05/18 04:35 12/05/18 04:35 Labs: Laboratory WBC 9.0 X10^3/uL (3.6-10.0) 12/05/18 04:35 RBC 4.38 X10^6/uL (4.7-6.0) L 12/05/18 04:35 Hgb 13.0 g/dL (13.5-18.0) L 12/05/18 04:35 Hct 38.8 % (42.0-54.0) L 12/05/18 04:35 MCV 88.6 fL (80.0-100.0) 12/05/18 04:35 MCH 29.7 pg (27.0-34.0) 12/05/18 04:35 MCHC 33.6 g/dL (33.0-35.0) 12/05/18 04:35 RDW 13.5 % (11.6-16.5) 12/05/18 04:35 Plt Count 304 X10^3/uL (150.0-450.0) 12/05/18 04:35 Plt Count Comment Adequate (ADEQUATE) 12/03/18 22:15 MPV 8.0 fL (7.4-11.0) 12/05/18 04:35 Neut % (Auto) 74.6 % (42.0-75.0) 12/05/18 04:35 Lymph % (Auto) 7.9 % (21.0-51.0) L 12/05/18 04:35 [place] % (Auto) 16.9 % (0.0-13.0) H 12/05/18 04:35 Eos % (Auto) 0.2 % (0.9-2.9) L 12/05/18 04:35 Baso % (Auto) 0.4 % (0.2-1.0) 12/05/18 04:35 Neut # (Auto) 6.7 x10^3/uL (2.2-4.8) H 12/05/18 04:35 Lymph # (Auto) 0.7 X10^3/uL (1.3-2.9) L 12/05/18 04:35 [place] # (Auto) 1.5 x10^3/uL (0.3-0.8) H 12/05/18 04:35 Eos # (Auto) 0.0 x10^3/uL (0.0-0.2) 12/05/18 04:35 Baso # (Auto) 0.0 X10^3/uL (0.0-0.1) 12/05/18 04:35 Absolute Nucleated RBC 0.0 /100WBC 12/05/18 04:35 Total Counted 100 12/03/18 22:15 Neutrophils % (Manual) 77 % (39-76) H 12/03/18 22:15 Lymphocytes % (Manual) 13 % (13-43) 12/03/18 22:15 Monocytes % (Manual) 10 % (4-9) H 12/03/18 22:15 Plt Morphology Comment Normal (NORMAL) 12/03/18 22:15 RBC Morphology Normal (NORMAL) 12/03/18 22:15 Sodium 140 mmol/L (136-145) 12/05/18 04:35 Corrected Sodium TNP 12/05/18 04:35 Potassium 3.0 mmol/L (3.5-5.1) L* 12/05/18 04:35 Chloride 103 mmol/L (98-107) 12/05/18 04:35 Carbon Dioxide 25.5 mmol/L (21-32) 12/05/18 04:35 BUN 8 mg/dL (7-18) 12/05/18 04:35 Creatinine 0.72 mg/dL (0.70-1.30) 12/05/18 04:35 Est GFR (MDRD) Af Amer > 60 (>60) 12/05/18 04:35 Est GFR (MDRD) Non-Af > 60 (>60) 12/05/18 04:35 Glucose 102 mg/dL (65-99) H 12/05/18 04:35 Calcium 8.3 mg/dL (8.5-10.1) L 12/05/18 04:35 Corrected Calcium 8.9 mg/dL (8.5-10.1) 12/05/18 04:35 Magnesium 1.9 mg/dL (1.7-2.9) 12/04/18 04:32 Total Bilirubin 0.60 mg/dL (0.2-1.0) 12/05/18 04:35 AST 20 Units/L (15-37) 12/05/18 04:35 ALT 12 Units/L (12-78) 12/05/18 04:35 Alkaline Phosphatase 61 Units/L (46-116) 12/05/18 04:35 Total Protein 6.2 g/dL (6.4-8.2) L 12/05/18 04:35 Albumin 3.3 g/dL (3.4-5.0) L 12/05/18 04:35 Globulin 2.9 g/dL (2.5-4.5) 12/05/18 04:35 Albumin/Globulin Ratio 1.1 Ratio (1.1-2.1) 12/05/18 04:35 Amylase 26 Units/L (25-115) 12/04/18 04:32 Lipase 69 Units/L (73-393) L 12/04/18 04:32 Specimen Type Clean catch urine 12/04/18 08:56 Urine Color Dark yellow (YELLOW) 12/04/18 08:56 Urine Appearance Clear (CLEAR) 12/04/18 08:56 Urine pH 5.0 (5.0 - 8.0) 12/04/18 08:56 Ur Specific [place] 1.015 (1.000-1.030) 12/04/18 08:56 Urine Protein 2+ (NEGATIVE) 12/04/18 08:56 Urine Glucose (UA) Negative (NEGATIVE) 12/04/18 08:56 Urine Ketones 3+ (NEGATIVE) 12/04/18 08:56 Urine Occult Blood 5+ (NEGATIVE) 12/04/18 08:56 Urine Nitrite Negative (NEGATIVE) 12/04/18 08:56 Urine Bilirubin Negative (NEGATIVE) 12/04/18 08:56 Urine Urobilinogen Normal (NORMAL) 12/04/18 08:56 Ur Leukocyte Esterase 1+ (NEGATIVE) 12/04/18 08:56 Urine RBC 0-2 /HPF (NONE SEEN) 12/04/18 08:56 Urine WBC 5-10 /HPF (NONE SEEN) 12/04/18 08:56 Ur Squamous Epith Cells Negative /HPF (NEGATIVE) 12/04/18 08:56 Urine Bacteria Negative /HPF (NEGATIVE) 12/04/18 08:56 Urine Mucus Few /HPF (NEGATIVE) 12/04/18 08:56 Ur Culture Indicated? No/not indicated 12/04/18 08:56 Tissue Pathology To follow 12/05/18 11:40 - Plan (1) Bowel obstruction Status: Acute Plan: NG tubesuction,IV Protonix. IV Hydration, pain and nausea control. EKG AND CXR ON ADMISSION. SURGICAL CONSULTATION, BOWEL PRE. NPO, POTASSIUM REPLACEMENT (2) COPD (chronic obstructive pulmonary disease) Status: Acute
[2018-12-05] MEDS: FLAGYL IV PREMIX 500 MG BAG 500 MG/100 ML BAG IV SCH (21:00)
[2018-12-05] MEDS: ZOFRAN INJ 4 MG VIAL IVP PRN (22:13)
[2018-12-06] MEDS: NS 1/2 + KCL 20 MEQ/L 1,000 ML IV SCH ×5 (01:57→18:34)
[2018-12-06] MEDS: DILAUDID INJ IVP PRN ×7 (02:16→22:45)
[2018-12-06] MEDS: FLAGYL IV PREMIX 500 MG BAG 500 MG/100 ML BAG IV SCH ×4 (03:00→20:47)
[2018-12-06] MEDS: ZOFRAN INJ 4 MG VIAL IVP PRN (06:13)
[2018-12-06 06:25] LABS: BASOPHILS % (AUTO) 0.3 % (0.2-1.0); EOSINOPHILS % (AUTO) 0.1 % (0.9-2.9); HEMATOCRIT 35.5 % (42.0-54.0); HEMOGLOBIN 11.7 g/dL (13.5-18.0); LYMPHOCYTES # (AUTO) 0.7 X10^3/uL (1.3-2.9); LYMPHOCYTES % (AUTO) 4.6 % (21.0-51.0); MEAN CORPUSCULAR HEMOGLOBIN 29.2 pg (27.0-34.0); MEAN CORPUSCULAR HGB CONC 33.1 g/dL (33.0-35.0); MEAN CORPUSCULAR VOLUME 88.3 fL (80.0-100.0); MEAN PLATELET VOLUME 7.9 fL (7.4-11.0); MONOCYTES # (AUTO) 3.3 x10^3/uL (0.3-0.8); MONOCYTES % (AUTO) 22.7 % (0.0-13.0); NEUTROPHILS # (AUTO) 10.6 x10^3/uL (2.2-4.8); NEUTROPHILS % (AUTO) 72.3 % (42.0-75.0); PLATELET COUNT 268 X10^3/uL (150.0-450.0); RED BLOOD COUNT 4.02 X10^6/uL (4.7-6.0); RED CELL DISTRIBUTION WIDTH 13.3 % (11.6-16.5); WHITE BLOOD COUNT 14.7 X10^3/uL (3.6-10.0)
[2018-12-06 06:46] LABS: ALANINE AMINOTRANSFERASE 11 Units/L (12-78); ALKALINE PHOSPHATASE 49 Units/L (46-116); ASPARTATE AMINO TRANSFERASE 18 Units/L (15-37); BLOOD UREA NITROGEN 7 mg/dL (7-18); CHLORIDE 103 mmol/L (98-107); COR CA(FOR HYPOALB) 8.8 mg/dL (8.5-10.1); CREATININE 0.64 mg/dL (0.70-1.30); SODIUM 138 mmol/L (136-145); TOTAL PROTEIN 5.7 g/dL (6.4-8.2); eGFR NON BLACK RACES > 60 (>60)
[2018-12-06 07:17] LABS: BAND NEUTROPHILS % 8 % (0-10)
[2018-12-06 07:18] LABS: PLATELET MORPHOLOGY COMMENT NORMAL (NORMAL)
[2018-12-06] MEDS: ALBUMIN HUMAN 25%- 100 ML 100 ML IV SCH (08:38)
[2018-12-06] MEDS: LOVENOX INJ 40 MG SYR SC SCH (08:39)
[2018-12-06] MEDS: NICOTINE PATCH TD SCH (08:39)
--- NOTE | 2018-12-06 12:44 | DR.PROGNOT ---
Hospital Progress Notes - Progress Note for Day of: Progress Note Date: 12/06/18 - Chief Complaint Chief Complaint: post op TC colostomy for obstructing recal ca . doing fairly well ,. Ngt was d/rakesh and tolerating clear liquid .. - Past Medical Family Social History Past Med/Fam/Surg Hx: No changes since H&P Allergies: Allergies No Known Drug Allergies Allergy (Verified 12/03/18 21:48) - Review Of Systems ROS: No change since H&P - Vital Signs Vital Signs: Temperature 100.1 F Pulse Rate [Apical] 20 Pulse Rate [Right] 80 Pulse Rate 92 Respiratory Rate 26 Blood Pressure [Right Arm] 120/65 Blood Pressure 142/66 O2 Sat by Pulse Oximetry 93 - Physical Exam Oriented: Normal Eyes: Normal Ear: Normal Nose: Normal Throat: Normal Respiratory: Diminished Cardiovascular: Tachycardia : Normal GI:Auscultation: Normal GI:Palpation: Normal GI: Tenderness: Diffuse (mild tenderness , colostomy is not functioning yet .) Skin: Decreased Turgur Musculoskeletal: Back:Lumbar Psychiatric: Anxiety Mood Description: Calm Affect: Anxious Speech Pattern: Clear - Laboratory and Diagnostics Result Diagrams: 12/06/18 06:04 12/06/18 06:04 Labs: Laboratory WBC 14.7 X10^3/uL (3.6-10.0) H 12/06/18 06:04 RBC 4.02 X10^6/uL (4.7-6.0) L 12/06/18 06:04 Hgb 11.7 g/dL (13.5-18.0) L 12/06/18 06:04 Hct 35.5 % (42.0-54.0) L 12/06/18 06:04 MCV 88.3 fL (80.0-100.0) 12/06/18 06:04 MCH 29.2 pg (27.0-34.0) 12/06/18 06:04 MCHC 33.1 g/dL (33.0-35.0) 12/06/18 06:04 RDW 13.3 % (11.6-16.5) 12/06/18 06:04 Plt Count 268 X10^3/uL (150.0-450.0) 12/06/18 06:04 Plt Count Comment Adequate (ADEQUATE) 12/06/18 06:04 MPV 7.9 fL (7.4-11.0) 12/06/18 06:04 Neut % (Auto) 72.3 % (42.0-75.0) 12/06/18 06:04 Lymph % (Auto) 4.6 % (21.0-51.0) L 12/06/18 06:04 [place] % (Auto) 22.7 % (0.0-13.0) H 12/06/18 06:04 Eos % (Auto) 0.1 % (0.9-2.9) L 12/06/18 06:04 Baso % (Auto) 0.3 % (0.2-1.0) 12/06/18 06:04 Neut # (Auto) 10.6 x10^3/uL (2.2-4.8) H 12/06/18 06:04 Lymph # (Auto) 0.7 X10^3/uL (1.3-2.9) L 12/06/18 06:04 [place] # (Auto) 3.3 x10^3/uL (0.3-0.8) H 12/06/18 06:04 Eos # (Auto) 0.0 x10^3/uL (0.0-0.2) 12/06/18 06:04 Baso # (Auto) 0.0 X10^3/uL (0.0-0.1) 12/06/18 06:04 Absolute Nucleated RBC 0.0 /100WBC 12/06/18 06:04 Total Counted 100 12/06/18 06:04 Neutrophils % (Manual) 70 % (39-76) 12/06/18 06:04 Band Neutrophils % 8 % (0-10) 12/06/18 06:04 Lymphocytes % (Manual) 4 % (13-43) L 12/06/18 06:04 Monocytes % (Manual) 18 % (4-9) H 12/06/18 06:04 Plt Morphology Comment Normal (NORMAL) 12/06/18 06:04 RBC Morphology Normal (NORMAL) 12/06/18 06:04 Sodium 138 mmol/L (136-145) 12/06/18 06:04 Corrected Sodium TNP 12/06/18 06:04 Potassium 3.6 mmol/L (3.5-5.1) 12/06/18 06:04 Chloride 103 mmol/L (98-107) 12/06/18 06:04 Carbon Dioxide 24.0 mmol/L (21-32) 12/06/18 06:04 BUN 7 mg/dL (7-18) 12/06/18 06:04 Creatinine 0.64 mg/dL (0.70-1.30) L 12/06/18 06:04 Est GFR (MDRD) Af Amer > 60 (>60) 12/06/18 06:04 Est GFR (MDRD) Non-Af > 60 (>60) 12/06/18 06:04 Glucose 86 mg/dL (65-99) 12/06/18 06:04 Calcium 8.0 mg/dL (8.5-10.1) L 12/06/18 06:04 Corrected Calcium 8.8 mg/dL (8.5-10.1) 12/06/18 06:04 Magnesium 1.9 mg/dL (1.7-2.9) 12/04/18 04:32 Total Bilirubin 0.70 mg/dL (0.2-1.0) 12/06/18 06:04 AST 18 Units/L (15-37) 12/06/18 06:04 ALT 11 Units/L (12-78) L 12/06/18 06:04 Alkaline Phosphatase 49 Units/L (46-116) 12/06/18 06:04 Total Protein 5.7 g/dL (6.4-8.2) L 12/06/18 06:04 Albumin 3.0 g/dL (3.4-5.0) L 12/06/18 06:04 Globulin 2.7 g/dL (2.5-4.5) 12/06/18 06:04 Albumin/Globulin Ratio 1.1 Ratio (1.1-2.1) 12/06/18 06:04 Amylase 26 Units/L (25-115) 12/04/18 04:32 Lipase 69 Units/L (73-393) L 12/04/18 04:32 Specimen Type Clean catch urine 12/04/18 08:56 Urine Color Dark yellow (YELLOW) 12/04/18 08:56 Urine Appearance Clear (CLEAR) 12/04/18 08:56 Urine pH 5.0 (5.0 - 8.0) 12/04/18 08:56 Ur Specific [place] 1.015 (1.000-1.030) 12/04/18 08:56 Urine Protein 2+ (NEGATIVE) 12/04/18 08:56 Urine Glucose (UA) Negative (NEGATIVE) 12/04/18 08:56 Urine Ketones 3+ (NEGATIVE) 12/04/18 08:56 Urine Occult Blood 5+ (NEGATIVE) 12/04/18 08:56 Urine Nitrite Negative (NEGATIVE) 12/04/18 08:56 Urine Bilirubin Negative (NEGATIVE) 12/04/18 08:56 Urine Urobilinogen Normal (NORMAL) 12/04/18 08:56 Ur Leukocyte Esterase 1+ (NEGATIVE) 12/04/18 08:56 Urine RBC 0-2 /HPF (NONE SEEN) 12/04/18 08:56 Urine WBC 5-10 /HPF (NONE SEEN) 12/04/18 08:56 Ur Squamous Epith Cells Negative /HPF (NEGATIVE) 12/04/18 08:56 Urine Bacteria Negative /HPF (NEGATIVE) 12/04/18 08:56 Urine Mucus Few /HPF (NEGATIVE) 12/04/18 08:56 Ur Culture Indicated? 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 same PO care as ordered .. - Problem Patient Problems: Patient Problems COPD (chronic obstructive pulmonary disease) (Acute) J44.9 Bowel obstruction (Acute) K56.609
[2018-12-06] MEDS: PEPCID 20 MG IV PREMIX* 20 MG/50 ML BAG IV PRN (21:52)
[2018-12-07] MEDS: DILAUDID INJ IVP PRN ×4 (03:00→14:48)
[2018-12-07] MEDS: NS 1/2 + KCL 20 MEQ/L 1,000 ML IV SCH ×5 (03:05→23:00)
[2018-12-07] MEDS: FLAGYL IV PREMIX 500 MG BAG 500 MG/100 ML BAG IV SCH ×4 (03:05→20:38)
[2018-12-07 05:33] LABS: BASOPHILS % (AUTO) 0.2 % (0.2-1.0); EOSINOPHILS % (AUTO) 0.5 % (0.9-2.9); HEMOGLOBIN 10.5 g/dL (13.5-18.0); LYMPHOCYTES # (AUTO) 0.9 X10^3/uL (1.3-2.9); LYMPHOCYTES % (AUTO) 9.8 % (21.0-51.0); MEAN CORPUSCULAR HEMOGLOBIN 30.1 pg (27.0-34.0); MEAN CORPUSCULAR VOLUME 88.4 fL (80.0-100.0); MONOCYTES # (AUTO) 2.2 x10^3/uL (0.3-0.8); NEUTROPHILS # (AUTO) 5.6 x10^3/uL (2.2-4.8); NEUTROPHILS % (AUTO) 64.5 % (42.0-75.0); PLATELET COUNT 223 X10^3/uL (150.0-450.0); RED CELL DISTRIBUTION WIDTH 13.4 % (11.6-16.5); WHITE BLOOD COUNT 8.7 X10^3/uL (3.6-10.0)
[2018-12-07 05:48] LABS: ALANINE AMINOTRANSFERASE 10 Units/L (12-78); ALBUMIN 2.8 g/dL (3.4-5.0); ALKALINE PHOSPHATASE 41 Units/L (46-116); ASPARTATE AMINO TRANSFERASE 17 Units/L (15-37); BLOOD UREA NITROGEN 6 mg/dL (7-18); CALCIUM 7.7 mg/dL (8.5-10.1); CARBON DIOXIDE 27.9 mmol/L (21-32); CHLORIDE 100 mmol/L (98-107); COR CA(FOR HYPOALB) 8.7 mg/dL (8.5-10.1); CREATININE 0.59 mg/dL (0.70-1.30); SODIUM 135 mmol/L (136-145); TOTAL PROTEIN 5.4 g/dL (6.4-8.2); eGFR NON BLACK RACES > 60 (>60)
[2018-12-07 07:01] LABS: BAND NEUTROPHILS % 8 % (0-10); METAMYELOCYTES % 2
[2018-12-07 07:02] LABS: PLATELET MORPHOLOGY COMMENT NORMAL (NORMAL)
[2018-12-07] MEDS: ALBUMIN HUMAN 25%- 100 ML 100 ML IV SCH (08:45)
[2018-12-07] MEDS: LOPRESSOR TAB 25 MG PO SCH ×2 (08:46→20:30)
[2018-12-07] MEDS: LOVENOX INJ 40 MG SYR SC SCH (08:47)
[2018-12-07] MEDS: NICOTINE PATCH TD SCH (08:47)
--- NOTE | 2018-12-07 10:11 | RAD ---
Examination: Portable AP chest History: COPD asthma Comparison 02/24/2018 Findings: Normal heart size. Extensive interstitial thickening and parenchymal distortion in the lower lungs especially the left base. Relative hyperlucency of the upper lobes. No acute consolidation, mass or pneumothorax. Healed fracture deformity right clavicle and several right ribs. Impression: Findings consistent with COPD/emphysema and pulmonary fibrotic scarring. Reported By:
[2018-12-07] MEDS ORDERED: DILAUDID INJ ONE ×2 (11:02→14:28)
[2018-12-07] MEDS: NS 1/2 1000 ML IV 1,000 ML with POTASSIUM CHLORIDE INJ 20 MEQ VIAL 20 MEQ IV SCH ×2 (13:15)
[2018-12-07] MEDS: PERCOCET TAB 5/325 MG PO PRN ×2 (16:33→20:39)
[2018-12-07] MEDS: FLOMAX PO SCH (20:30)
[2018-12-08] MEDS: PERCOCET TAB 5/325 MG PO PRN ×5 (00:43→22:30)
[2018-12-08] MEDS: FLAGYL IV PREMIX 500 MG BAG 500 MG/100 ML BAG IV SCH ×4 (03:06→20:45)
[2018-12-08 05:24] LABS: BASOPHILS % (AUTO) 0.3 % (0.2-1.0); EOSINOPHILS # (AUTO) 0.1 x10^3/uL (0.0-0.2); EOSINOPHILS % (AUTO) 1.1 % (0.9-2.9); HEMATOCRIT 32.4 % (42.0-54.0); HEMOGLOBIN 10.9 g/dL (13.5-18.0); LYMPHOCYTES # (AUTO) 1.2 X10^3/uL (1.3-2.9); LYMPHOCYTES % (AUTO) 16.8 % (21.0-51.0); MEAN CORPUSCULAR HEMOGLOBIN 29.8 pg (27.0-34.0); MEAN CORPUSCULAR HGB CONC 33.7 g/dL (33.0-35.0); MEAN CORPUSCULAR VOLUME 88.5 fL (80.0-100.0); MONOCYTES # (AUTO) 1.5 x10^3/uL (0.3-0.8); MONOCYTES % (AUTO) 21.5 % (0.0-13.0); NEUTROPHILS # (AUTO) 4.3 x10^3/uL (2.2-4.8); NEUTROPHILS % (AUTO) 60.3 % (42.0-75.0); PLATELET COUNT 192 X10^3/uL (150.0-450.0); RED BLOOD COUNT 3.66 X10^6/uL (4.7-6.0); RED CELL DISTRIBUTION WIDTH 13.4 % (11.6-16.5); WHITE BLOOD COUNT 7.1 X10^3/uL (3.6-10.0)
[2018-12-08 05:27] LABS: ALANINE AMINOTRANSFERASE 11 Units/L (12-78); ALBUMIN 2.9 g/dL (3.4-5.0); ALKALINE PHOSPHATASE 40 Units/L (46-116); ASPARTATE AMINO TRANSFERASE 15 Units/L (15-37); BLOOD UREA NITROGEN 6 mg/dL (7-18); CALCIUM 7.9 mg/dL (8.5-10.1); CARBON DIOXIDE 30.4 mmol/L (21-32); CHLORIDE 101 mmol/L (98-107); COR CA(FOR HYPOALB) 8.8 mg/dL (8.5-10.1); CREATININE 0.64 mg/dL (0.70-1.30); SODIUM 139 mmol/L (136-145); TOTAL PROTEIN 5.4 g/dL (6.4-8.2); eGFR NON BLACK RACES > 60 (>60)
[2018-12-08] MEDS: NS 1/2 + KCL 20 MEQ/L 1,000 ML IV SCH ×3 (06:04→23:11)
[2018-12-08 06:09] LABS: PLATELET MORPHOLOGY COMMENT NORMAL (NORMAL)
[2018-12-08] MEDS: LOPRESSOR TAB 25 MG PO SCH ×2 (08:11→20:46)
[2018-12-08] MEDS: ALBUMIN HUMAN 25%- 100 ML 100 ML IV SCH (08:11)
[2018-12-08] MEDS: NICOTINE PATCH TD SCH (08:12)
[2018-12-08] MEDS: LOVENOX INJ 40 MG SYR SC SCH (08:12)
--- NOTE | 2018-12-08 08:38 | PCM.PROG ---
Progress Note - Progress Note for Day of Date of Exam: 12/06/18 - Subjective Subjective: 68 WM ADMITTED ON 12/04 WITH BOWEL OBSTRUCTION. PT HAD ~7CM RECTAL MASS, S/P TC COLOSTOMY PER DR BARLOW. PT CO MILD POST OPERATIVE PAIN, CONTROLLED WITH IV NARCOTICS. PT REPORTS NO VOMTING, SMALL AMOUNT OF BLOOD IN COLOSTOMY. PT REPORTS PASSING GAS VIA BAG. PT HGB 10.5, K+3.6, BUN 7 CREAT 0.66. PT DENIES ANY SOB, OR CP. PLAN TO CONTINUE POST OPERATIVE CARE PER DR BARLOW, PATH REPORT PENDING. - Past Medical Family Social History Past Med/Fam/Surg Hx: No changes since H&P Allergies: Allergies No Known Drug Allergies Allergy (Verified 12/03/18 21:48) - Review of Systems ROS: No change since H&P - Vital Signs and I&O's Vital Signs: Temperature 98.4 F Pulse Rate [Apical] 20 Pulse Rate [Right] 80 Pulse Rate 69 Respiratory Rate 24 Blood Pressure [Right Arm] 120/65 Blood Pressure 119/63 O2 Sat by Pulse Oximetry 93 Intake and Output: Intake & Output 12/05/18 12/06/18 12/07/18 12/08/18 11:59 11:59 11:59 11:59 Intake Total 2600 / 2600 4121 / 4121 4348 / 4348 4697 / 4697 Output Total 1100 / 1100 1520 / 1520 1400 / 1400 2525 / 2525 Balance 1500 / 1500 2601 / 2601 2948 / 2948 2172 / 2172 - Physical Exam Oriented: Normal Eyes: Normal Ear: Normal Nose: Normal Throat: Normal Respiratory: Diminished Cardiovascular: Tachycardia : Normal Auscultation: Bowel Sounds: Normal Tenderness: Diffuse, Mild, Other (COLOSTOMY PRESENT) Skin: Decreased Turgur Musculoskeletal: Back:Lumbar Psychiatric: Anxiety Mood Description: Calm Affect: Anxious Speech Pattern: Clear - Laboratory and Diagnostics Result Diagrams: 12/08/18 04:50 12/08/18 04:50 Labs: Laboratory WBC 7.1 X10^3/uL (3.6-10.0) 12/08/18 04:50 RBC 3.66 X10^6/uL (4.7-6.0) L 12/08/18 04:50 Hgb 10.9 g/dL (13.5-18.0) L 12/08/18 04:50 Hct 32.4 % (42.0-54.0) L 12/08/18 04:50 MCV 88.5 fL (80.0-100.0) 12/08/18 04:50 MCH 29.8 pg (27.0-34.0) 12/08/18 04:50 MCHC 33.7 g/dL (33.0-35.0) 12/08/18 04:50 RDW 13.4 % (11.6-16.5) 12/08/18 04:50 Plt Count 192 X10^3/uL (150.0-450.0) 12/08/18 04:50 Plt Count Comment Adequate (ADEQUATE) 12/08/18 04:50 MPV 8.0 fL (7.4-11.0) 12/08/18 04:50 Neut % (Auto) 60.3 % (42.0-75.0) 12/08/18 04:50 Lymph % (Auto) 16.8 % (21.0-51.0) L 12/08/18 04:50 [place] % (Auto) 21.5 % (0.0-13.0) H 12/08/18 04:50 Eos % (Auto) 1.1 % (0.9-2.9) 12/08/18 04:50 Baso % (Auto) 0.3 % (0.2-1.0) 12/08/18 04:50 Neut # (Auto) 4.3 x10^3/uL (2.2-4.8) 12/08/18 04:50 Lymph # (Auto) 1.2 X10^3/uL (1.3-2.9) L 12/08/18 04:50 [place] # (Auto) 1.5 x10^3/uL (0.3-0.8) H 12/08/18 04:50 Eos # (Auto) 0.1 x10^3/uL (0.0-0.2) 12/08/18 04:50 Baso # (Auto) 0.0 X10^3/uL (0.0-0.1) 12/08/18 04:50 Absolute Nucleated RBC 0.0 /100WBC 12/08/18 04:50 Total Counted 100 03/25/19 04:50 Neutrophils % (Manual) 70 % (39-76) 12/08/18 04:50 Band Neutrophils % 8 % (0-10) 12/07/18 04:10 Lymphocytes % (Manual) 14 % (13-43) 12/08/18 04:50 Monocytes % (Manual) 16 % (4-9) H 12/08/18 04:50 Metamyelocytes % 2 12/07/18 04:10 Plt Morphology Comment Normal (NORMAL) 12/08/18 04:50 RBC Morphology Normal (NORMAL) 12/08/18 04:50 Sodium 139 mmol/L (136-145) 12/08/18 04:50 Corrected Sodium TNP 12/08/18 04:50 Potassium 3.4 mmol/L (3.5-5.1) L 12/08/18 04:50 Chloride 101 mmol/L (98-107) 12/08/18 04:50 Carbon Dioxide 30.4 mmol/L (21-32) 12/08/18 04:50 BUN 6 mg/dL (7-18) L 12/08/18 04:50 Creatinine 0.64 mg/dL (0.70-1.30) L 12/08/18 04:50 Est GFR (MDRD) Af Amer > 60 (>60) 12/08/18 04:50 Est GFR (MDRD) Non-Af > 60 (>60) 12/08/18 04:50 Glucose 109 mg/dL (65-99) H 12/08/18 04:50 Calcium 7.9 mg/dL (8.5-10.1) L 12/08/18 04:50 Corrected Calcium 8.8 mg/dL (8.5-10.1) 12/08/18 04:50 Magnesium 1.7 mg/dL (1.7-2.9) 12/08/18 04:50 Total Bilirubin 0.30 mg/dL (0.2-1.0) 12/08/18 04:50 AST 15 Units/L (15-37) 12/08/18 04:50 ALT 11 Units/L (12-78) L 12/08/18 04:50 Alkaline Phosphatase 40 Units/L (46-116) L 12/08/18 04:50 Total Protein 5.4 g/dL (6.4-8.2) L 12/08/18 04:50 Albumin 2.9 g/dL (3.4-5.0) L 12/08/18 04:50 Globulin 2.5 g/dL (2.5-4.5) 12/08/18 04:50 Albumin/Globulin Ratio 1.2 Ratio (1.1-2.1) 12/08/18 04:50 Amylase 26 Units/L (25-115) 12/04/18 04:32 Lipase 69 Units/L (73-393) L 12/04/18 04:32 Specimen Type Clean catch urine 12/04/18 08:56 Urine Color Dark yellow (YELLOW) 12/04/18 08:56 Urine Appearance Clear (CLEAR) 12/04/18 08:56 Urine pH 5.0 (5.0 - 8.0) 12/04/18 08:56 Ur Specific [place] 1.015 (1.000-1.030) 12/04/18 08:56 Urine Protein 2+ (NEGATIVE) 12/04/18 08:56 Urine Glucose (UA) Negative (NEGATIVE) 12/04/18 08:56 Urine Ketones 3+ (NEGATIVE) 12/04/18 08:56 Urine Occult Blood 5+ (NEGATIVE) 12/04/18 08:56 Urine Nitrite Negative (NEGATIVE) 12/04/18 08:56 Urine Bilirubin Negative (NEGATIVE) 12/04/18 08:56 Urine Urobilinogen Normal (NORMAL) 12/04/18 08:56 Ur Leukocyte Esterase 1+ (NEGATIVE) 12/04/18 08:56 Urine RBC 0-2 /HPF (NONE SEEN) 12/04/18 08:56 Urine WBC 5-10 /HPF (NONE SEEN) 12/04/18 08:56 Ur Squamous Epith Cells Negative /HPF (NEGATIVE) 12/04/18 08:56 Urine Bacteria Negative /HPF (NEGATIVE) 12/04/18 08:56 Urine Mucus Few /HPF (NEGATIVE) 12/04/18 08:56 Ur Culture Indicated? No/not indicated 12/04/18 08:56 Tissue Pathology To follow 12/05/18 11:40 - Plan (1) Bowel obstruction Status: Acute Plan: S/P COLOSTOMY. POST OPERATIVE CARE. RECTAL MASS PRESENT, SENT FOR PATH. CONTINUE EDUCATION ON COLOSTOMY CARE PER NURSING. MONITOR H&H, ADVANCE DIET TOLERATED. (2) COPD (chronic obstructive pulmonary disease) Status: Acute
[2018-12-08] MEDS: K-DUR TAB 20 MEQ PO PRN (10:47)
[2018-12-08] MEDS: MAGNESIUM SULFATE 1 GRAM/100 mL PREMIX 1 GM/100 ML BAG IV PRN ×2 (10:48→12:14)
--- NOTE | 2018-12-08 17:41 | PCM.PROG ---
Progress Note - Progress Note for Day of Date of Exam: 12/08/18 - Subjective Subjective: 68 WM ADMITTED ON 12/04 WITH BOWEL OBSTRUCTION. PT HAD ~7CM RECTAL MASS, S/P TC COLOSTOMY PER DR BARLOW. PT CO MILD POST OPERATIVE PAIN, CONTROLLED WITH IV NARCOTICS. PT REPORTS NO VOMTING, SMALL AMOUNT OF STOOL IN COLOSTOMY. PT HGB 10.9, K+3.4.PT DENIES ANY SOB, OR CP. PLAN TO CONTINUE POST OPERATIVE CARE PER DR BARLOW, PATH REPORT PENDING. - Past Medical Family Social History Past Med/Fam/Surg Hx: No changes since H&P Allergies: Allergies No Known Drug Allergies Allergy (Verified 12/03/18 21:48) - Review of Systems ROS: No change since H&P - Vital Signs and I&O's Vital Signs: Temperature 99.5 F Pulse Rate [Apical] 20 Pulse Rate [Right] 80 Pulse Rate 79 Respiratory Rate 22 Blood Pressure [Right Arm] 120/65 Blood Pressure 100/56 O2 Sat by Pulse Oximetry 93 Intake and Output: Intake & Output 12/06/18 12/07/18 12/08/18 12/09/18 11:59 11:59 11:59 11:59 Intake Total 4121 / 4121 4348 / 4348 4697 / 4697 1480 / 1480 Output Total 1520 / 1520 1400 / 1400 2525 / 2525 900 / 900 Balance 2601 / 2601 2948 / 2948 2172 / 2172 580 / 580 - Physical Exam Oriented: Normal Eyes: Normal Ear: Normal Nose: Normal Throat: Normal Respiratory: Diminished Cardiovascular: Tachycardia : Normal Auscultation: Bowel Sounds: Normal Tenderness: Diffuse, Mild, Other (COLOSTOMY PRESENT) Skin: Decreased Turgur Musculoskeletal: Back:Lumbar Psychiatric: Anxiety Mood Description: Calm Affect: Anxious Speech Pattern: Clear - Laboratory and Diagnostics Result Diagrams: 12/08/18 04:50 12/08/18 04:50 Labs: Laboratory WBC 7.1 X10^3/uL (3.6-10.0) 12/08/18 04:50 RBC 3.66 X10^6/uL (4.7-6.0) L 12/08/18 04:50 Hgb 10.9 g/dL (13.5-18.0) L 12/08/18 04:50 Hct 32.4 % (42.0-54.0) L 12/08/18 04:50 MCV 88.5 fL (80.0-100.0) 12/08/18 04:50 MCH 29.8 pg (27.0-34.0) 12/08/18 04:50 MCHC 33.7 g/dL (33.0-35.0) 12/08/18 04:50 RDW 13.4 % (11.6-16.5) 12/08/18 04:50 Plt Count 192 X10^3/uL (150.0-450.0) 12/08/18 04:50 Plt Count Comment Adequate (ADEQUATE) 12/08/18 04:50 MPV 8.0 fL (7.4-11.0) 12/08/18 04:50 Neut % (Auto) 60.3 % (42.0-75.0) 12/08/18 04:50 Lymph % (Auto) 16.8 % (21.0-51.0) L 12/08/18 04:50 [place] % (Auto) 21.5 % (0.0-13.0) H 12/08/18 04:50 Eos % (Auto) 1.1 % (0.9-2.9) 12/08/18 04:50 Baso % (Auto) 0.3 % (0.2-1.0) 12/08/18 04:50 Neut # (Auto) 4.3 x10^3/uL (2.2-4.8) 12/08/18 04:50 Lymph # (Auto) 1.2 X10^3/uL (1.3-2.9) L 12/08/18 04:50 [place] # (Auto) 1.5 x10^3/uL (0.3-0.8) H 12/08/18 04:50 Eos # (Auto) 0.1 x10^3/uL (0.0-0.2) 12/08/18 04:50 Baso # (Auto) 0.0 X10^3/uL (0.0-0.1) 12/08/18 04:50 Absolute Nucleated RBC 0.0 /100WBC 12/08/18 04:50 Total Counted 100 12/08/18 04:50 Neutrophils % (Manual) 70 % (39-76) 12/08/18 04:50 Band Neutrophils % 8 % (0-10) 12/07/18 04:10 Lymphocytes % (Manual) 14 % (13-43) 12/08/18 04:50 Monocytes % (Manual) 16 % (4-9) H 12/08/18 04:50 Metamyelocytes % 2 12/07/18 04:10 Plt Morphology Comment Normal (NORMAL) 12/08/18 04:50 RBC Morphology Normal (NORMAL) 12/08/18 04:50 Sodium 139 mmol/L (136-145) 12/08/18 04:50 Corrected Sodium TNP 12/08/18 04:50 Potassium 3.4 mmol/L (3.5-5.1) L 12/08/18 04:50 Chloride 101 mmol/L (98-107) 12/08/18 04:50 Carbon Dioxide 30.4 mmol/L (21-32) 12/08/18 04:50 BUN 6 mg/dL (7-18) L 12/08/18 04:50 Creatinine 0.64 mg/dL (0.70-1.30) L 12/08/18 04:50 Est GFR (MDRD) Af Amer > 60 (>60) 12/08/18 04:50 Est GFR (MDRD) Non-Af > 60 (>60) 12/08/18 04:50 Glucose 109 mg/dL (65-99) H 12/08/18 04:50 Calcium 7.9 mg/dL (8.5-10.1) L 12/08/18 04:50 Corrected Calcium 8.8 mg/dL (8.5-10.1) 12/08/18 04:50 Magnesium 1.7 mg/dL (1.7-2.9) 12/08/18 04:50 Total Bilirubin 0.30 mg/dL (0.2-1.0) 12/08/18 04:50 AST 15 Units/L (15-37) 12/08/18 04:50 ALT 11 Units/L (12-78) L 12/08/18 04:50 Alkaline Phosphatase 40 Units/L (46-116) L 12/08/18 04:50 Total Protein 5.4 g/dL (6.4-8.2) L 12/08/18 04:50 Albumin 2.9 g/dL (3.4-5.0) L 12/08/18 04:50 Globulin 2.5 g/dL (2.5-4.5) 12/08/18 04:50 Albumin/Globulin Ratio 1.2 Ratio (1.1-2.1) 12/08/18 04:50 Amylase 26 Units/L (25-115) 12/04/18 04:32 Lipase 69 Units/L (73-393) L 12/04/18 04:32 Specimen Type Clean catch urine 12/04/18 08:56 Urine Color Dark yellow (YELLOW) 12/04/18 08:56 Urine Appearance Clear (CLEAR) 12/04/18 08:56 Urine pH 5.0 (5.0 - 8.0) 12/04/18 08:56 Ur Specific [place] 1.015 (1.000-1.030) 12/04/18 08:56 Urine Protein 2+ (NEGATIVE) 12/04/18 08:56 Urine Glucose (UA) Negative (NEGATIVE) 12/04/18 08:56 Urine Ketones 3+ (NEGATIVE) 12/04/18 08:56 Urine Occult Blood 5+ (NEGATIVE) 12/04/18 08:56 Urine Nitrite Negative (NEGATIVE) 12/04/18 08:56 Urine Bilirubin Negative (NEGATIVE) 12/04/18 08:56 Urine Urobilinogen Normal (NORMAL) 12/04/18 08:56 Ur Leukocyte Esterase 1+ (NEGATIVE) 12/04/18 08:56 Urine RBC 0-2 /HPF (NONE SEEN) 12/04/18 08:56 Urine WBC 5-10 /HPF (NONE SEEN) 12/04/18 08:56 Ur Squamous Epith Cells Negative /HPF (NEGATIVE) 12/04/18 08:56 Urine Bacteria Negative /HPF (NEGATIVE) 12/04/18 08:56 Urine Mucus Few /HPF (NEGATIVE) 12/04/18 08:56 Ur Culture Indicated? No/not indicated 12/04/18 08:56 Tissue Pathology To follow 12/05/18 11:40 - Plan (1) Bowel obstruction Status: Acute Plan: S/P COLOSTOMY. POST OPERATIVE CARE. RECTAL MASS PRESENT, SENT FOR PATH. CONTINUE EDUCATION ON COLOSTOMY CARE PER NURSING. MONITOR H&H, ADVANCE DIET TOLERATED. (2) COPD (chronic obstructive pulmonary disease) Status: Acute
[2018-12-08] MEDS: PROVENTIL NEB TX 0.083% 2.5MG/ 3ML NEB PRN (20:44)
[2018-12-08] MEDS: FLOMAX PO SCH (20:45)
[2018-12-09] MEDS: NS 1/2 + KCL 20 MEQ/L 1,000 ML IV SCH ×3 (01:53→14:12)
[2018-12-09] MEDS: PERCOCET TAB 5/325 MG PO PRN ×5 (02:30→22:30)
[2018-12-09] MEDS: FLAGYL IV PREMIX 500 MG BAG 500 MG/100 ML BAG IV SCH ×4 (02:42→21:18)
[2018-12-09 05:37] LABS: BASOPHILS % (AUTO) 0.3 % (0.2-1.0); EOSINOPHILS # (AUTO) 0.1 x10^3/uL (0.0-0.2); EOSINOPHILS % (AUTO) 1.1 % (0.9-2.9); HEMATOCRIT 29.4 % (42.0-54.0); LYMPHOCYTES # (AUTO) 0.9 X10^3/uL (1.3-2.9); MEAN CORPUSCULAR HEMOGLOBIN 29.9 pg (27.0-34.0); MEAN CORPUSCULAR HGB CONC 34.1 g/dL (33.0-35.0); MEAN CORPUSCULAR VOLUME 87.7 fL (80.0-100.0); MEAN PLATELET VOLUME 8.3 fL (7.4-11.0); MONOCYTES # (AUTO) 1.2 x10^3/uL (0.3-0.8); NEUTROPHILS # (AUTO) 3.3 x10^3/uL (2.2-4.8); NEUTROPHILS % (AUTO) 60.6 % (42.0-75.0); PLATELET COUNT 190 X10^3/uL (150.0-450.0); RED BLOOD COUNT 3.35 X10^6/uL (4.7-6.0); RED CELL DISTRIBUTION WIDTH 13.1 % (11.6-16.5); WHITE BLOOD COUNT 5.5 X10^3/uL (3.6-10.0)
[2018-12-09 05:58] LABS: ALANINE AMINOTRANSFERASE 11 Units/L (12-78); ALBUMIN 2.8 g/dL (3.4-5.0); ALKALINE PHOSPHATASE 34 Units/L (46-116); ASPARTATE AMINO TRANSFERASE 15 Units/L (15-37); BLOOD UREA NITROGEN 5 mg/dL (7-18); CALCIUM 7.5 mg/dL (8.5-10.1); CARBON DIOXIDE 27.3 mmol/L (21-32); CHLORIDE 104 mmol/L (98-107); COR CA(FOR HYPOALB) 8.5 mg/dL (8.5-10.1); CREATININE 0.55 mg/dL (0.70-1.30); SODIUM 138 mmol/L (136-145); TOTAL PROTEIN 5.2 g/dL (6.4-8.2); eGFR NON BLACK RACES > 60 (>60)
[2018-12-09] MEDS: KLOR-CON PO PRN (06:35)
[2018-12-09 06:56] LABS: PLATELET MORPHOLOGY COMMENT NORMAL (NORMAL)
[2018-12-09] MEDS: LOVENOX INJ 40 MG SYR SC SCH (08:21)
[2018-12-09] MEDS: NICOTINE PATCH TD SCH (08:22)
[2018-12-09] MEDS: LOPRESSOR TAB 25 MG PO SCH ×2 (08:22→21:18)
[2018-12-09] MEDS: ALBUMIN HUMAN 25%- 100 ML 100 ML IV SCH (08:23)
[2018-12-09] MEDS: MICRO K EXTEN CAP 10 MEQ PO SCH (12:43)
[2018-12-09] MEDS: PROVENTIL NEB TX 0.083% 2.5MG/ 3ML NEB PRN ×3 (13:33→22:15)
[2018-12-09] MEDS: FLOMAX PO SCH (21:18)
[2018-12-10] MEDS: PERCOCET TAB 5/325 MG PO PRN ×5 (02:55→23:35)
[2018-12-10] MEDS: FLAGYL IV PREMIX 500 MG BAG 500 MG/100 ML BAG IV SCH ×4 (02:55→21:11)
[2018-12-10 05:26] LABS: BASOPHILS # (AUTO) 0.1 X10^3/uL (0.0-0.1); BASOPHILS % (AUTO) 1.7 % (0.2-1.0); EOSINOPHILS # (AUTO) 0.1 x10^3/uL (0.0-0.2); EOSINOPHILS % (AUTO) 2.8 % (0.9-2.9); HEMATOCRIT 30.9 % (42.0-54.0); HEMOGLOBIN 10.3 g/dL (13.5-18.0); LYMPHOCYTES # (AUTO) 0.5 X10^3/uL (1.3-2.9); MEAN CORPUSCULAR HEMOGLOBIN 29.6 pg (27.0-34.0); MEAN CORPUSCULAR HGB CONC 33.3 g/dL (33.0-35.0); MEAN CORPUSCULAR VOLUME 88.8 fL (80.0-100.0); MEAN PLATELET VOLUME 8.3 fL (7.4-11.0); MONOCYTES # (AUTO) 1.3 x10^3/uL (0.3-0.8); MONOCYTES % (AUTO) 26.3 % (0.0-13.0); NEUTROPHILS # (AUTO) 2.8 x10^3/uL (2.2-4.8); NEUTROPHILS % (AUTO) 58.2 % (42.0-75.0); PLATELET COUNT 205 X10^3/uL (150.0-450.0); RED BLOOD COUNT 3.48 X10^6/uL (4.7-6.0); RED CELL DISTRIBUTION WIDTH 13.3 % (11.6-16.5); WHITE BLOOD COUNT 4.8 X10^3/uL (3.6-10.0)
[2018-12-10 05:48] LABS: ALANINE AMINOTRANSFERASE 13 Units/L (12-78); ALKALINE PHOSPHATASE 34 Units/L (46-116); ASPARTATE AMINO TRANSFERASE 18 Units/L (15-37); BLOOD UREA NITROGEN 3 mg/dL (7-18); CALCIUM 7.7 mg/dL (8.5-10.1); CARBON DIOXIDE 27.5 mmol/L (21-32); CHLORIDE 106 mmol/L (98-107); COR CA(FOR HYPOALB) 8.5 mg/dL (8.5-10.1); CREATININE 0.57 mg/dL (0.70-1.30); SODIUM 141 mmol/L (136-145); TOTAL PROTEIN 5.3 g/dL (6.4-8.2); eGFR NON BLACK RACES > 60 (>60)
[2018-12-10] MEDS: KLOR-CON PO PRN (06:07)
[2018-12-10 06:17] LABS: PLATELET MORPHOLOGY COMMENT NORMAL (NORMAL)
--- NOTE | 2018-12-10 07:16 | RAD ---
HISTORY: Asthma, COPD Study: Chest AP portable Comparison: 12/07/2018 Findings: Heart is within normal limits in size. The juice are normal. The lungs are generally hyperinflated. Emphysematous changes are present in the upper lobes. Interstitial lung changes are present in the lower lobes. No acute infiltrates or pleural effusions are identified. There is some pleuro parenchymal scarring in the left costophrenic angle. IMPRESSION: Emphysematous COPD unchanged Reported By:
[2018-12-10] MEDS: NS 1/2 + KCL 20 MEQ/L 1,000 ML IV SCH ×2 (08:56→14:50)
[2018-12-10] MEDS: NICOTINE PATCH TD SCH (08:58)
[2018-12-10] MEDS: LOVENOX INJ 40 MG SYR SC SCH (09:00)
[2018-12-10] MEDS: LOPRESSOR TAB 25 MG PO SCH ×2 (09:02→21:11)
[2018-12-10] MEDS: MICRO K EXTEN CAP 10 MEQ PO SCH (09:03)
[2018-12-10] MEDS ORDERED: PHARMACY CONSULT - DOSE _____ XX SCH (10:00)
[2018-12-10] MEDS: ALBUMIN HUMAN 25%- 100 ML 100 ML IV SCH (10:44)
[2018-12-10] MEDS: THORAZINE TAB 25 MG PO SCH ×3 (10:51→22:07)
[2018-12-10] MEDS: ZOFRAN INJ 4 MG VIAL IVP PRN (13:14)
[2018-12-10] MEDS: NS 1/2 1000 ML IV 1,000 ML with POTASSIUM CHLORIDE INJ 20 MEQ VIAL 20 MEQ IV SCH ×2 (14:49)
--- NOTE | 2018-12-10 16:29 | DR.PROGNOT ---
Hospital Progress Notes - Progress Note for Day of: Progress Note Date: 12/10/18 - Chief Complaint Chief Complaint: colostomy is functioning well . no abdominal pain . K was low 2.9 and Pt was having low grade fever . abdominal pain LLQ and hernia site . - Past Medical Family Social History Past Med/Fam/Surg Hx: No changes since H&P Allergies: Allergies No Known Drug Allergies Allergy (Verified 12/03/18 21:48) - Review Of Systems ROS: No change since H&P - Vital Signs Vital Signs: Temperature 99.6 F Pulse Rate [Apical] 20 Pulse Rate [Right] 80 Pulse Rate 83 Respiratory Rate 24 Blood Pressure [Right Arm] 120/65 Blood Pressure 134/80 O2 Sat by Pulse Oximetry 94 - Physical Exam Oriented: Normal Eyes: Normal Ear: Normal Nose: Normal Throat: Normal Respiratory: Diminished Cardiovascular: Tachycardia : Normal GI:Auscultation: Normal GI:Palpation: Normal GI: Tenderness: Diffuse, Mild, Other (has bilateral inguinal hernias , no obstruction .) Skin: Decreased Turgur Musculoskeletal: Back:Lumbar Psychiatric: Anxiety Mood Description: Calm Affect: Anxious Speech Pattern: Clear, Appropriate - Laboratory and Diagnostics Result Diagrams: 12/10/18 04:09 12/10/18 08:39 Labs: Laboratory WBC 4.8 X10^3/uL (3.6-10.0) 12/10/18 04:09 RBC 3.48 X10^6/uL (4.7-6.0) L 12/10/18 04:09 Hgb 10.3 g/dL (13.5-18.0) L 12/10/18 04:09 Hct 30.9 % (42.0-54.0) L 12/10/18 04:09 MCV 88.8 fL (80.0-100.0) 12/10/18 04:09 MCH 29.6 pg (27.0-34.0) 12/10/18 04:09 MCHC 33.3 g/dL (33.0-35.0) 12/10/18 04:09 RDW 13.3 % (11.6-16.5) 12/10/18 04:09 Plt Count 205 X10^3/uL (150.0-450.0) 12/10/18 04:09 Plt Count Comment Adequate (ADEQUATE) 12/10/18 04:09 MPV 8.3 fL (7.4-11.0) 12/10/18 04:09 Neut % (Auto) 58.2 % (42.0-75.0) 12/10/18 04:09 Lymph % (Auto) 11.0 % (21.0-51.0) L 12/10/18 04:09 [place] % (Auto) 26.3 % (0.0-13.0) H 12/10/18 04:09 Eos % (Auto) 2.8 % (0.9-2.9) 12/10/18 04:09 Baso % (Auto) 1.7 % (0.2-1.0) H 12/10/18 04:09 Neut # (Auto) 2.8 x10^3/uL (2.2-4.8) 12/10/18 04:09 Lymph # (Auto) 0.5 X10^3/uL (1.3-2.9) L 12/10/18 04:09 [place] # (Auto) 1.3 x10^3/uL (0.3-0.8) H 12/10/18 04:09 Eos # (Auto) 0.1 x10^3/uL (0.0-0.2) 12/10/18 04:09 Baso # (Auto) 0.1 X10^3/uL (0.0-0.1) 12/10/18 04:09 Absolute Nucleated RBC 0.0 /100WBC 12/10/18 04:09 Total Counted 100 12/10/18 04:09 Neutrophils % (Manual) 61 % (39-76) 12/10/18 04:09 Band Neutrophils % 8 % (0-10) 12/07/18 04:10 Lymphocytes % (Manual) 18 % (13-43) 12/10/18 04:09 Monocytes % (Manual) 21 % (4-9) H 12/10/18 04:09 Eosinophils % (Manual) 1 % (0-6) 12/09/18 04:11 Metamyelocytes % 2 12/07/18 04:10 Plt Morphology Comment Normal (NORMAL) 12/10/18 04:09 RBC Morphology Normal (NORMAL) 12/10/18 04:09 Sodium 141 mmol/L (136-145) 12/10/18 04:09 Corrected Sodium TNP 12/10/18 04:09 Potassium 3.5 mmol/L (3.5-5.1) 12/10/18 08:39 Chloride 106 mmol/L (98-107) 12/10/18 04:09 Carbon Dioxide 27.5 mmol/L (21-32) 12/10/18 04:09 BUN 3 mg/dL (7-18) L 12/10/18 04:09 Creatinine 0.57 mg/dL (0.70-1.30) L 12/10/18 04:09 Est GFR (MDRD) Af Amer > 60 (>60) 12/10/18 04:09 Est GFR (MDRD) Non-Af > 60 (>60) 12/10/18 04:09 Glucose 107 mg/dL (65-99) H 12/10/18 04:09 Calcium 7.7 mg/dL (8.5-10.1) L 12/10/18 04:09 Corrected Calcium 8.5 mg/dL (8.5-10.1) 12/10/18 04:09 Magnesium 1.9 mg/dL (1.7-2.9) 12/10/18 04:09 Total Bilirubin 0.20 mg/dL (0.2-1.0) 12/10/18 04:09 AST 18 Units/L (15-37) 12/10/18 04:09 ALT 13 Units/L (12-78) 12/10/18 04:09 Alkaline Phosphatase 34 Units/L (46-116) L 12/10/18 04:09 Total Protein 5.3 g/dL (6.4-8.2) L 12/10/18 04:09 Albumin 3.0 g/dL (3.4-5.0) L 12/10/18 04:09 Globulin 2.3 g/dL (2.5-4.5) L 12/10/18 04:09 Albumin/Globulin Ratio 1.3 Ratio (1.1-2.1) 12/10/18 04:09 Amylase 26 Units/L (25-115) 12/04/18 04:32 Lipase 69 Units/L (73-393) L 12/04/18 04:32 Specimen Type Clean catch urine 12/04/18 08:56 Urine Color Dark yellow (YELLOW) 12/04/18 08:56 Urine Appearance Clear (CLEAR) 12/04/18 08:56 Urine pH 5.0 (5.0 - 8.0) 12/04/18 08:56 Ur Specific Organ 1.015 (1.000-1.030) 12/04/18 08:56 Urine Protein 2+ (NEGATIVE) 12/04/18 08:56 Urine Glucose (UA) Negative (NEGATIVE) 12/04/18 08:56 Urine Ketones 3+ (NEGATIVE) 12/04/18 08:56 Urine Occult Blood 5+ (NEGATIVE) 12/04/18 08:56 Urine Nitrite Negative (NEGATIVE) 12/04/18 08:56 Urine Bilirubin Negative (NEGATIVE) 12/04/18 08:56 Urine Urobilinogen Normal (NORMAL) 12/04/18 08:56 Ur Leukocyte Esterase 1+ (NEGATIVE) 12/04/18 08:56 Urine RBC 0-2 /HPF (NONE SEEN) 12/04/18 08:56 Urine WBC 5-10 /HPF (NONE SEEN) 12/04/18 08:56 Ur Squamous Epith Cells Negative /HPF (NEGATIVE) 12/04/18 08:56 Urine Bacteria Negative /HPF (NEGATIVE) 12/04/18 08:56 Urine Mucus Few /HPF (NEGATIVE) 12/04/18 08:56 Ur Culture Indicated? 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 hypokalemia ,. bilateral inguinal hernias . K supplement , pulmonary care . hernia repair in the near future after recovery from the surgery . - Problem Patient Problems: Patient Problems COPD (chronic obstructive pulmonary disease) (Acute) J44.9 Bowel obstruction (Acute) K56.609
--- NOTE | 2018-12-10 18:30 | PCM.PROG ---
Progress Note - Progress Note for Day of Date of Exam: 12/10/18 - Subjective Subjective: 68 WM ADMITTED ON 12/04 WITH BOWEL OBSTRUCTION. PT HAD ~7CM RECTAL MASS, S/P TC COLOSTOMY PER DR BARLOW. PT CO MILD POST OPERATIVE PAIN, CONTROLLED WITH IV NARCOTICS. PT REPORTS NO VOMTING, SMALL AMOUNT OF STOOL IN COLOSTOMY. K+2.9.PT DENIES ANY SOB, OR CP. PLAN TO CONTINUE POST OPERATIVE CARE PER DR BARLOW, PATH REPORT PENDING. PT CO HICCUPS CONTINUED SINCE SURGERY AND CO LEFT LOWER ABDOMINAL TENDERNESS, "PROSTATE PAIN" - Past Medical Family Social History Past Med/Fam/Surg Hx: No changes since H&P Allergies: Allergies No Known Drug Allergies Allergy (Verified 12/03/18 21:48) - Review of Systems ROS: No change since H&P - Vital Signs and I&O's Vital Signs: Temperature 99.6 F Pulse Rate [Apical] 20 Pulse Rate [Right] 80 Pulse Rate 97 Respiratory Rate 22 Blood Pressure [Right Arm] 120/65 Blood Pressure 153/72 O2 Sat by Pulse Oximetry 94 Intake and Output: Intake & Output 12/08/18 12/09/18 12/10/18 12/11/18 11:59 11:59 11:59 11:59 Intake Total 4697 / 4697 4410 / 4410 3335 / 3335 1296 / 1296 Output Total 2525 / 2525 1999 / 1999 1150 / 1150 710 / 710 Balance 2172 / 2172 2410 / 2410 2185 / 2185 586 / 586 - Physical Exam Oriented: Normal Eyes: Normal Ear: Normal Nose: Normal Throat: Normal Respiratory: Diminished Cardiovascular: Tachycardia : Normal Auscultation: Bowel Sounds: Normal Palpation: Other (REDUCIBLE LEFT INGUINAL HERNIA) Tenderness: Diffuse, Mild, Other (has bilateral inguinal hernias , no obstruction .) Skin: Decreased Turgur Musculoskeletal: Back:Lumbar Psychiatric: Anxiety Mood Description: Calm Affect: Anxious Speech Pattern: Clear, Appropriate - Laboratory and Diagnostics Result Diagrams: 12/10/18 04:09 12/10/18 08:39 Labs: Laboratory WBC 4.8 X10^3/uL (3.6-10.0) 12/10/18 04:09 RBC 3.48 X10^6/uL (4.7-6.0) L 12/10/18 04:09 Hgb 10.3 g/dL (13.5-18.0) L 12/10/18 04:09 Hct 30.9 % (42.0-54.0) L 12/10/18 04:09 MCV 88.8 fL (80.0-100.0) 12/10/18 04:09 MCH 29.6 pg (27.0-34.0) 12/10/18 04:09 MCHC 33.3 g/dL (33.0-35.0) 12/10/18 04:09 RDW 13.3 % (11.6-16.5) 12/10/18 04:09 Plt Count 205 X10^3/uL (150.0-450.0) 12/10/18 04:09 Plt Count Comment Adequate (ADEQUATE) 12/10/18 04:09 MPV 8.3 fL (7.4-11.0) 12/10/18 04:09 Neut % (Auto) 58.2 % (42.0-75.0) 12/10/18 04:09 Lymph % (Auto) 11.0 % (21.0-51.0) L 12/10/18 04:09 [place] % (Auto) 26.3 % (0.0-13.0) H 12/10/18 04:09 Eos % (Auto) 2.8 % (0.9-2.9) 12/10/18 04:09 Baso % (Auto) 1.7 % (0.2-1.0) H 12/10/18 04:09 Neut # (Auto) 2.8 x10^3/uL (2.2-4.8) 12/10/18 04:09 Lymph # (Auto) 0.5 X10^3/uL (1.3-2.9) L 12/10/18 04:09 [place] # (Auto) 1.3 x10^3/uL (0.3-0.8) H 12/10/18 04:09 Eos # (Auto) 0.1 x10^3/uL (0.0-0.2) 12/10/18 04:09 Baso # (Auto) 0.1 X10^3/uL (0.0-0.1) 12/10/18 04:09 Absolute Nucleated RBC 0.0 /100WBC 12/10/18 04:09 Total Counted 100 12/10/18 04:09 Neutrophils % (Manual) 61 % (39-76) 12/10/18 04:09 Band Neutrophils % 8 % (0-10) 12/07/18 04:10 Lymphocytes % (Manual) 18 % (13-43) 12/10/18 04:09 Monocytes % (Manual) 21 % (4-9) H 12/10/18 04:09 Eosinophils % (Manual) 1 % (0-6) 12/09/18 04:11 Metamyelocytes % 2 12/07/18 04:10 Plt Morphology Comment Normal (NORMAL) 12/10/18 04:09 RBC Morphology Normal (NORMAL) 12/10/18 04:09 Sodium 141 mmol/L (136-145) 12/10/18 04:09 Corrected Sodium TNP 12/10/18 04:09 Potassium 3.5 mmol/L (3.5-5.1) 12/10/18 08:39 Chloride 106 mmol/L (98-107) 12/10/18 04:09 Carbon Dioxide 27.5 mmol/L (21-32) 12/10/18 04:09 BUN 3 mg/dL (7-18) L 12/10/18 04:09 Creatinine 0.57 mg/dL (0.70-1.30) L 12/10/18 04:09 Est GFR (MDRD) Af Amer > 60 (>60) 12/10/18 04:09 Est GFR (MDRD) Non-Af > 60 (>60) 12/10/18 04:09 Glucose 107 mg/dL (65-99) H 12/10/18 04:09 Calcium 7.7 mg/dL (8.5-10.1) L 12/10/18 04:09 Corrected Calcium 8.5 mg/dL (8.5-10.1) 12/10/18 04:09 Magnesium 1.9 mg/dL (1.7-2.9) 12/10/18 04:09 Total Bilirubin 0.20 mg/dL (0.2-1.0) 12/10/18 04:09 AST 18 Units/L (15-37) 12/10/18 04:09 ALT 13 Units/L (12-78) 12/10/18 04:09 Alkaline Phosphatase 34 Units/L (46-116) L 12/10/18 04:09 Total Protein 5.3 g/dL (6.4-8.2) L 12/10/18 04:09 Albumin 3.0 g/dL (3.4-5.0) L 12/10/18 04:09 Globulin 2.3 g/dL (2.5-4.5) L 12/10/18 04:09 Albumin/Globulin Ratio 1.3 Ratio (1.1-2.1) 12/10/18 04:09 Amylase 26 Units/L (25-115) 12/04/18 04:32 Lipase 69 Units/L (73-393) L 12/04/18 04:32 Specimen Type Clean catch urine 12/04/18 08:56 Urine Color Dark yellow (YELLOW) 12/04/18 08:56 Urine Appearance Clear (CLEAR) 12/04/18 08:56 Urine pH 5.0 (5.0 - 8.0) 12/04/18 08:56 Ur Specific [place] 1.015 (1.000-1.030) 12/04/18 08:56 Urine Protein 2+ (NEGATIVE) 12/04/18 08:56 Urine Glucose (UA) Negative (NEGATIVE) 12/04/18 08:56 Urine Ketones 3+ (NEGATIVE) 12/04/18 08:56 Urine Occult Blood 5+ (NEGATIVE) 12/04/18 08:56 Urine Nitrite Negative (NEGATIVE) 12/04/18 08:56 Urine Bilirubin Negative (NEGATIVE) 12/04/18 08:56 Urine Urobilinogen Normal (NORMAL) 12/04/18 08:56 Ur Leukocyte Esterase 1+ (NEGATIVE) 12/04/18 08:56 Urine RBC 0-2 /HPF (NONE SEEN) 12/04/18 08:56 Urine WBC 5-10 /HPF (NONE SEEN) 12/04/18 08:56 Ur Squamous Epith Cells Negative /HPF (NEGATIVE) 12/04/18 08:56 Urine Bacteria Negative /HPF (NEGATIVE) 12/04/18 08:56 Urine Mucus Few /HPF (NEGATIVE) 12/04/18 08:56 Ur Culture Indicated? No/not indicated 12/04/18 08:56 Tissue Pathology To follow 12/05/18 11:40 - Plan (1) Bowel obstruction Status: Acute Plan: S/P COLOSTOMY. POST OPERATIVE CARE. RECTAL MASS PRESENT, SENT FOR PATH. CONTINUE EDUCATION ON COLOSTOMY CARE PER NURSING. MONITOR H&H, ADVANCE DIET TOLERATED. (2) COPD (chronic obstructive pulmonary disease) Status: Acute (3) Inguinal hernia Status: Acute Plan: KUB, MONITOR, COUGHING PILLOW PRN (4) Intractable hiccups Status: Acute Plan: JAILYN
[2018-12-10] MEDS: PROVENTIL NEB TX 0.083% 2.5MG/ 3ML NEB PRN (20:46)
[2018-12-10] MEDS: FLOMAX PO SCH (21:11)
[2018-12-10] MEDS: MAGNESIUM SULFATE 1 GRAM/100 mL PREMIX 1 GM/100 ML BAG IV PRN (22:09)
[2018-12-11] MEDS: MAGNESIUM SULFATE 1 GRAM/100 mL PREMIX 1 GM/100 ML BAG IV PRN (01:01)
[2018-12-11] MEDS: FLAGYL IV PREMIX 500 MG BAG 500 MG/100 ML BAG IV SCH ×4 (03:15→20:23)
[2018-12-11] MEDS: NS 1/2 + KCL 20 MEQ/L 1,000 ML IV SCH ×3 (04:00→20:30)
[2018-12-11 05:31] LABS: BASOPHILS % (AUTO) 0.5 % (0.2-1.0); EOSINOPHILS # (AUTO) 0.1 x10^3/uL (0.0-0.2); EOSINOPHILS % (AUTO) 1.2 % (0.9-2.9); HEMATOCRIT 31.8 % (42.0-54.0); HEMOGLOBIN 10.9 g/dL (13.5-18.0); MEAN CORPUSCULAR HEMOGLOBIN 29.9 pg (27.0-34.0); MEAN CORPUSCULAR HGB CONC 34.3 g/dL (33.0-35.0); MEAN CORPUSCULAR VOLUME 87.3 fL (80.0-100.0); MONOCYTES # (AUTO) 1.9 x10^3/uL (0.3-0.8); MONOCYTES % (AUTO) 30.1 % (0.0-13.0); NEUTROPHILS # (AUTO) 3.3 x10^3/uL (2.2-4.8); NEUTROPHILS % (AUTO) 52.2 % (42.0-75.0); PLATELET COUNT 222 X10^3/uL (150.0-450.0); RED BLOOD COUNT 3.65 X10^6/uL (4.7-6.0); RED CELL DISTRIBUTION WIDTH 13.6 % (11.6-16.5); WHITE BLOOD COUNT 6.3 X10^3/uL (3.6-10.0)
[2018-12-11 05:36] LABS: ALANINE AMINOTRANSFERASE 14 Units/L (12-78); ALBUMIN 3.4 g/dL (3.4-5.0); ALKALINE PHOSPHATASE 38 Units/L (46-116); ASPARTATE AMINO TRANSFERASE 16 Units/L (15-37); BLOOD UREA NITROGEN 4 mg/dL (7-18); CARBON DIOXIDE 28.4 mmol/L (21-32); CHLORIDE 104 mmol/L (98-107); SODIUM 140 mmol/L (136-145); TOTAL PROTEIN 5.8 g/dL (6.4-8.2); eGFR NON BLACK RACES > 60 (>60)
[2018-12-11] MEDS: K-DUR TAB 20 MEQ PO PRN (05:55)
[2018-12-11] MEDS: PERCOCET TAB 5/325 MG PO PRN ×4 (05:55→21:15)
[2018-12-11 06:31] LABS: BAND NEUTROPHILS % 1 % (0-10); PLATELET MORPHOLOGY COMMENT NORMAL (NORMAL)
--- NOTE | 2018-12-11 07:49 | RAD ---
HISTORY: Upper abdominal pain Study: KUB Comparison: 12/05/2018 Findings: The abdominal gas pattern is nonspecific and nonobstructive. No abnormal masses or abnormal calcifications are identified. The regional skeleton is intact. IMPRESSION: Unremarkable flat and upright abdomen Reported By:
[2018-12-11 08:06] LABS: BILIRUBIN,URINE NEGATIVE (NEGATIVE); BLOOD/HEMOGLOBIN,URINE 3+ (NEGATIVE); GLUCOSE, URINE NEGATIVE (NEGATIVE); KETONES,URINE NEGATIVE (NEGATIVE); LEUKOCYTE ESTERASE ,URINE 1+ (NEGATIVE); NITRITES,URINE NEGATIVE (NEGATIVE); PROTEIN,URINE NEGATIVE (NEGATIVE); UROBILINOGEN,URINE NORMAL (NORMAL)
[2018-12-11 08:14] LABS: APPEARANCE,URINE CLEAR (CLEAR); BACTERIA,URINE TRACE /HPF (NEGATIVE); COLOR,URINE YELLOW (YELLOW); SQUAMOUS EPITHELIAL CELL,UR RARE /HPF (NEGATIVE)
[2018-12-11] MEDS: MICRO K EXTEN CAP 10 MEQ PO SCH (09:15)
[2018-12-11] MEDS: NICOTINE PATCH TD SCH (09:15)
[2018-12-11] MEDS: LOPRESSOR TAB 25 MG PO SCH ×2 (09:15→20:23)
[2018-12-11] MEDS: LOVENOX INJ 40 MG SYR SC SCH (09:16)
[2018-12-11] MEDS: ALBUMIN HUMAN 25%- 100 ML 100 ML IV SCH (09:51)
[2018-12-11] MEDS: THORAZINE TAB 25 MG PO SCH ×3 (09:51→21:18)
--- NOTE | 2018-12-11 14:32 | CT ---
HISTORY: Low-grade fever and abdominal pain. Study: CT abdomen and pelvis with contrast Comparison: CT abdomen/pelvis dated November 14, 2018. Technique: Multiple axial images of the abdomen and pelvis were obtained from the lung bases to the pubic symphysis after the administration of IV contrast. Dose reduction techniques including Automated Exposure Control (AEC) and adjustment of mA and kV were utilized. Findings: Moderate-sized pleural effusions with associated compressive atelectasis versus infiltrate. Nonspecific calcifications are again seen about the liver and spleen. The liver and spleen otherwise appear unchanged. The gallbladder is collapsed and not well evaluated. The visualized pancreas and adrenal glands are unremarkable. Stable appearing cysts and subcentimeter too small to characterize bilateral renal hypodensities. The kidneys are otherwise unremarkable. Patient is status post interval right upper quadrant colostomy. Postsurgical changes are again seen at the rectum. Collapse of the large bowel is seen with diffuse mucosal thickening and associated mesenteric stranding. Small amount of free fluid is seen within the abdomen and pelvis. No obvious free air or pathologic lymphadenopathy. No pneumatosis intestinalis or portal venous gas. The small bowel is unremarkable. The prostate gland appears unchanged. Bilateral inguinal hernias containing loops of small bowel without compromise. The urinary bladder is grossly unremarkable. Vascular calcifications without evidence of aneurysmal dilatation. The vascular structures appear patent. Degenerative changes of the spine. No aggressive osseous lesions. IMPRESSION: 1. Constellation of findings of the large bowel likely representing infectious colitis. Ischemic colitis is not entirely excluded, but is felt less likely. Recommend clinical/laboratory correlation. 2. Other chronic findings as above. Reported By:
[2018-12-11] MEDS: PROVENTIL NEB TX 0.083% 2.5MG/ 3ML NEB PRN ×2 (16:30→22:02)
[2018-12-11 18:42] LABS: STOOL FOR WBC NEGATIVE (NEGATIVE)
[2018-12-11 19:08] LABS: CRYPTOSPORIDIUM PARVUM ANTIGEN NEGATIVE (NEGATIVE); GIARDIA LAMBLIA ANTIGEN NEGATIVE (NEGATIVE)
[2018-12-11] MEDS: FLOMAX PO SCH (20:23)
[2018-12-12] MEDS: PERCOCET TAB 5/325 MG PO PRN ×2 (01:50→06:02)
[2018-12-12] MEDS: FLAGYL IV PREMIX 500 MG BAG 500 MG/100 ML BAG IV SCH ×2 (01:59→09:42)
[2018-12-12 05:23] LABS: BASOPHILS % (AUTO) 0.5 % (0.2-1.0); EOSINOPHILS # (AUTO) 0.1 x10^3/uL (0.0-0.2); EOSINOPHILS % (AUTO) 1.4 % (0.9-2.9); HEMATOCRIT 29.5 % (42.0-54.0); HEMOGLOBIN 10.2 g/dL (13.5-18.0); MEAN CORPUSCULAR HEMOGLOBIN 30.2 pg (27.0-34.0); MEAN CORPUSCULAR HGB CONC 34.6 g/dL (33.0-35.0); MEAN CORPUSCULAR VOLUME 87.2 fL (80.0-100.0); MEAN PLATELET VOLUME 8.1 fL (7.4-11.0); MONOCYTES # (AUTO) 1.4 x10^3/uL (0.3-0.8); MONOCYTES % (AUTO) 26.9 % (0.0-13.0); NEUTROPHILS # (AUTO) 2.7 x10^3/uL (2.2-4.8); NEUTROPHILS % (AUTO) 52.2 % (42.0-75.0); PLATELET COUNT 207 X10^3/uL (150.0-450.0); RED BLOOD COUNT 3.38 X10^6/uL (4.7-6.0); RED CELL DISTRIBUTION WIDTH 13.8 % (11.6-16.5); WHITE BLOOD COUNT 5.3 X10^3/uL (3.6-10.0)
[2018-12-12 05:36] LABS: ALANINE AMINOTRANSFERASE 15 Units/L (12-78); ALBUMIN 3.2 g/dL (3.4-5.0); ALKALINE PHOSPHATASE 37 Units/L (46-116); ASPARTATE AMINO TRANSFERASE 13 Units/L (15-37); BLOOD UREA NITROGEN 5 mg/dL (7-18); CALCIUM 7.9 mg/dL (8.5-10.1); CARBON DIOXIDE 26.4 mmol/L (21-32); CHLORIDE 103 mmol/L (98-107); COR CA(FOR HYPOALB) 8.5 mg/dL (8.5-10.1); COR NA(FOR HYPERGLY) 140 mmol/L (136-145); CREATININE 0.59 mg/dL (0.70-1.30); SODIUM 139 mmol/L (136-145); TOTAL PROTEIN 5.6 g/dL (6.4-8.2); eGFR NON BLACK RACES > 60 (>60)
[2018-12-12] MEDS: THORAZINE TAB 25 MG PO SCH (05:57)
[2018-12-12] MEDS: KLOR-CON PO PRN (05:57)
[2018-12-12 06:12] LABS: BAND NEUTROPHILS % 1 % (0-10); PLATELET MORPHOLOGY COMMENT NORMAL (NORMAL)
[2018-12-12] MEDS ORDERED: MICRO K EXTEN CAP 10 MEQ PO SCH (09:00)
[2018-12-12] MEDS: NS 1/2 + KCL 20 MEQ/L 1,000 ML IV SCH (09:42)
[2018-12-12] MEDS: LOPRESSOR TAB 25 MG PO SCH (09:42)
[2018-12-12] MEDS: NICOTINE PATCH TD SCH (09:43)
[2018-12-12] MEDS: LOVENOX INJ 40 MG SYR SC SCH (09:44)
[2018-12-12 12:25] VITALS: BP 107/56
== END 2018-12-12 12:40 | disposition home health service (06) | DRG 394 ==
LOC: ER 21:18 → MED/SURG 12-04 03:00 → ICU 12-05 17:16
PROVIDERS: ADMIT Internal Medicine; ATTEND Internal Medicine
PROC: SIGMOID (2018-12-05 11:27)
DX: E86.0 Dehydration; Z85.46 Personal history of malignant neoplasm of prostate; K56.699 Other intestinal obstruction unspecified as to partial versus complete obstruction; J44.9 Chronic obstructive pulmonary disease, unspecified; K62.89 Other specified diseases of anus and rectum; C20 Malignant neoplasm of rectum; R26.89 Other abnormalities of gait and mobility; N40.0 Benign prostatic hyperplasia without lower urinary tract symptoms; R10.84 Generalized abdominal pain; K40.30 Unilateral inguinal hernia, with obstruction, without gangrene, not specified as recurrent; E87.6 Hypokalemia; R11.2 Nausea with vomiting, unspecified
CPT/HCPCS: 36415; 71010; 71045; 74000; 74018; 74022; 74177; 80053; 81001; 82150; 82270; 83630; 83690; 83735; 84132; 85025; 87040; 87045; 87328; 87329; 87427; 87449; 87493; 87899; 93005; 94640; 96365; 96367; 96374; 96375; 97110; 97112; 97161; 97162; 97166; 99284; A4216; A4217; A4222; J7030; P9047; S0028; S0030; J0330; J0690; J1170; J1650; J2175; J2250; J2270; J2405; J2550; J2704; J2710; J2765; J3010; J3475; J3480; J3490; J7050; J7613

== ENCOUNTER 2019-06-10 08:43 | Inpatient (IN) ==
[2019-06-10] MEDS ORDERED: LR 1000 ML IV 1,000 ML IV ONE ×2 (09:07→09:21)
[2019-06-10] MEDS ORDERED: ANCEF VIAL 1 GRAM ONE (09:08)
[2019-06-10] MEDS ORDERED: MORPHINE SULFATE INJ 10 MG ONE (09:21)
[2019-06-10] MEDS ORDERED: DECADRON INJ ONE ×2 (09:21→10:11)
[2019-06-10] MEDS ORDERED: FENTANYL INJ 100 mcg ONE ×2 (09:21→10:11)
[2019-06-10 09:49] VITALS: BMI 19.2
[2019-06-10] MEDS ORDERED: DUONEB 0.5 MG/3 MG NEB ONE (10:05)
[2019-06-10] MEDS ORDERED: QUELICIN (OR ANECTINE) ONE (10:11)
[2019-06-10] MEDS ORDERED: ULTANE GAS IN ONE (10:11)
[2019-06-10] MEDS ORDERED: TORADOL 30 MG VIAL ONE (10:11)
[2019-06-10] MEDS ORDERED: ZOFRAN INJ 4 MG VIAL ONE (10:11)
[2019-06-10] MEDS ORDERED: NORCURON INJ 10 MG VIAL ONE (10:11)
[2019-06-10] MEDS ORDERED: DIPRIVAN VIAL ONE (10:11)
[2019-06-10] MEDS ORDERED: ZEMURON ONE (10:11)
[2019-06-10] MEDS ORDERED: NEOSTIGMINE INJ ONE (10:11)
[2019-06-10] MEDS ORDERED: ROBINUL ONE (10:11)
[2019-06-10] MEDS ORDERED: VERSED ONE (10:11)
[2019-06-10] MEDS ORDERED: MORPHINE SULFATE INJ 2 MG INJ ONE (10:11)
[2019-06-10] MEDS ORDERED: XYLOCAINE 1 % (PLAIN) ONE (10:11)
[2019-06-10] MEDS ORDERED: NS IRRIGATION 1000 ML ONE (13:11)
[2019-06-10 13:32] LABS: BILIRUBIN,URINE NEGATIVE (NEGATIVE); BLOOD/HEMOGLOBIN,URINE 4+ (NEGATIVE); GLUCOSE, URINE NEGATIVE (NEGATIVE); KETONES,URINE NEGATIVE (NEGATIVE); LEUKOCYTE ESTERASE ,URINE 3+ (NEGATIVE); NITRITES,URINE NEGATIVE (NEGATIVE); PROTEIN,URINE 4+ (NEGATIVE); UROBILINOGEN,URINE NORMAL (NORMAL)
[2019-06-10 13:41] LABS: APPEARANCE,URINE CLOUDY (CLEAR); COLOR,URINE PALE YELLOW (YELLOW)
[2019-06-10 13:42] LABS: BACTERIA,URINE TRACE /HPF (NEGATIVE); RBC,URINE TNTC /HPF (0-3); SQUAMOUS EPITHELIAL CELL,UR RARE /HPF (NEGATIVE)
[2019-06-10] MEDS ORDERED: BACITRACIN VIAL ONE (14:35)
[2019-06-10] MEDS ORDERED: ZOFRAN INJ 4 MG VIAL IVP PRN (15:30)
[2019-06-10] MEDS ORDERED: BENADRYL INJ 50 MG VIAL IVP PRN (15:30)
[2019-06-10] MEDS ORDERED: REGLAN INJ 10 MG VIAL IVP PRN (15:30)
[2019-06-10] MEDS ORDERED: PHENERGAN INJ 25 MG IM PRN (15:30)
[2019-06-10] MEDS ORDERED: DILAUDID INJ ONE ×2 (15:37→15:58)
[2019-06-10] MEDS: DILAUDID INJ IVP PRN ×5 (15:37→23:13)
--- NOTE | 2019-06-10 17:06 | OR.IMMED ---
Immediate Post-Op Note - Immediate Post-Op Note Pre-Op Diagnosis: obstructing low rectal ca. s/p neoadjuvant. T-colostomy for large bowel obstruction . abdominal adhesions . Post-Op Diagnosis: low rectal ca . abdominal adhesions . colostomy of TC. Procedure: exploratory lap . lysis of adhesiopns . anterior resection of rectal ca with low pelvic anastomosis . Surgeon/Picker Box Operator: Alexandra Specimens Removed: mid lower rectum . recto sigmoid . Drains: [place] Benedict Complications: no. Condition: Stable
[2019-06-10] MEDS: D5 1/2 NS 1000 ML 1,000 ML IV SCH (17:10)
[2019-06-10] MEDS: CHECK PATCH XX SCH (20:59)
[2019-06-10] MEDS: NICOTINE PATCH TD SCH (20:59)
[2019-06-11] MEDS: D5 1/2 NS 1000 ML 1,000 ML IV SCH ×3 (00:10→17:34)
[2019-06-11] MEDS: DILAUDID INJ IVP PRN ×5 (03:05→20:45)
[2019-06-11 05:28] LABS: BASOPHILS % (AUTO) 0.2 % (0.2-1.0); HEMATOCRIT 37.1 % (42.0-54.0); HEMOGLOBIN 12.3 g/dL (13.5-18.0); LYMPHOCYTES # (AUTO) 0.4 X10^3/uL (1.3-2.9); LYMPHOCYTES % (AUTO) 2.3 % (21.0-51.0); MEAN CORPUSCULAR HGB CONC 33.2 g/dL (33.0-35.0); MEAN CORPUSCULAR VOLUME 93.4 fL (80.0-100.0); MEAN PLATELET VOLUME 7.6 fL (7.4-11.0); MONOCYTES # (AUTO) 2.7 x10^3/uL (0.3-0.8); MONOCYTES % (AUTO) 16.9 % (0.0-13.0); NEUTROPHILS # (AUTO) 13.1 x10^3/uL (2.2-4.8); NEUTROPHILS % (AUTO) 80.6 % (42.0-75.0); PLATELET COUNT 205 X10^3/uL (150.0-450.0); RED BLOOD COUNT 3.98 X10^6/uL (4.7-6.0); WHITE BLOOD COUNT 16.2 X10^3/uL (3.6-10.0)
[2019-06-11 05:32] LABS: ALANINE AMINOTRANSFERASE 10 Units/L (12-78); ALBUMIN 2.7 g/dL (3.4-5.0); ALKALINE PHOSPHATASE 50 Units/L (46-116); ASPARTATE AMINO TRANSFERASE 11 Units/L (15-37); BLOOD UREA NITROGEN 7 mg/dL (7-18); CALCIUM 7.5 mg/dL (8.5-10.1); CARBON DIOXIDE 27.4 mmol/L (21-32); CHLORIDE 102 mmol/L (98-107); COR CA(FOR HYPOALB) 8.5 mg/dL (8.5-10.1); COR NA(FOR HYPERGLY) 138 mmol/L (136-145); CREATININE 0.68 mg/dL (0.70-1.30); SODIUM 137 mmol/L (136-145); TOTAL PROTEIN 5.6 g/dL (6.4-8.2); eGFR NON BLACK RACES > 60 (>60)
--- NOTE | 2019-06-11 07:46 | DR.PROGNOT ---
Hospital Progress Notes - Progress Note for Day of: Progress Note Date: 06/11/19 - Chief Complaint Chief Complaint: post op day 1. doing fairly well . moderate incisional pain . minimal drainage in JOSE . - Past Medical Family Social History Past Med/Fam/Surg Hx: No changes since H&P Allergies: Allergies No Known Drug Allergies Allergy (Verified 12/03/18 21:48) - Review Of Systems ROS: No change since H&P - Vital Signs Vital Signs: Temperature 98.8 F Pulse Rate [Left Brachial] 103 Pulse Rate 85 Respiratory Rate 18 Blood Pressure [Left Arm] 105/64 Blood Pressure [Right Arm] 120/65 Blood Pressure 122/60 O2 Sat by Pulse Oximetry 95 - Physical Exam Oriented: Normal Eyes: Normal Ear: Normal Nose: Normal : Normal GI:Auscultation: Decreased GI:Palpation: Normal GI: Tenderness: Diffuse Skin: Normal Musculoskeletal: Normal Mood Description: Calm Speech Pattern: Clear, Appropriate - Laboratory and Diagnostics Result Diagrams: 06/11/19 04:32 06/11/19 04:32 Labs: Laboratory WBC 16.2 X10^3/uL (3.6-10.0) H D 06/11/19 04:32 RBC 3.98 X10^6/uL (4.7-6.0) L 06/11/19 04:32 Hgb 12.3 g/dL (13.5-18.0) L 06/11/19 04:32 Hct 37.1 % (42.0-54.0) L 06/11/19 04:32 MCV 93.4 fL (80.0-100.0) 06/11/19 04:32 MCH 31.0 pg (27.0-34.0) 06/11/19 04:32 MCHC 33.2 g/dL (33.0-35.0) 06/11/19 04:32 RDW 18.0 % (11.6-16.5) H 06/11/19 04:32 Plt Count 205 X10^3/uL (150.0-450.0) 06/11/19 04:32 MPV 7.6 fL (7.4-11.0) 06/11/19 04:32 Neut % (Auto) 80.6 % (42.0-75.0) H 06/11/19 04:32 Lymph % (Auto) 2.3 % (21.0-51.0) L 06/11/19 04:32 [place] % (Auto) 16.9 % (0.0-13.0) H 06/11/19 04:32 Eos % (Auto) 0.0 % (0.9-2.9) L 06/11/19 04:32 Baso % (Auto) 0.2 % (0.2-1.0) 06/11/19 04:32 Neut # (Auto) 13.1 x10^3/uL (2.2-4.8) H 06/11/19 04:32 Lymph # (Auto) 0.4 X10^3/uL (1.3-2.9) L 06/11/19 04:32 [place] # (Auto) 2.7 x10^3/uL (0.3-0.8) H 06/11/19 04:32 Eos # (Auto) 0.0 x10^3/uL (0.0-0.2) 06/11/19 04:32 Baso # (Auto) 0.0 X10^3/uL (0.0-0.1) 06/11/19 04:32 Absolute Nucleated RBC 0.0 /100WBC 06/11/19 04:32 Sodium 137 mmol/L (136-145) 06/11/19 04:32 Corrected Sodium 138 mmol/L (136-145) 06/11/19 04:32 Potassium 4.0 mmol/L (3.5-5.1) 06/11/19 04:32 Chloride 102 mmol/L (98-107) 06/11/19 04:32 Carbon Dioxide 27.4 mmol/L (21-32) 06/11/19 04:32 BUN 7 mg/dL (7-18) 06/11/19 04:32 Creatinine 0.68 mg/dL (0.70-1.30) L 06/11/19 04:32 Est GFR (MDRD) Af Amer > 60 (>60) 06/11/19 04:32 Est GFR (MDRD) Non-Af > 60 (>60) 06/11/19 04:32 Glucose 156 mg/dL (65-99) H 06/11/19 04:32 Calcium 7.5 mg/dL (8.5-10.1) L 06/11/19 04:32 Corrected Calcium 8.5 mg/dL (8.5-10.1) 06/11/19 04:32 Total Bilirubin 0.30 mg/dL (0.2-1.0) 06/11/19 04:32 AST 11 Units/L (15-37) L 06/11/19 04:32 ALT 10 Units/L (12-78) L 06/11/19 04:32 Alkaline Phosphatase 50 Units/L (46-116) 06/11/19 04:32 Total Protein 5.6 g/dL (6.4-8.2) L 06/11/19 04:32 Albumin 2.7 g/dL (3.4-5.0) L 06/11/19 04:32 Globulin 2.9 g/dL (2.5-4.5) 06/11/19 04:32 Albumin/Globulin Ratio 0.9 Ratio (1.1-2.1) L 06/11/19 04:32 Specimen Type Catherized urine 06/10/19 12:00 Urine Color Pale yellow (YELLOW) 06/10/19 12:00 Urine Appearance Cloudy (CLEAR) 06/10/19 12:00 Urine pH 6.0 (5.0 - 8.0) 06/10/19 12:00 Ur Specific [place] 1.025 (1.000-1.030) 06/10/19 12:00 Urine Protein 4+ (NEGATIVE) 06/10/19 12:00 Urine Glucose (UA) Negative (NEGATIVE) 06/10/19 12:00 Urine Ketones Negative (NEGATIVE) 06/10/19 12:00 Urine Occult Blood 4+ (NEGATIVE) 06/10/19 12:00 Urine Nitrite Negative (NEGATIVE) 06/10/19 12:00 Urine Bilirubin Negative (NEGATIVE) 06/10/19 12:00 Urine Urobilinogen Normal (NORMAL) 06/10/19 12:00 Ur Leukocyte Esterase 3+ (NEGATIVE) 06/10/19 12:00 Urine RBC Tntc /HPF (0-3) A 06/10/19 12:00 Urine WBC Tntc /HPF (0-5) A 06/10/19 12:00 Ur Squamous Epith Cells Rare /HPF (NEGATIVE) 06/10/19 12:00 Urine Bacteria Trace /HPF (NEGATIVE) 06/10/19 12:00 Ur Culture Indicated? Yes/culture set up 06/10/19 12:00 Tissue Pathology To follow 06/10/19 14:12 - Assessment and Plan 1: post op anterior resection of recal ca with low pelvic anastomosis . same PO care . OOB . d/c NGT . same ATB for 24h
[2019-06-11] MEDS: PROTONIX INJ 40 MG VIAL IVP SCH (08:20)
[2019-06-11] MEDS: NICOTINE PATCH TD SCH (08:21)
[2019-06-11] MEDS: LOVENOX INJ 40 MG SYR SC SCH (08:22)
[2019-06-11] MEDS: LEVAQUIN PREMIX IV 500 MG 500 MG/100 ML BAG IV SCH (08:28)
[2019-06-11] MEDS ORDERED: LEVAQUIN TAB 500 MG PO SCH (09:00)
[2019-06-11] MEDS: CHECK PATCH XX SCH ×2 (10:25→20:59)
--- NOTE | 2019-06-11 14:15 | RAD ---
HISTORY: NG tube placement. History of COPD and colon cancer. Prior surgery-colostomy, ortho, spine, port. Study: KUB Comparison: 12/10/2018. Findings: A nasogastric tube is present the tip the level of the gastric fundus. The side hole is present at or just slightly above the EG junction. I suggest that the tube be advanced about 6 cm for better function. There is a colostomy stoma present in the right upper quadrant. Some air and stool present within the cecum and ascending colon. No bowel obstruction is seen. Midline surgical clips are present involving the lower abdomen pelvis. Surgical drains are present in the pelvic region. IMPRESSION: NG tube as described. The tube would likely function better if advanced about 6 cm. Postsurgical changes as noted above. No bowel obstruction is seen. Reported By:
[2019-06-11] MEDS: DUONEB 0.5 MG/3 MG NEB PRN (20:03)
[2019-06-11] MEDS: ZOFRAN INJ 4 MG VIAL IVP PRN (20:59)
[2019-06-11] MEDS: MAALOX or MYLANTA PO PRN (23:23)
[2019-06-12] MEDS: D5 1/2 NS 1000 ML 1,000 ML IV SCH ×3 (00:24→15:02)
[2019-06-12] MEDS: DILAUDID INJ IVP PRN ×6 (00:25→21:28)
[2019-06-12] MEDS: ZOFRAN INJ 4 MG VIAL IVP PRN ×3 (03:00→20:05)
[2019-06-12] MEDS ORDERED: REGLAN INJ 10 MG VIAL ONE (03:38)
[2019-06-12] MEDS: REGLAN INJ 10 MG VIAL IVP PRN ×2 (03:42→09:13)
[2019-06-12 05:18] LABS: BASOPHILS % (AUTO) 0.2 % (0.2-1.0); HEMATOCRIT 38.1 % (42.0-54.0); HEMOGLOBIN 12.7 g/dL (13.5-18.0); LYMPHOCYTES # (AUTO) 0.5 X10^3/uL (1.3-2.9); LYMPHOCYTES % (AUTO) 3.4 % (21.0-51.0); MEAN CORPUSCULAR HEMOGLOBIN 31.1 pg (27.0-34.0); MEAN CORPUSCULAR HGB CONC 33.4 g/dL (33.0-35.0); MEAN CORPUSCULAR VOLUME 93.2 fL (80.0-100.0); MEAN PLATELET VOLUME 7.4 fL (7.4-11.0); MONOCYTES % (AUTO) 15.4 % (0.0-13.0); NEUTROPHILS # (AUTO) 10.7 x10^3/uL (2.2-4.8); PLATELET COUNT 205 X10^3/uL (150.0-450.0); RED CELL DISTRIBUTION WIDTH 17.6 % (11.6-16.5); WHITE BLOOD COUNT 13.2 X10^3/uL (3.6-10.0)
[2019-06-12 05:39] LABS: ALANINE AMINOTRANSFERASE 11 Units/L (12-78); ALBUMIN 2.7 g/dL (3.4-5.0); ALKALINE PHOSPHATASE 62 Units/L (46-116); ASPARTATE AMINO TRANSFERASE 17 Units/L (15-37); BLOOD UREA NITROGEN 6 mg/dL (7-18); CALCIUM 7.9 mg/dL (8.5-10.1); CARBON DIOXIDE 28.6 mmol/L (21-32); CHLORIDE 96 mmol/L (98-107); COR CA(FOR HYPOALB) 8.9 mg/dL (8.5-10.1); COR NA(FOR HYPERGLY) 132 mmol/L (136-145); CREATININE 0.62 mg/dL (0.70-1.30); SODIUM 131 mmol/L (136-145); TOTAL PROTEIN 6.2 g/dL (6.4-8.2); eGFR NON BLACK RACES > 60 (>60)
[2019-06-12] MEDS: PROTONIX INJ 40 MG VIAL IVP SCH (08:56)
[2019-06-12] MEDS: LOVENOX INJ 40 MG SYR SC SCH (08:56)
[2019-06-12] MEDS: LEVAQUIN PREMIX IV 500 MG 500 MG/100 ML BAG IV SCH (08:56)
[2019-06-12] MEDS: NICOTINE PATCH TD SCH (09:02)
[2019-06-12] MEDS: CHECK PATCH XX SCH ×2 (09:04→20:13)
[2019-06-12] MEDS: DUONEB 0.5 MG/3 MG NEB PRN (11:15)
--- NOTE | 2019-06-12 13:08 | DR.PROGNOT ---
Hospital Progress Notes - Progress Note for Day of: Progress Note Date: 06/12/19 - Chief Complaint Chief Complaint: post op day 2. vomited last night , feeling better this am. moderate incisional pain . minimal drainage in JOSE .( was removed ) - Past Medical Family Social History Past Med/Fam/Surg Hx: No changes since H&P Allergies: Allergies No Known Drug Allergies Allergy (Verified 12/03/18 21:48) - Review Of Systems ROS: No change since H&P - Vital Signs Vital Signs: Temperature 97.6 F Pulse Rate [Left Brachial] 99 Pulse Rate 101 Respiratory Rate 25 Blood Pressure [Left Arm] 124/70 Blood Pressure [Right Arm] 120/65 Blood Pressure 122/60 O2 Sat by Pulse Oximetry 92 - Physical Exam Oriented: Normal Eyes: Normal Ear: Normal Nose: Normal : Normal GI:Auscultation: Decreased GI:Palpation: Normal GI: Tenderness: Diffuse (moderate distention and tympanic ..prolapsed colostomy ( was like that pre op , no obstruction )) Skin: Normal Musculoskeletal: Normal Mood Description: Calm Speech Pattern: Clear, Appropriate - Laboratory and Diagnostics Result Diagrams: 06/12/19 04:33 06/12/19 04:33 Labs: 06/10/19 12:00 Urine,Catheterized Urine Culture - Final Enterococcus Faecalis Laboratory WBC 13.2 X10^3/uL (3.6-10.0) H 06/12/19 04:33 RBC 4.10 X10^6/uL (4.7-6.0) L 06/12/19 04:33 Hgb 12.7 g/dL (13.5-18.0) L 06/12/19 04:33 Hct 38.1 % (42.0-54.0) L 06/12/19 04:33 MCV 93.2 fL (80.0-100.0) 06/12/19 04:33 MCH 31.1 pg (27.0-34.0) 06/12/19 04:33 MCHC 33.4 g/dL (33.0-35.0) 06/12/19 04:33 RDW 17.6 % (11.6-16.5) H 06/12/19 04:33 Plt Count 205 X10^3/uL (150.0-450.0) 06/12/19 04:33 MPV 7.4 fL (7.4-11.0) 06/12/19 04:33 Neut % (Auto) 81.0 % (42.0-75.0) H 06/12/19 04:33 Lymph % (Auto) 3.4 % (21.0-51.0) L 06/12/19 04:33 [place] % (Auto) 15.4 % (0.0-13.0) H 06/12/19 04:33 Eos % (Auto) 0.0 % (0.9-2.9) L 06/12/19 04:33 Baso % (Auto) 0.2 % (0.2-1.0) 06/12/19 04:33 Neut # (Auto) 10.7 x10^3/uL (2.2-4.8) H 06/12/19 04:33 Lymph # (Auto) 0.5 X10^3/uL (1.3-2.9) L 06/12/19 04:33 [place] # (Auto) 2.0 x10^3/uL (0.3-0.8) H 06/12/19 04:33 Eos # (Auto) 0.0 x10^3/uL (0.0-0.2) 06/12/19 04:33 Baso # (Auto) 0.0 X10^3/uL (0.0-0.1) 06/12/19 04:33 Absolute Nucleated RBC 0.0 /100WBC 06/12/19 04:33 Sodium 131 mmol/L (136-145) L 06/12/19 04:33 Corrected Sodium 132 mmol/L (136-145) L 06/12/19 04:33 Potassium 3.7 mmol/L (3.5-5.1) 06/12/19 04:33 Chloride 96 mmol/L (98-107) L 06/12/19 04:33 Carbon Dioxide 28.6 mmol/L (21-32) 06/12/19 04:33 BUN 6 mg/dL (7-18) L 06/12/19 04:33 Creatinine 0.62 mg/dL (0.70-1.30) L 06/12/19 04:33 Est GFR (MDRD) Af Amer > 60 (>60) 06/12/19 04:33 Est GFR (MDRD) Non-Af > 60 (>60) 06/12/19 04:33 Glucose 140 mg/dL (65-99) H 06/12/19 04:33 Calcium 7.9 mg/dL (8.5-10.1) L 06/12/19 04:33 Corrected Calcium 8.9 mg/dL (8.5-10.1) 06/12/19 04:33 Total Bilirubin 0.60 mg/dL (0.2-1.0) 06/12/19 04:33 AST 17 Units/L (15-37) 06/12/19 04:33 ALT 11 Units/L (12-78) L 06/12/19 04:33 Alkaline Phosphatase 62 Units/L (46-116) 06/12/19 04:33 Total Protein 6.2 g/dL (6.4-8.2) L 06/12/19 04:33 Albumin 2.7 g/dL (3.4-5.0) L 06/12/19 04:33 Globulin 3.5 g/dL (2.5-4.5) 06/12/19 04:33 Albumin/Globulin Ratio 0.8 Ratio (1.1-2.1) L 06/12/19 04:33 Specimen Type Catherized urine 06/10/19 12:00 Urine Color Pale yellow (YELLOW) 06/10/19 12:00 Urine Appearance Cloudy (CLEAR) 06/10/19 12:00 Urine pH 6.0 (5.0 - 8.0) 06/10/19 12:00 Ur Specific [place] 1.025 (1.000-1.030) 06/10/19 12:00 Urine Protein 4+ (NEGATIVE) 06/10/19 12:00 Urine Glucose (UA) Negative (NEGATIVE) 06/10/19 12:00 Urine Ketones Negative (NEGATIVE) 06/10/19 12:00 Urine Occult Blood 4+ (NEGATIVE) 06/10/19 12:00 Urine Nitrite Negative (NEGATIVE) 06/10/19 12:00 Urine Bilirubin Negative (NEGATIVE) 06/10/19 12:00 Urine Urobilinogen Normal (NORMAL) 06/10/19 12:00 Ur Leukocyte Esterase 3+ (NEGATIVE) 06/10/19 12:00 Urine RBC Tntc /HPF (0-3) A 06/10/19 12:00 Urine WBC Tntc /HPF (0-5) A 06/10/19 12:00 Ur Squamous Epith Cells Rare /HPF (NEGATIVE) 06/10/19 12:00 Urine Bacteria Trace /HPF (NEGATIVE) 06/10/19 12:00 Ur Culture Indicated? Yes/culture set up 06/10/19 12:00 Tissue Pathology To follow 06/10/19 14:12 - Assessment and Plan 1: post op anterior resection of recal ca with low pelvic anastomosis . same PO care . OOB . d/c NGT . same ATB for 24h. same liquid diet as tolerated .
[2019-06-12] MEDS ORDERED: KLOR-CON PO PRN (18:11)
[2019-06-12] MEDS ORDERED: POTASSIUM CHL 60 MEQ/NS 0.45% 500 ML IV PRN (18:11)
[2019-06-12] MEDS ORDERED: K-DUR TAB 20 MEQ PO PRN (18:11)
[2019-06-12] MEDS ORDERED: K-RIDER 10 MEQ/NS 100 ML 10 MEQ/100 ML BAG IV PRN (18:11)
[2019-06-12] MEDS ORDERED: POTASSIUM CHLORIDE LIQ 20 MEQ UDC PO PRN (18:11)
[2019-06-12] MEDS ORDERED: POTASSIUM CHL 40 MEQ/NS 0.45% 500 ML IV PRN (18:11)
[2019-06-12] MEDS ORDERED: MICRO K EXTEN CAP 10 MEQ PO ONE (18:14)
[2019-06-12] MEDS: MICRO K EXTEN CAP 10 MEQ PO PRN (18:21)
[2019-06-12] MEDS: MAGNESIUM SULFATE 1 GRAM/100 mL PREMIX 1 GM/100 ML BAG IV PRN ×2 (20:06→21:29)
[2019-06-12] MEDS: MAALOX or MYLANTA PO PRN (21:28)
[2019-06-13] MEDS: REGLAN INJ 10 MG VIAL IVP PRN (01:29)
[2019-06-13] MEDS: DILAUDID INJ IVP PRN ×6 (01:29→23:15)
[2019-06-13] MEDS: D5 1/2 NS 1000 ML 1,000 ML IV SCH ×5 (01:29→22:27)
[2019-06-13] MEDS: MAALOX or MYLANTA PO PRN ×2 (01:30→09:46)
[2019-06-13] MEDS: ZOFRAN INJ 4 MG VIAL IVP PRN ×2 (04:39→19:00)
[2019-06-13 05:23] LABS: BASOPHILS % (AUTO) 0.4 % (0.2-1.0); EOSINOPHILS % (AUTO) 0.1 % (0.9-2.9); HEMATOCRIT 33.6 % (42.0-54.0); HEMOGLOBIN 11.5 g/dL (13.5-18.0); LYMPHOCYTES # (AUTO) 0.4 X10^3/uL (1.3-2.9); MEAN CORPUSCULAR HEMOGLOBIN 31.7 pg (27.0-34.0); MEAN CORPUSCULAR HGB CONC 34.3 g/dL (33.0-35.0); MEAN CORPUSCULAR VOLUME 92.3 fL (80.0-100.0); MEAN PLATELET VOLUME 7.6 fL (7.4-11.0); MONOCYTES # (AUTO) 1.5 x10^3/uL (0.3-0.8); MONOCYTES % (AUTO) 12.7 % (0.0-13.0); NEUTROPHILS # (AUTO) 9.8 x10^3/uL (2.2-4.8); NEUTROPHILS % (AUTO) 83.8 % (42.0-75.0); PLATELET COUNT 184 X10^3/uL (150.0-450.0); RED BLOOD COUNT 3.65 X10^6/uL (4.7-6.0); RED CELL DISTRIBUTION WIDTH 17.3 % (11.6-16.5); WHITE BLOOD COUNT 11.7 X10^3/uL (3.6-10.0)
[2019-06-13 05:39] LABS: ALANINE AMINOTRANSFERASE 13 Units/L (12-78); ALBUMIN 2.5 g/dL (3.4-5.0); ALKALINE PHOSPHATASE 56 Units/L (46-116); ASPARTATE AMINO TRANSFERASE 14 Units/L (15-37); BLOOD UREA NITROGEN 4 mg/dL (7-18); CALCIUM 7.8 mg/dL (8.5-10.1); CARBON DIOXIDE 30.1 mmol/L (21-32); CHLORIDE 97 mmol/L (98-107); COR NA(FOR HYPERGLY) 132 mmol/L (136-145); CREATININE 0.53 mg/dL (0.70-1.30); MAGNESIUM 2.2 mg/dL (1.7-2.9); SODIUM 131 mmol/L (136-145); TOTAL PROTEIN 6.1 g/dL (6.4-8.2); eGFR NON BLACK RACES > 60 (>60)
[2019-06-13] MEDS: MICRO K EXTEN CAP 10 MEQ PO PRN (06:16)
[2019-06-13] MEDS: DUONEB 0.5 MG/3 MG NEB PRN ×4 (08:20→20:42)
[2019-06-13] MEDS: NICOTINE PATCH TD SCH (09:47)
[2019-06-13] MEDS: LEVAQUIN PREMIX IV 500 MG 500 MG/100 ML BAG IV SCH (09:48)
[2019-06-13] MEDS: LOVENOX INJ 40 MG SYR SC SCH (09:48)
[2019-06-13] MEDS: PROTONIX INJ 40 MG VIAL IVP SCH (09:48)
[2019-06-13] MEDS: CHECK PATCH XX SCH ×2 (09:48→22:09)
--- NOTE | 2019-06-13 14:42 | PCM.PROG ---
Progress Note Progress Note for Day of Date of Exam: 06/13/19 Subjective Subjective: Pt is doing well POD#3. Followed by surgery for further interventions. Past Medical Family Social History Past Med/Fam/Surg Hx: No changes since H&P Allergies: Allergies No Known Drug Allergies Allergy (Verified 12/03/18 21:48) Review of Systems ROS: No change since H&P Vital Signs and I&O's Vital Signs: Temperature 98.0 F Pulse Rate [Right Brachial] 97 Pulse Rate [Left Brachial] 91 Pulse Rate 89 Respiratory Rate 20 Blood Pressure [Left Arm] 104/70 Blood Pressure [Right Arm] 109/61 Blood Pressure 122/60 O2 Sat by Pulse Oximetry 95 Intake and Output: Intake & Output 06/10/19 06/11/19 06/12/19 06/13/19 23:59 23:59 23:59 23:59 Intake Total 4898 / 4898 2236 / 2236 1783 / 1783 993 / 993 Output Total 2830 / 2830 1900 / 1900 1805 / 1805 700 / 700 Balance 2067 / 2067 336 / 336 -22 / -22 293 / 293 Physical Exam Oriented: Normal Eyes: Normal Ear: Normal Nose: Normal : Normal Auscultation: Bowel Sounds: Normal Tenderness: Normal Skin: Normal Musculoskeletal: Normal Mood Description: Calm Speech Pattern: Clear and Appropriate Laboratory and Diagnostics Result Diagrams: 06/13/19 04:51 06/13/19 04:51 Labs: 06/10/19 12:00 Urine,Catheterized Urine Culture - Final Enterococcus Faecalis Laboratory WBC 11.7 X10^3/uL (3.6-10.0) H 06/13/19 04:51 RBC 3.65 X10^6/uL (4.7-6.0) L 06/13/19 04:51 Hgb 11.5 g/dL (13.5-18.0) L 06/13/19 04:51 Hct 33.6 % (42.0-54.0) L 06/13/19 04:51 MCV 92.3 fL (80.0-100.0) 06/13/19 04:51 MCH 31.7 pg (27.0-34.0) 06/13/19 04:51 MCHC 34.3 g/dL (33.0-35.0) 06/13/19 04:51 RDW 17.3 % (11.6-16.5) H 06/13/19 04:51 Plt Count 184 X10^3/uL (150.0-450.0) 06/13/19 04:51 MPV 7.6 fL (7.4-11.0) 06/13/19 04:51 Neut % (Auto) 83.8 % (42.0-75.0) H 06/13/19 04:51 Lymph % (Auto) 3.0 % (21.0-51.0) L 06/13/19 04:51 [place] % (Auto) 12.7 % (0.0-13.0) 06/13/19 04:51 Eos % (Auto) 0.1 % (0.9-2.9) L 06/13/19 04:51 Baso % (Auto) 0.4 % (0.2-1.0) 06/13/19 04:51 Neut # (Auto) 9.8 x10^3/uL (2.2-4.8) H 06/13/19 04:51 Lymph # (Auto) 0.4 X10^3/uL (1.3-2.9) L 06/13/19 04:51 [place] # (Auto) 1.5 x10^3/uL (0.3-0.8) H 06/13/19 04:51 Eos # (Auto) 0.0 x10^3/uL (0.0-0.2) 06/13/19 04:51 Baso # (Auto) 0.0 X10^3/uL (0.0-0.1) 06/13/19 04:51 Absolute Nucleated RBC 0.1 /100WBC 06/13/19 04:51 Sodium 131 mmol/L (136-145) L 06/13/19 04:51 Corrected Sodium 132 mmol/L (136-145) L 06/13/19 04:51 Potassium 3.7 mmol/L (3.5-5.1) 06/13/19 04:51 Chloride 97 mmol/L (98-107) L 06/13/19 04:51 Carbon Dioxide 30.1 mmol/L (21-32) 06/13/19 04:51 BUN 4 mg/dL (7-18) L 06/13/19 04:51 Creatinine 0.53 mg/dL (0.70-1.30) L 06/13/19 04:51 Est GFR (MDRD) Af Amer > 60 (>60) 06/13/19 04:51 Est GFR (MDRD) Non-Af > 60 (>60) 06/13/19 04:51 Glucose 137 mg/dL (65-99) H 06/13/19 04:51 Calcium 7.8 mg/dL (8.5-10.1) L 06/13/19 04:51 Corrected Calcium 9.0 mg/dL (8.5-10.1) 06/13/19 04:51 Magnesium 2.2 mg/dL (1.7-2.9) 06/13/19 04:51 Total Bilirubin 0.50 mg/dL (0.2-1.0) 06/13/19 04:51 AST 14 Units/L (15-37) L 06/13/19 04:51 ALT 13 Units/L (12-78) 06/13/19 04:51 Alkaline Phosphatase 56 Units/L (46-116) 06/13/19 04:51 Total Protein 6.1 g/dL (6.4-8.2) L 06/13/19 04:51 Albumin 2.5 g/dL (3.4-5.0) L 06/13/19 04:51 Globulin 3.6 g/dL (2.5-4.5) 06/13/19 04:51 Albumin/Globulin Ratio 0.7 Ratio (1.1-2.1) L 06/13/19 04:51 Specimen Type Catherized urine 06/10/19 12:00 Urine Color Pale yellow (YELLOW) 06/10/19 12:00 Urine Appearance Cloudy (CLEAR) 06/10/19 12:00 Urine pH 6.0 (5.0 - 8.0) 06/10/19 12:00 Ur Specific [place] 1.025 (1.000-1.030) 06/10/19 12:00 Urine Protein 4+ (NEGATIVE) 06/10/19 12:00 Urine Glucose (UA) Negative (NEGATIVE) 06/10/19 12:00 Urine Ketones Negative (NEGATIVE) 06/10/19 12:00 Urine Occult Blood 4+ (NEGATIVE) 06/10/19 12:00 Urine Nitrite Negative (NEGATIVE) 06/10/19 12:00 Urine Bilirubin Negative (NEGATIVE) 06/10/19 12:00 Urine Urobilinogen Normal (NORMAL) 06/10/19 12:00 Ur Leukocyte Esterase 3+ (NEGATIVE) 06/10/19 12:00 Urine RBC Tntc /HPF (0-3) A 06/10/19 12:00 Urine WBC Tntc /HPF (0-5) A 06/10/19 12:00 Ur Squamous Epith Cells Rare /HPF (NEGATIVE) 06/10/19 12:00 Urine Bacteria Trace /HPF (NEGATIVE) 06/10/19 12:00 Ur Culture Indicated? Yes/culture set up 06/10/19 12:00 Tissue Pathology To follow 06/10/19 14:12 Plan (1) Rectal cancer: Status: Acute Plan: S/p colon resection, POD#3. Continue management as per surgery. Continue same diet. Pain control. (2) Hyponatremia: Status: Acute Plan: Stable at 131. (3) UTI (urinary tract infection): Status: Acute Plan: Continue levaquin. UrineCx: E. Faecilis (4) COPD (chronic obstructive pulmonary disease): Status: Acute (5) BPH (benign prostatic hyperplasia): Status: Chronic
[2019-06-14] MEDS: D5 1/2 NS 1000 ML 1,000 ML IV SCH ×3 (00:04→19:46)
[2019-06-14] MEDS: DILAUDID INJ IVP PRN ×5 (04:00→23:26)
[2019-06-14] MEDS: PROTONIX INJ 40 MG VIAL IVP SCH (08:16)
[2019-06-14] MEDS: LEVAQUIN PREMIX IV 500 MG 500 MG/100 ML BAG IV SCH (08:16)
[2019-06-14] MEDS: LOVENOX INJ 40 MG SYR SC SCH (08:16)
[2019-06-14] MEDS: NICOTINE PATCH TD SCH (08:20)
[2019-06-14] MEDS: CHECK PATCH XX SCH ×2 (08:45→21:04)
[2019-06-14] MEDS: DUONEB 0.5 MG/3 MG NEB PRN ×2 (12:00→16:12)
--- NOTE | 2019-06-14 13:34 | PCM.PROG ---
Progress Note Progress Note for Day of Date of Exam: 06/14/19 Subjective Subjective: Pt is doing well POD#4. Followed by surgery for further interventions. No events overnight. Past Medical Family Social History Past Med/Fam/Surg Hx: No changes since H&P Allergies: Allergies No Known Drug Allergies Allergy (Verified 12/03/18 21:48) Review of Systems ROS: No change since H&P Vital Signs and I&O's Vital Signs: Temperature 99.0 F Pulse Rate [Right Brachial] 90 Pulse Rate [Left Brachial] 91 Pulse Rate 90 Respiratory Rate 18 Blood Pressure [Left Arm] 104/70 Blood Pressure [Right Arm] 110/68 Blood Pressure 122/60 O2 Sat by Pulse Oximetry 96 Intake and Output: Intake & Output 06/11/19 06/12/19 06/13/19 06/14/19 23:59 23:59 23:59 23:59 Intake Total 2236 / 2236 1783 / 1783 3028 / 3028 120 / 120 Output Total 1900 / 1900 1805 / 1805 1925 / 1925 1125 / 1125 Balance 336 / 336 -22 / -22 1103 / 1103 -1005 / -1005 Physical Exam Oriented: Normal Eyes: Normal Ear: Normal Nose: Normal : Normal Auscultation: Bowel Sounds: Normal Tenderness: Normal Skin: Normal Musculoskeletal: Normal Mood Description: Calm Speech Pattern: Clear and Appropriate Laboratory and Diagnostics Result Diagrams: 06/13/19 04:51 06/13/19 04:51 Labs: 06/10/19 12:00 Urine,Catheterized Urine Culture - Final Enterococcus Faecalis Laboratory WBC 11.7 X10^3/uL (3.6-10.0) H 06/13/19 04:51 RBC 3.65 X10^6/uL (4.7-6.0) L 06/13/19 04:51 Hgb 11.5 g/dL (13.5-18.0) L 06/13/19 04:51 Hct 33.6 % (42.0-54.0) L 06/13/19 04:51 MCV 92.3 fL (80.0-100.0) 06/13/19 04:51 MCH 31.7 pg (27.0-34.0) 06/13/19 04:51 MCHC 34.3 g/dL (33.0-35.0) 06/13/19 04:51 RDW 17.3 % (11.6-16.5) H 06/13/19 04:51 Plt Count 184 X10^3/uL (150.0-450.0) 06/13/19 04:51 MPV 7.6 fL (7.4-11.0) 06/13/19 04:51 Neut % (Auto) 83.8 % (42.0-75.0) H 06/13/19 04:51 Lymph % (Auto) 3.0 % (21.0-51.0) L 06/13/19 04:51 [place] % (Auto) 12.7 % (0.0-13.0) 06/13/19 04:51 Eos % (Auto) 0.1 % (0.9-2.9) L 06/13/19 04:51 Baso % (Auto) 0.4 % (0.2-1.0) 06/13/19 04:51 Neut # (Auto) 9.8 x10^3/uL (2.2-4.8) H 06/13/19 04:51 Lymph # (Auto) 0.4 X10^3/uL (1.3-2.9) L 06/13/19 04:51 [place] # (Auto) 1.5 x10^3/uL (0.3-0.8) H 06/13/19 04:51 Eos # (Auto) 0.0 x10^3/uL (0.0-0.2) 06/13/19 04:51 Baso # (Auto) 0.0 X10^3/uL (0.0-0.1) 06/13/19 04:51 Absolute Nucleated RBC 0.1 /100WBC 06/13/19 04:51 Sodium 131 mmol/L (136-145) L 06/13/19 04:51 Corrected Sodium 132 mmol/L (136-145) L 06/13/19 04:51 Potassium 3.7 mmol/L (3.5-5.1) 06/13/19 04:51 Chloride 97 mmol/L (98-107) L 06/13/19 04:51 Carbon Dioxide 30.1 mmol/L (21-32) 06/13/19 04:51 BUN 4 mg/dL (7-18) L 06/13/19 04:51 Creatinine 0.53 mg/dL (0.70-1.30) L 06/13/19 04:51 Est GFR (MDRD) Af Amer > 60 (>60) 06/13/19 04:51 Est GFR (MDRD) Non-Af > 60 (>60) 06/13/19 04:51 Glucose 137 mg/dL (65-99) H 06/13/19 04:51 Calcium 7.8 mg/dL (8.5-10.1) L 06/13/19 04:51 Corrected Calcium 9.0 mg/dL (8.5-10.1) 06/13/19 04:51 Magnesium 2.2 mg/dL (1.7-2.9) 06/13/19 04:51 Total Bilirubin 0.50 mg/dL (0.2-1.0) 06/13/19 04:51 AST 14 Units/L (15-37) L 06/13/19 04:51 ALT 13 Units/L (12-78) 06/13/19 04:51 Alkaline Phosphatase 56 Units/L (46-116) 06/13/19 04:51 Total Protein 6.1 g/dL (6.4-8.2) L 06/13/19 04:51 Albumin 2.5 g/dL (3.4-5.0) L 06/13/19 04:51 Globulin 3.6 g/dL (2.5-4.5) 06/13/19 04:51 Albumin/Globulin Ratio 0.7 Ratio (1.1-2.1) L 06/13/19 04:51 Specimen Type Catherized urine 06/10/19 12:00 Urine Color Pale yellow (YELLOW) 06/10/19 12:00 Urine Appearance Cloudy (CLEAR) 06/10/19 12:00 Urine pH 6.0 (5.0 - 8.0) 06/10/19 12:00 Ur Specific [place] 1.025 (1.000-1.030) 06/10/19 12:00 Urine Protein 4+ (NEGATIVE) 06/10/19 12:00 Urine Glucose (UA) Negative (NEGATIVE) 06/10/19 12:00 Urine Ketones Negative (NEGATIVE) 06/10/19 12:00 Urine Occult Blood 4+ (NEGATIVE) 06/10/19 12:00 Urine Nitrite Negative (NEGATIVE) 06/10/19 12:00 Urine Bilirubin Negative (NEGATIVE) 06/10/19 12:00 Urine Urobilinogen Normal (NORMAL) 06/10/19 12:00 Ur Leukocyte Esterase 3+ (NEGATIVE) 06/10/19 12:00 Urine RBC Tntc /HPF (0-3) A 06/10/19 12:00 Urine WBC Tntc /HPF (0-5) A 06/10/19 12:00 Ur Squamous Epith Cells Rare /HPF (NEGATIVE) 06/10/19 12:00 Urine Bacteria Trace /HPF (NEGATIVE) 06/10/19 12:00 Ur Culture Indicated? Yes/culture set up 06/10/19 12:00 Tissue Pathology To follow 06/10/19 14:12 Plan (1) Rectal cancer: Status: Acute Plan: S/p colon resection, POD#4. Continue management as per surgery. Cont inue same diet. Pain control. (2) Hyponatremia: Status: Acute Plan: Stable at 131. (3) UTI (urinary tract infection): Status: Acute Plan: Continue levaquin. UrineCx: E. Faecilis (4) COPD (chronic obstructive pulmonary disease): Status: Acute (5) BPH (benign prostatic hyperplasia): Status: Chronic
[2019-06-15] MEDS: D5 1/2 NS 1000 ML 1,000 ML IV SCH ×3 (00:49→09:12)
[2019-06-15] MEDS: DUONEB 0.5 MG/3 MG NEB PRN ×3 (01:06→09:28)
[2019-06-15] MEDS: DILAUDID INJ IVP PRN ×2 (03:15→06:55)
[2019-06-15 05:28] LABS: BASOPHILS % (AUTO) 0.1 % (0.2-1.0); EOSINOPHILS % (AUTO) 0.3 % (0.9-2.9); HEMATOCRIT 32.9 % (42.0-54.0); HEMOGLOBIN 11.1 g/dL (13.5-18.0); LYMPHOCYTES # (AUTO) 0.3 X10^3/uL (1.3-2.9); LYMPHOCYTES % (AUTO) 3.8 % (21.0-51.0); MEAN CORPUSCULAR HEMOGLOBIN 31.2 pg (27.0-34.0); MEAN CORPUSCULAR HGB CONC 33.7 g/dL (33.0-35.0); MEAN CORPUSCULAR VOLUME 92.5 fL (80.0-100.0); MEAN PLATELET VOLUME 7.6 fL (7.4-11.0); MONOCYTES # (AUTO) 1.5 x10^3/uL (0.3-0.8); MONOCYTES % (AUTO) 21.5 % (0.0-13.0); NEUTROPHILS # (AUTO) 5.3 x10^3/uL (2.2-4.8); NEUTROPHILS % (AUTO) 74.3 % (42.0-75.0); PLATELET COUNT 214 X10^3/uL (150.0-450.0); RED BLOOD COUNT 3.55 X10^6/uL (4.7-6.0); RED CELL DISTRIBUTION WIDTH 16.9 % (11.6-16.5); WHITE BLOOD COUNT 7.1 X10^3/uL (3.6-10.0)
[2019-06-15 05:44] LABS: BLOOD UREA NITROGEN 3 mg/dL (7-18); CALCIUM 7.7 mg/dL (8.5-10.1); CARBON DIOXIDE 28.5 mmol/L (21-32); CHLORIDE 98 mmol/L (98-107); COR NA(FOR HYPERGLY) 135 mmol/L (136-145); CREATININE 0.46 mg/dL (0.70-1.30); SODIUM 134 mmol/L (136-145); eGFR NON BLACK RACES > 60 (>60)
[2019-06-15 06:04] LABS: BAND NEUTROPHILS % 3 % (0-10); PLATELET MORPHOLOGY COMMENT NORMAL (NORMAL)
[2019-06-15] MEDS ORDERED: FLOMAX PO SCH (09:00)
[2019-06-15] MEDS: CHECK PATCH XX SCH (09:13)
[2019-06-15] MEDS: LEVAQUIN PREMIX IV 500 MG 500 MG/100 ML BAG IV SCH (09:15)
[2019-06-15] MEDS: LOVENOX INJ 40 MG SYR SC SCH (09:16)
[2019-06-15] MEDS: NICOTINE PATCH TD SCH (09:20)
[2019-06-15] MEDS: PROTONIX INJ 40 MG VIAL IVP SCH (09:21)
[2019-06-15] MEDS: MICRO K EXTEN CAP 10 MEQ PO PRN (09:21)
[2019-06-15] MEDS ORDERED: NORCO 5/325 MG TAB PO PRN (10:53)
--- NOTE | 2019-06-15 11:24 | DR.PROGNOT ---
Hospital Progress Notes - Progress Note for Day of: Progress Note Date: 06/15/19 - Chief Complaint Chief Complaint: post op day 5. had small BM in colostomy bag .. ,. moderate incisional pain . pathology is not available yet . - Past Medical Family Social History Past Med/Fam/Surg Hx: No changes since H&P Allergies: Allergies No Known Drug Allergies Allergy (Verified 12/03/18 21:48) - Review Of Systems ROS: No change since H&P - Vital Signs Vital Signs: Temperature 98.8 F Pulse Rate [Right Brachial] 106 Pulse Rate [Left Brachial] 91 Pulse Rate 92 Respiratory Rate 18 Blood Pressure [Left Arm] 104/70 Blood Pressure [Right Arm] 112/63 Blood Pressure 122/60 O2 Sat by Pulse Oximetry 95 - Physical Exam Oriented: Normal Eyes: Normal Ear: Normal Nose: Normal : Normal GI:Auscultation: Normal GI:Palpation: Normal GI: Tenderness: Normal Skin: Normal Musculoskeletal: Normal Mood Description: Calm Speech Pattern: Clear, Appropriate - Laboratory and Diagnostics Result Diagrams: 06/15/19 05:00 06/15/19 05:00 Labs: 06/10/19 12:00 Urine,Catheterized Urine Culture - Final Enterococcus Faecalis Laboratory WBC 7.1 X10^3/uL (3.6-10.0) 06/15/19 05:00 RBC 3.55 X10^6/uL (4.7-6.0) L 06/15/19 05:00 Hgb 11.1 g/dL (13.5-18.0) L 06/15/19 05:00 Hct 32.9 % (42.0-54.0) L 06/15/19 05:00 MCV 92.5 fL (80.0-100.0) 06/15/19 05:00 MCH 31.2 pg (27.0-34.0) 06/15/19 05:00 MCHC 33.7 g/dL (33.0-35.0) 06/15/19 05:00 RDW 16.9 % (11.6-16.5) H 06/15/19 05:00 Plt Count 214 X10^3/uL (150.0-450.0) 06/15/19 05:00 Plt Count Comment Adequate (ADEQUATE) 06/15/19 05:00 MPV 7.6 fL (7.4-11.0) 06/15/19 05:00 Neut % (Auto) 74.3 % (42.0-75.0) 06/15/19 05:00 Lymph % (Auto) 3.8 % (21.0-51.0) L 06/15/19 05:00 [place] % (Auto) 21.5 % (0.0-13.0) H 06/15/19 05:00 Eos % (Auto) 0.3 % (0.9-2.9) L 06/15/19 05:00 Baso % (Auto) 0.1 % (0.2-1.0) L 06/15/19 05:00 Neut # (Auto) 5.3 x10^3/uL (2.2-4.8) H 06/15/19 05:00 Lymph # (Auto) 0.3 X10^3/uL (1.3-2.9) L 06/15/19 05:00 [place] # (Auto) 1.5 x10^3/uL (0.3-0.8) H 06/15/19 05:00 Eos # (Auto) 0.0 x10^3/uL (0.0-0.2) 06/15/19 05:00 Baso # (Auto) 0.0 X10^3/uL (0.0-0.1) 06/15/19 05:00 Absolute Nucleated RBC 0.0 /100WBC 06/15/19 05:00 Total Counted 100 06/15/19 05:00 Neutrophils % (Manual) 77 % (39-76) H 06/15/19 05:00 Band Neutrophils % 3 % (0-10) 06/15/19 05:00 Lymphocytes % (Manual) 5 % (13-43) L 06/15/19 05:00 Monocytes % (Manual) 14 % (4-9) H 06/15/19 05:00 Eosinophils % (Manual) 1 % (0-6) 06/15/19 05:00 Plt Morphology Comment Normal (NORMAL) 06/15/19 05:00 RBC Morphology Normal (NORMAL) 06/15/19 05:00 Sodium 134 mmol/L (136-145) L 06/15/19 05:00 Corrected Sodium 135 mmol/L (136-145) L 06/15/19 05:00 Potassium 3.5 mmol/L (3.5-5.1) 06/15/19 05:00 Chloride 98 mmol/L (98-107) 06/15/19 05:00 Carbon Dioxide 28.5 mmol/L (21-32) 06/15/19 05:00 BUN 3 mg/dL (7-18) L 06/15/19 05:00 Creatinine 0.46 mg/dL (0.70-1.30) L 06/15/19 05:00 Est GFR (MDRD) Af Amer > 60 (>60) 06/15/19 05:00 Est GFR (MDRD) Non-Af > 60 (>60) 06/15/19 05:00 Glucose 123 mg/dL (65-99) H 06/15/19 05:00 Calcium 7.7 mg/dL (8.5-10.1) L 06/15/19 05:00 Corrected Calcium 9.0 mg/dL (8.5-10.1) 06/13/19 04:51 Magnesium 2.2 mg/dL (1.7-2.9) 06/13/19 04:51 Total Bilirubin 0.50 mg/dL (0.2-1.0) 06/13/19 04:51 AST 14 Units/L (15-37) L 06/13/19 04:51 ALT 13 Units/L (12-78) 06/13/19 04:51 Alkaline Phosphatase 56 Units/L (46-116) 06/13/19 04:51 Total Protein 6.1 g/dL (6.4-8.2) L 06/13/19 04:51 Albumin 2.5 g/dL (3.4-5.0) L 06/13/19 04:51 Globulin 3.6 g/dL (2.5-4.5) 06/13/19 04:51 Albumin/Globulin Ratio 0.7 Ratio (1.1-2.1) L 06/13/19 04:51 Specimen Type Catherized urine 06/10/19 12:00 Urine Color Pale yellow (YELLOW) 06/10/19 12:00 Urine Appearance Cloudy (CLEAR) 06/10/19 12:00 Urine pH 6.0 (5.0 - 8.0) 06/10/19 12:00 Ur Specific [place] 1.025 (1.000-1.030) 06/10/19 12:00 Urine Protein 4+ (NEGATIVE) 06/10/19 12:00 Urine Glucose (UA) Negative (NEGATIVE) 06/10/19 12:00 Urine Ketones Negative (NEGATIVE) 06/10/19 12:00 Urine Occult Blood 4+ (NEGATIVE) 06/10/19 12:00 Urine Nitrite Negative (NEGATIVE) 06/10/19 12:00 Urine Bilirubin Negative (NEGATIVE) 06/10/19 12:00 Urine Urobilinogen Normal (NORMAL) 06/10/19 12:00 Ur Leukocyte Esterase 3+ (NEGATIVE) 06/10/19 12:00 Urine RBC Tntc /HPF (0-3) A 06/10/19 12:00 Urine WBC Tntc /HPF (0-5) A 06/10/19 12:00 Ur Squamous Epith Cells Rare /HPF (NEGATIVE) 06/10/19 12:00 Urine Bacteria Trace /HPF (NEGATIVE) 06/10/19 12:00 Ur Culture Indicated? Yes/culture set up 06/10/19 12:00 Tissue Pathology To follow 06/10/19 14:12 - Assessment and Plan 1: post op anterior resection of recal ca with low pelvic anastomosis . pt could be discharged with F/U as P . soft diet , change dressing daily . f/u in 8 days. same liquid and soft diet . - Problem Patient Problems: Patient Problems UTI (urinary tract infection) (Acute) N39.0 Hyponatremia (Acute) E87.1 Rectal cancer (Acute) C20
[2019-06-15 13:10] VITALS: BP 125/71
--- NOTE | 2019-06-15 13:25 | DR.H&P ---
H&P - History & Physical for Day of: H&P Date: 06/10/19 - Chief Complaint Chief Complaint: Mr. Cruz is a 68-year-old male who is known to us from before. He was admitted before with a large bowel obstruction. 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 The tumor was low involving the mid and lower rectum. He underwent previous transverse colostomy. The patient underwent chemotherapy and radiation therapy. Surgery was planned - History of Present Illness History of Present Illness: see cc - Past Medical History Past Medical History: COPD Additional Medical History: colon cancer - Past Surgical History Surgical History: Bowel Resection - Family History Family Medical History: Diabetes Mellitus, Heart Failure, Hypertension - Social History Does patient currently use any type of tobacco product: Yes Have you used tobacco products in the last 12 months: Yes Type of Tobacco Use: Cigarettes How many years tobacco product used: 55 Does any household member use tobacco: Yes Alcohol Use: Occasionally Drug Use: Marijuana - Medications Home Medications: No Known Drug Allergies Allergy (Verified 12/03/18 21:48) CONTINUE taking the following medications oxycodone-acetaminophen 1 tab PO TID PRN 06/11/19 [History] New Prescriptions levofloxacin [Levaquin] 500 mg PO ONCE #5 tab 06/15/19 [Rx] - Review of Systems Constitutional: Weakness Eyes: No Symptoms Reported ENT: No Symptoms Reported Respiratory: No Symptoms Reported Cardiovascular: No Symptoms Reported Gastrointestinal: Abdominal Pain Genitourinary: No Symptoms Reported Musculoskeletal: No Symptoms Reported Skin: Wound Neurological: Weakness - Physical Exam Vital Signs: Temperature 98.6 F Pulse Rate [Right Brachial] 100 Pulse Rate [Left Brachial] 91 Pulse Rate 92 Respiratory Rate 20 Blood Pressure [Left Arm] 104/70 Blood Pressure [Right Arm] 125/71 Blood Pressure 122/60 O2 Sat by Pulse Oximetry 97 Oriented: Normal Eyes: Normal Ear: Normal Nose: Normal Throat: Normal Respiratory: RLL Diminished, LML Diminished : Normal Auscultation: Bowel Sounds: Normal Palpation: Normal Tenderness: Normal Skin: Decreased Turgur, Wound Musculoskeletal: Normal Psychiatric: Anxiety Affect: Anxious Speech Pattern: Clear - Assessment/Plan (1) Rectal cancer Status: Acute Plan: continue with surgical plan of care. NG TUBE AT [facility], PER DR BARLOW INSTRUCTIONS. VERIFY HOME MEDICATION. POST OPERATIVE WOUND CARE. COLOSTOMY CARE, IS, RESP THERAPY PRN (2) Status post colon resection Status: Acute (3) COPD (chronic obstructive pulmonary disease) Status: Acute (4) BPH (benign prostatic hyperplasia) Status: Chronic - Allergies Allergies/Adverse Reactions: Allergies Allergy/AdvReac Type Severity Reaction Status Date / Time No Known Drug Allergies Allergy Verified 12/03/18 21:48
== END 2019-06-15 13:45 | disposition home or self-care (01) | DRG 330 ==
LOC: MED/SURG 08:43
PROVIDERS: ADMIT Surgery; ATTEND Internal Medicine
DX: Z93.3 Colostomy status; J44.9 Chronic obstructive pulmonary disease, unspecified; B95.2 Enterococcus as the cause of diseases classified elsewhere; E87.1 Hypo-osmolality and hyponatremia; C20 Malignant neoplasm of rectum; N40.0 Benign prostatic hyperplasia without lower urinary tract symptoms; N39.0 Urinary tract infection, site not specified
CPT/HCPCS: 36415; 74000; 74018; 80048; 80053; 81001; 83735; 85025; 87086; 87088; 87186; 94640; 94760; A4222; C9113; J3490; J0330; J0690; J1100; J1170; J1642; J1650; J1885; J1956; J2250; J2270; J2405; J2704; J2710; J2765; J3010; J3475; J7120; J7620; S5010

== ENCOUNTER 2019-06-19 10:14 | Inpatient (IN) ==
[2019-06-19] MEDS ORDERED: ZOFRAN INJ 4 MG VIAL IVP ONE (10:24)
[2019-06-19] MEDS ORDERED: MORPHINE SULFATE INJ 4 MG IVP ONE (10:24)
--- NOTE | 2019-06-19 10:27 | DR.ABDMALE ---
HPI Time seen Time Seen by Provider: 06/19/19 10:35 HPI comment HPI Comment: PATIENT IS 68YR OLD WHITE MALE WITH HISTORY OF COLON CANCER POST RADIATION AND CHEMOTHERAPY WHO HAD SURGERY FOR LOWER COLON AND RECTAL TUMOE ON 06/10/2019 IS HERE IN ED WITH PUS DRAINAGE FROM SURGICAL INCISION AND LOWER ABDO TASNEEM PAIN. PUS DRAINAGE IS GETTING WORSE. PAIN IS SHARP, 10/10 RADIATING TO UPPER ABDOMEN. HAVE INDWELLING COLOSTOMY. DENIES FEVER.TOOK HYDROCODONE FOR PAIN WITHOUT RELIEF. Complaint Chief Complaint Doctors Comments: LOWER ABDOMINAL INCISSION PAIN DRAINING PUS TIMES FEW DAYS, GETTING WORSE. SURGERY REMOVING COLON RECTAL CANCER 06/10/2019. Reviewed Nurses Notes Review: Yes Mode of arrival Mode of Arrival: Ambulatory Timing Came on: Suddenly Duration Duration: Constant Duration: Days Location Location: RLQ, LLQ and Suprapubic Severity Severity: Severe Quality Quality: Sharp Context Onset: Suddenly History of: Abdominal surgery Modifying factors Worsening Factors: Movement Improving Factors: Lying Still Associated signs and symptoms Associated Signs and Symptoms: Other (DRAINING ABSCESS FROM LOWER ABDOMINAL INCISSION.) PMH PMH Past Medical History: COPD Past Surgical History: Yes Surgical History: Bowel Resection Family History Family Medical History: Diabetes Mellitus, Heart Failure and Hypertension Social History Do you use any recreational Drugs:: No infectious screening Isolation: Standard ROS Review of Systems Constitutional: See HPI, Weakness, Fatigue and Loss of Appetite; negative Fever Eyes: No Symptoms Reported and See HPI; negative Eye Pain, Blurred Vision, Tearing and Discharge ENTM: No Symptoms Reported and See HPI; negative Ear Pain, Nose Discharge, Nose Congestion and Throat Pain Respiratoy: No Symptoms Reported and See HPI; negative Moist Cough, Short of Breath and Wheezing Cardiovascular: No Symptoms Reported and See HPI; negative Chest Pain, Edema and Palpitations Gastrointestinal/Abdominal: See HPI, Abdominal Pain and Nausea; negative Constipation, Diarrhea and Vomiting Genitourinary: See HPI and Discharge; negative Dysuria, Frequency, Hematuria and Pain Neurological: No Symptoms Reported, See HPI and Weakness; negative Headache and Dizziness Musculoskeletal: See HPI and Muscle Pain; negative Back Pain Integumentary: Bruises and Other (FOUL SMELLING PUS DRAINING PUS FROM ABDOMINAL INCISSION IN LOWER ABDOMEN.) Hematologic/Lymphatic: See HPI, Easy Bleeding and Easy Bruising Endocrine: See HPI and Decreased Appetite; negative Increased Thirst and Increased Urine Psychiatric: No Symptoms Reported and See HPI All Other Systems: Reviewed and Negative PE Vital Signs Vital Signs: Temp Pulse Resp BP BP BP Pulse Ox 06/19/19 15:28 20 06/19/19 15:15 93 H 97 06/19/19 15:00 88 118/72 97 06/19/19 14:45 94 H 94 L 06/19/19 14:30 86 122/75 92 L 06/19/19 14:15 87 93 L 06/19/19 14:00 93 H 116/65 91 L 06/19/19 13:45 98 H 91 L 06/19/19 13:30 85 133/68 96 06/19/19 13:15 85 95 06/19/19 13:00 85 114/64 96 06/19/19 12:45 90 90 L 06/19/19 12:30 92 H 118/70 94 L 06/19/19 12:15 87 96 06/19/19 12:00 87 122/68 96 06/19/19 11:45 86 97 06/19/19 11:30 89 116/70 98 06/19/19 11:15 89 96 06/19/19 11:01 97 H 132/64 93 L 06/19/19 11:00 97 H 95 06/19/19 10:47 92 H 88 L 06/19/19 10:29 97.8 F 94 H 20 105/67 92 L 06/15/19 12:00 125/71 06/12/19 20:00 104/70 General Limitations: No Limitations General Appearance: Alert and In No Apparent Distress Head Head Exam: Normal Inspection and Atraumatic Eyes Eye exam: Normal Appearance and PERRL; negative Scleral Icterus and Conjunctival Injection ENT ENT Exam: Normal Exam, Normal Oropharynx, Normal External Ear Exam and TM's Normal Bilaterally Neck Neck Exam: Normal Inspection and Trachea Midline; negative Tenderness and Lymphadenopathy Chest Chest Inspection: Normal Inspection and Symmetric Chest Wall Rise; negative Tenderness Respiratory Respiratory Exam: Normal Lung Sounds Bilat; negative Accessory Muscle Use, Chest Wall Tenderness and Respiratory Distress Respiratory Exam: Bilateral: Rhonchi and Lower: Rhonchi Cardiovascular Cardiovascular Exam: Regular Rate, Normal Rhythm and Normal Heart Sounds; negative Systolic Murmur and Diastolic Murmur Abdominal Exam Abdominal Exam: Normal Bowel Sounds, Soft and Tenderness Abdominal Tenderness: Diffuse, Moderate and Other (INDWELLING COLOSTMY RIGHT ABDOMEN.) Rectal Rectal Exam: Deferred Back Back Exam: Normal Inspection; negative Tenderness, (R) CVA Tenderness, (L) CVA Tenderness, Paraspinal Tenderness and Vertebral Tenderness Extremeties Extremities Exam: Normal Inspection and Normal Capillary Refill; negative Te nderness, Edema and Calf Tenderness Exam: Male: Deferred Neurologic Neurological Exam: Alert, Oriented X3 and CN II-XII Intact (GROSSLY INTACT.); negative Motor Sensory Deficit Psychiatric Psychiatric Exam: Normal Affect and Normal Mood Skin Skin Exam: Dry, Erythema and Other (ABDOMINAL WALL ABSCESS DRAINING PUS.) MDM Differential Diagnosis Differential Diagnosis: Bowel Obstruction Other differential diagnosis: INCISSINAL ABSCESS LOWER ABDOMEN, COLON CANCER, INDWELLING COLOSTOMY COURSE Treatment Treatment: SEE ORDERS. NORMAL SALINE 125CC/HR, ZOFRAN 4MG IV AND MORPHIN 4MG IV. Consultation Consultation Comments: DISCUSSED PATIENT WITH DR. HERNANDEZ. HE WILL ADMIT PATIENT. Education/Counseling Education/Counseling: Patient Educated On: Diagnosis ROR Labs Reviewed Laboratory Results Reviewed?: Yes Result Diagrams: 06/21/19 04:02 06/21/19 04:02 Laboratory: 06/19/19 10:43 Blood Blood Culture - Preliminary 06/19/19 10:35 Blood Blood Culture - Preliminary 06/19/19 14:20 Abdomen Gram Stain - Final 06/19/19 14:20 Abdomen Wound Culture - Final Escherichia Coli WBC 9.7 X10^3/uL (3.6-10.0) 06/19/19 10:35 RBC 3.57 X10^6/uL (4.7-6.0) L 06/19/19 10:35 Hgb 11.1 g/dL (13.5-18.0) L 06/19/19 10:35 Hct 32.1 % (42.0-54.0) L 06/19/19 10:35 MCV 90.1 fL (80.0-100.0) 06/19/19 10:35 MCH 31.0 pg (27.0-34.0) 06/19/19 10:35 MCHC 34.4 g/dL (33.0-35.0) 06/19/19 10:35 RDW 16.9 % (11.6-16.5) H 06/19/19 10:35 Plt Count 288 X10^3/uL (150.0-450.0) 06/19/19 10:35 MPV 6.8 fL (7.4-11.0) L 06/19/19 10:35 Neut % (Auto) 80.0 % (42.0-75.0) H 06/19/19 10:35 Lymph % (Auto) 3.7 % (21.0-51.0) L 06/19/19 10:35 Daniels % (Auto) 15.6 % (0.0-13.0) H 06/19/19 10:35 Eos % (Auto) 0.4 % (0.9-2.9) L 06/19/19 10:35 Baso % (Auto) 0.3 % (0.2-1.0) 06/19/19 10:35 Neut # (Auto) 7.8 x10^3/uL (2.2-4.8) H 06/19/19 10:35 Lymph # (Auto) 0.4 X10^3/uL (1.3-2.9) L 06/19/19 10:35 Daniels # (Auto) 1.5 x10^3/uL (0.3-0.8) H 06/19/19 10:35 Eos # (Auto) 0.0 x10^3/uL (0.0-0.2) 06/19/19 10:35 Baso # (Auto) 0.0 X10^3/uL (0.0-0.1) 06/19/19 10:35 Absolute Nucleated RBC 0.0 /100WBC 06/19/19 10:35 Sodium 135 mmol/L (136-145) L 06/19/19 10:35 Corrected Sodium TNP 06/19/19 10:35 Potassium 3.3 mmol/L (3.5-5.1) L 06/19/19 10:35 Chloride 97 mmol/L (98-107) L 06/19/19 10:35 Carbon Dioxide 31.2 mmol/L (21-32) 06/19/19 10:35 BUN 10 mg/dL (7-18) 06/19/19 10:35 Creatinine 0.70 mg/dL (0.70-1.30) 06/19/19 10:35 Est GFR (MDRD) Af Amer > 60 (>60) 06/19/19 10:35 Est GFR (MDRD) Non-Af > 60 (>60) 06/19/19 10:35 Glucose 106 mg/dL (65-99) H 06/19/19 10:35 Lactic Acid 1.0 mmol/L (0.4-2.0) 06/19/19 10:35 Calcium 8.7 mg/dL (8.5-10.1) 06/19/19 10:35 Corrected Calcium 9.9 mg/dL (8.5-10.1) 06/19/19 10:35 Magnesium 1.9 mg/dL (1.7-2.9) 06/19/19 10:35 Total Bilirubin 0.50 mg/dL (0.2-1.0) 06/19/19 10:35 AST 13 Units/L (15-37) L 06/19/19 10:35 ALT 13 Units/L (12-78) 06/19/19 10:35 Alkaline Phosphatase 59 Units/L (46-116) 06/19/19 10:35 Total Protein 6.7 g/dL (6.4-8.2) 06/19/19 10:35 Albumin 2.5 g/dL (3.4-5.0) L 06/19/19 10:35 Globulin 4.2 g/dL (2.5-4.5) 06/19/19 10:35 Albumin/Globulin Ratio 0.6 Ratio (1.1-2.1) L 06/19/19 10:35 Amylase 34 Units/L (25-115) 06/19/19 10:35 Lipase 126 Units/L (73-393) 06/19/19 10:35 Specimen Type Clean catch urine 06/19/19 11:05 Urine Color Kaylin (YELLOW) 06/19/19 11:05 Urine Appearance Clear (CLEAR) 06/19/19 11:05 Urine pH 6.0 (5.0 - 8.0) 06/19/19 11:05 Ur Specific [place] 1.025 (1.000-1.030) 06/19/19 11:05 Urine Protein 1+ (NEGATIVE) 06/19/19 11:05 Urine Glucose (UA) Negative (NEGATIVE) 06/19/19 11:05 Urine Ketones Negative (NEGATIVE) 06/19/19 11:05 Urine Occult Blood 1+ (NEGATIVE) 06/19/19 11:05 Urine Nitrite Negative (NEGATIVE) 06/19/19 11:05 Urine Bilirubin Negative (NEGATIVE) 06/19/19 11:05 Urine Urobilinogen 2+ (NORMAL) 06/19/19 11:05 Ur Leukocyte Esterase Negative (NEGATIVE) 06/19/19 11:05 Urine RBC 0-2 /HPF (0-3) 06/19/19 11:05 Urine WBC 3-5 /HPF (0-5) 06/19/19 11:05 Ur Squamous Epith Cells Negative /HPF (NEGATIVE) 06/19/19 11:05 Amorphous Sediment Trace /HPF (NEGATIVE) 06/19/19 11:05 Urine Bacteria Negative /HPF (NEGATIVE) 06/19/19 11:05 Urine Mucus Numerous /HPF (NEGATIVE) 06/19/19 11:05 Ur Culture Indicated? No/not indicated 06/19/19 11:05 XRAY XRAY Interpreted by: Radiologist XRAY Findings: REPORT NOTED AND DISCUSSED WITH PATIENT. Opioid Opioid Risk Tool Age (Herb box if 16-45): No History of Preadolescent Sexual Abuse: No Total: 0 Total Score Risk Category: Low Risk Copyright: [place] predicting aberrant behaviors Diagnosis Discharge Problem: Wound infection after surgery Abdominal pain Qualifiers: Abdominal location: lower abdomen, unspecified Qualified Code(s): R10.30 - Lower abdominal pain, unspecified Colon cancer Qualifiers: Colon location: overlapping sites Qualified Code(s): C18.8 - Malignant neoplasm of overlapping sites of colon Instructions Forms: Excuse From Work Patient Portal
[2019-06-19 10:54] LABS: BASOPHILS % (AUTO) 0.3 % (0.2-1.0); EOSINOPHILS % (AUTO) 0.4 % (0.9-2.9); HEMATOCRIT 32.1 % (42.0-54.0); HEMOGLOBIN 11.1 g/dL (13.5-18.0); LYMPHOCYTES # (AUTO) 0.4 X10^3/uL (1.3-2.9); LYMPHOCYTES % (AUTO) 3.7 % (21.0-51.0); MEAN CORPUSCULAR HGB CONC 34.4 g/dL (33.0-35.0); MEAN CORPUSCULAR VOLUME 90.1 fL (80.0-100.0); MEAN PLATELET VOLUME 6.8 fL (7.4-11.0); MONOCYTES # (AUTO) 1.5 x10^3/uL (0.3-0.8); MONOCYTES % (AUTO) 15.6 % (0.0-13.0); NEUTROPHILS # (AUTO) 7.8 x10^3/uL (2.2-4.8); PLATELET COUNT 288 X10^3/uL (150.0-450.0); RED BLOOD COUNT 3.57 X10^6/uL (4.7-6.0); RED CELL DISTRIBUTION WIDTH 16.9 % (11.6-16.5); WHITE BLOOD COUNT 9.7 X10^3/uL (3.6-10.0)
[2019-06-19] MEDS ORDERED: NS 1000 ML 1,000 ML IV SCH (11:00)
[2019-06-19 11:13] LABS: BILIRUBIN,URINE NEGATIVE (NEGATIVE); BLOOD/HEMOGLOBIN,URINE 1+ (NEGATIVE); GLUCOSE, URINE NEGATIVE (NEGATIVE); KETONES,URINE NEGATIVE (NEGATIVE); LEUKOCYTE ESTERASE ,URINE NEGATIVE (NEGATIVE); NITRITES,URINE NEGATIVE (NEGATIVE); PROTEIN,URINE 1+ (NEGATIVE); UROBILINOGEN,URINE 2+ (NORMAL)
[2019-06-19 11:17] LABS: ALANINE AMINOTRANSFERASE 13 Units/L (12-78); ALBUMIN 2.5 g/dL (3.4-5.0); ALKALINE PHOSPHATASE 59 Units/L (46-116); AMYLASE 34 Units/L (25-115); ASPARTATE AMINO TRANSFERASE 13 Units/L (15-37); BLOOD UREA NITROGEN 10 mg/dL (7-18); CALCIUM 8.7 mg/dL (8.5-10.1); CARBON DIOXIDE 31.2 mmol/L (21-32); CHLORIDE 97 mmol/L (98-107); COR CA(FOR HYPOALB) 9.9 mg/dL (8.5-10.1); LIPASE 126 Units/L (73-393); SODIUM 135 mmol/L (136-145); TOTAL PROTEIN 6.7 g/dL (6.4-8.2); eGFR NON BLACK RACES > 60 (>60)
[2019-06-19 11:21] LABS: APPEARANCE,URINE CLEAR (CLEAR); COLOR,URINE AMBER (YELLOW)
[2019-06-19 11:22] LABS: AMORPHOUS SEDIMENT,UR TRACE /HPF (NEGATIVE); BACTERIA,URINE NEGATIVE /HPF (NEGATIVE); MUCUS,URINE NUMEROUS /HPF (NEGATIVE); RBC,URINE 0-2 /HPF (0-3); SQUAMOUS EPITHELIAL CELL,UR NEGATIVE /HPF (NEGATIVE)
--- NOTE | 2019-06-19 13:48 | CT ---
HISTORY: Abdominal pain, recent surgery 2 weeks ago, history of cancer Study: CT abdomen and pelvis without contrast Comparison: 03/23/2019 Technique: Multiple axial images of the abdomen and pelvis were obtained without IV contrast. Dose reduction techniques including Automated Exposure Control (AEC) and adjustment of mA and kV were utilized. Findings: Please note evaluation is limited without use of IV contrast. There are emphysematous changes at the lung bases. The liver, spleen, pancreas, and adrenal glands are unremarkable in their unenhanced CT appearance. The gallbladder is normal. No renal calculi or obstructive uropathy identified. There are extensive surgical changes of the bowel. Evaluation is significantly limited due to lack of oral and IV contrast on this limited noncontrast exam. There is scattered free air in the upper abdomen and along the ventral subcutaneous fat. There is an ostomy in the right abdomen. There are small ventral hernias containing fat, gas and possibly loops of bowel more inferiorly but evaluation is limited due to lack of contrast. There are scattered peritoneal calcifications of uncertain etiology. There is a subincisional mass measuring 11.8 x 3.2 x 10.5 cm. Findings could represent hematoma or abscess in the setting of recent surgery. Again, evaluation is limited without contrast. The possibility of active bleeding is also not excluded. Limited evaluation of vascular structures due to lack of contrast with scattered plaque seen in the aorta and branch vessels. Urinary bladder wall is thickened. Prostate gland is enlarged. IMPRESSION: 1. Subincisional mass measuring 11.8 x 3.2 x 10.5 cm with primary differential considerations including hematoma or abscess in the setting of recent surgery. Evaluation limited due to lack of oral or IV contrast. 2. There is free air in the upper abdomen. This would be unusual if the provided history of 'surgery 2 weeks ago' is true therefore cannot exclude perforated viscus or anastomotic breakdown. 3. Extensive surgical changes of the bowel with ostomy in the right abdomen and multiple ventral hernia defects in the upper abdomen. 4. Enlarged prostate gland and urinary bladder wall thickening. 5. Additional chronic findings as described. Reported By:
[2019-06-19] MEDS ORDERED: DILAUDID INJ ONE (14:49)
[2019-06-19] MEDS ORDERED: DILAUDID INJ IVP ONE (14:50)
[2019-06-19] MEDS ORDERED: MOTRIN TAB 600 MG PO PRN (16:43)
[2019-06-19] MEDS ORDERED: PHARMACY CONSULT - VANCOMYCIN XX SCH (16:43)
[2019-06-19] MEDS ORDERED: NS 1000 ML 1,000 ML ONE (16:53)
[2019-06-19] MEDS ORDERED: VANCOMYCIN HCL ONE (16:56)
[2019-06-19] MEDS ORDERED: D5W 250 ML IV 250 ML IV ONE (16:56)
[2019-06-19] MEDS ORDERED: ZOSYN VIAL 3.375 GRAMS IV ONE (16:57)
[2019-06-19] MEDS ORDERED: NS 100 ML IV + SPIKE MINIBAG* 100 ML IV ONE (16:57)
[2019-06-19 17:00] VITALS: BMI 17.1
[2019-06-19] MEDS: NS 1000 ML 1,000 ML IV SCH (17:14)
[2019-06-19] MEDS: VANCOMYCIN HCL 1 G in D5W 250 ML IV 250 ML IV SCH ×2 (17:15→23:23)
[2019-06-19] MEDS: ZOSYN VIAL 3.375 GRAMS 3.375 G in NS 100 ML IV + SPIKE MINIBAG* 100 ML IV SCH ×2 (17:18→23:58)
[2019-06-19] MEDS ORDERED: MAALOX or MYLANTA ONE (19:13)
[2019-06-19] MEDS: MAALOX or MYLANTA PO PRN (19:19)
[2019-06-19] MEDS: ZOFRAN INJ 4 MG VIAL IVP PRN (19:20)
[2019-06-19] MEDS: MORPHINE SULFATE INJ 2 MG INJ IVP PRN ×2 (19:25→23:54)
[2019-06-19] MEDS: NICOTINE PATCH TD SCH (21:32)
[2019-06-19] MEDS ORDERED: POTASSIUM CHL 40 MEQ/NS 0.45% 500 ML IV PRN (21:44)
[2019-06-19] MEDS ORDERED: POTASSIUM CHL 60 MEQ/NS 0.45% 500 ML IV PRN (21:44)
[2019-06-19] MEDS ORDERED: K-RIDER 10 MEQ/NS 100 ML 10 MEQ/100 ML BAG IV PRN (21:44)
[2019-06-19] MEDS ORDERED: MICRO K EXTEN CAP 10 MEQ PO PRN (21:44)
[2019-06-19] MEDS ORDERED: KLOR-CON PO PRN (21:44)
[2019-06-19] MEDS ORDERED: POTASSIUM CHLORIDE LIQ 20 MEQ UDC PO PRN (21:44)
[2019-06-19] MEDS ORDERED: K-DUR TAB 20 MEQ PO ONE (21:50)
[2019-06-19] MEDS: K-DUR TAB 20 MEQ PO PRN (21:53)
[2019-06-20] MEDS: NS 1000 ML 1,000 ML IV SCH ×2 (04:04→16:26)
[2019-06-20] MEDS: MORPHINE SULFATE INJ 2 MG INJ IVP PRN ×5 (04:05→21:14)
[2019-06-20 04:46] LABS: BASOPHILS % (AUTO) 0.3 % (0.2-1.0); EOSINOPHILS # (AUTO) 0.1 x10^3/uL (0.0-0.2); EOSINOPHILS % (AUTO) 0.7 % (0.9-2.9); HEMOGLOBIN 10.1 g/dL (13.5-18.0); LYMPHOCYTES # (AUTO) 0.4 X10^3/uL (1.3-2.9); LYMPHOCYTES % (AUTO) 4.6 % (21.0-51.0); MEAN CORPUSCULAR HGB CONC 33.8 g/dL (33.0-35.0); MEAN CORPUSCULAR VOLUME 91.6 fL (80.0-100.0); MEAN PLATELET VOLUME 7.1 fL (7.4-11.0); MONOCYTES # (AUTO) 1.4 x10^3/uL (0.3-0.8); MONOCYTES % (AUTO) 16.2 % (0.0-13.0); NEUTROPHILS # (AUTO) 6.9 x10^3/uL (2.2-4.8); NEUTROPHILS % (AUTO) 78.2 % (42.0-75.0); PLATELET COUNT 262 X10^3/uL (150.0-450.0); RED BLOOD COUNT 3.28 X10^6/uL (4.7-6.0); RED CELL DISTRIBUTION WIDTH 16.9 % (11.6-16.5); WHITE BLOOD COUNT 8.9 X10^3/uL (3.6-10.0)
[2019-06-20 05:02] LABS: ALANINE AMINOTRANSFERASE 12 Units/L (12-78); ALBUMIN 2.2 g/dL (3.4-5.0); ALKALINE PHOSPHATASE 50 Units/L (46-116); ASPARTATE AMINO TRANSFERASE 12 Units/L (15-37); BLOOD UREA NITROGEN 6 mg/dL (7-18); CALCIUM 7.8 mg/dL (8.5-10.1); CARBON DIOXIDE 29.9 mmol/L (21-32); CHLORIDE 99 mmol/L (98-107); COR CA(FOR HYPOALB) 9.2 mg/dL (8.5-10.1); CREATININE 0.59 mg/dL (0.70-1.30); MAGNESIUM 1.9 mg/dL (1.7-2.9); SODIUM 136 mmol/L (136-145); TOTAL PROTEIN 5.8 g/dL (6.4-8.2); eGFR NON BLACK RACES > 60 (>60)
[2019-06-20] MEDS: ZOSYN VIAL 3.375 GRAMS 3.375 G in NS 100 ML IV + SPIKE MINIBAG* 100 ML IV SCH (06:04)
[2019-06-20] MEDS: K-DUR TAB 20 MEQ PO PRN (08:20)
[2019-06-20] MEDS: VANCOMYCIN HCL 1 G in D5W 250 ML IV 250 ML IV SCH ×2 (09:35→21:27)
--- NOTE | 2019-06-20 10:27 | DR.PROGNOT ---
Hospital Progress Notes - Progress Note for Day of: Progress Note Date: 06/20/19 - Chief Complaint Chief Complaint: less abdominal pain . tolerating diet well . having low grade fever . colostomy is functioning well . - Past Medical Family Social History Past Med/Fam/Surg Hx: No changes since H&P Allergies: Allergies No Known Drug Allergies Allergy (Verified 12/03/18 21:48) - Review Of Systems ROS: No change since H&P - Vital Signs Vital Signs: Temperature 99.0 F Pulse Rate 92 Respiratory Rate 20 Blood Pressure [Left Arm] 104/70 Blood Pressure [Right Arm] 125/71 Blood Pressure 97/52 O2 Sat by Pulse Oximetry 97 - Physical Exam Oriented: Normal Eyes: Normal Ear: Normal Nose: Normal Throat: Normal Respiratory: Normal GI:Auscultation: Normal GI:Palpation: Normal GI: Tenderness: Diffuse (BS+) Speech Pattern: Clear - Laboratory and Diagnostics Result Diagrams: 06/20/19 04:01 06/20/19 04:01 Labs: 06/19/19 14:20 Abdomen Gram Stain - Final 06/19/19 14:20 Abdomen Wound Culture - Preliminary Laboratory WBC 8.9 X10^3/uL (3.6-10.0) 06/20/19 04:01 RBC 3.28 X10^6/uL (4.7-6.0) L 06/20/19 04:01 Hgb 10.1 g/dL (13.5-18.0) L 06/20/19 04:01 Hct 30.0 % (42.0-54.0) L 06/20/19 04:01 MCV 91.6 fL (80.0-100.0) 06/20/19 04:01 MCH 31.0 pg (27.0-34.0) 06/20/19 04:01 MCHC 33.8 g/dL (33.0-35.0) 06/20/19 04:01 RDW 16.9 % (11.6-16.5) H 06/20/19 04:01 Plt Count 262 X10^3/uL (150.0-450.0) 06/20/19 04:01 MPV 7.1 fL (7.4-11.0) L 06/20/19 04:01 Neut % (Auto) 78.2 % (42.0-75.0) H 06/20/19 04:01 Lymph % (Auto) 4.6 % (21.0-51.0) L 06/20/19 04:01 Nye % (Auto) 16.2 % (0.0-13.0) H 06/20/19 04:01 Eos % (Auto) 0.7 % (0.9-2.9) L 06/20/19 04:01 Baso % (Auto) 0.3 % (0.2-1.0) 06/20/19 04:01 Neut # (Auto) 6.9 x10^3/uL (2.2-4.8) H 06/20/19 04:01 Lymph # (Auto) 0.4 X10^3/uL (1.3-2.9) L 06/20/19 04:01 Nye # (Auto) 1.4 x10^3/uL (0.3-0.8) H 06/20/19 04:01 Eos # (Auto) 0.1 x10^3/uL (0.0-0.2) 06/20/19 04:01 Baso # (Auto) 0.0 X10^3/uL (0.0-0.1) 06/20/19 04:01 Absolute Nucleated RBC 0.0 /100WBC 06/20/19 04:01 Sodium 136 mmol/L (136-145) 06/20/19 04:01 Corrected Sodium TNP 06/20/19 04:01 Potassium 3.6 mmol/L (3.5-5.1) 06/20/19 04:01 Chloride 99 mmol/L (98-107) 06/20/19 04:01 Carbon Dioxide 29.9 mmol/L (21-32) 06/20/19 04:01 BUN 6 mg/dL (7-18) L 06/20/19 04:01 Creatinine 0.59 mg/dL (0.70-1.30) L 06/20/19 04:01 Est GFR (MDRD) Af Amer > 60 (>60) 06/20/19 04:01 Est GFR (MDRD) Non-Af > 60 (>60) 06/20/19 04:01 Glucose 101 mg/dL (65-99) H 06/20/19 04:01 Lactic Acid 1.0 mmol/L (0.4-2.0) 06/19/19 10:35 Calcium 7.8 mg/dL (8.5-10.1) L 06/20/19 04:01 Corrected Calcium 9.2 mg/dL (8.5-10.1) 06/20/19 04:01 Magnesium 1.9 mg/dL (1.7-2.9) 06/20/19 04:01 Total Bilirubin 0.40 mg/dL (0.2-1.0) 06/20/19 04:01 AST 12 Units/L (15-37) L 06/20/19 04:01 ALT 12 Units/L (12-78) 06/20/19 04:01 Alkaline Phosphatase 50 Units/L (46-116) 06/20/19 04:01 Total Protein 5.8 g/dL (6.4-8.2) L 06/20/19 04:01 Albumin 2.2 g/dL (3.4-5.0) L 06/20/19 04:01 Globulin 3.6 g/dL (2.5-4.5) 06/20/19 04:01 Albumin/Globulin Ratio 0.6 Ratio (1.1-2.1) L 06/20/19 04:01 Amylase 34 Units/L (25-115) 06/19/19 10:35 Lipase 126 Units/L (73-393) 06/19/19 10:35 Specimen Type Clean catch urine 06/19/19 11:05 Urine Color Kaylin (YELLOW) 06/19/19 11:05 Urine Appearance Clear (CLEAR) 06/19/19 11:05 Urine pH 6.0 (5.0 - 8.0) 06/19/19 11:05 Ur Specific [place] 1.025 (1.000-1.030) 06/19/19 11:05 Urine Protein 1+ (NEGATIVE) 06/19/19 11:05 Urine Glucose (UA) Negative (NEGATIVE) 06/19/19 11:05 Urine Ketones Negative (NEGATIVE) 06/19/19 11:05 Urine Occult Blood 1+ (NEGATIVE) 06/19/19 11:05 Urine Nitrite Negative (NEGATIVE) 06/19/19 11:05 Urine Bilirubin Negative (NEGATIVE) 06/19/19 11:05 Urine Urobilinogen 2+ (NORMAL) 06/19/19 11:05 Ur Leukocyte Esterase Negative (NEGATIVE) 06/19/19 11:05 Urine RBC 0-2 /HPF (0-3) 06/19/19 11:05 Urine WBC 3-5 /HPF (0-5) 06/19/19 11:05 Ur Squamous Epith Cells Negative /HPF (NEGATIVE) 06/19/19 11:05 Amorphous Sediment Trace /HPF (NEGATIVE) 06/19/19 11:05 Urine Bacteria Negative /HPF (NEGATIVE) 06/19/19 11:05 Urine Mucus Numerous /HPF (NEGATIVE) 06/19/19 11:05 Ur Culture Indicated? No/not indicated 06/19/19 11:05 - Assessment and Plan 1: surgical site infection . s/p anterior resection rectal ca . s/p radiation and chemo Tx. pt is smoker . on ATB - Problem Patient Problems: Patient Problems Wound infection after surgery (Acute) T81.49XA
--- NOTE | 2019-06-20 12:06 | DR.H&P ---
H&P - History & Physical for Day of: H&P Date: 06/19/19 - Chief Complaint Chief Complaint: ABDOMINAL PAIN, INFECTED WOUND - History of Present Illness History of Present Illness: his is a 68-year-old male who is status post exploratory laparotomy, lysis of adhesions, and anterior resection of lower rectal cancer with a primary anastomosis. The patient did very well after surgery without any complications. Unfortunately, he started to have lower incisional pain and redness, then started to have purulent drainage. The patient was seen by a visiting nurse and was brought to the ER where he was evaluated and admitted for further treatment of the wound infection. - Past Medical History Past Medical History: Asthma, COPD, PUD Additional Medical History: colon cancer - Past Surgical History Surgical History: Bowel Resection - Family History Family Medical History: Diabetes Mellitus, Heart Failure, Hypertension - Social History Does patient currently use any type of tobacco product: Yes Have you used tobacco products in the last 12 months: Yes Type of Tobacco Use: Cigarettes How many years tobacco product used: 55 Does any household member use tobacco: Yes Alcohol Use: Occasionally Drug Use: Marijuana - Medications Home Medications: No Known Drug Allergies Allergy (Verified 12/03/18 21:48) CONTINUE taking the following medications hydrocodone-acetaminophen 1 tab PO TID 06/19/19 [History] - Review of Systems Constitutional: Weakness Eyes: No Symptoms Reported ENT: No Symptoms Reported Respiratory: No Symptoms Reported Cardiovascular: No Symptoms Reported Gastrointestinal: Nausea, Abdominal Pain Genitourinary: No Symptoms Reported Musculoskeletal: No Symptoms Reported Skin: Wound Neurological: No Symptoms Reported - Physical Exam Vital Signs: Temperature 99.0 F Pulse Rate 92 Respiratory Rate 20 Blood Pressure [Left Arm] 104/70 Blood Pressure [Right Arm] 125/71 Blood Pressure 97/52 O2 Sat by Pulse Oximetry 97 Oriented: Normal Eyes: Normal Ear: Normal Nose: Normal Throat: Normal Respiratory: RLL Diminished, LLL Diminished Cardiovascular: Normal : Normal Auscultation: Bowel Sounds: Normal Tenderness: Diffuse, Moderate Skin: Decreased [place], 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 NPO, SURGICAL CONSULT. CT REVEALED: Subincisional mass measuring 11.8 x 3.2 x 10.5 cm with primary differential considerations including hematoma or abscess in the setting of recent surgery. (2) COPD (chronic obstructive pulmonary disease) Status: Acute (3) Status post colon resection Status: Acute (4) BPH (benign prostatic hyperplasia) Status: Chronic - Allergies Allergies/Adverse Reactions: Allergies Allergy/AdvReac Type Severity Reaction Status Date / Time No Known Drug Allergies Allergy Verified 12/03/18 21:48
[2019-06-20] MEDS: MAGNESIUM SULFATE 1 GRAM/100 mL PREMIX 1 GM/100 ML BAG IV PRN ×2 (12:08→18:28)
--- NOTE | 2019-06-20 12:13 | PCM.PROG ---
Progress Note - Progress Note for Day of Date of Exam: 06/20/19 - Subjective Subjective: 68 WM ER ADMISSION WITH CO ABDOMINAL ABSCESS TO SURGICAL WOUND. S/P COLON RESECTION. PT CO DRAINAGE TO SITE, WITH INCREASED PAIN WITH NAUSEA. PT SEEN BY DR BARLOW IN ER, WOUND CULTURES OBTAINED ON ADMISSION. PT HAS HAD LOW GRADE FEVER, WBC NORMAL THIS AM. CO HICCUPS. PT STATES PAIN IS CONTROLLED AT THIS TIME. - Past Medical Family Social History Past Med/Fam/Surg Hx: No changes since H&P Allergies: Allergies No Known Drug Allergies Allergy (Verified 12/03/18 21:48) - Review of Systems ROS: No change since H&P - Vital Signs and I&O's Vital Signs: Temperature 99.0 F Pulse Rate 92 Respiratory Rate 17 Blood Pressure [Left Arm] 104/70 Blood Pressure [Right Arm] 125/71 Blood Pressure 97/52 O2 Sat by Pulse Oximetry 97 Intake and Output: Intake & Output 06/18/19 06/19/19 06/20/19 06/21/19 11:59 11:59 11:59 11:59 Intake Total 3167 / 3167 Output Total 500 / 500 Balance 2667 / 2667 - Physical Exam Oriented: Normal Eyes: Normal Ear: Normal Nose: Normal Throat: Normal Respiratory: Diminished Cardiovascular: Normal : Normal Auscultation: Bowel Sounds: Normal Tenderness: Diffuse, Moderate Skin: Decreased Turgur, Wound (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) Musculoskeletal: Back:Lumbar Psychiatric: Anxiety Affect: Anxious Speech Pattern: Clear, Appropriate - Laboratory and Diagnostics Result Diagrams: 06/20/19 04:01 06/20/19 04:01 Labs: 06/19/19 14:20 Abdomen Gram Stain - Final 06/19/19 14:20 Abdomen Wound Culture - Preliminary Laboratory WBC 8.9 X10^3/uL (3.6-10.0) 06/20/19 04:01 RBC 3.28 X10^6/uL (4.7-6.0) L 06/20/19 04:01 Hgb 10.1 g/dL (13.5-18.0) L 06/20/19 04:01 Hct 30.0 % (42.0-54.0) L 06/20/19 04:01 MCV 91.6 fL (80.0-100.0) 06/20/19 04:01 MCH 31.0 pg (27.0-34.0) 06/20/19 04:01 MCHC 33.8 g/dL (33.0-35.0) 06/20/19 04:01 RDW 16.9 % (11.6-16.5) H 06/20/19 04:01 Plt Count 262 X10^3/uL (150.0-450.0) 06/20/19 04:01 MPV 7.1 fL (7.4-11.0) L 06/20/19 04:01 Neut % (Auto) 78.2 % (42.0-75.0) H 06/20/19 04:01 Lymph % (Auto) 4.6 % (21.0-51.0) L 06/20/19 04:01 [place] % (Auto) 16.2 % (0.0-13.0) H 06/20/19 04:01 Eos % (Auto) 0.7 % (0.9-2.9) L 06/20/19 04:01 Baso % (Auto) 0.3 % (0.2-1.0) 06/20/19 04:01 Neut # (Auto) 6.9 x10^3/uL (2.2-4.8) H 06/20/19 04:01 Lymph # (Auto) 0.4 X10^3/uL (1.3-2.9) L 06/20/19 04:01 [place] # (Auto) 1.4 x10^3/uL (0.3-0.8) H 06/20/19 04:01 Eos # (Auto) 0.1 x10^3/uL (0.0-0.2) 06/20/19 04:01 Baso # (Auto) 0.0 X10^3/uL (0.0-0.1) 06/20/19 04:01 Absolute Nucleated RBC 0.0 /100WBC 06/20/19 04:01 Sodium 136 mmol/L (136-145) 06/20/19 04:01 Corrected Sodium TNP 06/20/19 04:01 Potassium 3.6 mmol/L (3.5-5.1) 06/20/19 04:01 Chloride 99 mmol/L (98-107) 06/20/19 04:01 Carbon Dioxide 29.9 mmol/L (21-32) 06/20/19 04:01 BUN 6 mg/dL (7-18) L 06/20/19 04:01 Creatinine 0.59 mg/dL (0.70-1.30) L 06/20/19 04:01 Est GFR (MDRD) Af Amer > 60 (>60) 06/20/19 04:01 Est GFR (MDRD) Non-Af > 60 (>60) 06/20/19 04:01 Glucose 101 mg/dL (65-99) H 06/20/19 04:01 Lactic Acid 1.0 mmol/L (0.4-2.0) 06/19/19 10:35 Calcium 7.8 mg/dL (8.5-10.1) L 06/20/19 04:01 Corrected Calcium 9.2 mg/dL (8.5-10.1) 06/20/19 04:01 Magnesium 1.9 mg/dL (1.7-2.9) 06/20/19 04:01 Total Bilirubin 0.40 mg/dL (0.2-1.0) 06/20/19 04:01 AST 12 Units/L (15-37) L 06/20/19 04:01 ALT 12 Units/L (12-78) 06/20/19 04:01 Alkaline Phosphatase 50 Units/L (46-116) 06/20/19 04:01 Total Protein 5.8 g/dL (6.4-8.2) L 06/20/19 04:01 Albumin 2.2 g/dL (3.4-5.0) L 06/20/19 04:01 Globulin 3.6 g/dL (2.5-4.5) 06/20/19 04:01 Albumin/Globulin Ratio 0.6 Ratio (1.1-2.1) L 06/20/19 04:01 Amylase 34 Units/L (25-115) 06/19/19 10:35 Lipase 126 Units/L (73-393) 06/19/19 10:35 Specimen Type Clean catch urine 06/19/19 11:05 Urine Color [place] (YELLOW) 06/19/19 11:05 Urine Appearance Clear (CLEAR) 06/19/19 11:05 Urine pH 6.0 (5.0 - 8.0) 06/19/19 11:05 Ur Specific [place] 1.025 (1.000-1.030) 06/19/19 11:05 Urine Protein 1+ (NEGATIVE) 06/19/19 11:05 Urine Glucose (UA) Negative (NEGATIVE) 06/19/19 11:05 Urine Ketones Negative (NEGATIVE) 06/19/19 11:05 Urine Occult Blood 1+ (NEGATIVE) 06/19/19 11:05 Urine Nitrite Negative (NEGATIVE) 06/19/19 11:05 Urine Bilirubin Negative (NEGATIVE) 06/19/19 11:05 Urine Urobilinogen 2+ (NORMAL) 06/19/19 11:05 Ur Leukocyte Esterase Negative (NEGATIVE) 06/19/19 11:05 Urine RBC 0-2 /HPF (0-3) 06/19/19 11:05 Urine WBC 3-5 /HPF (0-5) 06/19/19 11:05 Ur Squamous Epith Cells Negative /HPF (NEGATIVE) 06/19/19 11:05 Amorphous Sediment Trace /HPF (NEGATIVE) 06/19/19 11:05 Urine Bacteria Negative /HPF (NEGATIVE) 06/19/19 11:05 Urine Mucus Numerous /HPF (NEGATIVE) 06/19/19 11:05 Ur Culture Indicated? No/not indicated 06/19/19 11:05 - Plan (1) Wound infection after surgery Status: Acute Plan: BLOOD AND WOUND CULTURES, IV HYDRATION, IV ANTIBIOTICS. SURGICAL CONSULT. CT REVEALED: Subincisional mass measuring 11.8 x 3.2 x 10.5 cm with primary differential considerations including hematoma or abscess in the setting of recent surgery. (2) COPD (chronic obstructive pulmonary disease) Status: Acute (3) Status post colon resection Status: Acute (4) BPH (benign prostatic hyperplasia) Status: Chronic
[2019-06-20] MEDS: ZOSYN VIAL 4.5 GRAMS 4.5 G in NS 100 ML IV + SPIKE MINIBAG* 100 ML IV SCH ×2 (14:14→22:15)
[2019-06-20] MEDS ORDERED: THORAZINE INJ 25 MG AMP IM PRN (14:24)
[2019-06-20] MEDS: MAALOX or MYLANTA PO PRN (17:35)
[2019-06-20] MEDS: NICOTINE PATCH TD SCH (19:13)
[2019-06-20 20:46] LABS: CREATININE 0.65 mg/dL (0.70-1.30); VANCOMYCIN,TROUGH 6.1 ug/mL (15-20)
[2019-06-21] MEDS: MORPHINE SULFATE INJ 2 MG INJ IVP PRN ×6 (01:20→21:54)
[2019-06-21] MEDS: NS 1000 ML 1,000 ML IV SCH ×6 (01:54→21:07)
[2019-06-21 04:52] LABS: BASOPHILS % (AUTO) 0.4 % (0.2-1.0); EOSINOPHILS % (AUTO) 0.9 % (0.9-2.9); HEMATOCRIT 28.9 % (42.0-54.0); HEMOGLOBIN 9.9 g/dL (13.5-18.0); LYMPHOCYTES # (AUTO) 0.4 X10^3/uL (1.3-2.9); LYMPHOCYTES % (AUTO) 7.5 % (21.0-51.0); MEAN CORPUSCULAR HEMOGLOBIN 31.5 pg (27.0-34.0); MEAN CORPUSCULAR HGB CONC 34.3 g/dL (33.0-35.0); MEAN CORPUSCULAR VOLUME 91.9 fL (80.0-100.0); MEAN PLATELET VOLUME 7.3 fL (7.4-11.0); MONOCYTES # (AUTO) 1.4 x10^3/uL (0.3-0.8); MONOCYTES % (AUTO) 30.3 % (0.0-13.0); NEUTROPHILS # (AUTO) 2.9 x10^3/uL (2.2-4.8); NEUTROPHILS % (AUTO) 60.9 % (42.0-75.0); PLATELET COUNT 253 X10^3/uL (150.0-450.0); RED BLOOD COUNT 3.14 X10^6/uL (4.7-6.0); RED CELL DISTRIBUTION WIDTH 16.8 % (11.6-16.5); WHITE BLOOD COUNT 4.7 X10^3/uL (3.6-10.0)
[2019-06-21] MEDS: DUONEB 0.5 MG/3 MG NEB PRN ×2 (04:54→23:30)
[2019-06-21 05:06] LABS: ALANINE AMINOTRANSFERASE 13 Units/L (12-78); ALKALINE PHOSPHATASE 48 Units/L (46-116); ASPARTATE AMINO TRANSFERASE 17 Units/L (15-37); BLOOD UREA NITROGEN 5 mg/dL (7-18); CALCIUM 7.2 mg/dL (8.5-10.1); CARBON DIOXIDE 29.2 mmol/L (21-32); CHLORIDE 102 mmol/L (98-107); COR CA(FOR HYPOALB) 8.8 mg/dL (8.5-10.1); MAGNESIUM 2.3 mg/dL (1.7-2.9); SODIUM 138 mmol/L (136-145); TOTAL PROTEIN 5.6 g/dL (6.4-8.2); eGFR NON BLACK RACES > 60 (>60)
[2019-06-21] MEDS: VANCOMYCIN HCL 1 G in D5W 250 ML IV 250 ML IV SCH ×3 (05:28→22:15)
[2019-06-21 05:35] LABS: HYPOCHROMASIA SLIGHT; PLATELET MORPHOLOGY COMMENT NORMAL (NORMAL)
[2019-06-21] MEDS: ZOSYN VIAL 4.5 GRAMS 4.5 G in NS 100 ML IV + SPIKE MINIBAG* 100 ML IV SCH (06:20)
[2019-06-21] MEDS: NICOTINE PATCH TD SCH (08:46)
[2019-06-21] MEDS: K-DUR TAB 20 MEQ PO PRN (08:47)
--- NOTE | 2019-06-21 10:47 | DR.PROGNOT ---
Hospital Progress Notes - Progress Note for Day of: Progress Note Date: 06/21/19 - Chief Complaint Chief Complaint: less abdominal pain . tolerating diet well . having low grade fever . colostomy is functioning well . culture showed E coli in the wound , sensitive to Gentamycin - Past Medical Family Social History Past Med/Fam/Surg Hx: No changes since H&P Allergies: Allergies No Known Drug Allergies Allergy (Verified 12/03/18 21:48) - Review Of Systems ROS: No change since H&P - Vital Signs Vital Signs: Temperature 99.2 F Pulse Rate 93 Respiratory Rate 20 Blood Pressure [Left Arm] 104/70 Blood Pressure [Right Arm] 125/71 Blood Pressure 99/62 O2 Sat by Pulse Oximetry 93 - Physical Exam Oriented: Normal Eyes: Normal Ear: Normal Nose: Normal Throat: Normal Respiratory: Diminished Cardiovascular: Normal : Normal GI:Auscultation: Normal GI:Palpation: Normal GI: Tenderness: Diffuse, Moderate Skin: Decreased Turgur, Wound (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 WITH JB INTACT) Musculoskeletal: Back:Lumbar Psychiatric: Anxiety Affect: Anxious Speech Pattern: Clear, Appropriate - Laboratory and Diagnostics Result Diagrams: 06/21/19 04:02 06/21/19 04:02 Labs: 06/19/19 10:43 Blood Blood Culture - Preliminary 06/19/19 10:35 Blood Blood Culture - Preliminary 06/19/19 14:20 Abdomen Gram Stain - Final 06/19/19 14:20 Abdomen Wound Culture - Final Escherichia Coli Laboratory WBC 4.7 X10^3/uL (3.6-10.0) 06/21/19 04:02 RBC 3.14 X10^6/uL (4.7-6.0) L 06/21/19 04:02 Hgb 9.9 g/dL (13.5-18.0) L 06/21/19 04:02 Hct 28.9 % (42.0-54.0) L 06/21/19 04:02 MCV 91.9 fL (80.0-100.0) 06/21/19 04:02 MCH 31.5 pg (27.0-34.0) 06/21/19 04:02 MCHC 34.3 g/dL (33.0-35.0) 06/21/19 04:02 RDW 16.8 % (11.6-16.5) H 06/21/19 04:02 Plt Count 253 X10^3/uL (150.0-450.0) 06/21/19 04:02 Plt Count Comment Adequate (ADEQUATE) 06/21/19 04:02 MPV 7.3 fL (7.4-11.0) L 06/21/19 04:02 Neut % (Auto) 60.9 % (42.0-75.0) 06/21/19 04:02 Lymph % (Auto) 7.5 % (21.0-51.0) L 06/21/19 04:02 [place] % (Auto) 30.3 % (0.0-13.0) H 06/21/19 04:02 Eos % (Auto) 0.9 % (0.9-2.9) 06/21/19 04:02 Baso % (Auto) 0.4 % (0.2-1.0) 06/21/19 04:02 Neut # (Auto) 2.9 x10^3/uL (2.2-4.8) 06/21/19 04:02 Lymph # (Auto) 0.4 X10^3/uL (1.3-2.9) L 06/21/19 04:02 [place] # (Auto) 1.4 x10^3/uL (0.3-0.8) H 06/21/19 04:02 Eos # (Auto) 0.0 x10^3/uL (0.0-0.2) 06/21/19 04:02 Baso # (Auto) 0.0 X10^3/uL (0.0-0.1) 06/21/19 04:02 Absolute Nucleated RBC 0.1 /100WBC 06/21/19 04:02 Total Counted 100 06/21/19 04:02 Neutrophils % (Manual) 66 % (39-76) 06/21/19 04:02 Lymphocytes % (Manual) 10 % (13-43) L 06/21/19 04:02 Monocytes % (Manual) 22 % (4-9) H 06/21/19 04:02 Eosinophils % (Manual) 2 % (0-6) 06/21/19 04:02 Plt Morphology Comment Normal (NORMAL) 06/21/19 04:02 RBC Morphology Abnormal (NORMAL) 06/21/19 04:02 Hypochromasia Slight A 06/21/19 04:02 Sodium 138 mmol/L (136-145) 06/21/19 04:02 Corrected Sodium TNP 06/21/19 04:02 Potassium 3.6 mmol/L (3.5-5.1) 06/21/19 04:02 Chloride 102 mmol/L (98-107) 06/21/19 04:02 Carbon Dioxide 29.2 mmol/L (21-32) 06/21/19 04:02 BUN 5 mg/dL (7-18) L 06/21/19 04:02 Creatinine 0.60 mg/dL (0.70-1.30) L 06/21/19 04:02 Est GFR (MDRD) Af Amer > 60 (>60) 06/21/19 04:02 Est GFR (MDRD) Non-Af > 60 (>60) 06/21/19 04:02 Glucose 99 mg/dL (65-99) 06/21/19 04:02 Lactic Acid 1.0 mmol/L (0.4-2.0) 06/19/19 10:35 Calcium 7.2 mg/dL (8.5-10.1) L 06/21/19 04:02 Corrected Calcium 8.8 mg/dL (8.5-10.1) 06/21/19 04:02 Magnesium 2.3 mg/dL (1.7-2.9) 06/21/19 04:02 Total Bilirubin 0.20 mg/dL (0.2-1.0) 06/21/19 04:02 AST 17 Units/L (15-37) 06/21/19 04:02 ALT 13 Units/L (12-78) 06/21/19 04:02 Alkaline Phosphatase 48 Units/L (46-116) 06/21/19 04:02 Total Protein 5.6 g/dL (6.4-8.2) L 06/21/19 04:02 Albumin 2.0 g/dL (3.4-5.0) L 06/21/19 04:02 Globulin 3.6 g/dL (2.5-4.5) 06/21/19 04:02 Albumin/Globulin Ratio 0.6 Ratio (1.1-2.1) L 06/21/19 04:02 Amylase 34 Units/L (25-115) 06/19/19 10:35 Lipase 126 Units/L (73-393) 06/19/19 10:35 Specimen Type Clean catch urine 06/19/19 11:05 Urine Color [place]lin (YELLOW) 06/19/19 11:05 Urine Appearance Clear (CLEAR) 06/19/19 11:05 Urine pH 6.0 (5.0 - 8.0) 06/19/19 11:05 Ur Specific [place] 1.025 (1.000-1.030) 06/19/19 11:05 Urine Protein 1+ (NEGATIVE) 06/19/19 11:05 Urine Glucose (UA) Negative (NEGATIVE) 06/19/19 11:05 Urine Ketones Negative (NEGATIVE) 06/19/19 11:05 Urine Occult Blood 1+ (NEGATIVE) 06/19/19 11:05 Urine Nitrite Negative (NEGATIVE) 06/19/19 11:05 Urine Bilirubin Negative (NEGATIVE) 06/19/19 11:05 Urine Urobilinogen 2+ (NORMAL) 06/19/19 11:05 Ur Leukocyte Esterase Negative (NEGATIVE) 06/19/19 11:05 Urine RBC 0-2 /HPF (0-3) 06/19/19 11:05 Urine WBC 3-5 /HPF (0-5) 06/19/19 11:05 Ur Squamous Epith Cells Negative /HPF (NEGATIVE) 06/19/19 11:05 Amorphous Sediment Trace /HPF (NEGATIVE) 06/19/19 11:05 Urine Bacteria Negative /HPF (NEGATIVE) 06/19/19 11:05 Urine Mucus Numerous /HPF (NEGATIVE) 06/19/19 11:05 Ur Culture Indicated? No/not indicated 06/19/19 11:05 Vancomycin Trough 6.1 ug/mL (15-20) L 06/20/19 20:23 - Assessment and Plan 1: surgical site infection . s/p anterior resection rectal ca . s/p radiation and chemo Tx. pt is smoker . started on Gentamycin and d/c Zosyn - Problem Patient Problems: Patient Problems Wound infection after surgery (Acute) T81.49XA Abdominal pain (Acute) R10.9 Colon cancer (Acute) C18.9
--- NOTE | 2019-06-21 11:49 | RAD ---
HISTORY: COPD, shortness of breath Study: Portable chest x-ray one view Comparison: 06/05/2019 Findings: The trachea is midline. The cardiac silhouette is stable. Hyperinflated lungs. Minimal increased interstitial prominence which may reflect portable technique. No focal consolidation. Degenerative changes of the spine. Stable position of left chest Port-A-Cath with tip overlying the SVC. IMPRESSION: COPD changes without focal consolidation. Reported By:
[2019-06-21] MEDS: GENTAMICIN INJ 80 MG in NS 100 ML IV 100 ML IV SCH ×2 (13:57→21:04)
[2019-06-21 22:03] LABS: CREATININE 0.63 mg/dL (0.70-1.30); VANCOMYCIN,TROUGH 9.1 ug/mL (15-20)
[2019-06-22] MEDS: MORPHINE SULFATE INJ 2 MG INJ IVP PRN ×5 (01:58→19:46)
[2019-06-22] MEDS: NS 1000 ML 1,000 ML IV SCH ×4 (03:43→17:33)
[2019-06-22 04:52] LABS: BASOPHILS % (AUTO) 0.7 % (0.2-1.0); HEMATOCRIT 29.4 % (42.0-54.0); HEMOGLOBIN 9.9 g/dL (13.5-18.0); LYMPHOCYTES # (AUTO) 0.3 X10^3/uL (1.3-2.9); LYMPHOCYTES % (AUTO) 6.6 % (21.0-51.0); MEAN CORPUSCULAR HEMOGLOBIN 30.8 pg (27.0-34.0); MEAN CORPUSCULAR HGB CONC 33.6 g/dL (33.0-35.0); MEAN CORPUSCULAR VOLUME 91.6 fL (80.0-100.0); MEAN PLATELET VOLUME 7.1 fL (7.4-11.0); MONOCYTES # (AUTO) 1.3 x10^3/uL (0.3-0.8); MONOCYTES % (AUTO) 27.1 % (0.0-13.0); NEUTROPHILS # (AUTO) 3.2 x10^3/uL (2.2-4.8); NEUTROPHILS % (AUTO) 64.6 % (42.0-75.0); PLATELET COUNT 269 X10^3/uL (150.0-450.0); RED BLOOD COUNT 3.22 X10^6/uL (4.7-6.0); RED CELL DISTRIBUTION WIDTH 17.2 % (11.6-16.5); WHITE BLOOD COUNT 4.9 X10^3/uL (3.6-10.0)
[2019-06-22] MEDS: GENTAMICIN INJ 80 MG in NS 100 ML IV 100 ML IV SCH ×3 (05:02→21:02)
[2019-06-22 05:11] LABS: ALANINE AMINOTRANSFERASE 13 Units/L (12-78); ALBUMIN 2.1 g/dL (3.4-5.0); ALKALINE PHOSPHATASE 48 Units/L (46-116); ASPARTATE AMINO TRANSFERASE 14 Units/L (15-37); BLOOD UREA NITROGEN 4 mg/dL (7-18); CALCIUM 7.7 mg/dL (8.5-10.1); CARBON DIOXIDE 27.5 mmol/L (21-32); CHLORIDE 102 mmol/L (98-107); COR CA(FOR HYPOALB) 9.2 mg/dL (8.5-10.1); CREATININE 0.46 mg/dL (0.70-1.30); SODIUM 137 mmol/L (136-145); TOTAL PROTEIN 5.8 g/dL (6.4-8.2); eGFR NON BLACK RACES > 60 (>60)
[2019-06-22 05:32] LABS: PLATELET MORPHOLOGY COMMENT NORMAL (NORMAL)
[2019-06-22] MEDS: VANCOMYCIN HCL 1 G in D5W 250 ML IV 250 ML IV SCH ×3 (05:34→21:02)
[2019-06-22] MEDS: LOVENOX INJ 30 MG SYR SC SCH (09:55)
[2019-06-22] MEDS: NICOTINE PATCH TD SCH (10:02)
[2019-06-22] MEDS: ZOFRAN INJ 4 MG VIAL IVP PRN ×2 (10:03→19:47)
--- NOTE | 2019-06-22 10:23 | DR.PROGNOT ---
Hospital Progress Notes - Progress Note for Day of: Progress Note Date: 06/22/19 - Chief Complaint Chief Complaint: less abdominal pain . tolerating diet well . having low grade fever . colostomy is functioning well . culture showed E coli in the wound , sensitive to Gentamycin. 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 all nodes are negative . proximal and distal margins are negative for malignancy . - Past Medical Family Social History Past Med/Fam/Surg Hx: No changes since H&P Allergies: Allergies No Known Drug Allergies Allergy (Verified 12/03/18 21:48) - Review Of Systems ROS: No change since H&P - Vital Signs Vital Signs: Temperature 99.7 F Pulse Rate 96 Respiratory Rate 22 Blood Pressure [Left Arm] 104/70 Blood Pressure [Right Arm] 125/71 Blood Pressure 115/61 O2 Sat by Pulse Oximetry 96 - Physical Exam Oriented: Normal Eyes: Normal Ear: Normal Nose: Normal Throat: Normal Respiratory: Diminished Cardiovascular: Normal : Normal GI:Auscultation: Normal GI:Palpation: Normal GI: Tenderness: Diffuse, Moderate Skin: Decreased Turgur, 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 (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) Musculoskeletal: Back:Lumbar Psychiatric: Anxiety Affect: Anxious Speech Pattern: Clear, Appropriate - Laboratory and Diagnostics Result Diagrams: 06/22/19 03:58 06/22/19 03:58 Labs: 06/19/19 10:43 Blood Blood Culture - Preliminary 06/19/19 10:35 Blood Blood Culture - Preliminary 06/19/19 14:20 Abdomen Gram Stain - Final 06/19/19 14:20 Abdomen Wound Culture - Final Escherichia Coli Laboratory WBC 4.9 X10^3/uL (3.6-10.0) 06/22/19 03:58 RBC 3.22 X10^6/uL (4.7-6.0) L 06/22/19 03:58 Hgb 9.9 g/dL (13.5-18.0) L 06/22/19 03:58 Hct 29.4 % (42.0-54.0) L 06/22/19 03:58 MCV 91.6 fL (80.0-100.0) 06/22/19 03:58 MCH 30.8 pg (27.0-34.0) 06/22/19 03:58 MCHC 33.6 g/dL (33.0-35.0) 06/22/19 03:58 RDW 17.2 % (11.6-16.5) H 06/22/19 03:58 Plt Count 269 X10^3/uL (150.0-450.0) 06/22/19 03:58 Plt Count Comment Adequate (ADEQUATE) 06/22/19 03:58 MPV 7.1 fL (7.4-11.0) L 06/22/19 03:58 Neut % (Auto) 64.6 % (42.0-75.0) 06/22/19 03:58 Lymph % (Auto) 6.6 % (21.0-51.0) L 06/22/19 03:58 [place] % (Auto) 27.1 % (0.0-13.0) H 06/22/19 03:58 Eos % (Auto) 1.0 % (0.9-2.9) 06/22/19 03:58 Baso % (Auto) 0.7 % (0.2-1.0) 06/22/19 03:58 Neut # (Auto) 3.2 x10^3/uL (2.2-4.8) 06/22/19 03:58 Lymph # (Auto) 0.3 X10^3/uL (1.3-2.9) L 06/22/19 03:58 [place] # (Auto) 1.3 x10^3/uL (0.3-0.8) H 06/22/19 03:58 Eos # (Auto) 0.0 x10^3/uL (0.0-0.2) 06/22/19 03:58 Baso # (Auto) 0.0 X10^3/uL (0.0-0.1) 06/22/19 03:58 Absolute Nucleated RBC 0.0 /100WBC 06/22/19 03:58 Total Counted 100 06/22/19 03:58 Neutrophils % (Manual) 70 % (39-76) 06/22/19 03:58 Lymphocytes % (Manual) 13 % (13-43) 06/22/19 03:58 Monocytes % (Manual) 15 % (4-9) H 06/22/19 03:58 Eosinophils % (Manual) 2 % (0-6) 06/22/19 03:58 Plt Morphology Comment Normal (NORMAL) 06/22/19 03:58 RBC Morphology Normal (NORMAL) 06/22/19 03:58 Hypochromasia Slight A 06/21/19 04:02 Sodium 137 mmol/L (136-145) 06/22/19 03:58 Corrected Sodium TNP 06/22/19 03:58 Potassium 3.7 mmol/L (3.5-5.1) 06/22/19 03:58 Chloride 102 mmol/L (98-107) 06/22/19 03:58 Carbon Dioxide 27.5 mmol/L (21-32) 06/22/19 03:58 BUN 4 mg/dL (7-18) L 06/22/19 03:58 Creatinine 0.46 mg/dL (0.70-1.30) L 06/22/19 03:58 Est GFR (MDRD) Af Amer > 60 (>60) 06/22/19 03:58 Est GFR (MDRD) Non-Af > 60 (>60) 06/22/19 03:58 Glucose 105 mg/dL (65-99) H 06/22/19 03:58 Lactic Acid 1.0 mmol/L (0.4-2.0) 06/19/19 10:35 Calcium 7.7 mg/dL (8.5-10.1) L 06/22/19 03:58 Corrected Calcium 9.2 mg/dL (8.5-10.1) 06/22/19 03:58 Magnesium 2.3 mg/dL (1.7-2.9) 06/21/19 04:02 Total Bilirubin 0.30 mg/dL (0.2-1.0) 06/22/19 03:58 AST 14 Units/L (15-37) L 06/22/19 03:58 ALT 13 Units/L (12-78) 06/22/19 03:58 Alkaline Phosphatase 48 Units/L (46-116) 06/22/19 03:58 Total Protein 5.8 g/dL (6.4-8.2) L 06/22/19 03:58 Albumin 2.1 g/dL (3.4-5.0) L 06/22/19 03:58 Globulin 3.7 g/dL (2.5-4.5) 06/22/19 03:58 Albumin/Globulin Ratio 0.6 Ratio (1.1-2.1) L 06/22/19 03:58 Amylase 34 Units/L (25-115) 06/19/19 10:35 Lipase 126 Units/L (73-393) 06/19/19 10:35 Specimen Type Clean catch urine 06/19/19 11:05 Urine Color Kaylin (YELLOW) 06/19/19 11:05 Urine Appearance Clear (CLEAR) 06/19/19 11:05 Urine pH 6.0 (5.0 - 8.0) 06/19/19 11:05 Ur Specific [place] 1.025 (1.000-1.030) 06/19/19 11:05 Urine Protein 1+ (NEGATIVE) 06/19/19 11:05 Urine Glucose (UA) Negative (NEGATIVE) 06/19/19 11:05 Urine Ketones Negative (NEGATIVE) 06/19/19 11:05 Urine Occult Blood 1+ (NEGATIVE) 06/19/19 11:05 Urine Nitrite Negative (NEGATIVE) 06/19/19 11:05 Urine Bilirubin Negative (NEGATIVE) 06/19/19 11:05 Urine Urobilinogen 2+ (NORMAL) 06/19/19 11:05 Ur Leukocyte Esterase Negative (NEGATIVE) 06/19/19 11:05 Urine RBC 0-2 /HPF (0-3) 06/19/19 11:05 Urine WBC 3-5 /HPF (0-5) 06/19/19 11:05 Ur Squamous Epith Cells Negative /HPF (NEGATIVE) 06/19/19 11:05 Amorphous Sediment Trace /HPF (NEGATIVE) 06/19/19 11:05 Urine Bacteria Negative /HPF (NEGATIVE) 06/19/19 11:05 Urine Mucus Numerous /HPF (NEGATIVE) 06/19/19 11:05 Ur Culture Indicated? No/not indicated 06/19/19 11:05 Vancomycin Trough 9.1 ug/mL (15-20) L 06/21/19 21:29 - Assessment and Plan 1: surgical site infection . s/p anterior resection rectal ca . s/p radiation and chemo Tx. pt is smoker . same local care and IV ATB . - Problem Patient Problems: Patient Problems Wound infection after surgery (Acute) T81.49XA Abdominal pain (Acute) R10.9 Colon cancer (Acute) C18.9
[2019-06-22 14:43] LABS: CREATININE 0.67 mg/dL (0.70-1.30); GENTAMICIN,TROUGH 0.5 ug/mL (0-1.9)
--- NOTE | 2019-06-22 17:21 | PCM.PROG ---
Progress Note - Progress Note for Day of Date of Exam: 06/22/19 - Subjective Subjective: 68 WM ER ADMISSION WITH CO ABDOMINAL ABSCESS TO SURGICAL WOUND. S/P COLON RESECTION. PT CO DRAINAGE TO SITE, WITH INCREASED PAIN WITH NAUSEA. PT SEEN BY DR BARLOW IN ER, WOUND CULTURES OBTAINED ON ADMISSION. WOUND CULTURE +ECOLI, SENSATIVE TO GENTAMICIN. WBC NORMAL THIS AM, 4.9. CO HICCUPS, CONTROLLED WITH PRN THORAZINE. PT STATES PAIN IS CONTROLLED AT THIS TIME. CXR OBTAINED YESTERDAY WITHOUT ACUTE FINDINGS. - Past Medical Family Social History Past Med/Fam/Surg Hx: No changes since H&P Allergies: Allergies No Known Drug Allergies Allergy (Verified 12/03/18 21:48) - Review of Systems ROS: No change since H&P - Vital Signs and I&O's Vital Signs: Temperature 99.2 F Pulse Rate 79 Respiratory Rate 21 Blood Pressure [Left Arm] 104/70 Blood Pressure [Right Arm] 125/71 Blood Pressure 92/50 O2 Sat by Pulse Oximetry 100 Intake and Output: Intake & Output 06/20/19 06/21/19 06/22/19 06/23/19 11:59 11:59 11:59 11:59 Intake Total 3167 / 3167 5184 / 5184 5151 / 5151 2055 Output Total 500 / 500 2625 / 2625 3900 / 3900 2300 / 2300 Balance 2667 / 2667 2559 / 2559 1251 / 1251 -244 / -244 - Physical Exam Oriented: Normal Eyes: Normal Ear: Normal Nose: Normal Throat: Normal Respiratory: Diminished Cardiovascular: Normal : Normal Auscultation: Bowel Sounds: Normal Tenderness: Diffuse, Moderate Skin: Decreased Turgur, 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) Musculoskeletal: Back:Lumbar Psychiatric: Anxiety Affect: Anxious Speech Pattern: Clear, Appropriate - Laboratory and Diagnostics Result Diagrams: 06/22/19 03:58 06/22/19 14:24 Labs: 06/19/19 10:43 Blood Blood Culture - Preliminary 06/19/19 10:35 Blood Blood Culture - Preliminary 06/19/19 14:20 Abdomen Gram Stain - Final 06/19/19 14:20 Abdomen Wound Culture - Final Escherichia Coli Laboratory WBC 4.9 X10^3/uL (3.6-10.0) 06/22/19 03:58 RBC 3.22 X10^6/uL (4.7-6.0) L 06/22/19 03:58 Hgb 9.9 g/dL (13.5-18.0) L 06/22/19 03:58 Hct 29.4 % (42.0-54.0) L 06/22/19 03:58 MCV 91.6 fL (80.0-100.0) 06/22/19 03:58 MCH 30.8 pg (27.0-34.0) 06/22/19 03:58 MCHC 33.6 g/dL (33.0-35.0) 06/22/19 03:58 RDW 17.2 % (11.6-16.5) H 06/22/19 03:58 Plt Count 269 X10^3/uL (150.0-450.0) 06/22/19 03:58 Plt Count Comment Adequate (ADEQUATE) 06/22/19 03:58 MPV 7.1 fL (7.4-11.0) L 06/22/19 03:58 Neut % (Auto) 64.6 % (42.0-75.0) 06/22/19 03:58 Lymph % (Auto) 6.6 % (21.0-51.0) L 06/22/19 03:58 [place] % (Auto) 27.1 % (0.0-13.0) H 06/22/19 03:58 Eos % (Auto) 1.0 % (0.9-2.9) 06/22/19 03:58 Baso % (Auto) 0.7 % (0.2-1.0) 06/22/19 03:58 Neut # (Auto) 3.2 x10^3/uL (2.2-4.8) 06/22/19 03:58 Lymph # (Auto) 0.3 X10^3/uL (1.3-2.9) L 06/22/19 03:58 [place] # (Auto) 1.3 x10^3/uL (0.3-0.8) H 06/22/19 03:58 Eos # (Auto) 0.0 x10^3/uL (0.0-0.2) 06/22/19 03:58 Baso # (Auto) 0.0 X10^3/uL (0.0-0.1) 06/22/19 03:58 Absolute Nucleated RBC 0.0 /100WBC 06/22/19 03:58 Total Counted 100 06/22/19 03:58 Neutrophils % (Manual) 70 % (39-76) 06/22/19 03:58 Lymphocytes % (Manual) 13 % (13-43) 06/22/19 03:58 Monocytes % (Manual) 15 % (4-9) H 06/22/19 03:58 Eosinophils % (Manual) 2 % (0-6) 06/22/19 03:58 Plt Morphology Comment Normal (NORMAL) 06/22/19 03:58 RBC Morphology Normal (NORMAL) 06/22/19 03:58 Hypochromasia Slight A 06/21/19 04:02 Sodium 137 mmol/L (136-145) 06/22/19 03:58 Corrected Sodium TNP 06/22/19 03:58 Potassium 3.7 mmol/L (3.5-5.1) 06/22/19 03:58 Chloride 102 mmol/L (98-107) 06/22/19 03:58 Carbon Dioxide 27.5 mmol/L (21-32) 06/22/19 03:58 BUN 4 mg/dL (7-18) L 06/22/19 03:58 Creatinine 0.67 mg/dL (0.70-1.30) L 06/22/19 14:24 Est GFR (MDRD) Af Amer > 60 (>60) 06/22/19 03:58 Est GFR (MDRD) Non-Af > 60 (>60) 06/22/19 03:58 Glucose 105 mg/dL (65-99) H 06/22/19 03:58 Lactic Acid 1.0 mmol/L (0.4-2.0) 06/19/19 10:35 Calcium 7.7 mg/dL (8.5-10.1) L 06/22/19 03:58 Corrected Calcium 9.2 mg/dL (8.5-10.1) 06/22/19 03:58 Magnesium 2.3 mg/dL (1.7-2.9) 06/21/19 04:02 Total Bilirubin 0.30 mg/dL (0.2-1.0) 06/22/19 03:58 AST 14 Units/L (15-37) L 06/22/19 03:58 ALT 13 Units/L (12-78) 06/22/19 03:58 Alkaline Phosphatase 48 Units/L (46-116) 06/22/19 03:58 Total Protein 5.8 g/dL (6.4-8.2) L 06/22/19 03:58 Albumin 2.1 g/dL (3.4-5.0) L 06/22/19 03:58 Globulin 3.7 g/dL (2.5-4.5) 06/22/19 03:58 Albumin/Globulin Ratio 0.6 Ratio (1.1-2.1) L 06/22/19 03:58 Amylase 34 Units/L (25-115) 06/19/19 10:35 Lipase 126 Units/L (73-393) 06/19/19 10:35 Specimen Type Clean catch urine 06/19/19 11:05 Urine Color Kaylin (YELLOW) 06/19/19 11:05 Urine Appearance Clear (CLEAR) 06/19/19 11:05 Urine pH 6.0 (5.0 - 8.0) 06/19/19 11:05 Ur Specific [place] 1.025 (1.000-1.030) 06/19/19 11:05 Urine Protein 1+ (NEGATIVE) 06/19/19 11:05 Urine Glucose (UA) Negative (NEGATIVE) 06/19/19 11:05 Urine Ketones Negative (NEGATIVE) 06/19/19 11:05 Urine Occult Blood 1+ (NEGATIVE) 06/19/19 11:05 Urine Nitrite Negative (NEGATIVE) 06/19/19 11:05 Urine Bilirubin Negative (NEGATIVE) 06/19/19 11:05 Urine Urobilinogen 2+ (NORMAL) 06/19/19 11:05 Ur Leukocyte Esterase Negative (NEGATIVE) 06/19/19 11:05 Urine RBC 0-2 /HPF (0-3) 06/19/19 11:05 Urine WBC 3-5 /HPF (0-5) 06/19/19 11:05 Ur Squamous Epith Cells Negative /HPF (NEGATIVE) 06/19/19 11:05 Amorphous Sediment Trace /HPF (NEGATIVE) 06/19/19 11:05 Urine Bacteria Negative /HPF (NEGATIVE) 06/19/19 11:05 Urine Mucus Numerous /HPF (NEGATIVE) 06/19/19 11:05 Ur Culture Indicated? No/not indicated 06/19/19 11:05 Gentamicin Trough 0.5 ug/mL (0-1.9) 06/22/19 14:24 Vancomycin Trough 9.1 ug/mL (15-20) L 06/21/19 21:29 - Plan (1) Wound infection after surgery Status: Acute Plan: BLOOD AND WOUND CULTURES, IV HYDRATION, IV ANTIBIOTICS. SURGICAL CONSULT. CT REVEALED: Subincisional mass measuring 11.8 x 3.2 x 10.5 cm with primary differential considerations including hematoma or abscess in the setting of recent surgery. (2) COPD (chronic obstructive pulmonary disease) Status: Acute (3) Status post colon resection Status: Acute (4) BPH (benign prostatic hyperplasia) Status: Chronic
[2019-06-22 20:36] LABS: CREATININE 0.64 mg/dL (0.70-1.30); VANCOMYCIN,TROUGH 12.6 ug/mL (15-20)
[2019-06-22] MEDS ORDERED: PHARMACY COMMENT IV NR (21:30)
[2019-06-23] MEDS: MORPHINE SULFATE INJ 2 MG INJ IVP PRN ×6 (00:05→21:49)
[2019-06-23] MEDS: NS 1000 ML 1,000 ML IV SCH ×3 (00:21→17:32)
[2019-06-23 05:10] LABS: BASOPHILS % (AUTO) 0.5 % (0.2-1.0); HEMATOCRIT 30.4 % (42.0-54.0); HEMOGLOBIN 10.2 g/dL (13.5-18.0); LYMPHOCYTES # (AUTO) 0.5 X10^3/uL (1.3-2.9); LYMPHOCYTES % (AUTO) 10.8 % (21.0-51.0); MEAN CORPUSCULAR HEMOGLOBIN 30.5 pg (27.0-34.0); MEAN CORPUSCULAR HGB CONC 33.6 g/dL (33.0-35.0); MEAN CORPUSCULAR VOLUME 90.9 fL (80.0-100.0); MEAN PLATELET VOLUME 7.1 fL (7.4-11.0); MONOCYTES # (AUTO) 1.6 x10^3/uL (0.3-0.8); MONOCYTES % (AUTO) 33.9 % (0.0-13.0); NEUTROPHILS # (AUTO) 2.6 x10^3/uL (2.2-4.8); NEUTROPHILS % (AUTO) 53.8 % (42.0-75.0); PLATELET COUNT 282 X10^3/uL (150.0-450.0); RED BLOOD COUNT 3.35 X10^6/uL (4.7-6.0); RED CELL DISTRIBUTION WIDTH 16.9 % (11.6-16.5); WHITE BLOOD COUNT 4.7 X10^3/uL (3.6-10.0)
[2019-06-23] MEDS: GENTAMICIN INJ 80 MG in NS 100 ML IV 100 ML IV SCH ×3 (05:12→23:20)
[2019-06-23 05:21] LABS: ALANINE AMINOTRANSFERASE 15 Units/L (12-78); ALBUMIN 2.1 g/dL (3.4-5.0); ALKALINE PHOSPHATASE 48 Units/L (46-116); ASPARTATE AMINO TRANSFERASE 14 Units/L (15-37); BLOOD UREA NITROGEN 4 mg/dL (7-18); CALCIUM 7.7 mg/dL (8.5-10.1); CARBON DIOXIDE 27.3 mmol/L (21-32); CHLORIDE 102 mmol/L (98-107); COR CA(FOR HYPOALB) 9.2 mg/dL (8.5-10.1); CREATININE 0.52 mg/dL (0.70-1.30); SODIUM 136 mmol/L (136-145); TOTAL PROTEIN 5.9 g/dL (6.4-8.2); eGFR NON BLACK RACES > 60 (>60)
[2019-06-23 05:39] LABS: PLATELET MORPHOLOGY COMMENT NORMAL (NORMAL)
[2019-06-23] MEDS: VANCOMYCIN HCL 1 G in D5W 250 ML IV 250 ML IV SCH ×3 (06:09→21:46)
[2019-06-23] MEDS: LOVENOX INJ 30 MG SYR SC SCH (08:22)
[2019-06-23] MEDS: NICOTINE PATCH TD SCH (08:22)
--- NOTE | 2019-06-23 16:48 | DR.PROGNOT ---
Hospital Progress Notes - Progress Note for Day of: Progress Note Date: 06/23/19 - Chief Complaint Chief Complaint: moderate abdominal pain . tolerating diet well . moderate dranage from the lower incision . having low grade fever . colostomy is functioning well . culture showed E coli in the wound , sensitive to Gentamycin. 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 all nodes are negative . proximal and distal margins are negative for malignancy . - Past Medical Family Social History Past Med/Fam/Surg Hx: No changes since H&P Allergies: Allergies No Known Drug Allergies Allergy (Verified 12/03/18 21:48) - Review Of Systems ROS: No change since H&P - Vital Signs Vital Signs: Temperature 97.9 F Pulse Rate [Right Brachial] 90 Pulse Rate 79 Respiratory Rate 23 Blood Pressure [Left Arm] 104/70 Blood Pressure [Right Arm] 100/57 Blood Pressure 92/50 O2 Sat by Pulse Oximetry 94 - Physical Exam Oriented: Normal Eyes: Normal Ear: Normal Nose: Normal Throat: Normal Respiratory: Diminished Cardiovascular: Normal : Normal GI:Auscultation: Normal GI:Palpation: Normal GI: Tenderness: Diffuse, Moderate Skin: Decreased Turgur, Wound (open wound lower incision 3x2cm with tunneling downwadrs 2cm with exposed muscles . and intact fascia ) Musculoskeletal: Back:Lumbar Psychiatric: Anxiety Affect: Anxious Speech Pattern: Clear, Appropriate - Laboratory and Diagnostics Result Diagrams: 06/23/19 04:32 06/23/19 04:32 Labs: 06/19/19 10:43 Blood Blood Culture - Preliminary 06/19/19 10:35 Blood Blood Culture - Preliminary 06/19/19 14:20 Abdomen Gram Stain - Final 06/19/19 14:20 Abdomen Wound Culture - Final Escherichia Coli Laboratory WBC 4.7 X10^3/uL (3.6-10.0) 06/23/19 04:32 RBC 3.35 X10^6/uL (4.7-6.0) L 06/23/19 04:32 Hgb 10.2 g/dL (13.5-18.0) L 06/23/19 04:32 Hct 30.4 % (42.0-54.0) L 06/23/19 04:32 MCV 90.9 fL (80.0-100.0) 06/23/19 04:32 MCH 30.5 pg (27.0-34.0) 06/23/19 04:32 MCHC 33.6 g/dL (33.0-35.0) 06/23/19 04:32 RDW 16.9 % (11.6-16.5) H 06/23/19 04:32 Plt Count 282 X10^3/uL (150.0-450.0) 06/23/19 04:32 Plt Count Comment Adequate (ADEQUATE) 06/23/19 04:32 MPV 7.1 fL (7.4-11.0) L 06/23/19 04:32 Neut % (Auto) 53.8 % (42.0-75.0) 06/23/19 04:32 Lymph % (Auto) 10.8 % (21.0-51.0) L 06/23/19 04:32 [place] % (Auto) 33.9 % (0.0-13.0) H 06/23/19 04:32 Eos % (Auto) 1.0 % (0.9-2.9) 06/23/19 04:32 Baso % (Auto) 0.5 % (0.2-1.0) 06/23/19 04:32 Neut # (Auto) 2.6 x10^3/uL (2.2-4.8) 06/23/19 04:32 Lymph # (Auto) 0.5 X10^3/uL (1.3-2.9) L 06/23/19 04:32 [place] # (Auto) 1.6 x10^3/uL (0.3-0.8) H 06/23/19 04:32 Eos # (Auto) 0.0 x10^3/uL (0.0-0.2) 06/23/19 04:32 Baso # (Auto) 0.0 X10^3/uL (0.0-0.1) 06/23/19 04:32 Absolute Nucleated RBC 0.0 /100WBC 06/23/19 04:32 Total Counted 100 06/23/19 04:32 Neutrophils % (Manual) 66 % (39-76) 06/23/19 04:32 Lymphocytes % (Manual) 12 % (13-43) L 06/23/19 04:32 Monocytes % (Manual) 20 % (4-9) H 06/23/19 04:32 Eosinophils % (Manual) 2 % (0-6) 06/23/19 04:32 Plt Morphology Comment Normal (NORMAL) 06/23/19 04:32 RBC Morphology Normal (NORMAL) 06/23/19 04:32 Hypochromasia Slight A 06/21/19 04:02 Sodium 136 mmol/L (136-145) 06/23/19 04:32 Corrected Sodium TNP 06/23/19 04:32 Potassium 4.1 mmol/L (3.5-5.1) 06/23/19 04:32 Chloride 102 mmol/L (98-107) 06/23/19 04:32 Carbon Dioxide 27.3 mmol/L (21-32) 06/23/19 04:32 BUN 4 mg/dL (7-18) L 06/23/19 04:32 Creatinine 0.52 mg/dL (0.70-1.30) L 06/23/19 04:32 Est GFR (MDRD) Af Amer > 60 (>60) 06/23/19 04:32 Est GFR (MDRD) Non-Af > 60 (>60) 06/23/19 04:32 Glucose 94 mg/dL (65-99) 06/23/19 04:32 Lactic Acid 1.0 mmol/L (0.4-2.0) 06/19/19 10:35 Calcium 7.7 mg/dL (8.5-10.1) L 06/23/19 04:32 Corrected Calcium 9.2 mg/dL (8.5-10.1) 06/23/19 04:32 Magnesium 2.3 mg/dL (1.7-2.9) 06/21/19 04:02 Total Bilirubin 0.30 mg/dL (0.2-1.0) 06/23/19 04:32 AST 14 Units/L (15-37) L 06/23/19 04:32 ALT 15 Units/L (12-78) 06/23/19 04:32 Alkaline Phosphatase 48 Units/L (46-116) 06/23/19 04:32 Total Protein 5.9 g/dL (6.4-8.2) L 06/23/19 04:32 Albumin 2.1 g/dL (3.4-5.0) L 06/23/19 04:32 Globulin 3.8 g/dL (2.5-4.5) 06/23/19 04:32 Albumin/Globulin Ratio 0.6 Ratio (1.1-2.1) L 06/23/19 04:32 Amylase 34 Units/L (25-115) 06/19/19 10:35 Lipase 126 Units/L (73-393) 06/19/19 10:35 Specimen Type Clean catch urine 06/19/19 11:05 Urine Color [place] (YELLOW) 06/19/19 11:05 Urine Appearance Clear (CLEAR) 06/19/19 11:05 Urine pH 6.0 (5.0 - 8.0) 06/19/19 11:05 Ur Specific [place] 1.025 (1.000-1.030) 06/19/19 11:05 Urine Protein 1+ (NEGATIVE) 06/19/19 11:05 Urine Glucose (UA) Negative (NEGATIVE) 06/19/19 11:05 Urine Ketones Negative (NEGATIVE) 06/19/19 11:05 Urine Occult Blood 1+ (NEGATIVE) 06/19/19 11:05 Urine Nitrite Negative (NEGATIVE) 06/19/19 11:05 Urine Bilirubin Negative (NEGATIVE) 06/19/19 11:05 Urine Urobilinogen 2+ (NORMAL) 06/19/19 11:05 Ur Leukocyte Esterase Negative (NEGATIVE) 06/19/19 11:05 Urine RBC 0-2 /HPF (0-3) 06/19/19 11:05 Urine WBC 3-5 /HPF (0-5) 06/19/19 11:05 Ur Squamous Epith Cells Negative /HPF (NEGATIVE) 06/19/19 11:05 Amorphous Sediment Trace /HPF (NEGATIVE) 06/19/19 11:05 Urine Bacteria Negative /HPF (NEGATIVE) 06/19/19 11:05 Urine Mucus Numerous /HPF (NEGATIVE) 06/19/19 11:05 Ur Culture Indicated? No/not indicated 06/19/19 11:05 Gentamicin Trough 0.5 ug/mL (0-1.9) 06/22/19 14:24 Vancomycin Trough 12.6 ug/mL (15-20) L 06/22/19 20:07 - Assessment and Plan 1: surgical site infection . s/p anterior resection rectal ca . s/p radiation and chemo Tx. pt is smoker . same local care and IV ATB . wound vac when the infection is clear . - Problem Patient Problems: Patient Problems Wound infection after surgery (Acute) T81.49XA Abdominal pain (Acute) R10.9 Colon cancer (Acute) C18.9
[2019-06-23] MEDS: FLOMAX PO SCH (21:27)
[2019-06-23] MEDS ORDERED: PHARMACY COMMENT IV NR ×2 (21:30→22:30)
[2019-06-23 21:42] LABS: CREATININE 0.77 mg/dL (0.70-1.30)
[2019-06-23 22:54] LABS: GENTAMICIN,TROUGH 1.1 ug/mL (0-1.9)
[2019-06-24] MEDS: NS 1000 ML 1,000 ML IV SCH ×3 (01:35→17:34)
[2019-06-24] MEDS: MORPHINE SULFATE INJ 2 MG INJ IVP PRN ×5 (01:50→23:42)
[2019-06-24 05:25] LABS: BASOPHILS % (AUTO) 0.4 % (0.2-1.0); EOSINOPHILS % (AUTO) 0.9 % (0.9-2.9); HEMATOCRIT 29.4 % (42.0-54.0); HEMOGLOBIN 10.2 g/dL (13.5-18.0); LYMPHOCYTES # (AUTO) 0.6 X10^3/uL (1.3-2.9); LYMPHOCYTES % (AUTO) 12.9 % (21.0-51.0); MEAN CORPUSCULAR HEMOGLOBIN 31.4 pg (27.0-34.0); MEAN CORPUSCULAR HGB CONC 34.6 g/dL (33.0-35.0); MEAN CORPUSCULAR VOLUME 90.9 fL (80.0-100.0); MONOCYTES # (AUTO) 1.6 x10^3/uL (0.3-0.8); MONOCYTES % (AUTO) 36.3 % (0.0-13.0); NEUTROPHILS # (AUTO) 2.2 x10^3/uL (2.2-4.8); NEUTROPHILS % (AUTO) 49.5 % (42.0-75.0); PLATELET COUNT 293 X10^3/uL (150.0-450.0); RED BLOOD COUNT 3.23 X10^6/uL (4.7-6.0); RED CELL DISTRIBUTION WIDTH 16.3 % (11.6-16.5); WHITE BLOOD COUNT 4.5 X10^3/uL (3.6-10.0)
[2019-06-24] MEDS: GENTAMICIN INJ 80 MG in NS 100 ML IV 100 ML IV SCH ×3 (05:25→23:00)
[2019-06-24 05:26] LABS: VANCOMYCIN,TROUGH 12.7 ug/mL (15-20)
[2019-06-24 05:33] LABS: ALANINE AMINOTRANSFERASE 13 Units/L (12-78); ALBUMIN 2.1 g/dL (3.4-5.0); ALKALINE PHOSPHATASE 49 Units/L (46-116); ASPARTATE AMINO TRANSFERASE 11 Units/L (15-37); BLOOD UREA NITROGEN 6 mg/dL (7-18); CALCIUM 7.9 mg/dL (8.5-10.1); CARBON DIOXIDE 26.5 mmol/L (21-32); CHLORIDE 103 mmol/L (98-107); COR CA(FOR HYPOALB) 9.4 mg/dL (8.5-10.1); CREATININE 0.56 mg/dL (0.70-1.30); SODIUM 136 mmol/L (136-145); eGFR NON BLACK RACES > 60 (>60)
[2019-06-24 06:04] LABS: PLATELET MORPHOLOGY COMMENT NORMAL (NORMAL)
[2019-06-24] MEDS: VANCOMYCIN HCL 1 G in D5W 250 ML IV 250 ML IV SCH ×3 (07:18→21:21)
[2019-06-24] MEDS: LOVENOX INJ 30 MG SYR SC SCH (09:47)
[2019-06-24] MEDS: NICOTINE PATCH TD SCH (09:49)
--- NOTE | 2019-06-24 13:04 | DR.PROGNOT ---
Hospital Progress Notes - Progress Note for Day of: Progress Note Date: 06/24/19 - Chief Complaint Chief Complaint: no new c/o . moderate drainage from the lower incision . colostomy is functioning well . afebrile . - Past Medical Family Social History Past Med/Fam/Surg Hx: No changes since H&P Allergies: Allergies No Known Drug Allergies Allergy (Verified 12/03/18 21:48) - Review Of Systems ROS: No change since H&P - Vital Signs Vital Signs: Temperature 97.7 F Pulse Rate [Right Brachial] 99 Pulse Rate 79 Respiratory Rate 20 Blood Pressure [Left Arm] 104/70 Blood Pressure [Right Arm] 113/66 Blood Pressure 92/50 O2 Sat by Pulse Oximetry 97 - Physical Exam Oriented: Normal Eyes: Normal Ear: Normal Nose: Normal Throat: Normal Respiratory: Diminished Cardiovascular: Normal : Normal GI:Auscultation: Normal GI:Palpation: Normal GI: Tenderness: Diffuse, Moderate Skin: Decreased Turgur, Wound (open wound lower incision 3x2cm with tunneling downwadrs 2cm with exposed muscles . and intact fascia ) Musculoskeletal: Back:Lumbar Psychiatric: Anxiety Affect: Anxious Speech Pattern: Clear, Appropriate - Laboratory and Diagnostics Result Diagrams: 06/24/19 04:51 06/24/19 04:51 Labs: 06/19/19 10:43 Blood Blood Culture - Final 06/19/19 10:35 Blood Blood Culture - Final 06/19/19 14:20 Abdomen Gram Stain - Final 06/19/19 14:20 Abdomen Wound Culture - Final Escherichia Coli Laboratory WBC 4.5 X10^3/uL (3.6-10.0) 06/24/19 04:51 RBC 3.23 X10^6/uL (4.7-6.0) L 06/24/19 04:51 Hgb 10.2 g/dL (13.5-18.0) L 06/24/19 04:51 Hct 29.4 % (42.0-54.0) L 06/24/19 04:51 MCV 90.9 fL (80.0-100.0) 06/24/19 04:51 MCH 31.4 pg (27.0-34.0) 06/24/19 04:51 MCHC 34.6 g/dL (33.0-35.0) 06/24/19 04:51 RDW 16.3 % (11.6-16.5) 06/24/19 04:51 Plt Count 293 X10^3/uL (150.0-450.0) 06/24/19 04:51 Plt Count Comment Adequate (ADEQUATE) 06/24/19 04:51 MPV 7.0 fL (7.4-11.0) L 06/24/19 04:51 Neut % (Auto) 49.5 % (42.0-75.0) 06/24/19 04:51 Lymph % (Auto) 12.9 % (21.0-51.0) L 06/24/19 04:51 [place] % (Auto) 36.3 % (0.0-13.0) H 06/24/19 04:51 Eos % (Auto) 0.9 % (0.9-2.9) 06/24/19 04:51 Baso % (Auto) 0.4 % (0.2-1.0) 06/24/19 04:51 Neut # (Auto) 2.2 x10^3/uL (2.2-4.8) 06/24/19 04:51 Lymph # (Auto) 0.6 X10^3/uL (1.3-2.9) L 06/24/19 04:51 [place] # (Auto) 1.6 x10^3/uL (0.3-0.8) H 06/24/19 04:51 Eos # (Auto) 0.0 x10^3/uL (0.0-0.2) 06/24/19 04:51 Baso # (Auto) 0.0 X10^3/uL (0.0-0.1) 06/24/19 04:51 Absolute Nucleated RBC 0.0 /100WBC 06/24/19 04:51 Total Counted 100 06/24/19 04:51 Neutrophils % (Manual) 48 % (39-76) 06/24/19 04:51 Lymphocytes % (Manual) 26 % (13-43) 06/24/19 04:51 Monocytes % (Manual) 25 % (4-9) H 06/24/19 04:51 Eosinophils % (Manual) 1 % (0-6) 06/24/19 04:51 Plt Morphology Comment Normal (NORMAL) 06/24/19 04:51 RBC Morphology Normal (NORMAL) 06/24/19 04:51 Hypochromasia Slight A 06/21/19 04:02 Sodium 136 mmol/L (136-145) 06/24/19 04:51 Corrected Sodium TNP 06/24/19 04:51 Potassium 4.0 mmol/L (3.5-5.1) 06/24/19 04:51 Chloride 103 mmol/L (98-107) 06/24/19 04:51 Carbon Dioxide 26.5 mmol/L (21-32) 06/24/19 04:51 BUN 6 mg/dL (7-18) L 06/24/19 04:51 Creatinine 0.56 mg/dL (0.70-1.30) L 06/24/19 04:51 Est GFR (MDRD) Af Amer > 60 (>60) 06/24/19 04:51 Est GFR (MDRD) Non-Af > 60 (>60) 06/24/19 04:51 Glucose 101 mg/dL (65-99) H 06/24/19 04:51 Lactic Acid 1.0 mmol/L (0.4-2.0) 06/19/19 10:35 Calcium 7.9 mg/dL (8.5-10.1) L 06/24/19 04:51 Corrected Calcium 9.4 mg/dL (8.5-10.1) 06/24/19 04:51 Magnesium 2.3 mg/dL (1.7-2.9) 06/21/19 04:02 Total Bilirubin 0.20 mg/dL (0.2-1.0) 06/24/19 04:51 AST 11 Units/L (15-37) L 06/24/19 04:51 ALT 13 Units/L (12-78) 06/24/19 04:51 Alkaline Phosphatase 49 Units/L (46-116) 06/24/19 04:51 Total Protein 6.0 g/dL (6.4-8.2) L 06/24/19 04:51 Albumin 2.1 g/dL (3.4-5.0) L 06/24/19 04:51 Globulin 3.9 g/dL (2.5-4.5) 06/24/19 04:51 Albumin/Globulin Ratio 0.5 Ratio (1.1-2.1) L 06/24/19 04:51 Amylase 34 Units/L (25-115) 06/19/19 10:35 Lipase 126 Units/L (73-393) 06/19/19 10:35 Specimen Type Clean catch urine 06/19/19 11:05 Urine Color [place] (YELLOW) 06/19/19 11:05 Urine Appearance Clear (CLEAR) 06/19/19 11:05 Urine pH 6.0 (5.0 - 8.0) 06/19/19 11:05 Ur Specific [place] 1.025 (1.000-1.030) 06/19/19 11:05 Urine Protein 1+ (NEGATIVE) 06/19/19 11:05 Urine Glucose (UA) Negative (NEGATIVE) 06/19/19 11:05 Urine Ketones Negative (NEGATIVE) 06/19/19 11:05 Urine Occult Blood 1+ (NEGATIVE) 06/19/19 11:05 Urine Nitrite Negative (NEGATIVE) 06/19/19 11:05 Urine Bilirubin Negative (NEGATIVE) 06/19/19 11:05 Urine Urobilinogen 2+ (NORMAL) 06/19/19 11:05 Ur Leukocyte Esterase Negative (NEGATIVE) 06/19/19 11:05 Urine RBC 0-2 /HPF (0-3) 06/19/19 11:05 Urine WBC 3-5 /HPF (0-5) 06/19/19 11:05 Ur Squamous Epith Cells Negative /HPF (NEGATIVE) 06/19/19 11:05 Amorphous Sediment Trace /HPF (NEGATIVE) 06/19/19 11:05 Urine Bacteria Negative /HPF (NEGATIVE) 06/19/19 11:05 Urine Mucus Numerous /HPF (NEGATIVE) 06/19/19 11:05 Ur Culture Indicated? No/not indicated 06/19/19 11:05 Gentamicin Trough 1.1 ug/mL (0-1.9) 06/23/19 21:29 Vancomycin Trough 12.7 ug/mL (15-20) L 06/24/19 04:51 - Assessment and Plan 1: surgical site infection . s/p anterior resection rectal ca . s/p radiation and chemo Tx. pt is smoker . same local care and IV ATB . wound vac when the infection is clear .( on Saturday ) - Problem Patient Problems: Patient Problems Wound infection after surgery (Acute) T81.49XA Abdominal pain (Acute) R10.9 Colon cancer (Acute) C18.9
[2019-06-24] MEDS: MORPHINE SULFATE INJ 4 MG IVP PRN (19:15)
[2019-06-24] MEDS: FLOMAX PO SCH (21:15)
[2019-06-25] MEDS: NS 1000 ML 1,000 ML IV SCH ×4 (01:47→16:31)
[2019-06-25] MEDS: MORPHINE SULFATE INJ 2 MG INJ IVP PRN ×2 (03:50→08:22)
[2019-06-25] MEDS: GENTAMICIN INJ 80 MG in NS 100 ML IV 100 ML IV SCH ×3 (05:10→21:21)
[2019-06-25 05:15] LABS: BASOPHILS % (AUTO) 0.5 % (0.2-1.0); EOSINOPHILS % (AUTO) 1.2 % (0.9-2.9); HEMATOCRIT 30.6 % (42.0-54.0); HEMOGLOBIN 10.2 g/dL (13.5-18.0); LYMPHOCYTES # (AUTO) 0.4 X10^3/uL (1.3-2.9); LYMPHOCYTES % (AUTO) 11.7 % (21.0-51.0); MEAN CORPUSCULAR HEMOGLOBIN 30.2 pg (27.0-34.0); MEAN CORPUSCULAR HGB CONC 33.3 g/dL (33.0-35.0); MEAN CORPUSCULAR VOLUME 90.8 fL (80.0-100.0); MEAN PLATELET VOLUME 6.8 fL (7.4-11.0); MONOCYTES # (AUTO) 1.3 x10^3/uL (0.3-0.8); MONOCYTES % (AUTO) 35.4 % (0.0-13.0); NEUTROPHILS # (AUTO) 1.9 x10^3/uL (2.2-4.8); NEUTROPHILS % (AUTO) 51.2 % (42.0-75.0); PLATELET COUNT 295 X10^3/uL (150.0-450.0); RED BLOOD COUNT 3.37 X10^6/uL (4.7-6.0); RED CELL DISTRIBUTION WIDTH 16.6 % (11.6-16.5); WHITE BLOOD COUNT 3.7 X10^3/uL (3.6-10.0)
[2019-06-25 05:35] LABS: ALANINE AMINOTRANSFERASE 14 Units/L (12-78); ALBUMIN 2.2 g/dL (3.4-5.0); ALKALINE PHOSPHATASE 51 Units/L (46-116); ASPARTATE AMINO TRANSFERASE 13 Units/L (15-37); BLOOD UREA NITROGEN 5 mg/dL (7-18); CALCIUM 7.7 mg/dL (8.5-10.1); CARBON DIOXIDE 28.5 mmol/L (21-32); CHLORIDE 103 mmol/L (98-107); COR CA(FOR HYPOALB) 9.1 mg/dL (8.5-10.1); CREATININE 0.51 mg/dL (0.70-1.30); SODIUM 137 mmol/L (136-145); TOTAL PROTEIN 6.1 g/dL (6.4-8.2); eGFR NON BLACK RACES > 60 (>60)
[2019-06-25] MEDS: VANCOMYCIN HCL 1 G in D5W 250 ML IV 250 ML IV SCH (06:36)
[2019-06-25] MEDS: LOVENOX INJ 30 MG SYR SC SCH (08:21)
[2019-06-25] MEDS: NICOTINE PATCH TD SCH (08:22)
--- NOTE | 2019-06-25 10:54 | DR.PROGNOT ---
Hospital Progress Notes - Progress Note for Day of: Progress Note Date: 06/25/19 - Chief Complaint Chief Complaint: no new c/o . moderate drainage from the lower incision . colostomy is functioning well . afebrile . CBC normal . - Past Medical Family Social History Past Med/Fam/Surg Hx: No changes since H&P Allergies: Allergies No Known Drug Allergies Allergy (Verified 12/03/18 21:48) - Review Of Systems ROS: No change since H&P - Vital Signs Vital Signs: Temperature 97.9 F Pulse Rate [Right Brachial] 87 Pulse Rate 97 Respiratory Rate 20 Blood Pressure [Left Arm] 104/70 Blood Pressure [Right Arm] 121/67 Blood Pressure 92/50 O2 Sat by Pulse Oximetry 98 - Physical Exam Oriented: Normal Eyes: Normal Ear: Normal Nose: Normal Throat: Normal Respiratory: Diminished Cardiovascular: Normal : Normal GI:Auscultation: Normal GI:Palpation: Normal GI: Tenderness: Diffuse, Moderate Skin: Decreased Turgur, Wound (open wound lower incision 3x2cm with tunneling downwadrs 2cm with exposed muscles . and intact fascia ) Musculoskeletal: Back:Lumbar Psychiatric: Anxiety Affect: Anxious Speech Pattern: Clear, Appropriate - Laboratory and Diagnostics Result Diagrams: 06/25/19 04:54 06/25/19 04:54 Labs: 06/19/19 10:43 Blood Blood Culture - Final 06/19/19 10:35 Blood Blood Culture - Final 06/19/19 14:20 Abdomen Gram Stain - Final 06/19/19 14:20 Abdomen Wound Culture - Final Escherichia Coli Laboratory WBC 3.7 X10^3/uL (3.6-10.0) 06/25/19 04:54 RBC 3.37 X10^6/uL (4.7-6.0) L 06/25/19 04:54 Hgb 10.2 g/dL (13.5-18.0) L 06/25/19 04:54 Hct 30.6 % (42.0-54.0) L 06/25/19 04:54 MCV 90.8 fL (80.0-100.0) 06/25/19 04:54 MCH 30.2 pg (27.0-34.0) 06/25/19 04:54 MCHC 33.3 g/dL (33.0-35.0) 06/25/19 04:54 RDW 16.6 % (11.6-16.5) H 06/25/19 04:54 Plt Count 295 X10^3/uL (150.0-450.0) 06/25/19 04:54 Plt Count Comment Adequate (ADEQUATE) 06/24/19 04:51 MPV 6.8 fL (7.4-11.0) L 06/25/19 04:54 Neut % (Auto) 51.2 % (42.0-75.0) 06/25/19 04:54 Lymph % (Auto) 11.7 % (21.0-51.0) L 06/25/19 04:54 [place] % (Auto) 35.4 % (0.0-13.0) H 06/25/19 04:54 Eos % (Auto) 1.2 % (0.9-2.9) 06/25/19 04:54 Baso % (Auto) 0.5 % (0.2-1.0) 06/25/19 04:54 Neut # (Auto) 1.9 x10^3/uL (2.2-4.8) L 06/25/19 04:54 Lymph # (Auto) 0.4 X10^3/uL (1.3-2.9) L 06/25/19 04:54 [place] # (Auto) 1.3 x10^3/uL (0.3-0.8) H 06/25/19 04:54 Eos # (Auto) 0.0 x10^3/uL (0.0-0.2) 06/25/19 04:54 Baso # (Auto) 0.0 X10^3/uL (0.0-0.1) 06/25/19 04:54 Absolute Nucleated RBC 0.1 /100WBC 06/25/19 04:54 Total Counted 100 06/24/19 04:51 Neutrophils % (Manual) 48 % (39-76) 06/24/19 04:51 Lymphocytes % (Manual) 26 % (13-43) 06/24/19 04:51 Monocytes % (Manual) 25 % (4-9) H 06/24/19 04:51 Eosinophils % (Manual) 1 % (0-6) 06/24/19 04:51 Plt Morphology Comment Normal (NORMAL) 06/24/19 04:51 RBC Morphology Normal (NORMAL) 06/24/19 04:51 Hypochromasia Slight A 06/21/19 04:02 Sodium 137 mmol/L (136-145) 06/25/19 04:54 Corrected Sodium TNP 06/25/19 04:54 Potassium 3.8 mmol/L (3.5-5.1) 06/25/19 04:54 Chloride 103 mmol/L (98-107) 06/25/19 04:54 Carbon Dioxide 28.5 mmol/L (21-32) 06/25/19 04:54 BUN 5 mg/dL (7-18) L 06/25/19 04:54 Creatinine 0.51 mg/dL (0.70-1.30) L 06/25/19 04:54 Est GFR (MDRD) Af Amer > 60 (>60) 06/25/19 04:54 Est GFR (MDRD) Non-Af > 60 (>60) 06/25/19 04:54 Glucose 90 mg/dL (65-99) 06/25/19 04:54 Lactic Acid 1.0 mmol/L (0.4-2.0) 06/19/19 10:35 Calcium 7.7 mg/dL (8.5-10.1) L 06/25/19 04:54 Corrected Calcium 9.1 mg/dL (8.5-10.1) 06/25/19 04:54 Magnesium 2.3 mg/dL (1.7-2.9) 06/21/19 04:02 Total Bilirubin 0.20 mg/dL (0.2-1.0) 06/25/19 04:54 AST 13 Units/L (15-37) L 06/25/19 04:54 ALT 14 Units/L (12-78) 06/25/19 04:54 Alkaline Phosphatase 51 Units/L (46-116) 06/25/19 04:54 Total Protein 6.1 g/dL (6.4-8.2) L 06/25/19 04:54 Albumin 2.2 g/dL (3.4-5.0) L 06/25/19 04:54 Globulin 3.9 g/dL (2.5-4.5) 06/25/19 04:54 Albumin/Globulin Ratio 0.6 Ratio (1.1-2.1) L 06/25/19 04:54 Amylase 34 Units/L (25-115) 06/19/19 10:35 Lipase 126 Units/L (73-393) 06/19/19 10:35 Specimen Type Clean catch urine 06/19/19 11:05 Urine Color [place] (YELLOW) 06/19/19 11:05 Urine Appearance Clear (CLEAR) 06/19/19 11:05 Urine pH 6.0 (5.0 - 8.0) 06/19/19 11:05 Ur Specific [place] 1.025 (1.000-1.030) 06/19/19 11:05 Urine Protein 1+ (NEGATIVE) 06/19/19 11:05 Urine Glucose (UA) Negative (NEGATIVE) 06/19/19 11:05 Urine Ketones Negative (NEGATIVE) 06/19/19 11:05 Urine Occult Blood 1+ (NEGATIVE) 06/19/19 11:05 Urine Nitrite Negative (NEGATIVE) 06/19/19 11:05 Urine Bilirubin Negative (NEGATIVE) 06/19/19 11:05 Urine Urobilinogen 2+ (NORMAL) 06/19/19 11:05 Ur Leukocyte Esterase Negative (NEGATIVE) 06/19/19 11:05 Urine RBC 0-2 /HPF (0-3) 06/19/19 11:05 Urine WBC 3-5 /HPF (0-5) 06/19/19 11:05 Ur Squamous Epith Cells Negative /HPF (NEGATIVE) 06/19/19 11:05 Amorphous Sediment Trace /HPF (NEGATIVE) 06/19/19 11:05 Urine Bacteria Negative /HPF (NEGATIVE) 06/19/19 11:05 Urine Mucus Numerous /HPF (NEGATIVE) 06/19/19 11:05 Ur Culture Indicated? No/not indicated 06/19/19 11:05 Gentamicin Trough 1.1 ug/mL (0-1.9) 06/23/19 21:29 Vancomycin Trough 12.7 ug/mL (15-20) L 06/24/19 04:51 - Assessment and Plan 1: surgical site infection . s/p anterior resection rectal ca . s/p radiation and chemo Tx. pt is smoker . same local care and IV ATB . will apply wound vac today . - Problem Patient Problems: Patient Problems Wound infection after surgery (Acute) T81.49XA Abdominal pain (Acute) R10.9 Colon cancer (Acute) C18.9
[2019-06-25] MEDS: MORPHINE SULFATE INJ 4 MG IVP PRN ×3 (12:35→20:42)
[2019-06-25] MEDS ORDERED: PHARMACY COMMENT IV NR (13:30)
[2019-06-25 15:16] LABS: CREATININE 0.62 mg/dL (0.70-1.30); GENTAMICIN,TROUGH 0.7 ug/mL (0-1.9)
--- NOTE | 2019-06-25 18:04 | PCM.PROG ---
Progress Note - Progress Note for Day of Date of Exam: 06/25/19 - Subjective Subjective: The patient is a 68-year-old white male who was admitted from the emergency room with a postoperative infection status post colectomy wound to his lower abdomen. The patient has been on IV antibiotics since admission. The wound culture was positive for E. Coli and sensitive to Gentamycin. The patient has been afebrile with stable white blood cell count. The patient has been recommended for IV antibiotic therapy as well as a wound vac per Dr. Forman. Case Management is discussing possible swing-bed for appropriate treatment during this increase for addition care. The patient is unable to care for himself at home or administer IV antibiotics at this time. - Past Medical Family Social History Past Med/Fam/Surg Hx: No changes since H&P Allergies: Allergies No Known Drug Allergies Allergy (Verified 12/03/18 21:48) - Review of Systems ROS: No change since H&P - Vital Signs and I&O's Vital Signs: Temperature 97.9 F Pulse Rate [Right Brachial] 86 Pulse Rate 97 Respiratory Rate 24 Blood Pressure [Left Arm] 104/70 Blood Pressure [Right Arm] 124/60 Blood Pressure 92/50 O2 Sat by Pulse Oximetry 99 Intake and Output: Intake & Output 06/23/19 06/24/19 06/25/19 06/26/19 11:59 11:59 11:59 11:59 Intake Total 4074 / 4074 3807 / 3807 1900 / 1900 600 / 600 Output Total 3645 / 3645 1250 / 1250 1400 / 1400 Balance 429 / 429 2557 / 2557 500 / 500 600 / 600 - Physical Exam Oriented: Normal Eyes: Normal Ear: Normal Nose: Normal Throat: Normal Respiratory: Diminished Cardiovascular: Normal : Normal Auscultation: Bowel Sounds: Normal Tenderness: Diffuse, Moderate Skin: Decreased Turgur, Wound (open wound lower incision 3x2cm with tunneling downwadrs 2cm with exposed muscles . and intact fascia ) Musculoskeletal: Back:Lumbar Psychiatric: Anxiety Affect: Anxious Speech Pattern: Clear, Appropriate - Laboratory and Diagnostics Result Diagrams: 06/25/19 04:54 06/25/19 14:55 Labs: 06/19/19 10:43 Blood Blood Culture - Final 06/19/19 10:35 Blood Blood Culture - Final 06/19/19 14:20 Abdomen Gram Stain - Final 06/19/19 14:20 Abdomen Wound Culture - Final Escherichia Coli Laboratory WBC 3.7 X10^3/uL (3.6-10.0) 06/25/19 04:54 RBC 3.37 X10^6/uL (4.7-6.0) L 06/25/19 04:54 Hgb 10.2 g/dL (13.5-18.0) L 06/25/19 04:54 Hct 30.6 % (42.0-54.0) L 06/25/19 04:54 MCV 90.8 fL (80.0-100.0) 06/25/19 04:54 MCH 30.2 pg (27.0-34.0) 06/25/19 04:54 MCHC 33.3 g/dL (33.0-35.0) 06/25/19 04:54 RDW 16.6 % (11.6-16.5) H 06/25/19 04:54 Plt Count 295 X10^3/uL (150.0-450.0) 06/25/19 04:54 Plt Count Comment Adequate (ADEQUATE) 06/24/19 04:51 MPV 6.8 fL (7.4-11.0) L 06/25/19 04:54 Neut % (Auto) 51.2 % (42.0-75.0) 06/25/19 04:54 Lymph % (Auto) 11.7 % (21.0-51.0) L 06/25/19 04:54 [place] % (Auto) 35.4 % (0.0-13.0) H 06/25/19 04:54 Eos % (Auto) 1.2 % (0.9-2.9) 06/25/19 04:54 Baso % (Auto) 0.5 % (0.2-1.0) 06/25/19 04:54 Neut # (Auto) 1.9 x10^3/uL (2.2-4.8) L 06/25/19 04:54 Lymph # (Auto) 0.4 X10^3/uL (1.3-2.9) L 06/25/19 04:54 [place] # (Auto) 1.3 x10^3/uL (0.3-0.8) H 06/25/19 04:54 Eos # (Auto) 0.0 x10^3/uL (0.0-0.2) 06/25/19 04:54 Baso # (Auto) 0.0 X10^3/uL (0.0-0.1) 06/25/19 04:54 Absolute Nucleated RBC 0.1 /100WBC 06/25/19 04:54 Total Counted 100 06/24/19 04:51 Neutrophils % (Manual) 48 % (39-76) 06/24/19 04:51 Lymphocytes % (Manual) 26 % (13-43) 06/24/19 04:51 Monocytes % (Manual) 25 % (4-9) H 06/24/19 04:51 Eosinophils % (Manual) 1 % (0-6) 06/24/19 04:51 Plt Morphology Comment Normal (NORMAL) 06/24/19 04:51 RBC Morphology Normal (NORMAL) 06/24/19 04:51 Hypochromasia Slight A 06/21/19 04:02 Sodium 137 mmol/L (136-145) 06/25/19 04:54 Corrected Sodium TNP 06/25/19 04:54 Potassium 3.8 mmol/L (3.5-5.1) 06/25/19 04:54 Chloride 103 mmol/L (98-107) 06/25/19 04:54 Carbon Dioxide 28.5 mmol/L (21-32) 06/25/19 04:54 BUN 5 mg/dL (7-18) L 06/25/19 04:54 Creatinine 0.62 mg/dL (0.70-1.30) L 06/25/19 14:55 Est GFR (MDRD) Af Amer > 60 (>60) 06/25/19 04:54 Est GFR (MDRD) Non-Af > 60 (>60) 06/25/19 04:54 Glucose 90 mg/dL (65-99) 06/25/19 04:54 Lactic Acid 1.0 mmol/L (0.4-2.0) 06/19/19 10:35 Calcium 7.7 mg/dL (8.5-10.1) L 06/25/19 04:54 Corrected Calcium 9.1 mg/dL (8.5-10.1) 06/25/19 04:54 Magnesium 2.3 mg/dL (1.7-2.9) 06/21/19 04:02 Total Bilirubin 0.20 mg/dL (0.2-1.0) 06/25/19 04:54 AST 13 Units/L (15-37) L 06/25/19 04:54 ALT 14 Units/L (12-78) 06/25/19 04:54 Alkaline Phosphatase 51 Units/L (46-116) 06/25/19 04:54 Total Protein 6.1 g/dL (6.4-8.2) L 06/25/19 04:54 Albumin 2.2 g/dL (3.4-5.0) L 06/25/19 04:54 Globulin 3.9 g/dL (2.5-4.5) 06/25/19 04:54 Albumin/Globulin Ratio 0.6 Ratio (1.1-2.1) L 06/25/19 04:54 Amylase 34 Units/L (25-115) 06/19/19 10:35 Lipase 126 Units/L (73-393) 06/19/19 10:35 Specimen Type Clean catch urine 06/19/19 11:05 Urine Color [place] (YELLOW) 06/19/19 11:05 Urine Appearance Clear (CLEAR) 06/19/19 11:05 Urine pH 6.0 (5.0 - 8.0) 06/19/19 11:05 Ur Specific [place] 1.025 (1.000-1.030) 06/19/19 11:05 Urine Protein 1+ (NEGATIVE) 06/19/19 11:05 Urine Glucose (UA) Negative (NEGATIVE) 06/19/19 11:05 Urine Ketones Negative (NEGATIVE) 06/19/19 11:05 Urine Occult Blood 1+ (NEGATIVE) 06/19/19 11:05 Urine Nitrite Negative (NEGATIVE) 06/19/19 11:05 Urine Bilirubin Negative (NEGATIVE) 06/19/19 11:05 Urine Urobilinogen 2+ (NORMAL) 06/19/19 11:05 Ur Leukocyte Esterase Negative (NEGATIVE) 06/19/19 11:05 Urine RBC 0-2 /HPF (0-3) 06/19/19 11:05 Urine WBC 3-5 /HPF (0-5) 06/19/19 11:05 Ur Squamous Epith Cells Negative /HPF (NEGATIVE) 06/19/19 11:05 Amorphous Sediment Trace /HPF (NEGATIVE) 06/19/19 11:05 Urine Bacteria Negative /HPF (NEGATIVE) 06/19/19 11:05 Urine Mucus Numerous /HPF (NEGATIVE) 06/19/19 11:05 Ur Culture Indicated? No/not indicated 06/19/19 11:05 Gentamicin Peak 3.8 ug/mL (5-10) L 06/25/19 17:01 Gentamicin Trough 0.7 ug/mL (0-1.9) 06/25/19 14:55 Vancomycin Trough 12.7 ug/mL (15-20) L 06/24/19 04:51 - Plan (1) Wound infection after surgery Status: Acute Plan: BLOOD AND WOUND CULTURES COLLECTED ON ADMISSION,IV HYDRATION, IV ANTIBIOTI CS, WOUND CARE. SURGICAL CONSULT. CASE MANAGEMENT CONSULT, PLAN TO SWING BED CARE (2) COPD (chronic obstructive pulmonary disease) Status: Acute (3) Status post colon resection Status: Acute (4) BPH (benign prostatic hyperplasia) Status: Chronic
[2019-06-25] MEDS: FLOMAX PO SCH (20:37)
[2019-06-26] MEDS: MORPHINE SULFATE INJ 4 MG IVP PRN ×4 (00:41→13:24)
[2019-06-26] MEDS ORDERED: BUTT CREAM (COMPOUND) TOP PRN (00:49)
[2019-06-26] MEDS: NS 1000 ML 1,000 ML IV SCH ×3 (01:31→10:54)
[2019-06-26] MEDS ORDERED: BUTT CREAM (COMPOUND) ONE (01:36)
[2019-06-26] MEDS: GENTAMICIN INJ 80 MG in NS 100 ML IV 100 ML IV SCH (05:00)
[2019-06-26 06:24] LABS: BASOPHILS % (AUTO) 0.5 % (0.2-1.0); EOSINOPHILS # (AUTO) 0.1 x10^3/uL (0.0-0.2); EOSINOPHILS % (AUTO) 1.3 % (0.9-2.9); HEMATOCRIT 30.1 % (42.0-54.0); HEMOGLOBIN 9.9 g/dL (13.5-18.0); LYMPHOCYTES # (AUTO) 0.6 X10^3/uL (1.3-2.9); LYMPHOCYTES % (AUTO) 14.5 % (21.0-51.0); MEAN CORPUSCULAR HEMOGLOBIN 30.2 pg (27.0-34.0); MEAN CORPUSCULAR VOLUME 91.7 fL (80.0-100.0); MONOCYTES # (AUTO) 1.3 x10^3/uL (0.3-0.8); MONOCYTES % (AUTO) 34.1 % (0.0-13.0); NEUTROPHILS # (AUTO) 1.9 x10^3/uL (2.2-4.8); NEUTROPHILS % (AUTO) 49.6 % (42.0-75.0); PLATELET COUNT 321 X10^3/uL (150.0-450.0); RED BLOOD COUNT 3.28 X10^6/uL (4.7-6.0); RED CELL DISTRIBUTION WIDTH 17.2 % (11.6-16.5); WHITE BLOOD COUNT 3.9 X10^3/uL (3.6-10.0)
[2019-06-26 06:25] LABS: ALANINE AMINOTRANSFERASE 11 Units/L (12-78); ALBUMIN 2.2 g/dL (3.4-5.0); ALKALINE PHOSPHATASE 55 Units/L (46-116); ASPARTATE AMINO TRANSFERASE 15 Units/L (15-37); BLOOD UREA NITROGEN 7 mg/dL (7-18); CALCIUM 7.8 mg/dL (8.5-10.1); CARBON DIOXIDE 26.4 mmol/L (21-32); CHLORIDE 102 mmol/L (98-107); COR CA(FOR HYPOALB) 9.2 mg/dL (8.5-10.1); COR NA(FOR HYPERGLY) 139 mmol/L (136-145); CREATININE 0.57 mg/dL (0.70-1.30); SODIUM 138 mmol/L (136-145); TOTAL PROTEIN 6.1 g/dL (6.4-8.2); eGFR NON BLACK RACES > 60 (>60)
[2019-06-26 06:56] LABS: PLATELET MORPHOLOGY COMMENT NORMAL (NORMAL)
[2019-06-26] MEDS: LOVENOX INJ 30 MG SYR SC SCH (09:09)
[2019-06-26] MEDS: K-DUR TAB 20 MEQ PO PRN (09:10)
[2019-06-26] MEDS: NICOTINE PATCH TD SCH (09:11)
[2019-06-26] MEDS ORDERED: PHARMACY COMMENT IV NR ×2 (13:30→14:30)
[2019-06-26 13:36] VITALS: BP 120/63
[2019-06-26] MEDS ORDERED: GENTAMICIN INJ 100 MG in NS 100 ML IV 100 ML IV SCH (14:00)
--- NOTE | 2019-06-29 13:10 | DR.UPDATE ---
H&P Update History and Physical Update: History and Physical reviewed and patient examined. 06/19/2019 Yes with the following: s/p I&D of lower abdominal surgical wound
--- NOTE | 2019-07-27 23:35 | PCM.DCPLAN ---
Discharge Plan - Discharge Plan Disposition: 61 XFER/DISC TO [facility] Condition: Stable
== END 2019-06-26 14:47 | disposition swing bed (61) | DRG 863 ==
LOC: ER 10:14 → ICU 15:50 → MED/SURG 06-22 17:27
PROVIDERS: ADMIT Internal Medicine; ATTEND Internal Medicine
DX: C18.8 Malignant neoplasm of overlapping sites of colon; T81.49XA Infection following a procedure, other surgical site, initial encounter; B96.29 Other Escherichia coli [E. coli] as the cause of diseases classified elsewhere; Z93.3 Colostomy status; Z92.21 Personal history of antineoplastic chemotherapy; J44.9 Chronic obstructive pulmonary disease, unspecified; R10.30 Lower abdominal pain, unspecified; Z72.0 Tobacco use; N40.0 Benign prostatic hyperplasia without lower urinary tract symptoms
CPT/HCPCS: 36415; 71010; 71045; 74176; 80053; 80170; 80202; 81001; 82150; 82565; 83605; 83690; 83735; 85025; 87040; 87070; 87075; 87077; 87186; 87205; 94640; 96365; 96374; 99284; A4222; J1170; J1580; J1650; J2270; J2405; J2543; J3230; J3370; J3475; J7030; J7050; J7060; J7620

== ENCOUNTER 2019-06-26 14:56 | Inpatient (IN) ==
[2019-06-26] MEDS ORDERED: NS 50 ML IV 0 ML IV ONE (15:10)
[2019-06-26] MEDS ORDERED: NS 100 ML IV 100 ML IV ONE ×2 (15:14→20:39)
[2019-06-26] MEDS: GENTAMICIN INJ 100 MG in NS 100 ML IV 100 ML IV SCH ×2 (15:15→22:07)
[2019-06-26] MEDS ORDERED: DUONEB 0.5 MG/3 MG NEB PRN ×2 (15:38→17:18)
--- NOTE | 2019-06-26 16:08 | DR.PROGNOT ---
Hospital Progress Notes - Progress Note for Day of: Progress Note Date: 06/26/19 - Chief Complaint Chief Complaint: wound vac was applied today - Past Medical Family Social History Past Med/Fam/Surg Hx: No changes since H&P Allergies: Allergies No Known Drug Allergies Allergy (Verified 12/03/18 21:48) - Review Of Systems ROS: No change since H&P - Vital Signs Vital Signs: Blood Pressure [Left Arm] 120/63 - Physical Exam Eyes: Normal Ear: Normal Nose: Normal Respiratory: Normal Cardiovascular: Normal : Normal GI: Tenderness: Normal Skin: Normal Musculoskeletal: Normal - Assessment and Plan 1: infected wound abdominal wall .( has wound vac and IV ATB ). recal ca . s/p resection and chemo/ radiation Tx . same plan .
[2019-06-26] MEDS ORDERED: BUTT CREAM (COMPOUND) TOP PRN (17:18)
[2019-06-26] MEDS ORDERED: MOTRIN TAB 600 MG PO PRN (17:18)
[2019-06-26] MEDS ORDERED: POTASSIUM CHL 40 MEQ/NS 0.45% 500 ML IV PRN (17:18)
[2019-06-26] MEDS ORDERED: MAGNESIUM SULFATE 1 GRAM/100 mL PREMIX 1 GM/100 ML BAG IV PRN (17:18)
[2019-06-26] MEDS ORDERED: KLOR-CON PO PRN (17:18)
[2019-06-26] MEDS ORDERED: POTASSIUM CHL 60 MEQ/NS 0.45% 500 ML IV PRN (17:18)
[2019-06-26] MEDS ORDERED: K-RIDER 10 MEQ/NS 100 ML 10 MEQ/100 ML BAG IV PRN (17:18)
[2019-06-26] MEDS ORDERED: MAALOX or MYLANTA PO PRN (17:18)
[2019-06-26] MEDS ORDERED: THORAZINE INJ 25 MG AMP IM PRN (17:18)
[2019-06-26] MEDS ORDERED: POTASSIUM CHLORIDE LIQ 20 MEQ UDC PO PRN (17:18)
[2019-06-26] MEDS ORDERED: MICRO K EXTEN CAP 10 MEQ PO PRN (17:18)
[2019-06-26] MEDS ORDERED: MORPHINE SULFATE INJ 4 MG ONE (17:30)
[2019-06-26] MEDS: FLOMAX PO SCH (22:00)
[2019-06-26] MEDS: NORCO 5/325 MG TAB PO PRN (23:30)
[2019-06-27] MEDS: NS 1000 ML 1,000 ML IV SCH ×3 (01:00→18:20)
[2019-06-27] MEDS ORDERED: NS 100 ML IV 100 ML IV ONE ×3 (06:16→20:51)
[2019-06-27] MEDS: GENTAMICIN INJ 100 MG in NS 100 ML IV 100 ML IV SCH ×4 (06:22→21:05)
[2019-06-27] MEDS: NORCO 5/325 MG TAB PO PRN ×3 (06:23→21:26)
--- NOTE | 2019-06-27 09:44 | PCM.PROG ---
Progress Note Progress Note for Day of Date of Exam: 06/27/19 Subjective Subjective: 68-year-old white male admitted for postoperative infection s/p colectomy wound to his lower abdomen. IV antibiotics since admission. WoundCx positive for E. Coli w/ sensitivities to Gentamycin. He has remained afebrile with stable wbc count. General Surgery consulted, recommends IV abx and placement of wound vac(06/26/19). CM is discussing possible swing-bed for appropriate treatment during this increase for additional care and pt unable to care for himself at home or administer IV abx at this time. Pt resting in bed, wound vac in place. Denies any concerns. Past Medical Family Social History Past Med/Fam/Surg Hx: No changes since H&P Allergies: Allergies No Known Drug Allergies Allergy (Verified 12/03/18 21:48) Review of Systems ROS: No change since H&P Vital Signs and I&O's Vital Signs: Respiratory Rate 20 Blood Pressure [Left Arm] 120/63 Intake and Output: Intake & Output 06/24/19 06/25/19 06/26/19 06/27/19 23:59 23:59 23:59 23:59 Intake Total 180 / 180 1860 / 1860 Output Total 600 / 600 185 / 185 Balance -420 / -420 1675 / 1675 Physical Exam Oriented: Normal Eyes: Normal Ear: Normal Nose: Normal Respiratory: Normal Cardiovascular: Normal : Normal Auscultation: Bowel Sounds: Normal Tenderness: Normal Skin: Normal Musculoskeletal: Normal Speech Pattern: Clear Laboratory and Diagnostics Labs: Laboratory Gentamicin Peak 1.4 ug/mL (5-10) L 06/26/19 21:13 Plan (1) Wound infection after surgery: Status: Acute Plan: IV Gentamicin, hydration, Surgery consulted. Placement of wound vac(06/26/19) CM to work on possible swing bed placement. Continue to monitor labs. (2) Status post colon resection: Status: Acute (3) COPD (chronic obstructive pulmonary disease): Status: Acute (4) BPH (benign prostatic hyperplasia): Status: Chronic
[2019-06-27] MEDS: NICOTINE PATCH TD SCH (10:03)
[2019-06-27] MEDS: TAB-A-VITE PO SCH (10:03)
[2019-06-27] MEDS: LOVENOX INJ 30 MG SYR SC SCH (10:04)
[2019-06-27] MEDS: JUVEN PO SCH ×2 (10:06→10:40)
[2019-06-27] MEDS: ZOFRAN INJ 4 MG VIAL IVP PRN (18:20)
[2019-06-27 20:28] LABS: CREATININE 0.61 mg/dL (0.70-1.30); GENTAMICIN,TROUGH 1.1 ug/mL (0-1.9)
[2019-06-27] MEDS: FLOMAX PO SCH (21:26)
[2019-06-27] MEDS ORDERED: PHARMACY COMMENT IV NR ×2 (21:30→22:30)
[2019-06-28] MEDS: NS 1000 ML 1,000 ML IV SCH ×5 (01:30→21:27)
[2019-06-28] MEDS ORDERED: NS 100 ML IV 100 ML IV ONE ×3 (05:11→21:34)
[2019-06-28] MEDS: GENTAMICIN INJ 100 MG in NS 100 ML IV 100 ML IV SCH ×3 (05:20→22:45)
[2019-06-28] MEDS: NORCO 5/325 MG TAB PO PRN (05:20)
[2019-06-28 06:05] LABS: BASOPHILS % (AUTO) 0.8 % (0.2-1.0); EOSINOPHILS % (AUTO) 0.8 % (0.9-2.9); HEMATOCRIT 29.8 % (42.0-54.0); LYMPHOCYTES # (AUTO) 0.5 X10^3/uL (1.3-2.9); LYMPHOCYTES % (AUTO) 12.7 % (21.0-51.0); MEAN CORPUSCULAR HEMOGLOBIN 30.5 pg (27.0-34.0); MEAN CORPUSCULAR HGB CONC 33.6 g/dL (33.0-35.0); MEAN CORPUSCULAR VOLUME 90.8 fL (80.0-100.0); MEAN PLATELET VOLUME 6.7 fL (7.4-11.0); MONOCYTES # (AUTO) 0.9 x10^3/uL (0.3-0.8); MONOCYTES % (AUTO) 22.9 % (0.0-13.0); NEUTROPHILS # (AUTO) 2.5 x10^3/uL (2.2-4.8); NEUTROPHILS % (AUTO) 62.8 % (42.0-75.0); PLATELET COUNT 332 X10^3/uL (150.0-450.0); RED BLOOD COUNT 3.29 X10^6/uL (4.7-6.0); RED CELL DISTRIBUTION WIDTH 17.1 % (11.6-16.5)
[2019-06-28 06:17] LABS: BLOOD UREA NITROGEN 9 mg/dL (7-18); CALCIUM 7.9 mg/dL (8.5-10.1); CARBON DIOXIDE 24.4 mmol/L (21-32); CHLORIDE 105 mmol/L (98-107); COR NA(FOR HYPERGLY) 141 mmol/L (136-145); CREATININE 0.68 mg/dL (0.70-1.30); SODIUM 140 mmol/L (136-145); eGFR NON BLACK RACES > 60 (>60)
[2019-06-28 06:32] LABS: BAND NEUTROPHILS % 6 % (0-10)
[2019-06-28 06:33] LABS: PLATELET MORPHOLOGY COMMENT NORMAL (NORMAL)
[2019-06-28 06:34] LABS: ANISOCYTOSIS SLIGHT
[2019-06-28] MEDS: K-DUR TAB 20 MEQ PO PRN (06:59)
--- NOTE | 2019-06-28 09:44 | PCM.PROG ---
Progress Note Subjective Subjective: 68-year-old white male admitted for postoperative infection s/p colectomy wound to his lower abdomen. IV antibiotics since admission. WoundCx positive for E. Coli w/ sensitivities to Gentamycin. He has remained afebrile with stable wbc count. General Surgery consulted, recommends IV abx and placement of wound vac(06/26/19). CM is discussing possible swing-bed for appropriate treatment during this increase for additional care and pt unable to care for himself at home or administer IV abx at this time. Pt resting in bed, conversational. Denies any problems yesterday or overnight. Wound vac in place. Past Medical Family Social History Past Med/Fam/Surg Hx: No changes since H&P Allergies: Allergies No Known Drug Allergies Allergy (Verified 12/03/18 21:48) Review of Systems ROS: No change since H&P Vital Signs and I&O's Vital Signs: Temperature 97.9 F Pulse Rate [Left Brachial] 89 Pulse Rate 105 Respiratory Rate 18 Blood Pressure [Left Arm] 101/67 O2 Sat by Pulse Oximetry 96 Intake and Output: Intake & Output 06/25/19 06/26/19 06/27/19 06/28/19 23:59 23:59 23:59 23:59 Intake Total 180 / 180 5319 / 5319 480 / 480 Output Total 600 / 600 860 / 860 775 / 775 Balance -420 / -420 4459 / 4459 -295 / -295 Physical Exam Oriented: Normal Eyes: Normal Ear: Normal Nose: Normal Respiratory: Normal Cardiovascular: Normal : Normal Auscultation: Bowel Sounds: Normal Tenderness: Normal Skin: Normal Musculoskeletal: Normal Speech Pattern: Clear and Appropriate Laboratory and Diagnostics Result Diagrams: 06/28/19 04:13 06/28/19 04:13 Labs: Laboratory WBC 4.0 X10^3/uL (3.6-10.0) 06/28/19 04:13 RBC 3.29 X10^6/uL (4.7-6.0) L 06/28/19 04:13 Hgb 10.0 g/dL (13.5-18.0) L 06/28/19 04:13 Hct 29.8 % (42.0-54.0) L 06/28/19 04:13 MCV 90.8 fL (80.0-100.0) 06/28/19 04:13 MCH 30.5 pg (27.0-34.0) 06/28/19 04:13 MCHC 33.6 g/dL (33.0-35.0) 06/28/19 04:13 RDW 17.1 % (11.6-16.5) H 06/28/19 04:13 Plt Count 332 X10^3/uL (150.0-450.0) 06/28/19 04:13 Plt Count Comment Adequate (ADEQUATE) 06/28/19 04:13 MPV 6.7 fL (7.4-11.0) L 06/28/19 04:13 Neut % (Auto) 62.8 % (42.0-75.0) 06/28/19 04:13 Lymph % (Auto) 12.7 % (21.0-51.0) L 06/28/19 04:13 [place] % (Auto) 22.9 % (0.0-13.0) H 06/28/19 04:13 Eos % (Auto) 0.8 % (0.9-2.9) L 06/28/19 04:13 Baso % (Auto) 0.8 % (0.2-1.0) 06/28/19 04:13 Neut # (Auto) 2.5 x10^3/uL (2.2-4.8) 06/28/19 04:13 Lymph # (Auto) 0.5 X10^3/uL (1.3-2.9) L 06/28/19 04:13 [place] # (Auto) 0.9 x10^3/uL (0.3-0.8) H 06/28/19 04:13 Eos # (Auto) 0.0 x10^3/uL (0.0-0.2) 06/28/19 04:13 Baso # (Auto) 0.0 X10^3/uL (0.0-0.1) 06/28/19 04:13 Absolute Nucleated RBC 0.1 /100WBC 06/28/19 04:13 Total Counted 100 06/28/19 04:13 Neutrophils % (Manual) 59 % (39-76) 06/28/19 04:13 Band Neutrophils % 6 % (0-10) 06/28/19 04:13 Lymphocytes % (Manual) 16 % (13-43) 06/28/19 04:13 Monocytes % (Manual) 18 % (4-9) H 06/28/19 04:13 Eosinophils % (Manual) 1 % (0-6) 06/28/19 04:13 Plt Morphology Comment Normal (NORMAL) 06/28/19 04:13 RBC Morphology Abnormal (NORMAL) 06/28/19 04:13 Anisocytosis Slight A 06/28/19 04:13 Sodium 140 mmol/L (136-145) 06/28/19 04:13 Corrected Sodium 141 mmol/L (136-145) 06/28/19 04:13 Potassium 3.7 mmol/L (3.5-5.1) 06/28/19 04:13 Chloride 105 mmol/L (98-107) 06/28/19 04:13 Carbon Dioxide 24.4 mmol/L (21-32) 06/28/19 04:13 BUN 9 mg/dL (7-18) 06/28/19 04:13 Creatinine 0.68 mg/dL (0.70-1.30) L 06/28/19 04:13 Est GFR (MDRD) Af Amer > 60 (>60) 06/28/19 04:13 Est GFR (MDRD) Non-Af > 60 (>60) 06/28/19 04:13 Glucose 159 mg/dL (65-99) H 06/28/19 04:13 Calcium 7.9 mg/dL (8.5-10.1) L 06/28/19 04:13 Gentamicin Peak 3.9 ug/mL (5-10) L 06/27/19 23:10 Gentamicin Trough 1.1 ug/mL (0-1.9) 06/27/19 20:10 Plan (1) Wound infection after surgery: Status: Acute Plan: IV Gentamicin, Surgery consulted. Placement of wound vac(06/26/19) CM to work on possible swing bed placement. Labs stable, continue to monitor. (2) Status post colon resection: Status: Acute (3) COPD (chronic obstructive pulmonary disease): Status: Acute (4) BPH (benign prostatic hyperplasia): Status: Chronic
[2019-06-28] MEDS: NICOTINE PATCH TD SCH (09:52)
[2019-06-28] MEDS: TAB-A-VITE PO SCH (09:52)
[2019-06-28] MEDS: LOVENOX INJ 30 MG SYR SC SCH (09:53)
[2019-06-28] MEDS: ZOFRAN INJ 4 MG VIAL IVP PRN ×2 (13:51→21:26)
[2019-06-28] MEDS: FLOMAX PO SCH (21:27)
[2019-06-28] MEDS ORDERED: GENTAMICIN INJ ONE (21:29)
[2019-06-29] MEDS: NS 1000 ML 1,000 ML IV SCH ×4 (00:38→20:09)
[2019-06-29] MEDS ORDERED: GENTAMICIN INJ ONE (05:05)
[2019-06-29 05:15] LABS: BASOPHILS % (AUTO) 0.4 % (0.2-1.0); HEMATOCRIT 29.7 % (42.0-54.0); LYMPHOCYTES # (AUTO) 0.6 X10^3/uL (1.3-2.9); LYMPHOCYTES % (AUTO) 14.6 % (21.0-51.0); MEAN CORPUSCULAR HEMOGLOBIN 30.7 pg (27.0-34.0); MEAN CORPUSCULAR HGB CONC 33.7 g/dL (33.0-35.0); MEAN CORPUSCULAR VOLUME 91.4 fL (80.0-100.0); MEAN PLATELET VOLUME 6.8 fL (7.4-11.0); MONOCYTES # (AUTO) 0.9 x10^3/uL (0.3-0.8); MONOCYTES % (AUTO) 20.9 % (0.0-13.0); NEUTROPHILS # (AUTO) 2.6 x10^3/uL (2.2-4.8); NEUTROPHILS % (AUTO) 63.1 % (42.0-75.0); PLATELET COUNT 332 X10^3/uL (150.0-450.0); RED BLOOD COUNT 3.25 X10^6/uL (4.7-6.0); RED CELL DISTRIBUTION WIDTH 16.9 % (11.6-16.5); WHITE BLOOD COUNT 4.1 X10^3/uL (3.6-10.0)
[2019-06-29 05:16] LABS: CREATININE 0.61 mg/dL (0.70-1.30); GENTAMICIN,TROUGH 1.2 ug/mL (0-1.9)
[2019-06-29 05:17] LABS: BLOOD UREA NITROGEN 6 mg/dL (7-18); CALCIUM 8.1 mg/dL (8.5-10.1); CARBON DIOXIDE 25.5 mmol/L (21-32); CHLORIDE 106 mmol/L (98-107); COR NA(FOR HYPERGLY) 140 mmol/L (136-145); CREATININE 0.59 mg/dL (0.70-1.30); SODIUM 140 mmol/L (136-145); eGFR NON BLACK RACES > 60 (>60)
[2019-06-29 05:43] LABS: ANISOCYTOSIS SLIGHT; BAND NEUTROPHILS % 2 % (0-10); PLATELET MORPHOLOGY COMMENT NORMAL (NORMAL)
[2019-06-29] MEDS ORDERED: NS 100 ML IV 100 ML IV ONE (05:43)
[2019-06-29] MEDS: K-DUR TAB 20 MEQ PO PRN (06:00)
[2019-06-29] MEDS: GENTAMICIN INJ 100 MG in NS 100 ML IV 100 ML IV SCH ×3 (06:00→21:00)
[2019-06-29] MEDS: NORCO 5/325 MG TAB PO PRN ×3 (06:26→23:08)
[2019-06-29] MEDS: LOVENOX INJ 30 MG SYR SC SCH (10:02)
[2019-06-29] MEDS: NICOTINE PATCH TD SCH (10:03)
[2019-06-29] MEDS: TAB-A-VITE PO SCH (10:03)
[2019-06-29] MEDS: ZOFRAN INJ 4 MG VIAL IVP PRN (14:41)
[2019-06-29] MEDS: FLOMAX PO SCH (20:10)
[2019-06-30] MEDS: NS 1000 ML 1,000 ML IV SCH ×4 (04:20→17:12)
[2019-06-30] MEDS: NORCO 5/325 MG TAB PO PRN ×2 (05:05→20:32)
[2019-06-30] MEDS: GENTAMICIN INJ 100 MG in NS 100 ML IV 100 ML IV SCH ×3 (05:05→21:16)
[2019-06-30] MEDS: NICOTINE PATCH TD SCH (08:30)
[2019-06-30] MEDS: TAB-A-VITE PO SCH (08:33)
[2019-06-30] MEDS: LOVENOX INJ 30 MG SYR SC SCH (08:34)
[2019-06-30 14:09] LABS: CREATININE 0.8 mg/dL (0.70-1.30); GENTAMICIN,TROUGH 1.1 ug/mL (0-1.9)
[2019-06-30] MEDS: FLOMAX PO SCH (20:10)
[2019-07-01] MEDS: NS 1000 ML 1,000 ML IV SCH ×5 (01:35→23:00)
[2019-07-01] MEDS: NORCO 5/325 MG TAB PO PRN ×4 (04:31→20:34)
[2019-07-01] MEDS: GENTAMICIN INJ 100 MG in NS 100 ML IV 100 ML IV SCH ×3 (05:24→22:19)
[2019-07-01] MEDS: TAB-A-VITE PO SCH (08:50)
[2019-07-01] MEDS: LOVENOX INJ 30 MG SYR SC SCH (08:50)
[2019-07-01] MEDS: NICOTINE PATCH TD SCH (08:50)
--- NOTE | 2019-07-01 09:30 | DR.UPDATE ---
H&P Update History and Physical Update: History and Physical Update: 06/26/2019 History and Physical reviewed and patient examined. 06/19/2019 Yes with the following: s/p I&D of lower abdominal surgical wound
--- NOTE | 2019-07-01 10:59 | DR.PROGNOT ---
Hospital Progress Notes - Progress Note for Day of: Progress Note Date: 07/01/19 - Chief Complaint Chief Complaint: dressing was changed and wound was debrided at bedside .wound vac was applied again today . moderate improvement . - Past Medical Family Social History Past Med/Fam/Surg Hx: No changes since H&P Allergies: Allergies No Known Drug Allergies Allergy (Verified 12/03/18 21:48) - Review Of Systems ROS: No change since H&P - Vital Signs Vital Signs: Temperature 97.8 F Pulse Rate [Left Brachial] 92 Pulse Rate 100 Respiratory Rate 18 Blood Pressure [Right Arm] 134/63 Blood Pressure [Left Arm] 150/70 O2 Sat by Pulse Oximetry 95 - Physical Exam Oriented: Normal Eyes: Normal Ear: Normal Nose: Normal Respiratory: Normal Cardiovascular: Normal : Normal GI:Auscultation: Normal GI: Tenderness: Normal Skin: Normal, Other (open wound lower midline incision 3x2cm with 2cm tunneling .) Musculoskeletal: Normal Speech Pattern: Clear, Appropriate - Laboratory and Diagnostics Result Diagrams: 06/29/19 04:23 06/30/19 13:50 Labs: Laboratory WBC 4.1 X10^3/uL (3.6-10.0) 06/29/19 04:23 RBC 3.25 X10^6/uL (4.7-6.0) L 06/29/19 04:23 Hgb 10.0 g/dL (13.5-18.0) L 06/29/19 04:23 Hct 29.7 % (42.0-54.0) L 06/29/19 04:23 MCV 91.4 fL (80.0-100.0) 06/29/19 04:23 MCH 30.7 pg (27.0-34.0) 06/29/19 04:23 MCHC 33.7 g/dL (33.0-35.0) 06/29/19 04:23 RDW 16.9 % (11.6-16.5) H 06/29/19 04:23 Plt Count 332 X10^3/uL (150.0-450.0) 06/29/19 04:23 Plt Count Comment Adequate (ADEQUATE) 06/29/19 04:23 MPV 6.8 fL (7.4-11.0) L 06/29/19 04:23 Neut % (Auto) 63.1 % (42.0-75.0) 06/29/19 04:23 Lymph % (Auto) 14.6 % (21.0-51.0) L 06/29/19 04:23 [place] % (Auto) 20.9 % (0.0-13.0) H 06/29/19 04:23 Eos % (Auto) 1.0 % (0.9-2.9) 06/29/19 04:23 Baso % (Auto) 0.4 % (0.2-1.0) 06/29/19 04:23 Neut # (Auto) 2.6 x10^3/uL (2.2-4.8) 06/29/19 04:23 Lymph # (Auto) 0.6 X10^3/uL (1.3-2.9) L 06/29/19 04:23 [place] # (Auto) 0.9 x10^3/uL (0.3-0.8) H 06/29/19 04:23 Eos # (Auto) 0.0 x10^3/uL (0.0-0.2) 06/29/19 04:23 Baso # (Auto) 0.0 X10^3/uL (0.0-0.1) 06/29/19 04:23 Absolute Nucleated RBC 0.3 /100WBC 06/29/19 04:23 Total Counted 100 06/29/19 04:23 Neutrophils % (Manual) 66 % (39-76) 06/29/19 04:23 Band Neutrophils % 2 % (0-10) 06/29/19 04:23 Lymphocytes % (Manual) 18 % (13-43) 06/29/19 04:23 Monocytes % (Manual) 14 % (4-9) H 06/29/19 04:23 Eosinophils % (Manual) 1 % (0-6) 06/28/19 04:13 Plt Morphology Comment Normal (NORMAL) 06/29/19 04:23 RBC Morphology Abnormal (NORMAL) 06/29/19 04:23 Anisocytosis Slight A 06/29/19 04:23 Sodium 140 mmol/L (136-145) 06/29/19 04:23 Corrected Sodium 140 mmol/L (136-145) 06/29/19 04:23 Potassium 3.7 mmol/L (3.5-5.1) 06/29/19 04:23 Chloride 106 mmol/L (98-107) 06/29/19 04:23 Carbon Dioxide 25.5 mmol/L (21-32) 06/29/19 04:23 BUN 6 mg/dL (7-18) L 06/29/19 04:23 Creatinine 0.80 mg/dL (0.70-1.30) 06/30/19 13:50 Est GFR (MDRD) Af Amer > 60 (>60) 06/29/19 04:23 Est GFR (MDRD) Non-Af > 60 (>60) 06/29/19 04:23 Glucose 117 mg/dL (65-99) H 06/29/19 04:23 Calcium 8.1 mg/dL (8.5-10.1) L 06/29/19 04:23 Gentamicin Peak 4.0 ug/mL (5-10) L 06/30/19 22:50 Gentamicin Trough 1.1 ug/mL (0-1.9) 06/30/19 13:50 - Assessment and Plan 1: infected wound abdominal wall .( has wound vac and IV ATB ). recal ca . s/p resection and chemo/ radiation Tx . will discharge in am and continue wound vac at home . - Problem Patient Problems: Patient Problems Status post colon resection (Acute) Z90.49 Wound infection after surgery (Acute) T81.49XA Abdominal pain (Acute) R10.9 Colon cancer (Acute) C18.9
[2019-07-01] MEDS: FLOMAX PO SCH (20:34)
[2019-07-01 21:46] LABS: CREATININE 0.6 mg/dL (0.70-1.30); GENTAMICIN,TROUGH 0.9 ug/mL (0-1.9)
[2019-07-02] MEDS: NORCO 5/325 MG TAB PO PRN ×4 (02:00→23:00)
[2019-07-02] MEDS: NS 1000 ML 1,000 ML IV SCH ×4 (05:15→18:49)
[2019-07-02] MEDS: GENTAMICIN INJ 100 MG in NS 100 ML IV 100 ML IV SCH ×3 (05:40→22:00)
[2019-07-02] MEDS: LOVENOX INJ 30 MG SYR SC SCH (08:42)
[2019-07-02] MEDS: NICOTINE PATCH TD SCH (08:43)
[2019-07-02] MEDS: TAB-A-VITE PO SCH (08:43)
[2019-07-02] MEDS ORDERED: NS 100 ML IV 100 ML IV ONE ×2 (14:48→20:41)
[2019-07-02] MEDS: FLOMAX PO SCH (21:00)
[2019-07-02 22:01] LABS: CREATININE 0.62 mg/dL (0.70-1.30); GENTAMICIN,TROUGH 1.3 ug/mL (0-1.9)
[2019-07-03] MEDS: NS 1000 ML 1,000 ML IV SCH (04:02)
[2019-07-03] MEDS ORDERED: NS 100 ML IV 100 ML IV ONE (05:19)
[2019-07-03] MEDS: GENTAMICIN INJ 100 MG in NS 100 ML IV 100 ML IV SCH (05:22)
[2019-07-03] MEDS: NORCO 5/325 MG TAB PO PRN (05:40)
[2019-07-03] MEDS: TAB-A-VITE PO SCH (10:15)
[2019-07-03] MEDS: LOVENOX INJ 30 MG SYR SC SCH (10:15)
[2019-07-03] MEDS: NICOTINE PATCH TD SCH (10:15)
--- NOTE | 2019-07-03 13:33 | DR.PROGNOT ---
Hospital Progress Notes - Progress Note for Day of: Progress Note Date: 07/03/19 - Chief Complaint Chief Complaint: dressing was changed . the wound is healing slowly ,. no cellulitis or necrosis . - Past Medical Family Social History Past Med/Fam/Surg Hx: No changes since H&P Allergies: Allergies No Known Drug Allergies Allergy (Verified 12/03/18 21:48) - Review Of Systems ROS: No change since H&P - Vital Signs Vital Signs: Temperature 98.1 F Pulse Rate [Left Brachial] 105 Pulse Rate 100 Respiratory Rate 15 Blood Pressure [Right Arm] 134/63 Blood Pressure [Left Arm] 122/71 O2 Sat by Pulse Oximetry 96 - Physical Exam Oriented: Normal Eyes: Normal Ear: Normal Nose: Normal Respiratory: Normal Cardiovascular: Normal : Normal GI:Auscultation: Normal GI: Tenderness: Normal Skin: Normal, Other (open wound lower midline incision 3x2cm with 2cm tunneling .) Musculoskeletal: Normal Speech Pattern: Clear, Appropriate - Laboratory and Diagnostics Result Diagrams: 06/29/19 04:23 07/02/19 21:36 Labs: Laboratory WBC 4.1 X10^3/uL (3.6-10.0) 06/29/19 04:23 RBC 3.25 X10^6/uL (4.7-6.0) L 06/29/19 04:23 Hgb 10.0 g/dL (13.5-18.0) L 06/29/19 04:23 Hct 29.7 % (42.0-54.0) L 06/29/19 04:23 MCV 91.4 fL (80.0-100.0) 06/29/19 04:23 MCH 30.7 pg (27.0-34.0) 06/29/19 04:23 MCHC 33.7 g/dL (33.0-35.0) 06/29/19 04:23 RDW 16.9 % (11.6-16.5) H 06/29/19 04:23 Plt Count 332 X10^3/uL (150.0-450.0) 06/29/19 04:23 Plt Count Comment Adequate (ADEQUATE) 06/29/19 04:23 MPV 6.8 fL (7.4-11.0) L 06/29/19 04:23 Neut % (Auto) 63.1 % (42.0-75.0) 06/29/19 04:23 Lymph % (Auto) 14.6 % (21.0-51.0) L 06/29/19 04:23 [place] % (Auto) 20.9 % (0.0-13.0) H 06/29/19 04:23 Eos % (Auto) 1.0 % (0.9-2.9) 06/29/19 04:23 Baso % (Auto) 0.4 % (0.2-1.0) 06/29/19 04:23 Neut # (Auto) 2.6 x10^3/uL (2.2-4.8) 06/29/19 04:23 Lymph # (Auto) 0.6 X10^3/uL (1.3-2.9) L 06/29/19 04:23 [place] # (Auto) 0.9 x10^3/uL (0.3-0.8) H 06/29/19 04:23 Eos # (Auto) 0.0 x10^3/uL (0.0-0.2) 06/29/19 04:23 Baso # (Auto) 0.0 X10^3/uL (0.0-0.1) 06/29/19 04:23 Absolute Nucleated RBC 0.3 /100WBC 06/29/19 04:23 Total Counted 100 06/29/19 04:23 Neutrophils % (Manual) 66 % (39-76) 06/29/19 04:23 Band Neutrophils % 2 % (0-10) 06/29/19 04:23 Lymphocytes % (Manual) 18 % (13-43) 06/29/19 04:23 Monocytes % (Manual) 14 % (4-9) H 06/29/19 04:23 Eosinophils % (Manual) 1 % (0-6) 06/28/19 04:13 Plt Morphology Comment Normal (NORMAL) 06/29/19 04:23 RBC Morphology Abnormal (NORMAL) 06/29/19 04:23 Anisocytosis Slight A 06/29/19 04:23 Sodium 140 mmol/L (136-145) 06/29/19 04:23 Corrected Sodium 140 mmol/L (136-145) 06/29/19 04:23 Potassium 3.7 mmol/L (3.5-5.1) 06/29/19 04:23 Chloride 106 mmol/L (98-107) 06/29/19 04:23 Carbon Dioxide 25.5 mmol/L (21-32) 06/29/19 04:23 BUN 6 mg/dL (7-18) L 06/29/19 04:23 Creatinine 0.62 mg/dL (0.70-1.30) L 07/02/19 21:36 Est GFR (MDRD) Af Amer > 60 (>60) 06/29/19 04:23 Est GFR (MDRD) Non-Af > 60 (>60) 06/29/19 04:23 Glucose 117 mg/dL (65-99) H 06/29/19 04:23 Calcium 8.1 mg/dL (8.5-10.1) L 06/29/19 04:23 Gentamicin Peak 5.1 ug/mL (5-10) 07/02/19 23:40 Gentamicin Trough 1.3 ug/mL (0-1.9) 07/02/19 21:36 - Assessment and Plan 1: infected wound abdominal wall .( has wound vac and IV ATB ). recal ca . s/p resection and chemo/ radiation Tx . will discharge and continue wound vac at home . f/u in the office next week . - Problem Patient Problems: Patient Problems Status post colon resection (Acute) Z90.49 Wound infection after surgery (Acute) T81.49XA Abdominal pain (Acute) R10.9 Colon cancer (Acute) C18.9
[2019-07-03 13:57] VITALS: BP 138/69
== END 2019-07-03 10:35 | disposition home or self-care (01) | DRG 949 ==
LOC: MED/SURG 14:56
PROVIDERS: ADMIT Internal Medicine; ATTEND Internal Medicine
DX: N40.0 Benign prostatic hyperplasia without lower urinary tract symptoms; C18.8 Malignant neoplasm of overlapping sites of colon; T81.49XA Infection following a procedure, other surgical site, initial encounter; Z90.49 Acquired absence of other specified parts of digestive tract; Z51.89 Encounter for other specified aftercare; Z92.21 Personal history of antineoplastic chemotherapy; B96.29 Other Escherichia coli [E. coli] as the cause of diseases classified elsewhere; Z93.3 Colostomy status; J44.9 Chronic obstructive pulmonary disease, unspecified
CPT/HCPCS: 36415; 80048; 80170; 82565; 85025; 94760; 97161; J1580; J1642; J1650; J2270; J2405; J7030; J7050

== ENCOUNTER 2019-08-05 08:22 | Inpatient (IN) ==
[2019-08-05] MEDS ORDERED: NS 100 ML IV 100 ML IV ONE (08:44)
[2019-08-05] MEDS ORDERED: LR 1000 ML IV 1,000 ML IV ONE ×2 (08:44→12:27)
[2019-08-05] MEDS ORDERED: ANCEF VIAL 1 GRAM ONE (08:44)
[2019-08-05 09:22] VITALS: BMI 18.3
[2019-08-05] MEDS ORDERED: DUONEB 0.5 MG/3 MG NEB ONE (12:24)
[2019-08-05] MEDS ORDERED: FENTANYL INJ 250 mcg ONE ×2 (12:27→15:09)
[2019-08-05] MEDS ORDERED: DECADRON INJ ONE ×2 (12:27→15:09)
[2019-08-05] MEDS ORDERED: ZEMURON ONE ×2 (12:28→15:09)
[2019-08-05] MEDS ORDERED: LEVAQUIN PREMIX IV 500 MG 500 MG/100 ML BAG IV ONE (12:56)
[2019-08-05] MEDS ORDERED: BACITRACIN VIAL ONE (13:02)
[2019-08-05] MEDS ORDERED: BACTROBAN TOPICAL OINT ONE (13:02)
[2019-08-05] MEDS ORDERED: FENTANYL INJ 100 mcg IVP ONE (14:27)
[2019-08-05] MEDS ORDERED: BENADRYL INJ 50 MG VIAL IVP PRN (14:33)
[2019-08-05] MEDS ORDERED: ZOFRAN INJ 4 MG VIAL IVP PRN (14:33)
[2019-08-05] MEDS ORDERED: PHENERGAN INJ 25 MG IM PRN (14:33)
[2019-08-05] MEDS ORDERED: REGLAN INJ 10 MG VIAL IVP PRN (14:33)
[2019-08-05] MEDS: DILAUDID INJ IVP PRN ×5 (14:37→21:35)
[2019-08-05] MEDS ORDERED: DILAUDID INJ ONE (14:59)
[2019-08-05] MEDS ORDERED: QUELICIN (OR ANECTINE) ONE (15:09)
[2019-08-05] MEDS ORDERED: DIPRIVAN VIAL ONE (15:09)
[2019-08-05] MEDS ORDERED: ULTANE GAS IN ONE (15:09)
[2019-08-05] MEDS ORDERED: VERSED ONE (15:09)
[2019-08-05] MEDS ORDERED: NEOSTIGMINE INJ ONE (15:09)
[2019-08-05] MEDS ORDERED: ZOFRAN INJ 4 MG VIAL ONE (15:09)
[2019-08-05] MEDS ORDERED: ROBINUL ONE (15:09)
[2019-08-05] MEDS ORDERED: XYLOCAINE 1 % (PLAIN) ONE (15:09)
[2019-08-05] MEDS ORDERED: TORADOL 30 MG VIAL ONE (15:09)
[2019-08-05] MEDS: D5 1/2 NS 1000 ML 1,000 ML IV SCH ×2 (15:25→21:43)
[2019-08-06] MEDS: DILAUDID INJ IVP PRN ×6 (01:36→22:02)
[2019-08-06] MEDS: D5 1/2 NS 1000 ML 1,000 ML IV SCH ×5 (04:06→17:53)
[2019-08-06 05:12] LABS: BASOPHILS % (AUTO) 0.2 % (0.2-1.0); HEMATOCRIT 32.4 % (42.0-54.0); HEMOGLOBIN 10.5 g/dL (13.5-18.0); LYMPHOCYTES # (AUTO) 0.8 X10^3/uL (1.3-2.9); LYMPHOCYTES % (AUTO) 6.8 % (21.0-51.0); MEAN CORPUSCULAR HEMOGLOBIN 28.9 pg (27.0-34.0); MEAN CORPUSCULAR HGB CONC 32.6 g/dL (33.0-35.0); MEAN CORPUSCULAR VOLUME 88.8 fL (80.0-100.0); MEAN PLATELET VOLUME 7.2 fL (7.4-11.0); MONOCYTES # (AUTO) 2.4 x10^3/uL (0.3-0.8); MONOCYTES % (AUTO) 21.4 % (0.0-13.0); NEUTROPHILS # (AUTO) 7.9 x10^3/uL (2.2-4.8); NEUTROPHILS % (AUTO) 71.6 % (42.0-75.0); PLATELET COUNT 200 X10^3/uL (150.0-450.0); RED BLOOD COUNT 3.64 X10^6/uL (4.7-6.0); RED CELL DISTRIBUTION WIDTH 14.5 % (11.6-16.5)
[2019-08-06 05:30] LABS: ALANINE AMINOTRANSFERASE 11 Units/L (12-78); ALBUMIN 2.7 g/dL (3.4-5.0); ALKALINE PHOSPHATASE 51 Units/L (46-116); ASPARTATE AMINO TRANSFERASE 17 Units/L (15-37); BLOOD UREA NITROGEN 8 mg/dL (7-18); CALCIUM 7.6 mg/dL (8.5-10.1); CARBON DIOXIDE 29.8 mmol/L (21-32); CHLORIDE 100 mmol/L (98-107); COR CA(FOR HYPOALB) 8.6 mg/dL (8.5-10.1); COR NA(FOR HYPERGLY) 136 mmol/L (136-145); CREATININE 0.64 mg/dL (0.70-1.30); SODIUM 135 mmol/L (136-145); TOTAL PROTEIN 6.1 g/dL (6.4-8.2); eGFR NON BLACK RACES > 60 (>60)
[2019-08-06 05:37] LABS: PLATELET MORPHOLOGY COMMENT NORMAL (NORMAL)
[2019-08-06] MEDS ORDERED: NICOTINE PATCH TD ONE (07:53)
[2019-08-06] MEDS: NICOTINE PATCH TD SCH (07:59)
[2019-08-06] MEDS: PROTONIX INJ 40 MG VIAL IVP SCH (09:12)
[2019-08-06] MEDS: LOVENOX INJ 40 MG SYR SC SCH (09:12)
[2019-08-06] MEDS: FLOMAX PO SCH (09:22)
--- NOTE | 2019-08-06 10:21 | DR.PROGNOT ---
Hospital Progress Notes - Progress Note for Day of: Progress Note Date: 08/06/19 - Chief Complaint Chief Complaint: po bowel resection and closure of colostomy ( see OR report ). no drainage in NGT . moderate incisional pain . afebrile . - Past Medical Family Social History Past Med/Fam/Surg Hx: No changes since H&P Allergies: Allergies No Known Drug Allergies Allergy (Verified 12/03/18 21:48) - Review Of Systems ROS: No change since H&P - Vital Signs Vital Signs: Temperature 98.0 F Pulse Rate [Apical] 72 Pulse Rate 99 Respiratory Rate 19 Blood Pressure [Right Arm] 134/63 Blood Pressure [Left Arm] 119/63 Blood Pressure [Right Arm] 124/60 Blood Pressure 104/56 O2 Sat by Pulse Oximetry 96 - Physical Exam Oriented: Normal Eyes: Normal Ear: Normal Nose: Normal Throat: Normal Respiratory: Normal Cardiovascular: Normal : Normal GI:Auscultation: Decreased GI:Palpation: Normal GI: Tenderness: Diffuse (mild distention and teenderness , BS hypoactive .) Mood Description: Calm Speech Pattern: Clear, Appropriate - Laboratory and Diagnostics Result Diagrams: 08/06/19 04:17 08/06/19 04:17 Labs: Laboratory WBC 11.0 X10^3/uL (3.6-10.0) H 08/06/19 04:17 RBC 3.64 X10^6/uL (4.7-6.0) L 08/06/19 04:17 Hgb 10.5 g/dL (13.5-18.0) L D 08/06/19 04:17 Hct 32.4 % (42.0-54.0) L 08/06/19 04:17 MCV 88.8 fL (80.0-100.0) 08/06/19 04:17 MCH 28.9 pg (27.0-34.0) 08/06/19 04:17 MCHC 32.6 g/dL (33.0-35.0) L 08/06/19 04:17 RDW 14.5 % (11.6-16.5) 08/06/19 04:17 Plt Count 200 X10^3/uL (150.0-450.0) 08/06/19 04:17 Plt Count Comment Adequate (ADEQUATE) 08/06/19 04:17 MPV 7.2 fL (7.4-11.0) L 08/06/19 04:17 Neut % (Auto) 71.6 % (42.0-75.0) 08/06/19 04:17 Lymph % (Auto) 6.8 % (21.0-51.0) L 08/06/19 04:17 [place] % (Auto) 21.4 % (0.0-13.0) H 08/06/19 04:17 Eos % (Auto) 0.0 % (0.9-2.9) L 08/06/19 04:17 Baso % (Auto) 0.2 % (0.2-1.0) 08/06/19 04:17 Neut # (Auto) 7.9 x10^3/uL (2.2-4.8) H 08/06/19 04:17 Lymph # (Auto) 0.8 X10^3/uL (1.3-2.9) L 08/06/19 04:17 [place] # (Auto) 2.4 x10^3/uL (0.3-0.8) H 08/06/19 04:17 Eos # (Auto) 0.0 x10^3/uL (0.0-0.2) 08/06/19 04:17 Baso # (Auto) 0.0 X10^3/uL (0.0-0.1) 08/06/19 04:17 Absolute Nucleated RBC 0.0 /100WBC 08/06/19 04:17 Total Counted 100 08/06/19 04:17 Neutrophils % (Manual) 67 % (39-76) 08/06/19 04:17 Lymphocytes % (Manual) 17 % (13-43) 08/06/19 04:17 Monocytes % (Manual) 8 % (4-9) 08/06/19 04:17 Atypical Lymphocytes 8 08/06/19 04:17 Plt Morphology Comment Normal (NORMAL) 08/06/19 04:17 RBC Morphology Normal (NORMAL) 08/06/19 04:17 Sodium 135 mmol/L (136-145) L 08/06/19 04:17 Corrected Sodium 136 mmol/L (136-145) 08/06/19 04:17 Potassium 4.2 mmol/L (3.5-5.1) 08/06/19 04:17 Chloride 100 mmol/L (98-107) 08/06/19 04:17 Carbon Dioxide 29.8 mmol/L (21-32) 08/06/19 04:17 BUN 8 mg/dL (7-18) 08/06/19 04:17 Creatinine 0.64 mg/dL (0.70-1.30) L 08/06/19 04:17 Est GFR (MDRD) Af Amer > 60 (>60) 08/06/19 04:17 Est GFR (MDRD) Non-Af > 60 (>60) 08/06/19 04:17 Glucose 134 mg/dL (65-99) H 08/06/19 04:17 Calcium 7.6 mg/dL (8.5-10.1) L 08/06/19 04:17 Corrected Calcium 8.6 mg/dL (8.5-10.1) 08/06/19 04:17 Total Bilirubin 0.50 mg/dL (0.2-1.0) 08/06/19 04:17 AST 17 Units/L (15-37) 08/06/19 04:17 ALT 11 Units/L (12-78) L 08/06/19 04:17 Alkaline Phosphatase 51 Units/L (46-116) 08/06/19 04:17 Total Protein 6.1 g/dL (6.4-8.2) L 08/06/19 04:17 Albumin 2.7 g/dL (3.4-5.0) L 08/06/19 04:17 Globulin 3.4 g/dL (2.5-4.5) 08/06/19 04:17 Albumin/Globulin Ratio 0.8 Ratio (1.1-2.1) L 08/06/19 04:17 Tissue Pathology To follow 08/05/19 14:00 - Assessment and Plan 1: post op segmental resection of TC . closure of colostomy . lysis of adhesions . to D/C NGT and banda . may have water . OOB . and same po care .
--- NOTE | 2019-08-06 13:15 | DR.H&P ---
H&P - History & Physical for Day of: H&P Date: 08/05/19 - Chief Complaint Chief Complaint: 68 wm presented for elective bowel resection and closure of colostomy performed per Dr Morris, with ng tube placement at [facility]. Plan to obtain am labs and follow post operative plan of care. - History of Present Illness History of Present Illness: bowel resection and closure of colostomy per dr rebolledo. hx colon ca, hx of copd, bph - Past Medical History Past Medical History: Asthma, COPD, PUD Additional Medical History: colon cancer - Past Surgical History Surgical History: Bowel Resection - Family History Family Medical History: Diabetes Mellitus, Heart Failure, Hypertension - Social History Does patient currently use any type of tobacco product: Yes Have you used tobacco products in the last 12 months: Yes Type of Tobacco Use: Cigarettes How many years tobacco product used: 55 Does any household member use tobacco: Yes Alcohol Use: Occasionally Drug Use: Marijuana - Medications Home Medications: No Known Drug Allergies Allergy (Verified 12/03/18 21:48) - Review of Systems Constitutional: Weakness Eyes: No Symptoms Reported ENT: No Symptoms Reported Respiratory: No Symptoms Reported Cardiovascular: No Symptoms Reported Gastrointestinal: Nausea, Abdominal Pain Genitourinary: No Symptoms Reported Musculoskeletal: No Symptoms Reported Skin: Wound Neurological: No Symptoms Reported - Physical Exam Vital Signs: Temperature 98.0 F Pulse Rate [Apical] 72 Pulse Rate 83 Respiratory Rate 18 Blood Pressure [Right Arm] 134/63 Blood Pressure [Left Arm] 119/63 Blood Pressure [Right Arm] 124/60 Blood Pressure 107/57 O2 Sat by Pulse Oximetry 100 Oriented: Normal Eyes: Normal Ear: Normal Nose: Normal Throat: Normal Respiratory: RLL Diminished, LLL Diminished Cardiovascular: Normal : Normal Auscultation: Bowel Sounds: Normal Palpation: Normal Tenderness: Diffuse Skin: Wound (post operative wound) Musculoskeletal: Back:Thoracic, Back:Lumbar Psychiatric: Normal Speech Pattern: Clear, Appropriate - Assessment/Plan (1) Status post colon resection Status: Acute Plan: ng tube at [facility]. pain control, wound care per Dr Morris (2) History of colostomy reversal Status: Acute (3) COPD (chronic obstructive pulmonary disease) Status: Acute (4) Colon cancer Qualifiers: Colon location: overlapping sites Qualified Code(s): C18.8 - Malignant neoplasm of overlapping sites of colon Status: Acute - Allergies Allergies/Adverse Reactions: Allergies Allergy/AdvReac Type Severity Reaction Status Date / Time No Known Drug Allergies Allergy Verified 12/03/18 21:48
--- NOTE | 2019-08-06 13:20 | PCM.PROG ---
Progress Note - Progress Note for Day of Date of Exam: 08/06/19 - Subjective Subjective: 68 WM ONE DAY POST OP COLOSTOMY REVERSAL PER DR BARLOW. NG TUBE REMOVED THIS AM AND HOME MEDICATION RESUMED. PT HAS UPPER ABDOMINAL WOUND, LOWER CHRONIC ABDOMINAL WOUND WITH DRESSING INTACT. WBC 11. HGB 10.5 - Past Medical Family Social History Past Med/Fam/Surg Hx: No changes since H&P Allergies: Allergies No Known Drug Allergies Allergy (Verified 12/03/18 21:48) - Review of Systems ROS: No change since H&P - Vital Signs and I&O's Vital Signs: Temperature 98.0 F Pulse Rate [Apical] 72 Pulse Rate 83 Respiratory Rate 18 Blood Pressure [Right Arm] 134/63 Blood Pressure [Left Arm] 119/63 Blood Pressure [Right Arm] 124/60 Blood Pressure 107/57 O2 Sat by Pulse Oximetry 100 Intake and Output: Intake & Output 08/04/19 08/05/19 08/06/19 08/07/19 11:59 11:59 11:59 11:59 Intake Total 3844 / 3844 Output Total 1641 / 1641 Balance 2203 / 2203 - Physical Exam Oriented: Normal Eyes: Normal Ear: Normal Nose: Normal Throat: Normal Respiratory: Normal Cardiovascular: Normal : Normal Auscultation: Bowel Sounds: Normal Tenderness: Diffuse Skin: Wound (post operative wound) Musculoskeletal: Back:Thoracic, Back:Lumbar Psychiatric: Normal Mood Description: Calm Speech Pattern: Clear, Appropriate - Laboratory and Diagnostics Result Diagrams: 08/06/19 04:17 08/06/19 04:17 Labs: Laboratory WBC 11.0 X10^3/uL (3.6-10.0) H 08/06/19 04:17 RBC 3.64 X10^6/uL (4.7-6.0) L 08/06/19 04:17 Hgb 10.5 g/dL (13.5-18.0) L D 08/06/19 04:17 Hct 32.4 % (42.0-54.0) L 08/06/19 04:17 MCV 88.8 fL (80.0-100.0) 08/06/19 04:17 MCH 28.9 pg (27.0-34.0) 08/06/19 04:17 MCHC 32.6 g/dL (33.0-35.0) L 08/06/19 04:17 RDW 14.5 % (11.6-16.5) 08/06/19 04:17 Plt Count 200 X10^3/uL (150.0-450.0) 08/06/19 04:17 Plt Count Comment Adequate (ADEQUATE) 08/06/19 04:17 MPV 7.2 fL (7.4-11.0) L 08/06/19 04:17 Neut % (Auto) 71.6 % (42.0-75.0) 08/06/19 04:17 Lymph % (Auto) 6.8 % (21.0-51.0) L 08/06/19 04:17 [place] % (Auto) 21.4 % (0.0-13.0) H 08/06/19 04:17 Eos % (Auto) 0.0 % (0.9-2.9) L 08/06/19 04:17 Baso % (Auto) 0.2 % (0.2-1.0) 08/06/19 04:17 Neut # (Auto) 7.9 x10^3/uL (2.2-4.8) H 08/06/19 04:17 Lymph # (Auto) 0.8 X10^3/uL (1.3-2.9) L 08/06/19 04:17 [place] # (Auto) 2.4 x10^3/uL (0.3-0.8) H 08/06/19 04:17 Eos # (Auto) 0.0 x10^3/uL (0.0-0.2) 08/06/19 04:17 Baso # (Auto) 0.0 X10^3/uL (0.0-0.1) 08/06/19 04:17 Absolute Nucleated RBC 0.0 /100WBC 08/06/19 04:17 Total Counted 100 08/06/19 04:17 Neutrophils % (Manual) 67 % (39-76) 08/06/19 04:17 Lymphocytes % (Manual) 17 % (13-43) 08/06/19 04:17 Monocytes % (Manual) 8 % (4-9) 08/06/19 04:17 Atypical Lymphocytes 8 08/06/19 04:17 Plt Morphology Comment Normal (NORMAL) 08/06/19 04:17 RBC Morphology Normal (NORMAL) 08/06/19 04:17 Sodium 135 mmol/L (136-145) L 08/06/19 04:17 Corrected Sodium 136 mmol/L (136-145) 08/06/19 04:17 Potassium 4.2 mmol/L (3.5-5.1) 08/06/19 04:17 Chloride 100 mmol/L (98-107) 08/06/19 04:17 Carbon Dioxide 29.8 mmol/L (21-32) 08/06/19 04:17 BUN 8 mg/dL (7-18) 08/06/19 04:17 Creatinine 0.64 mg/dL (0.70-1.30) L 08/06/19 04:17 Est GFR (MDRD) Af Amer > 60 (>60) 08/06/19 04:17 Est GFR (MDRD) Non-Af > 60 (>60) 08/06/19 04:17 Glucose 134 mg/dL (65-99) H 08/06/19 04:17 Calcium 7.6 mg/dL (8.5-10.1) L 08/06/19 04:17 Corrected Calcium 8.6 mg/dL (8.5-10.1) 08/06/19 04:17 Total Bilirubin 0.50 mg/dL (0.2-1.0) 08/06/19 04:17 AST 17 Units/L (15-37) 08/06/19 04:17 ALT 11 Units/L (12-78) L 08/06/19 04:17 Alkaline Phosphatase 51 Units/L (46-116) 08/06/19 04:17 Total Protein 6.1 g/dL (6.4-8.2) L 08/06/19 04:17 Albumin 2.7 g/dL (3.4-5.0) L 08/06/19 04:17 Globulin 3.4 g/dL (2.5-4.5) 08/06/19 04:17 Albumin/Globulin Ratio 0.8 Ratio (1.1-2.1) L 08/06/19 04:17 Tissue Pathology To follow 08/05/19 14:00 - Plan (1) Status post colon resection Status: Acute Plan: NG TUBE DC, CLEAR LIQUIDS. pain control, wound care per Dr Barlow (2) History of colostomy reversal Status: Acute (3) COPD (chronic obstructive pulmonary disease) Status: Acute (4) Colon cancer Status: Acute Qualifiers: Colon location: overlapping sites Qualified Code(s): C18.8 - Malignant neoplasm of overlapping sites of colon
[2019-08-07] MEDS: D5 1/2 NS 1000 ML 1,000 ML IV SCH ×4 (00:28→23:12)
[2019-08-07] MEDS: DILAUDID INJ IVP PRN ×6 (02:02→22:05)
[2019-08-07 05:22] LABS: BASOPHILS % (AUTO) 0.3 % (0.2-1.0); EOSINOPHILS # (AUTO) 0.1 x10^3/uL (0.0-0.2); EOSINOPHILS % (AUTO) 1.2 % (0.9-2.9); HEMATOCRIT 30.3 % (42.0-54.0); HEMOGLOBIN 10.2 g/dL (13.5-18.0); LYMPHOCYTES # (AUTO) 0.5 X10^3/uL (1.3-2.9); LYMPHOCYTES % (AUTO) 8.7 % (21.0-51.0); MEAN CORPUSCULAR HEMOGLOBIN 29.9 pg (27.0-34.0); MEAN CORPUSCULAR HGB CONC 33.7 g/dL (33.0-35.0); MEAN CORPUSCULAR VOLUME 88.7 fL (80.0-100.0); MEAN PLATELET VOLUME 7.7 fL (7.4-11.0); MONOCYTES # (AUTO) 1.4 x10^3/uL (0.3-0.8); MONOCYTES % (AUTO) 24.9 % (0.0-13.0); NEUTROPHILS # (AUTO) 3.7 x10^3/uL (2.2-4.8); NEUTROPHILS % (AUTO) 64.9 % (42.0-75.0); PLATELET COUNT 174 X10^3/uL (150.0-450.0); RED BLOOD COUNT 3.42 X10^6/uL (4.7-6.0); RED CELL DISTRIBUTION WIDTH 14.3 % (11.6-16.5); WHITE BLOOD COUNT 5.7 X10^3/uL (3.6-10.0)
[2019-08-07 05:38] LABS: ALANINE AMINOTRANSFERASE 10 Units/L (12-78); ALBUMIN 2.6 g/dL (3.4-5.0); ALKALINE PHOSPHATASE 52 Units/L (46-116); ASPARTATE AMINO TRANSFERASE 16 Units/L (15-37); BLOOD UREA NITROGEN 2 mg/dL (7-18); CALCIUM 7.9 mg/dL (8.5-10.1); CARBON DIOXIDE 32.5 mmol/L (21-32); CHLORIDE 101 mmol/L (98-107); COR NA(FOR HYPERGLY) 136 mmol/L (136-145); SODIUM 136 mmol/L (136-145); eGFR NON BLACK RACES > 60 (>60)
[2019-08-07 05:54] LABS: PLATELET MORPHOLOGY COMMENT NORMAL (NORMAL)
[2019-08-07] MEDS: FLOMAX PO SCH (08:58)
[2019-08-07] MEDS: NICOTINE PATCH TD SCH (08:59)
[2019-08-07] MEDS: PROTONIX INJ 40 MG VIAL IVP SCH (08:59)
[2019-08-07] MEDS: LOVENOX INJ 40 MG SYR SC SCH (09:00)
--- NOTE | 2019-08-07 10:29 | DR.PROGNOT ---
Hospital Progress Notes - Progress Note for Day of: Progress Note Date: 08/07/19 - Chief Complaint Chief Complaint: PO bowel resection and closure of colostomy ( see OR report ). day 2. having modederate distention , no BM yet . good urine out put. afebrile . - Past Medical Family Social History Past Med/Fam/Surg Hx: No changes since H&P Allergies: Allergies No Known Drug Allergies Allergy (Verified 12/03/18 21:48) - Review Of Systems ROS: No change since H&P - Vital Signs Vital Signs: Temperature 98.9 F Pulse Rate [Apical] 72 Pulse Rate 86 Respiratory Rate 22 Blood Pressure [Right Arm] 134/63 Blood Pressure [Left Arm] 119/63 Blood Pressure [Right Arm] 124/60 Blood Pressure 111/61 O2 Sat by Pulse Oximetry 98 - Physical Exam Oriented: Normal Eyes: Normal Ear: Normal Nose: Normal Throat: Normal Respiratory: Normal Cardiovascular: Normal : Normal GI:Auscultation: Decreased GI:Palpation: Normal GI: Tenderness: Diffuse (moderate distention with hypoactive BS .) Musculoskeletal: Back:Thoracic, Back:Lumbar Psychiatric: Normal Mood Description: Calm Speech Pattern: Clear, Appropriate - Laboratory and Diagnostics Result Diagrams: 08/07/19 04:20 08/07/19 04:20 Labs: Laboratory WBC 5.7 X10^3/uL (3.6-10.0) 08/07/19 04:20 RBC 3.42 X10^6/uL (4.7-6.0) L 08/07/19 04:20 Hgb 10.2 g/dL (13.5-18.0) L 08/07/19 04:20 Hct 30.3 % (42.0-54.0) L 08/07/19 04:20 MCV 88.7 fL (80.0-100.0) 08/07/19 04:20 MCH 29.9 pg (27.0-34.0) 08/07/19 04:20 MCHC 33.7 g/dL (33.0-35.0) 08/07/19 04:20 RDW 14.3 % (11.6-16.5) 08/07/19 04:20 Plt Count 174 X10^3/uL (150.0-450.0) 08/07/19 04:20 Plt Count Comment Adequate (ADEQUATE) 08/07/19 04:20 MPV 7.7 fL (7.4-11.0) 08/07/19 04:20 Neut % (Auto) 64.9 % (42.0-75.0) 08/07/19 04:20 Lymph % (Auto) 8.7 % (21.0-51.0) L 08/07/19 04:20 [place] % (Auto) 24.9 % (0.0-13.0) H 08/07/19 04:20 Eos % (Auto) 1.2 % (0.9-2.9) 08/07/19 04:20 Baso % (Auto) 0.3 % (0.2-1.0) 08/07/19 04:20 Neut # (Auto) 3.7 x10^3/uL (2.2-4.8) 08/07/19 04:20 Lymph # (Auto) 0.5 X10^3/uL (1.3-2.9) L 08/07/19 04:20 [place] # (Auto) 1.4 x10^3/uL (0.3-0.8) H 08/07/19 04:20 Eos # (Auto) 0.1 x10^3/uL (0.0-0.2) 08/07/19 04:20 Baso # (Auto) 0.0 X10^3/uL (0.0-0.1) 08/07/19 04:20 Absolute Nucleated RBC 0.0 /100WBC 08/07/19 04:20 Total Counted 100 08/07/19 04:20 Neutrophils % (Manual) 69 % (39-76) 08/07/19 04:20 Lymphocytes % (Manual) 8 % (13-43) L 08/07/19 04:20 Monocytes % (Manual) 21 % (4-9) H 08/07/19 04:20 Eosinophils % (Manual) 2 % (0-6) 08/07/19 04:20 Atypical Lymphocytes 8 08/06/19 04:17 Plt Morphology Comment Normal (NORMAL) 08/07/19 04:20 RBC Morphology Normal (NORMAL) 08/07/19 04:20 Sodium 136 mmol/L (136-145) 08/07/19 04:20 Corrected Sodium 136 mmol/L (136-145) 08/07/19 04:20 Potassium 3.5 mmol/L (3.5-5.1) 08/07/19 04:20 Chloride 101 mmol/L (98-107) 08/07/19 04:20 Carbon Dioxide 32.5 mmol/L (21-32) H 08/07/19 04:20 BUN 2 mg/dL (7-18) L 08/07/19 04:20 Creatinine 0.50 mg/dL (0.70-1.30) L 08/07/19 04:20 Est GFR (MDRD) Af Amer > 60 (>60) 08/07/19 04:20 Est GFR (MDRD) Non-Af > 60 (>60) 08/07/19 04:20 Glucose 118 mg/dL (65-99) H 08/07/19 04:20 Calcium 7.9 mg/dL (8.5-10.1) L 08/07/19 04:20 Corrected Calcium 9.0 mg/dL (8.5-10.1) 08/07/19 04:20 Total Bilirubin 0.50 mg/dL (0.2-1.0) 08/07/19 04:20 AST 16 Units/L (15-37) 08/07/19 04:20 ALT 10 Units/L (12-78) L 08/07/19 04:20 Alkaline Phosphatase 52 Units/L (46-116) 08/07/19 04:20 Total Protein 6.0 g/dL (6.4-8.2) L 08/07/19 04:20 Albumin 2.6 g/dL (3.4-5.0) L 08/07/19 04:20 Globulin 3.4 g/dL (2.5-4.5) 08/07/19 04:20 Albumin/Globulin Ratio 0.8 Ratio (1.1-2.1) L 08/07/19 04:20 Tissue Pathology To follow 08/05/19 14:00 - Assessment and Plan 1: post op segmental resection of TC . closure of colostomy . lysis of adhesions. to start clear liquid. OOB . and same po care . - Problem Patient Problems: Patient Problems History of colostomy reversal (Acute) Z98.890
[2019-08-08] MEDS: DILAUDID INJ IVP PRN ×5 (02:03→19:20)
[2019-08-08 05:17] LABS: BASOPHILS % (AUTO) 0.5 % (0.2-1.0); EOSINOPHILS # (AUTO) 0.1 x10^3/uL (0.0-0.2); EOSINOPHILS % (AUTO) 1.2 % (0.9-2.9); HEMATOCRIT 31.5 % (42.0-54.0); HEMOGLOBIN 10.6 g/dL (13.5-18.0); LYMPHOCYTES # (AUTO) 0.6 X10^3/uL (1.3-2.9); LYMPHOCYTES % (AUTO) 11.8 % (21.0-51.0); MEAN CORPUSCULAR HEMOGLOBIN 29.5 pg (27.0-34.0); MEAN CORPUSCULAR HGB CONC 33.6 g/dL (33.0-35.0); MEAN CORPUSCULAR VOLUME 87.7 fL (80.0-100.0); MONOCYTES # (AUTO) 0.9 x10^3/uL (0.3-0.8); MONOCYTES % (AUTO) 19.2 % (0.0-13.0); NEUTROPHILS # (AUTO) 3.2 x10^3/uL (2.2-4.8); NEUTROPHILS % (AUTO) 67.3 % (42.0-75.0); PLATELET COUNT 189 X10^3/uL (150.0-450.0); RED CELL DISTRIBUTION WIDTH 14.6 % (11.6-16.5); WHITE BLOOD COUNT 4.7 X10^3/uL (3.6-10.0)
[2019-08-08 05:36] LABS: ALANINE AMINOTRANSFERASE 12 Units/L (12-78); ALBUMIN 2.6 g/dL (3.4-5.0); ALKALINE PHOSPHATASE 54 Units/L (46-116); ASPARTATE AMINO TRANSFERASE 14 Units/L (15-37); BLOOD UREA NITROGEN 2 mg/dL (7-18); CALCIUM 8.1 mg/dL (8.5-10.1); CARBON DIOXIDE 29.7 mmol/L (21-32); CHLORIDE 99 mmol/L (98-107); COR CA(FOR HYPOALB) 9.2 mg/dL (8.5-10.1); COR NA(FOR HYPERGLY) 135 mmol/L (136-145); SODIUM 135 mmol/L (136-145); TOTAL PROTEIN 6.4 g/dL (6.4-8.2); eGFR NON BLACK RACES > 60 (>60)
[2019-08-08] MEDS: PROTONIX INJ 40 MG VIAL IVP SCH (08:58)
[2019-08-08] MEDS: FLOMAX PO SCH (08:58)
[2019-08-08] MEDS: LOVENOX INJ 40 MG SYR SC SCH (08:58)
[2019-08-08] MEDS: NICOTINE PATCH TD SCH (08:59)
[2019-08-08] MEDS: D5 1/2 NS 1000 ML 1,000 ML IV SCH ×3 (09:03→22:15)
[2019-08-08] MEDS ORDERED: ZOFRAN INJ 4 MG VIAL ONE (10:35)
[2019-08-08] MEDS: ZOFRAN INJ 4 MG VIAL IVP PRN (10:54)
[2019-08-08] MEDS: NORCO 5/325 MG TAB PO PRN (22:49)
[2019-08-09] MEDS: DILAUDID INJ IVP PRN ×4 (01:17→19:57)
[2019-08-09] MEDS: D5 1/2 NS 1000 ML 1,000 ML IV SCH ×3 (05:06→15:30)
[2019-08-09 05:14] LABS: BASOPHILS % (AUTO) 0.3 % (0.2-1.0); EOSINOPHILS # (AUTO) 0.1 x10^3/uL (0.0-0.2); EOSINOPHILS % (AUTO) 1.4 % (0.9-2.9); HEMATOCRIT 30.2 % (42.0-54.0); HEMOGLOBIN 10.3 g/dL (13.5-18.0); LYMPHOCYTES # (AUTO) 0.6 X10^3/uL (1.3-2.9); LYMPHOCYTES % (AUTO) 15.7 % (21.0-51.0); MEAN CORPUSCULAR HEMOGLOBIN 29.4 pg (27.0-34.0); MEAN CORPUSCULAR VOLUME 86.6 fL (80.0-100.0); MEAN PLATELET VOLUME 7.3 fL (7.4-11.0); MONOCYTES # (AUTO) 0.8 x10^3/uL (0.3-0.8); MONOCYTES % (AUTO) 19.8 % (0.0-13.0); NEUTROPHILS # (AUTO) 2.6 x10^3/uL (2.2-4.8); NEUTROPHILS % (AUTO) 62.8 % (42.0-75.0); PLATELET COUNT 196 X10^3/uL (150.0-450.0); RED BLOOD COUNT 3.49 X10^6/uL (4.7-6.0); RED CELL DISTRIBUTION WIDTH 14.2 % (11.6-16.5); WHITE BLOOD COUNT 4.1 X10^3/uL (3.6-10.0)
[2019-08-09 05:26] LABS: ALANINE AMINOTRANSFERASE 10 Units/L (12-78); ALBUMIN 2.5 g/dL (3.4-5.0); ALKALINE PHOSPHATASE 51 Units/L (46-116); ASPARTATE AMINO TRANSFERASE 11 Units/L (15-37); BLOOD UREA NITROGEN 2 mg/dL (7-18); CALCIUM 8.1 mg/dL (8.5-10.1); CARBON DIOXIDE 32.9 mmol/L (21-32); CHLORIDE 99 mmol/L (98-107); COR CA(FOR HYPOALB) 9.3 mg/dL (8.5-10.1); COR NA(FOR HYPERGLY) 137 mmol/L (136-145); CREATININE 0.52 mg/dL (0.70-1.30); SODIUM 136 mmol/L (136-145); TOTAL PROTEIN 6.2 g/dL (6.4-8.2); eGFR NON BLACK RACES > 60 (>60)
[2019-08-09] MEDS ORDERED: POTASSIUM CHLORIDE LIQ 20 MEQ UDC PO PRN (05:49)
[2019-08-09] MEDS ORDERED: POTASSIUM CHL 60 MEQ/NS 0.45% 500 ML IV PRN (05:49)
[2019-08-09] MEDS ORDERED: MICRO K EXTEN CAP 10 MEQ PO PRN (05:49)
[2019-08-09] MEDS ORDERED: POTASSIUM CHL 40 MEQ/NS 0.45% 500 ML IV PRN (05:49)
[2019-08-09] MEDS ORDERED: KLOR-CON PO ONE (06:12)
[2019-08-09] MEDS: KLOR-CON PO PRN (06:15)
[2019-08-09] MEDS: NORCO 5/325 MG TAB PO PRN ×2 (06:15→18:28)
[2019-08-09] MEDS: PROTONIX INJ 40 MG VIAL IVP SCH ×2 (07:19→09:04)
[2019-08-09] MEDS: LOVENOX INJ 40 MG SYR SC SCH ×2 (07:19→09:04)
[2019-08-09] MEDS: NICOTINE PATCH TD SCH ×2 (07:20→09:04)
[2019-08-09] MEDS: FLOMAX PO SCH ×2 (07:20→09:03)
--- NOTE | 2019-08-09 15:46 | RAD ---
HISTORY: Abdominal pain Study: KUB Comparison: 06/11/2019 Findings: Evaluation of the abdomen demonstrates a nonspecific but nonobstructive bowel gas pattern with multiple air-filled loops throughout the abdomen with distal colonic gas noted to be present. Minimal air-filled loops of small bowel are noted to be present. The findings may be on the basis of colonic ileus. Continued follow-up will be needed. No pathological soft tissue mass or calcification can be observed. The bony structures are grossly intact. IMPRESSION: Multiple air-filled loops of colon throughout the abdomen are observed with limited small bowel air observed. Findings may be on the basis of colonic ileus. Continued follow-up will be needed. Skin britney overlying the right upper quadrant are noted to be present. Reported By:
[2019-08-09] MEDS: ZOFRAN INJ 4 MG VIAL IVP PRN (18:29)
[2019-08-09] MEDS: K-DUR TAB 20 MEQ PO PRN (19:57)
[2019-08-10] MEDS: MAGNESIUM SULFATE 1 GRAM/100 mL PREMIX 1 GM/100 ML BAG IV PRN ×2 (00:34→01:45)
[2019-08-10] MEDS: ZOFRAN INJ 4 MG VIAL IVP PRN ×3 (01:46→21:06)
[2019-08-10] MEDS: D5 1/2 NS 1000 ML 1,000 ML IV SCH ×5 (03:08→22:10)
[2019-08-10] MEDS: DILAUDID INJ IVP PRN ×3 (04:38→17:41)
[2019-08-10 05:20] LABS: BASOPHILS % (AUTO) 0.3 % (0.2-1.0); HEMATOCRIT 31.1 % (42.0-54.0); HEMOGLOBIN 10.5 g/dL (13.5-18.0); LYMPHOCYTES # (AUTO) 0.6 X10^3/uL (1.3-2.9); LYMPHOCYTES % (AUTO) 14.6 % (21.0-51.0); MEAN CORPUSCULAR HEMOGLOBIN 29.2 pg (27.0-34.0); MEAN CORPUSCULAR HGB CONC 33.8 g/dL (33.0-35.0); MEAN CORPUSCULAR VOLUME 86.5 fL (80.0-100.0); MEAN PLATELET VOLUME 7.1 fL (7.4-11.0); MONOCYTES # (AUTO) 0.7 x10^3/uL (0.3-0.8); MONOCYTES % (AUTO) 18.6 % (0.0-13.0); NEUTROPHILS # (AUTO) 2.6 x10^3/uL (2.2-4.8); NEUTROPHILS % (AUTO) 65.5 % (42.0-75.0); PLATELET COUNT 207 X10^3/uL (150.0-450.0); RED BLOOD COUNT 3.59 X10^6/uL (4.7-6.0); RED CELL DISTRIBUTION WIDTH 14.6 % (11.6-16.5)
[2019-08-10 05:37] LABS: ALANINE AMINOTRANSFERASE 9 Units/L (12-78); ALBUMIN 2.5 g/dL (3.4-5.0); ALKALINE PHOSPHATASE 50 Units/L (46-116); ASPARTATE AMINO TRANSFERASE 10 Units/L (15-37); BLOOD UREA NITROGEN 2 mg/dL (7-18); CARBON DIOXIDE 30.9 mmol/L (21-32); CHLORIDE 98 mmol/L (98-107); COR CA(FOR HYPOALB) 9.2 mg/dL (8.5-10.1); COR NA(FOR HYPERGLY) 136 mmol/L (136-145); CREATININE 0.48 mg/dL (0.70-1.30); MAGNESIUM 2.1 mg/dL (1.7-2.9); SODIUM 135 mmol/L (136-145); TOTAL PROTEIN 6.3 g/dL (6.4-8.2); eGFR NON BLACK RACES > 60 (>60)
[2019-08-10] MEDS: K-DUR TAB 20 MEQ PO PRN (05:54)
[2019-08-10] MEDS: LOVENOX INJ 40 MG SYR SC SCH (09:32)
[2019-08-10] MEDS: PROTONIX INJ 40 MG VIAL IVP SCH (09:32)
[2019-08-10] MEDS: FLOMAX PO SCH (09:32)
[2019-08-10] MEDS: NICOTINE PATCH TD SCH (09:32)
--- NOTE | 2019-08-10 14:56 | CT ---
CT ABDOMEN AND PELVIS WITH ORAL AND IV CONTRAST CLINICAL HISTORY: 68-year-old male with abdominal pain. History of colon cancer status post resection with ostomy and reversal. COMPARISON: CT abdomen and pelvis 06/19/2019, 01/17/2015. TECHNIQUE: Multiple contiguous axial images were obtained following the administration of intravenous and oral contrast. Images were reformatted in the coronal and sagittal planes. Dose reduction techniques including Automated Exposure Control (AEC) and adjustment of mA and kV were utilized. FINDINGS: Small bilateral effusions with associated compressive atelectasis/small volume consolidation. Unchanged diffuse paraseptal and centrilobular emphysema. No mass, nodule or pneumothorax. The inferior imaged heart is normal in size and there is no pericardial effusion. The granulomatous liver, gallbladder, pancreas, and spleen are within normal limits. The adrenal glands are normal bilaterally. Stable bilateral renal cysts. The kidneys perfuse in a normal fashion and the ureters run in an unobstructed course to a well distended urinary bladder. No nephroureterolithiasis or hydroureteronephrosis. Chronic prostatomegaly with dystrophic calcifications. Seminal vesicles unremarkable. Interval reversal of right lower quadrant ostomy with skin britney, postoperative edema and inflammation with scattered subcutaneous emphysema as expected. Edematous soft tissue density within the peritoneal cavity just deep and right lateral to the ostomy site and measures 2 x 4 x 3.5 cm, without enhancement in keeping with mixed seroma/hematoma within the mesenteric conglomerated fat. Small volume free air right-sided subdiaphragmatic free air, likely related to ostomy reversal. Oral contrast reaches the proximal ileum without extraluminal contrast noted. Extensive surgical changes throughout the bowel in keeping with prior resection for colon cancer and repair of perforated ulcer. Scattered edema throughout the mesentery with trace mesenteric non organized free fluid. Cecum/ascending colon is distended with gas measuring up to 8.4 cm without obstruction. Appendix is normal. No bowel inflammation with scattered reactive lymph nodes throughout the mesentery. Redemonstration of diffuse barium outlining abdominal and pelvic viscera from known contrast spillage secondary to perforated ulcer January 17, 2015. Small hiatal hernia. Moderate calcific and noncalcific atherosclerotic plaque of the aorta and its branches. Postsurgical changes soft tissues as described above with scarring of the anterior abdominal wall related to prior surgeries and no other soft tissue abnormality. The osseous structures are intact without fracture or malalignment. Degenerative changes of the imaged spine are stable. IMPRESSION: 1. Status post reversal of right lower quadrant ostomy with no extraluminal contrast and postsurgical changes of the anterior abdominal wall and peritoneal cavity with small volume free air as described in detail above. Correlate with postoperative day, clinically with serology to exclude infection. 2. No bowel obstruction with gas-filled cecum/ascending colon as above most in keeping with postoperative ileus. 3. Extensive postsurgical changes throughout the bowel with redemonstration of spill barium. 4. Small bilateral effusions with compressive atelectasis/consolidation. Correlate clinically for underlying infection. 5. Other chronic findings as above. Reported By:
--- NOTE | 2019-08-10 18:39 | PCM.PROG ---
Progress Note - Progress Note for Day of Date of Exam: 08/10/19 - Subjective Subjective: Mr. Cruz is a 68-year-old white male, who was admitted for an elective colostomy reversal performed per Dr. Forman. The patient has tolerated the procedure well with a stable hemoglobin at 10.5 this morning. K+ 3.2 Dr. Forman did state that if the patient was clear from an Internal Med icine standpoint that he may discharge home. He did have pain control ordered. The patient has been advanced to a full liquid diet. He states that he has continued to have some severe pain lasting about two hours. The patient reports that he has had minimal gas. Pt reports lower abdominal tenderness worse on left side and suprapubic area. He has not had any stool at this point. The patient reported that he feels weak, he would like to try to get up and move around. CT abd/pelvis ordered for this am. - Past Medical Family Social History Past Med/Fam/Surg Hx: No changes since H&P Allergies: Allergies No Known Drug Allergies Allergy (Verified 12/03/18 21:48) - Review of Systems ROS: No change since H&P - Vital Signs and I&O's Vital Signs: Temperature 97.8 F Pulse Rate [Apical] 72 Pulse Rate 102 Respiratory Rate 18 Blood Pressure [Right Arm] 134/63 Blood Pressure [Left Arm] 119/63 Blood Pressure [Right Arm] 124/60 Blood Pressure 122/76 O2 Sat by Pulse Oximetry 94 Intake and Output: Intake & Output 08/08/19 08/09/19 08/10/19 08/11/19 11:59 11:59 11:59 11:59 Intake Total 3679 / 3679 4136 / 4136 2380 / 2380 1523 / 1523 Output Total 3575 / 3575 2325 / 2325 2500 / 2500 500 / 500 Balance 104 / 104 1811 / 1811 -120 / -120 1023 / 1023 - Physical Exam Oriented: Normal Eyes: Normal Ear: Normal Nose: Normal Throat: Normal Respiratory: Normal, Diminished Cardiovascular: Normal : Normal Auscultation: Bowel Sounds: Decreased Tenderness: Diffuse (moderate distention with hypoactive BS .), LLQ Skin: Wound (post operative wound) Musculoskeletal: Back:Thoracic, Back:Lumbar Psychiatric: Normal Mood Description: Calm Speech Pattern: Clear, Appropriate - Laboratory and Diagnostics Result Diagrams: 08/10/19 04:16 08/10/19 04:16 Labs: Laboratory WBC 4.0 X10^3/uL (3.6-10.0) 08/10/19 04:16 RBC 3.59 X10^6/uL (4.7-6.0) L 08/10/19 04:16 Hgb 10.5 g/dL (13.5-18.0) L 08/10/19 04:16 Hct 31.1 % (42.0-54.0) L 08/10/19 04:16 MCV 86.5 fL (80.0-100.0) 08/10/19 04:16 MCH 29.2 pg (27.0-34.0) 08/10/19 04:16 MCHC 33.8 g/dL (33.0-35.0) 08/10/19 04:16 RDW 14.6 % (11.6-16.5) 08/10/19 04:16 Plt Count 207 X10^3/uL (150.0-450.0) 08/10/19 04:16 Plt Count Comment Adequate (ADEQUATE) 08/07/19 04:20 MPV 7.1 fL (7.4-11.0) L 08/10/19 04:16 Neut % (Auto) 65.5 % (42.0-75.0) 08/10/19 04:16 Lymph % (Auto) 14.6 % (21.0-51.0) L 08/10/19 04:16 [place] % (Auto) 18.6 % (0.0-13.0) H 08/10/19 04:16 Eos % (Auto) 1.0 % (0.9-2.9) 08/10/19 04:16 Baso % (Auto) 0.3 % (0.2-1.0) 08/10/19 04:16 Neut # (Auto) 2.6 x10^3/uL (2.2-4.8) 08/10/19 04:16 Lymph # (Auto) 0.6 X10^3/uL (1.3-2.9) L 08/10/19 04:16 [place] # (Auto) 0.7 x10^3/uL (0.3-0.8) 08/10/19 04:16 Eos # (Auto) 0.0 x10^3/uL (0.0-0.2) 08/10/19 04:16 Baso # (Auto) 0.0 X10^3/uL (0.0-0.1) 08/10/19 04:16 Absolute Nucleated RBC 0.0 /100WBC 08/10/19 04:16 Total Counted 100 08/07/19 04:20 Neutrophils % (Manual) 69 % (39-76) 08/07/19 04:20 Lymphocytes % (Manual) 8 % (13-43) L 08/07/19 04:20 Monocytes % (Manual) 21 % (4-9) H 08/07/19 04:20 Eosinophils % (Manual) 2 % (0-6) 08/07/19 04:20 Atypical Lymphocytes 8 08/06/19 04:17 Plt Morphology Comment Normal (NORMAL) 08/07/19 04:20 RBC Morphology Normal (NORMAL) 08/07/19 04:20 Sodium 135 mmol/L (136-145) L 08/10/19 04:16 Corrected Sodium 136 mmol/L (136-145) 08/10/19 04:16 Potassium 3.2 mmol/L (3.5-5.1) L 08/10/19 04:16 Chloride 98 mmol/L (98-107) 08/10/19 04:16 Carbon Dioxide 30.9 mmol/L (21-32) 08/10/19 04:16 BUN 2 mg/dL (7-18) L 08/10/19 04:16 Creatinine 0.48 mg/dL (0.70-1.30) L 08/10/19 04:16 Est GFR (MDRD) Af Amer > 60 (>60) 08/10/19 04:16 Est GFR (MDRD) Non-Af > 60 (>60) 08/10/19 04:16 Glucose 125 mg/dL (65-99) H 08/10/19 04:16 Calcium 8.0 mg/dL (8.5-10.1) L 08/10/19 04:16 Corrected Calcium 9.2 mg/dL (8.5-10.1) 08/10/19 04:16 Magnesium 2.1 mg/dL (1.7-2.9) 08/10/19 04:16 Total Bilirubin 0.30 mg/dL (0.2-1.0) 08/10/19 04:16 AST 10 Units/L (15-37) L 08/10/19 04:16 ALT 9 Units/L (12-78) L 08/10/19 04:16 Alkaline Phosphatase 50 Units/L (46-116) 08/10/19 04:16 Total Protein 6.3 g/dL (6.4-8.2) L 08/10/19 04:16 Albumin 2.5 g/dL (3.4-5.0) L 08/10/19 04:16 Globulin 3.8 g/dL (2.5-4.5) 08/10/19 04:16 Albumin/Globulin Ratio 0.7 Ratio (1.1-2.1) L 08/10/19 04:16 Tissue Pathology To follow 08/05/19 14:00 - Plan (1) Status post colon resection Status: Acute Plan: full liquids as tolerated. pain control, wound care per Dr Morris (2) Abdominal pain Status: Acute Plan: pain control ct abd pelvis today (3) History of colostomy reversal Status: Acute (4) COPD (chronic obstructive pulmonary disease) Status: Acute (5) Colon cancer Status: Acute Qualifiers: Colon location: overlapping sites Qualified Code(s): C18.8 - Malignant neoplasm of overlapping sites of colon (6) Ileus Status: Acute
[2019-08-10] MEDS: K-RIDER 10 MEQ/NS 100 ML 10 MEQ/100 ML BAG IV PRN ×4 (19:28→22:55)
[2019-08-11] MEDS: D5 1/2 NS 1000 ML 1,000 ML IV SCH ×4 (00:06→23:28)
[2019-08-11 02:42] LABS: BASOPHILS % (AUTO) 0.7 % (0.2-1.0); EOSINOPHILS % (AUTO) 0.8 % (0.9-2.9); HEMATOCRIT 30.6 % (42.0-54.0); HEMOGLOBIN 10.3 g/dL (13.5-18.0); LYMPHOCYTES # (AUTO) 0.5 X10^3/uL (1.3-2.9); LYMPHOCYTES % (AUTO) 11.1 % (21.0-51.0); MEAN CORPUSCULAR HEMOGLOBIN 29.2 pg (27.0-34.0); MEAN CORPUSCULAR HGB CONC 33.8 g/dL (33.0-35.0); MEAN CORPUSCULAR VOLUME 86.4 fL (80.0-100.0); MEAN PLATELET VOLUME 6.9 fL (7.4-11.0); MONOCYTES % (AUTO) 20.5 % (0.0-13.0); NEUTROPHILS # (AUTO) 3.2 x10^3/uL (2.2-4.8); NEUTROPHILS % (AUTO) 66.9 % (42.0-75.0); PLATELET COUNT 215 X10^3/uL (150.0-450.0); RED BLOOD COUNT 3.54 X10^6/uL (4.7-6.0); RED CELL DISTRIBUTION WIDTH 14.1 % (11.6-16.5); WHITE BLOOD COUNT 4.8 X10^3/uL (3.6-10.0)
[2019-08-11 02:49] LABS: ALANINE AMINOTRANSFERASE 8 Units/L (12-78); ALBUMIN 2.5 g/dL (3.4-5.0); ALKALINE PHOSPHATASE 52 Units/L (46-116); ASPARTATE AMINO TRANSFERASE 11 Units/L (15-37); BLOOD UREA NITROGEN 2 mg/dL (7-18); CARBON DIOXIDE 32.3 mmol/L (21-32); CHLORIDE 98 mmol/L (98-107); COR CA(FOR HYPOALB) 9.2 mg/dL (8.5-10.1); COR NA(FOR HYPERGLY) 135 mmol/L (136-145); CREATININE 0.53 mg/dL (0.70-1.30); SODIUM 134 mmol/L (136-145); TOTAL PROTEIN 6.3 g/dL (6.4-8.2); eGFR NON BLACK RACES > 60 (>60)
[2019-08-11 02:52] LABS: BAND NEUTROPHILS % 5 % (0-10); PLATELET MORPHOLOGY COMMENT NORMAL (NORMAL)
[2019-08-11] MEDS: DILAUDID INJ IVP PRN ×4 (06:13→19:31)
[2019-08-11] MEDS: LOVENOX INJ 40 MG SYR SC SCH (09:41)
[2019-08-11] MEDS: FLOMAX PO SCH (09:42)
[2019-08-11] MEDS: NICOTINE PATCH TD SCH (09:42)
[2019-08-11] MEDS: NORCO 5/325 MG TAB PO PRN (09:42)
[2019-08-11] MEDS: PROTONIX INJ 40 MG VIAL IVP SCH (09:42)
[2019-08-12] MEDS: DILAUDID INJ IVP PRN ×4 (03:20→23:48)
[2019-08-12 04:41] LABS: BASOPHILS % (AUTO) 0.4 % (0.2-1.0); EOSINOPHILS # (AUTO) 0.1 x10^3/uL (0.0-0.2); EOSINOPHILS % (AUTO) 1.1 % (0.9-2.9); HEMATOCRIT 32.6 % (42.0-54.0); HEMOGLOBIN 10.9 g/dL (13.5-18.0); LYMPHOCYTES # (AUTO) 0.6 X10^3/uL (1.3-2.9); LYMPHOCYTES % (AUTO) 10.8 % (21.0-51.0); MEAN CORPUSCULAR HEMOGLOBIN 29.2 pg (27.0-34.0); MEAN CORPUSCULAR HGB CONC 33.4 g/dL (33.0-35.0); MEAN CORPUSCULAR VOLUME 87.3 fL (80.0-100.0); MEAN PLATELET VOLUME 7.4 fL (7.4-11.0); MONOCYTES # (AUTO) 1.1 x10^3/uL (0.3-0.8); MONOCYTES % (AUTO) 21.9 % (0.0-13.0); NEUTROPHILS # (AUTO) 3.4 x10^3/uL (2.2-4.8); NEUTROPHILS % (AUTO) 65.8 % (42.0-75.0); PLATELET COUNT 243 X10^3/uL (150.0-450.0); RED BLOOD COUNT 3.74 X10^6/uL (4.7-6.0); RED CELL DISTRIBUTION WIDTH 14.3 % (11.6-16.5); WHITE BLOOD COUNT 5.2 X10^3/uL (3.6-10.0)
[2019-08-12 04:57] LABS: ALANINE AMINOTRANSFERASE 12 Units/L (12-78); ALBUMIN 2.7 g/dL (3.4-5.0); ALKALINE PHOSPHATASE 53 Units/L (46-116); ASPARTATE AMINO TRANSFERASE 11 Units/L (15-37); BLOOD UREA NITROGEN 3 mg/dL (7-18); CALCIUM 8.2 mg/dL (8.5-10.1); CARBON DIOXIDE 30.8 mmol/L (21-32); CHLORIDE 98 mmol/L (98-107); COR CA(FOR HYPOALB) 9.2 mg/dL (8.5-10.1); COR NA(FOR HYPERGLY) 135 mmol/L (136-145); CREATININE 0.55 mg/dL (0.70-1.30); SODIUM 135 mmol/L (136-145); TOTAL PROTEIN 6.7 g/dL (6.4-8.2); eGFR NON BLACK RACES > 60 (>60)
[2019-08-12 05:19] LABS: BAND NEUTROPHILS % 2 % (0-10); PLATELET MORPHOLOGY COMMENT NORMAL (NORMAL)
[2019-08-12] MEDS: KLOR-CON PO PRN (05:21)
[2019-08-12] MEDS: PROTONIX INJ 40 MG VIAL IVP SCH (09:45)
[2019-08-12] MEDS: LOVENOX INJ 40 MG SYR SC SCH (09:45)
[2019-08-12] MEDS: FLOMAX PO SCH (09:46)
[2019-08-12] MEDS: NICOTINE PATCH TD SCH (09:46)
[2019-08-12] MEDS: D5 1/2 NS 1000 ML 1,000 ML IV SCH ×4 (09:50→22:01)
--- NOTE | 2019-08-12 17:30 | PCM.PROG ---
Progress Note - Progress Note for Day of Date of Exam: 08/12/19 - Subjective Subjective: Mr. Cruz is a 68-year-old white male, who was admitted for an elective colostomy reversal performed per Dr. Forman. The patient has tolerated the procedure well with a stable hemoglobin at 10.9. BUN 3, CREAT 0.55. He did have pain control ordered. The patient has been advanced to a full liquid diet, has only tolerated noodle soup at this point. He states that he has continued to have some severe pain lasting about two hours. The patient reports that he has had minimal stool since yesterday. Pt reports lower abdominal tenderness worse on left side and suprapubic area. He has not had any stool at this point, but report passing gas. The patient reported he is cooperating with PT. CT abd/pelvis without acute findings. - Past Medical Family Social History Past Med/Fam/Surg Hx: No changes since H&P Allergies: Allergies No Known Drug Allergies Allergy (Verified 12/03/18 21:48) - Review of Systems ROS: No change since H&P - Vital Signs and I&O's Vital Signs: Temperature 98.3 F Pulse Rate [Apical] 72 Pulse Rate 107 Respiratory Rate 18 Blood Pressure [Right Arm] 134/63 Blood Pressure [Left Arm] 119/63 Blood Pressure [Right Arm] 124/60 Blood Pressure 108/61 O2 Sat by Pulse Oximetry 93 Intake and Output: Intake & Output 08/10/19 08/11/19 08/12/19 08/13/19 11:59 11:59 11:59 11:59 Intake Total 2380 / 2380 2879 / 2879 2288 / 2288 1513 / 1513 Output Total 2500 / 2500 1925 / 1925 3550 / 3550 850 / 850 Balance -120 / -120 954 / 954 -1262 / -1262 663 / 663 - Physical Exam Oriented: Normal Eyes: Normal Ear: Normal Nose: Normal Throat: Normal Respiratory: Normal, Diminished Cardiovascular: Normal : Normal Auscultation: Bowel Sounds: Decreased Tenderness: Diffuse (moderate distention with hypoactive BS .), LLQ Skin: Wound (post operative wound) Musculoskeletal: Back:Thoracic, Back:Lumbar Psychiatric: Normal Mood Description: Calm Speech Pattern: Clear, Appropriate - Laboratory and Diagnostics Result Diagrams: 08/12/19 04:03 08/12/19 04:03 Labs: Laboratory WBC 5.2 X10^3/uL (3.6-10.0) 08/12/19 04:03 RBC 3.74 X10^6/uL (4.7-6.0) L 08/12/19 04:03 Hgb 10.9 g/dL (13.5-18.0) L 08/12/19 04:03 Hct 32.6 % (42.0-54.0) L 08/12/19 04:03 MCV 87.3 fL (80.0-100.0) 08/12/19 04:03 MCH 29.2 pg (27.0-34.0) 08/12/19 04:03 MCHC 33.4 g/dL (33.0-35.0) 08/12/19 04:03 RDW 14.3 % (11.6-16.5) 08/12/19 04:03 Plt Count 243 X10^3/uL (150.0-450.0) 08/12/19 04:03 Plt Count Comment Adequate (ADEQUATE) 08/12/19 04:03 MPV 7.4 fL (7.4-11.0) 08/12/19 04:03 Neut % (Auto) 65.8 % (42.0-75.0) 08/12/19 04:03 Lymph % (Auto) 10.8 % (21.0-51.0) L 08/12/19 04:03 [place] % (Auto) 21.9 % (0.0-13.0) H 08/12/19 04:03 Eos % (Auto) 1.1 % (0.9-2.9) 08/12/19 04:03 Baso % (Auto) 0.4 % (0.2-1.0) 08/12/19 04:03 Neut # (Auto) 3.4 x10^3/uL (2.2-4.8) 08/12/19 04:03 Lymph # (Auto) 0.6 X10^3/uL (1.3-2.9) L 08/12/19 04:03 [place] # (Auto) 1.1 x10^3/uL (0.3-0.8) H 08/12/19 04:03 Eos # (Auto) 0.1 x10^3/uL (0.0-0.2) 08/12/19 04:03 Baso # (Auto) 0.0 X10^3/uL (0.0-0.1) 08/12/19 04:03 Absolute Nucleated RBC 0.0 /100WBC 08/12/19 04:03 Total Counted 100 08/12/19 04:03 Neutrophils % (Manual) 66 % (39-76) 08/12/19 04:03 Band Neutrophils % 2 % (0-10) 08/12/19 04:03 Lymphocytes % (Manual) 13 % (13-43) 08/12/19 04:03 Monocytes % (Manual) 18 % (4-9) H 08/12/19 04:03 Eosinophils % (Manual) 1 % (0-6) 08/12/19 04:03 Atypical Lymphocytes 8 08/06/19 04:17 Plt Morphology Comment Normal (NORMAL) 08/12/19 04:03 RBC Morphology Normal (NORMAL) 08/12/19 04:03 Sodium 135 mmol/L (136-145) L 08/12/19 04:03 Corrected Sodium 135 mmol/L (136-145) L 08/12/19 04:03 Potassium 3.4 mmol/L (3.5-5.1) L 08/12/19 04:03 Chloride 98 mmol/L (98-107) 08/12/19 04:03 Carbon Dioxide 30.8 mmol/L (21-32) 08/12/19 04:03 BUN 3 mg/dL (7-18) L 08/12/19 04:03 Creatinine 0.55 mg/dL (0.70-1.30) L 08/12/19 04:03 Est GFR (MDRD) Af Amer > 60 (>60) 08/12/19 04:03 Est GFR (MDRD) Non-Af > 60 (>60) 08/12/19 04:03 Glucose 111 mg/dL (65-99) H 08/12/19 04:03 Calcium 8.2 mg/dL (8.5-10.1) L 08/12/19 04:03 Corrected Calcium 9.2 mg/dL (8.5-10.1) 08/12/19 04:03 Magnesium 2.1 mg/dL (1.7-2.9) 08/10/19 04:16 Total Bilirubin 0.30 mg/dL (0.2-1.0) 08/12/19 04:03 AST 11 Units/L (15-37) L 08/12/19 04:03 ALT 12 Units/L (12-78) 08/12/19 04:03 Alkaline Phosphatase 53 Units/L (46-116) 08/12/19 04:03 Total Protein 6.7 g/dL (6.4-8.2) 08/12/19 04:03 Albumin 2.7 g/dL (3.4-5.0) L 08/12/19 04:03 Globulin 4.0 g/dL (2.5-4.5) 08/12/19 04:03 Albumin/Globulin Ratio 0.7 Ratio (1.1-2.1) L 08/12/19 04:03 Tissue Pathology To follow 08/05/19 14:00 - Plan (1) Status post colon resection Status: Acute Plan: full liquids as tolerated. pain control, wound care per Dr Morris (2) Abdominal pain Status: Acute Plan: pain control ct abd pelvis today (3) History of colostomy reversal Status: Acute (4) COPD (chronic obstructive pulmonary disease) Status: Acute (5) Colon cancer Status: Acute Qualifiers: Colon location: overlapping sites Qualified Code(s): C18.8 - Malignant neoplasm of overlapping sites of colon (6) Ileus Status: Acute
[2019-08-13] MEDS: DILAUDID INJ IVP PRN ×3 (05:00→17:36)
[2019-08-13 05:40] LABS: BASOPHILS % (AUTO) 0.3 % (0.2-1.0); EOSINOPHILS # (AUTO) 0.1 x10^3/uL (0.0-0.2); EOSINOPHILS % (AUTO) 1.1 % (0.9-2.9); HEMATOCRIT 31.8 % (42.0-54.0); HEMOGLOBIN 10.8 g/dL (13.5-18.0); LYMPHOCYTES # (AUTO) 0.7 X10^3/uL (1.3-2.9); LYMPHOCYTES % (AUTO) 12.6 % (21.0-51.0); MEAN CORPUSCULAR HEMOGLOBIN 29.5 pg (27.0-34.0); MEAN CORPUSCULAR HGB CONC 34.1 g/dL (33.0-35.0); MEAN CORPUSCULAR VOLUME 86.6 fL (80.0-100.0); MEAN PLATELET VOLUME 7.6 fL (7.4-11.0); MONOCYTES # (AUTO) 1.4 x10^3/uL (0.3-0.8); MONOCYTES % (AUTO) 23.8 % (0.0-13.0); NEUTROPHILS # (AUTO) 3.5 x10^3/uL (2.2-4.8); NEUTROPHILS % (AUTO) 62.2 % (42.0-75.0); PLATELET COUNT 265 X10^3/uL (150.0-450.0); RED BLOOD COUNT 3.66 X10^6/uL (4.7-6.0); RED CELL DISTRIBUTION WIDTH 14.6 % (11.6-16.5); WHITE BLOOD COUNT 5.7 X10^3/uL (3.6-10.0)
[2019-08-13] MEDS: D5 1/2 NS 1000 ML 1,000 ML IV SCH ×3 (05:45→22:13)
[2019-08-13 05:51] LABS: ALANINE AMINOTRANSFERASE 12 Units/L (12-78); ALBUMIN 2.7 g/dL (3.4-5.0); ALKALINE PHOSPHATASE 56 Units/L (46-116); ASPARTATE AMINO TRANSFERASE 15 Units/L (15-37); BLOOD UREA NITROGEN 3 mg/dL (7-18); CALCIUM 8.4 mg/dL (8.5-10.1); CARBON DIOXIDE 29.7 mmol/L (21-32); CHLORIDE 98 mmol/L (98-107); COR CA(FOR HYPOALB) 9.4 mg/dL (8.5-10.1); CREATININE 0.49 mg/dL (0.70-1.30); SODIUM 132 mmol/L (136-145); TOTAL PROTEIN 6.7 g/dL (6.4-8.2); eGFR NON BLACK RACES > 60 (>60)
[2019-08-13 05:58] LABS: PLATELET MORPHOLOGY COMMENT NORMAL (NORMAL)
[2019-08-13] MEDS: PROTONIX INJ 40 MG VIAL IVP SCH (09:57)
[2019-08-13] MEDS: FLOMAX PO SCH (09:57)
[2019-08-13] MEDS: NICOTINE PATCH TD SCH (09:57)
[2019-08-13] MEDS: LOVENOX INJ 40 MG SYR SC SCH (09:58)
[2019-08-13] MEDS: COLACE CAP 100 MG PO SCH ×2 (10:00→22:13)
[2019-08-14] MEDS: DILAUDID INJ IVP PRN ×3 (00:05→20:52)
[2019-08-14 05:20] LABS: BASOPHILS % (AUTO) 0.6 % (0.2-1.0); EOSINOPHILS # (AUTO) 0.1 x10^3/uL (0.0-0.2); HEMATOCRIT 33.8 % (42.0-54.0); HEMOGLOBIN 11.3 g/dL (13.5-18.0); LYMPHOCYTES # (AUTO) 0.8 X10^3/uL (1.3-2.9); LYMPHOCYTES % (AUTO) 14.6 % (21.0-51.0); MEAN CORPUSCULAR HEMOGLOBIN 28.9 pg (27.0-34.0); MEAN CORPUSCULAR HGB CONC 33.3 g/dL (33.0-35.0); MEAN CORPUSCULAR VOLUME 86.6 fL (80.0-100.0); MEAN PLATELET VOLUME 7.2 fL (7.4-11.0); MONOCYTES # (AUTO) 1.1 x10^3/uL (0.3-0.8); MONOCYTES % (AUTO) 21.5 % (0.0-13.0); NEUTROPHILS # (AUTO) 3.3 x10^3/uL (2.2-4.8); NEUTROPHILS % (AUTO) 62.3 % (42.0-75.0); PLATELET COUNT 311 X10^3/uL (150.0-450.0); RED CELL DISTRIBUTION WIDTH 14.5 % (11.6-16.5); WHITE BLOOD COUNT 5.3 X10^3/uL (3.6-10.0)
[2019-08-14 05:28] LABS: ALANINE AMINOTRANSFERASE 13 Units/L (12-78); ALBUMIN 2.9 g/dL (3.4-5.0); ALKALINE PHOSPHATASE 60 Units/L (46-116); ASPARTATE AMINO TRANSFERASE 14 Units/L (15-37); BLOOD UREA NITROGEN 6 mg/dL (7-18); CALCIUM 8.2 mg/dL (8.5-10.1); CARBON DIOXIDE 32.3 mmol/L (21-32); CHLORIDE 96 mmol/L (98-107); COR CA(FOR HYPOALB) 9.1 mg/dL (8.5-10.1); CREATININE 0.53 mg/dL (0.70-1.30); SODIUM 132 mmol/L (136-145); TOTAL PROTEIN 7.2 g/dL (6.4-8.2); eGFR NON BLACK RACES > 60 (>60)
[2019-08-14 05:49] LABS: PLATELET MORPHOLOGY COMMENT NORMAL (NORMAL)
[2019-08-14] MEDS: PROTONIX INJ 40 MG VIAL IVP SCH (09:13)
[2019-08-14] MEDS: LOVENOX INJ 40 MG SYR SC SCH (09:14)
[2019-08-14] MEDS: NICOTINE PATCH TD SCH (09:14)
[2019-08-14] MEDS: COLACE CAP 100 MG PO SCH ×2 (09:14→20:52)
[2019-08-14] MEDS: FLOMAX PO SCH (09:14)
[2019-08-14] MEDS: D5 1/2 NS 1000 ML 1,000 ML IV SCH (09:18)
[2019-08-14] MEDS ORDERED: MIRALAX POWDER (1 DOSE 17 G) PO NR (10:06)
[2019-08-14] MEDS: ZOFRAN INJ 4 MG VIAL IVP PRN (10:57)
[2019-08-14] MEDS ORDERED: NS 1000 ML 1,000 ML ONE (11:15)
[2019-08-14] MEDS: NS 1000 ML 1,000 ML IV SCH ×2 (11:18→20:52)
[2019-08-14] MEDS: K-DUR TAB 20 MEQ PO PRN (16:39)
[2019-08-15] MEDS: NS 1000 ML 1,000 ML IV SCH ×2 (01:47→12:48)
[2019-08-15] MEDS: DILAUDID INJ IVP PRN ×4 (03:33→23:09)
[2019-08-15 05:02] LABS: BASOPHILS % (AUTO) 0.7 % (0.2-1.0); EOSINOPHILS % (AUTO) 0.6 % (0.9-2.9); HEMATOCRIT 34.9 % (42.0-54.0); HEMOGLOBIN 11.7 g/dL (13.5-18.0); LYMPHOCYTES # (AUTO) 0.8 X10^3/uL (1.3-2.9); LYMPHOCYTES % (AUTO) 11.4 % (21.0-51.0); MEAN CORPUSCULAR HGB CONC 33.5 g/dL (33.0-35.0); MEAN CORPUSCULAR VOLUME 86.6 fL (80.0-100.0); MEAN PLATELET VOLUME 6.9 fL (7.4-11.0); MONOCYTES # (AUTO) 1.5 x10^3/uL (0.3-0.8); MONOCYTES % (AUTO) 20.8 % (0.0-13.0); NEUTROPHILS # (AUTO) 4.6 x10^3/uL (2.2-4.8); NEUTROPHILS % (AUTO) 66.5 % (42.0-75.0); PLATELET COUNT 323 X10^3/uL (150.0-450.0); RED BLOOD COUNT 4.03 X10^6/uL (4.7-6.0); RED CELL DISTRIBUTION WIDTH 14.5 % (11.6-16.5)
[2019-08-15 05:15] LABS: ALANINE AMINOTRANSFERASE 11 Units/L (12-78); ALBUMIN 2.9 g/dL (3.4-5.0); ALKALINE PHOSPHATASE 62 Units/L (46-116); ASPARTATE AMINO TRANSFERASE 12 Units/L (15-37); BLOOD UREA NITROGEN 8 mg/dL (7-18); CALCIUM 8.6 mg/dL (8.5-10.1); CARBON DIOXIDE 29.9 mmol/L (21-32); CHLORIDE 98 mmol/L (98-107); COR CA(FOR HYPOALB) 9.5 mg/dL (8.5-10.1); CREATININE 0.59 mg/dL (0.70-1.30); SODIUM 136 mmol/L (136-145); TOTAL PROTEIN 7.2 g/dL (6.4-8.2); eGFR NON BLACK RACES > 60 (>60)
[2019-08-15 05:21] LABS: PLATELET MORPHOLOGY COMMENT NORMAL (NORMAL)
--- NOTE | 2019-08-15 07:51 | RAD ---
Examination: KUB History: Abdominal pain Comparison 08/09/2019 Findings: There is only minimal gaseous distention of small and large bowel, significant improvement compared to prior. Suggestion of minimal extraluminal gas in the soft tissues of the flanks. Surgical clips right upper quadrant and pelvis. No visceral enlargement or mass formation noted. Impression: Significant improvement in intestinal distention. Minimal apparent extraluminal gas in the abdominal soft tissues may be related to recent surgery. Follow-up abdomen series, including upright views, if evaluation of possible pneumoperitoneum is required. Reported By:
[2019-08-15] MEDS: PROTONIX INJ 40 MG VIAL IVP SCH (08:53)
[2019-08-15] MEDS: COLACE CAP 100 MG PO SCH ×2 (08:53→21:03)
[2019-08-15] MEDS: FLOMAX PO SCH (08:53)
[2019-08-15] MEDS: LOVENOX INJ 40 MG SYR SC SCH (08:59)
[2019-08-15] MEDS: NICOTINE PATCH TD SCH (08:59)
[2019-08-15] MEDS ORDERED: XYLOCAINE 1 % (PLAIN) ONE (12:30)
[2019-08-15] MEDS ORDERED: PHARMACY CONSULT - VANCOMYCIN XX SCH (13:00)
[2019-08-15] MEDS: VANCOMYCIN HCL 1 G in NS 250 ML IV 250 ML IV SCH ×2 (13:58→21:03)
[2019-08-15] MEDS: ZOFRAN INJ 4 MG VIAL IVP PRN (17:32)
[2019-08-16] MEDS: NS 1000 ML 1,000 ML IV SCH ×2 (02:33→14:37)
[2019-08-16 05:16] LABS: BASOPHILS % (AUTO) 0.4 % (0.2-1.0); EOSINOPHILS # (AUTO) 0.1 x10^3/uL (0.0-0.2); HEMATOCRIT 29.8 % (42.0-54.0); HEMOGLOBIN 10.1 g/dL (13.5-18.0); LYMPHOCYTES # (AUTO) 0.7 X10^3/uL (1.3-2.9); LYMPHOCYTES % (AUTO) 12.4 % (21.0-51.0); MEAN CORPUSCULAR HEMOGLOBIN 29.1 pg (27.0-34.0); MEAN CORPUSCULAR HGB CONC 33.8 g/dL (33.0-35.0); MEAN CORPUSCULAR VOLUME 86.1 fL (80.0-100.0); MEAN PLATELET VOLUME 7.1 fL (7.4-11.0); MONOCYTES % (AUTO) 17.9 % (0.0-13.0); NEUTROPHILS # (AUTO) 3.9 x10^3/uL (2.2-4.8); NEUTROPHILS % (AUTO) 68.3 % (42.0-75.0); PLATELET COUNT 311 X10^3/uL (150.0-450.0); RED BLOOD COUNT 3.46 X10^6/uL (4.7-6.0); RED CELL DISTRIBUTION WIDTH 14.5 % (11.6-16.5); WHITE BLOOD COUNT 5.8 X10^3/uL (3.6-10.0)
[2019-08-16 05:29] LABS: ALANINE AMINOTRANSFERASE 9 Units/L (12-78); ALBUMIN 2.6 g/dL (3.4-5.0); ALKALINE PHOSPHATASE 56 Units/L (46-116); ASPARTATE AMINO TRANSFERASE 10 Units/L (15-37); BLOOD UREA NITROGEN 7 mg/dL (7-18); CALCIUM 8.1 mg/dL (8.5-10.1); CARBON DIOXIDE 27.2 mmol/L (21-32); CHLORIDE 98 mmol/L (98-107); COR CA(FOR HYPOALB) 9.2 mg/dL (8.5-10.1); COR NA(FOR HYPERGLY) 136 mmol/L (136-145); CREATININE 0.57 mg/dL (0.70-1.30); SODIUM 134 mmol/L (136-145); TOTAL PROTEIN 6.4 g/dL (6.4-8.2); eGFR NON BLACK RACES > 60 (>60)
[2019-08-16] MEDS: DILAUDID INJ IVP PRN (05:35)
[2019-08-16] MEDS: K-DUR TAB 20 MEQ PO PRN (06:03)
[2019-08-16] MEDS: COLACE CAP 100 MG PO SCH ×2 (08:23→21:23)
[2019-08-16] MEDS: PROTONIX INJ 40 MG VIAL IVP SCH (08:24)
[2019-08-16] MEDS: NICOTINE PATCH TD SCH (08:24)
[2019-08-16] MEDS: LOVENOX INJ 40 MG SYR SC SCH (08:24)
[2019-08-16] MEDS: VANCOMYCIN HCL 1 G in NS 250 ML IV 250 ML IV SCH ×2 (08:25→21:23)
[2019-08-16] MEDS: FLOMAX PO SCH (08:29)
[2019-08-16] MEDS: NORCO 10/325 TAB PO PRN ×2 (10:21→18:16)
[2019-08-16] MEDS ORDERED: CONSULT PHARMACY - GENTAMICIN XX SCH (11:00)
[2019-08-16] MEDS: GENTAMICIN INJ 80 MG in NS 100 ML IV 100 ML IV SCH ×2 (13:19→22:45)
[2019-08-16] MEDS ORDERED: PHARMACY COMMENT IV NR (20:30)
[2019-08-16 20:44] LABS: CREATININE 0.65 mg/dL (0.70-1.30); VANCOMYCIN,TROUGH 6.7 ug/mL (15-20)
[2019-08-17] MEDS: NORCO 10/325 TAB PO PRN ×2 (01:30→07:39)
[2019-08-17] MEDS: ZOFRAN INJ 4 MG VIAL IVP PRN (04:30)
[2019-08-17] MEDS ORDERED: PHARMACY COMMENT IV NR ×2 (05:30→07:00)
[2019-08-17 06:18] LABS: MAGNESIUM 1.9 mg/dL (1.7-2.9)
[2019-08-17 06:19] LABS: CREATININE 0.62 mg/dL (0.70-1.30); GENTAMICIN,TROUGH 1.1 ug/mL (0-1.9)
[2019-08-17] MEDS: GENTAMICIN INJ 80 MG in NS 100 ML IV 100 ML IV SCH (06:43)
[2019-08-17] MEDS: NS 1000 ML 1,000 ML IV SCH (06:43)
[2019-08-17] MEDS: LOVENOX INJ 40 MG SYR SC SCH (08:28)
[2019-08-17] MEDS: NICOTINE PATCH TD SCH (08:31)
[2019-08-17] MEDS: FLOMAX PO SCH (08:32)
[2019-08-17] MEDS: COLACE CAP 100 MG PO SCH (08:32)
[2019-08-17] MEDS: PROTONIX INJ 40 MG VIAL IVP SCH (08:32)
[2019-08-17] MEDS: VANCOMYCIN HCL 1 G in NS 250 ML IV 250 ML IV SCH (08:33)
[2019-08-17 10:34] VITALS: BP 105/69
== END 2019-08-17 11:25 | disposition home or self-care (01) | DRG 330 ==
LOC: OBS 08:22 → ICU 09:45 → MED/SURG 08-08 15:52
PROVIDERS: ADMIT Surgery; ATTEND Internal Medicine
PROC: COLOREV (2019-08-05 10:40)
DX: K94.09 Other complications of colostomy; Z85.038 Personal history of other malignant neoplasm of large intestine; T81.41XA Infection following a procedure, superficial incisional surgical site, initial encounter; B96.29 Other Escherichia coli [E. coli] as the cause of diseases classified elsewhere; N40.0 Benign prostatic hyperplasia without lower urinary tract symptoms; J44.9 Chronic obstructive pulmonary disease, unspecified; K56.7 Ileus, unspecified; C18.8 Malignant neoplasm of overlapping sites of colon
CPT/HCPCS: 36415; 71010; 71045; 74000; 74018; 74177; 80053; 80170; 80202; 82565; 83735; 84132; 85025; 87070; 87075; 87077; 87186; 87205; 88304; 94640; 97110; 97112; 97162; 97166; A4222; C9113; J3490; J0330; J0690; J1100; J1170; J1580; J1642; J1650; J1885; J1956; J2250; J2405; J2704; J2710; J3010; J3370; J3475; J3480; J7030; J7050; J7120; J7620; S5010

== ENCOUNTER 2022-11-26 19:10 | Observation (INO) ==
[2022-11-27] MEDS ORDERED: NORCO 10/325 TAB PO PRN (08:37)
[2022-11-27] MEDS: ROBITUSSIN DM PO SCH ×4 (10:57→20:06)
[2022-11-27] MEDS: NS 1,000 ML IV 1,000 ML IV SCH ×2 (10:58→23:26)
[2022-11-27] MEDS: ROCEPHIN VIAL 1 GRAM 1 G in NS 100 ML IV 100 ML IV SCH ×2 (10:58)
[2022-11-27] MEDS: PROTONIX INJ 40 MG VIAL IVP SCH ×2 (10:58→20:06)
--- NOTE | 2022-11-27 11:07 | EKG ---
Test Reason : SYNCOPE Blood Pressure : */* mmHG Vent. Rate : 90 BPM Atrial Rate : 90 BPM P-R Int : 144 ms QRS Dur : 86 ms QT Int : 376 ms P-R-T Axes : 76 -2 71 degrees QTc Int : 459 ms Sinus rhythm with marked sinus arrhythmia Otherwise normal ECG No previous ECGs available Referred By: Confirmed By:
[2022-11-27 11:12] VITALS: BMI 19.9
[2022-11-27 11:26] LABS: BASOPHILS # (AUTO) 0.1 X10^3/uL (0.0-0.1); EOSINOPHILS % (AUTO) 0.1 % (0.9-2.9); LYMPHOCYTES # (AUTO) 1.1 X10^3/uL (1.3-2.9); MONOCYTES # (AUTO) 1.1 x10^3/uL (0.3-0.8); MONOCYTES % (AUTO) 21.5 % (0.0-13.0); NEUTROPHILS # (AUTO) 2.9 x10^3/uL (2.2-4.8); RED CELL DISTRIBUTION WIDTH 14.9 % (11.6-16.5); WHITE BLOOD COUNT 5.2 X10^3/uL (3.6-10.0)
[2022-11-27 11:30] LABS: BASOPHILS % (AUTO) 1.4 % (0.2-1.0); HEMATOCRIT 42.7 % (42.0-54.0); HEMOGLOBIN 14.7 g/dL (13.5-18.0); LYMPHOCYTES % (AUTO) 21.9 % (21.0-51.0); MEAN CORPUSCULAR HEMOGLOBIN 32.7 pg (27.0-34.0); MEAN CORPUSCULAR HGB CONC 34.4 g/dL (33.0-35.0); MEAN CORPUSCULAR VOLUME 95.1 fL (80.0-100.0); MEAN PLATELET VOLUME 7.6 fL (7.4-11.0); NEUTROPHILS % (AUTO) 55.1 % (42.0-75.0); RED BLOOD COUNT 4.49 X10^6/uL (4.7-6.0)
[2022-11-27 11:37] LABS: ALANINE AMINOTRANSFERASE 19 Units/L (12-78); ALBUMIN 3.7 g/dL (3.4-5.0); ALKALINE PHOSPHATASE 58 Units/L (46-116); ASPARTATE AMINO TRANSFERASE 23 Units/L (15-37); BLOOD UREA NITROGEN 8 mg/dL (7-18); CALCIUM 8.4 mg/dL (8.5-10.1); CARBON DIOXIDE 30.1 mmol/L (21-32); CHLORIDE 99 mmol/L (98-107); CREATINE KINASE 60 Units/L (39-308); CREATININE 0.61 mg/dL (0.70-1.30); MAGNESIUM 2.1 mg/dL (2.0-2.9); SODIUM 134 mmol/L (136-145); TOTAL PROTEIN 6.7 g/dL (6.4-8.2); eGFR NON BLACK RACES > 60 (>60)
[2022-11-27 11:47] LABS: SALICYLATE 3.8 mg/dL (2.8-20)
[2022-11-27 12:00] LABS: PLATELET MORPHOLOGY COMMENT NORMAL (NORMAL)
[2022-11-27] MEDS ORDERED: NICOTINE PATCH TD ONE (12:33)
--- NOTE | 2022-11-27 12:34 | CT ---
HISTORYPOSS CVASTUDYCT HEAD WITHOUT CONTRASTCOMPARISONNo recent comparison studiesTECHNIQUEAxial CT of the head is performed from the base of the skull through the vertex WITHOUT contrast . Multiplaner reformats are generated from the original axial data.FINDINGSAge related cortical volume loss is observed. There is commensurate dilation of the lateral ventricles. Mild chronic microangiopathic ischemic white matter changes of the supratentorial brain are observed. There is no evidence of an acute intracranial hemorrhage or extra-axial fluid collection. There is no mass effect, shift or cerebral edema. Atherosclerotic calcifications are associated with the cavernous ICA segments. There is no acute stage, large artery territorial infarct.Sinuses and mastoid air cells are clear. The calvarium is intact. No suprasellar asymmetry. Cerebellar tonsils are normal in position. Cranial cervical alignment is preserved.IMPRESSIONNo acute intracranial abnormalities. Specifically, no intracranial hemorrhage or large artery territorial infarction is identified on the initial CT of the headAge related involutional changes and mild, chronic small vessel ischemic changes of the deep white matter tracts.If there is definite, focal, acute neurologic deficit, follow up imaging is recommended to evaluate for evolutionary changes. MRI with DWI provides the highest level of initial sensitivity for the detection of acute ischemic infarcts.Radiation dose reduction was achieved through individualized adjustment of kVP and/or mA, through adaptive statistical iterative reconstruction, and/or through automated tube current modulation.Electronically signed by: ARGELIA BARLOW (Nov 27, 2022 12:33:15)
--- NOTE | 2022-11-27 12:57 | CT ---
HISTORYPOSS CVASTUDYCTA neck with IV contrastCOMPARISONCarotid ultrasound October 16TECHNIQUEAxial CT of the neck is performed from the aortic arch through the base of the skull with an arterial timing bolus.. Multiplaner reformats are generated from the original axial data. Volume rendered MIP and/or 3D reconstruction sequences are also generated and reviewed.FINDINGSThere is a 3 vessel aortic arch. There is mild intimal thickening of the left subclavian artery without flow limiting stenosis. The left vertebral artery origin is patent. Left common carotid artery is patent. Mild intimal thickening and plaque accumulation associated with the left carotid bulb and proximal ICA segment without flow limiting stenosis. Adequate flow is maintained through the base of the skull.Right subclavian artery and common carotid artery are patent. There is intimal thickening and mild plaque accumulation of the origin of the right brachiocephalic artery. The origin of the right vertebral artery is patent. There is mild plaque identified within the right carotid bulb and proximal ICA segment without flow limiting stenosis. Adequate flow is maintained to the skullbase. Bilateral vertebral arteries are patent. No dissection identified. Right vertebral artery is dominant at the V3 segment.Advanced emphysematous changes with upper lobe predominant pleural parenchymal scarring. No consolidation. Central airway is patent. No enlarged or morphologically atypical lymph nodes of the neck are identified. Bilateral parotid and submandibular glands are normal in morphology. No soft tissue asymmetry or abnormal enhancement of the major anatomic stations. No acute osseous abnormalities of the chest. Multilevel degenerative disc disease, spondylosis and facet hypertrophy of the cervical spine are observed.Limited imaging through the base of the skull reveals no acute attenuation abnormalities of the brain parenchyma. Visualized sinuses and mastoid air cells are predominantly clear.IMPRESSIONNo flow limiting stenosis of the bilateral carotid tributaries and vertebral arteries.Mild plaque associated with the bilateral carotid bulbs and proximal ICA segmentsRadiation dose reduction was achieved through individualized adjustment of kVP and/or mA, through adaptive statistical iterative reconstruction, and/or through automated tube current modulation.Electronically signed by: ARGELIA BARLOW (Nov 27, 2022 12:56:02)
[2022-11-27] MEDS: NICOTINE PATCH TD SCH (13:18)
--- NOTE | 2022-11-27 14:21 | EKG ---
Test Reason : SYNCOPE Blood Pressure : */* mmHG Vent. Rate : 87 BPM Atrial Rate : 87 BPM P-R Int : 142 ms QRS Dur : 80 ms QT Int : 358 ms P-R-T Axes : 72 -21 55 degrees QTc Int : 430 ms Normal sinus rhythm Anterior infarct , age undetermined Abnormal ECG When compared with ECG of 27-NOV-2022 10:59, (Unconfirmed) Anterior infarct is now present Referred By: Confirmed By:
--- NOTE | 2022-11-27 18:37 | DR.H&P ---
H&P - History & Physical for Day of: H&P Date: 11/27/22 - Chief Complaint Chief Complaint: blurred vision in right eye - History of Present Illness History of Present Illness: PT IS 72 WM, DIRECT ADMIT FROM DR HERNÁNDEZ OFFICE WITH CO NEW ONSET RIGHT EYE VISION IMPAIRED. PT REPORTS CHANGES WAS ABRUPT 3 DAYS AGO. PT REPORTS HE HAD A DE LA GARZA AND THEN BECAME VERY DIZZY, FOLLOWED BY RIGHT EYE VISION IMPAIRMENT. PT DID NOT REPORT TO THE ER AT THAT TIME, DIZZINESS HAS RESOLVED. PT HAS PMH OF COPD, BPH, HX COLON CA, PAD AND OA. PT REPORTS HE HAS BEEN TAKING HEADACHE POWDERS FOR PAIN. - Past Medical History Past Medical History: Asthma, COPD, PUD Additional Medical History: colon cancer, PAD - Past Surgical History Surgical History: Bowel Resection - Family History Family Medical History: Diabetes Mellitus, Cancer, CT, Hypertension - Social History Does patient currently use any type of tobacco product: Yes Have you used tobacco products in the last 12 months: Yes Type of Tobacco Use: Cigarettes Alcohol Use: Occasionally Drug Use: None - Medications Home Medications: No Known Drug Allergies Allergy (Verified 12/03/18 21:48) CONTINUE taking the following medications hydrocodone 5 mg-acetaminophen 325 mg tablet 1 tab PO BID PRN 11/27/22 [History] pantoprazole 40 mg tablet,delayed release 1 tab PO QDAY 11/27/22 [History] quetiapine 25 mg tablet 1 tab PO QPM 11/27/22 [History] - Review of Systems Constitutional: Weakness, Malaise Eyes: No Symptoms Reported ENT: No Symptoms Reported Respiratory: Cough, Shortness of Breath, SOB with Excertion, Wheezing Cardiovascular: Light Headedness Gastrointestinal: Nausea Genitourinary: No Symptoms Reported Musculoskeletal: Shoulder Pain, Back Pain Neurological: Other (DE [place] GARZA, RIGHT EYE VISION IMPAIRMENT) - Physical Exam Vital Signs: Temperature 98.5 F Pulse Rate [Left Radial] 89 Respiratory Rate 20 Blood Pressure [Right Arm] 120/72 Blood Pressure [Left Arm] 105/69 Blood Pressure [Right Arm] 124/60 Blood Pressure 125/82 O2 Sat by Pulse Oximetry 95 Oriented: Person Eyes: Blurred Vision Ear: Normal Nose: Normal Throat: Normal Respiratory: Wheezes Throughout Cardiovascular: Normal : Normal Auscultation: Bowel Sounds: Normal Palpation: Normal Tenderness: Epigastric, Mild Skin: Decreased Turgur Musculoskeletal: Right, Left, Shoulder, Back:Thoracic, Back:Lumbar, Tender Psychiatric: Anxiety Affect: Anxious Speech Pattern: Clear, Appropriate - Assessment/Plan (1) Acute loss of vision Status: Acute Plan: ADMIT, CT HEAD ON ADMISSION RO CVA. CAROTID ARTERY CTA. AM MRI BRAIN, BP AND LIPID CONTROL. SUPPLEMENTAL O2, RESP THERAPY. IV ROCEPHIN AND SOLU MEDROL, SPUTUM CULTURE, AM FLP. PAIN CONTROL, SERIAL CE AND EKG, PLAVIX, ASPIRIN, STATIN (2) PAD (peripheral artery disease) Status: Acute (3) COPD (chronic obstructive pulmonary disease) Status: Acute (4) History of colostomy reversal Status: Acute (5) BPH (benign prostatic hyperplasia) Status: Chronic (6) Malignant neoplasm of rectum Status: None - Allergies Allergies/Adverse Reactions: Allergies Allergy/AdvReac Type Severity Reaction Status Date / Time No Known Drug Allergies Allergy Verified 12/03/18 21:48
[2022-11-27] MEDS: PLAVIX PO SCH (20:05)
[2022-11-27] MEDS: SOLU-Medrol 40 MG VIAL IVP SCH ×2 (20:06→22:42)
[2022-11-27] MEDS: PULMICORT NEB TX 0.5 MG NEB SCH (20:45)
--- NOTE | 2022-11-27 20:49 | EKG ---
Test Reason : SYNCOPE Blood Pressure : */* mmHG Vent. Rate : 94 BPM Atrial Rate : 94 BPM P-R Int : 140 ms QRS Dur : 78 ms QT Int : 356 ms P-R-T Axes : 68 -37 66 degrees QTc Int : 445 ms Normal sinus rhythm Left axis deviation Abnormal ECG When compared with ECG of 27-NOV-2022 14:13, (Unconfirmed) Criteria for Anterior infarct are no longer present Referred By: Confirmed By:
[2022-11-27] MEDS ORDERED: SEROquel TAB 25 mg PO SCH (21:00)
[2022-11-27] MEDS ORDERED: LIPITOR TAB 10 MG PO SCH (21:00)
[2022-11-28 03:20] LABS: BILIRUBIN,URINE NEGATIVE (NEGATIVE); BLOOD/HEMOGLOBIN,URINE NEGATIVE (NEGATIVE); GLUCOSE, URINE NEGATIVE (NEGATIVE); KETONES,URINE NEGATIVE (NEGATIVE); LEUKOCYTE ESTERASE ,URINE NEGATIVE (NEGATIVE); NITRITES,URINE NEGATIVE (NEGATIVE); PROTEIN,URINE 1+ (NEGATIVE); UROBILINOGEN,URINE NORMAL (NORMAL)
[2022-11-28 03:28] LABS: APPEARANCE,URINE CLEAR (CLEAR); BACTERIA,URINE NEGATIVE /HPF (NEGATIVE); COLOR,URINE YELLOW (YELLOW); RBC,URINE NONE SEEN /HPF (0-3); SQUAMOUS EPITHELIAL CELL,UR RARE /HPF (NEGATIVE)
[2022-11-28 05:07] LABS: BASOPHILS % (AUTO) 0.3 % (0.2-1.0); HEMATOCRIT 40.8 % (42.0-54.0); HEMOGLOBIN 13.9 g/dL (13.5-18.0); LYMPHOCYTES # (AUTO) 0.4 X10^3/uL (1.3-2.9); LYMPHOCYTES % (AUTO) 11.8 % (21.0-51.0); MEAN CORPUSCULAR HEMOGLOBIN 32.2 pg (27.0-34.0); MEAN CORPUSCULAR VOLUME 94.7 fL (80.0-100.0); MEAN PLATELET VOLUME 7.8 fL (7.4-11.0); MONOCYTES # (AUTO) 0.1 x10^3/uL (0.3-0.8); MONOCYTES % (AUTO) 2.4 % (0.0-13.0); NEUTROPHILS % (AUTO) 85.5 % (42.0-75.0); RED BLOOD COUNT 4.31 X10^6/uL (4.7-6.0); RED CELL DISTRIBUTION WIDTH 15.1 % (11.6-16.5); WHITE BLOOD COUNT 3.5 X10^3/uL (3.6-10.0)
[2022-11-28] MEDS: SOLU-Medrol 40 MG VIAL IVP SCH ×2 (05:13→13:14)
[2022-11-28 05:27] LABS: ALANINE AMINOTRANSFERASE 19 Units/L (12-78); ALBUMIN 3.2 g/dL (3.4-5.0); ALKALINE PHOSPHATASE 53 Units/L (46-116); ASPARTATE AMINO TRANSFERASE 19 Units/L (15-37); BLOOD UREA NITROGEN 7 mg/dL (7-18); CARBON DIOXIDE 28.5 mmol/L (21-32); CHLORIDE 102 mmol/L (98-107); CHOLESTEROL 162 mg/dL (0-200); COR CA(FOR HYPOALB) 8.6 mg/dL (8.5-10.1); COR NA(FOR HYPERGLY) 138 mmol/L (136-145); CREATININE 0.48 mg/dL (0.70-1.30); HDL CHOLESTEROL 81 mg/dL (40-60); SODIUM 137 mmol/L (136-145); TOTAL PROTEIN 6.2 g/dL (6.4-8.2); TRIGLYCERIDES 26 mg/dL (0-150); eGFR NON BLACK RACES > 60 (>60)
[2022-11-28 05:31] LABS: PLATELET MORPHOLOGY COMMENT NORMAL (NORMAL)
[2022-11-28] MEDS: ROCEPHIN VIAL 1 GRAM 1 G in NS 100 ML IV 100 ML IV SCH (08:20)
[2022-11-28] MEDS: PROTONIX INJ 40 MG VIAL IVP SCH (08:20)
[2022-11-28] MEDS: PLAVIX PO SCH (08:20)
[2022-11-28] MEDS: NICOTINE PATCH TD SCH (08:21)
[2022-11-28] MEDS: ROBITUSSIN DM PO SCH ×2 (08:31→12:37)
[2022-11-28] MEDS ORDERED: XANAX PO ONE (08:55)
[2022-11-28] MEDS ORDERED: ASPIRIN EC 81 MG PO SCH (09:00)
[2022-11-28] MEDS ORDERED: FLOMAX PO SCH (09:00)
[2022-11-28] MEDS: PULMICORT NEB TX 0.5 MG NEB SCH (09:32)
--- NOTE | 2022-11-28 10:57 | RAD ---
PROCEDURE: Chest X-ray 1 View .HISTORY: Chronic obstructive pulmonary disease, dyspnea, and cough.TECHNIQUE: AP view .COMPARISON: 05/08/2022.TECHNICAL QUALITY: Satisfactory .FINDINGS:Left subclavian Port-A-Cath in good position and unchanged.Normal size heart.Mediastinum and hilar regions show no masses or lymphadenopathy .Normal central vascularity .Unchanged blunted left lateral costophrenic angle. Unchanged hyperlucency and hyper expansion of the lungs consistent with emphysema. No consolidation or masses.No acute bony abnormality .IMPRESSION:1. Unchanged COPD.2. Unchanged blunted left lateral costophrenic angle could be related to small effusion or pleural thickening.Electronically signed by: Chauncey Mata (Nov 28, 2022 10:56:21)
[2022-11-28 12:10] VITALS: BP 137/75
[2022-11-28] MEDS: NS 1,000 ML IV 1,000 ML IV SCH (13:08)
--- NOTE | 2022-11-28 13:17 | MRI ---
HISTORYvisual diturbance, cvaSTUDYBRAIN W/O CONCOMPARISONHead CT dated 11/27/2022.TECHNIQUEMultiplanar multi-sequence MRI of the brain was obtained utilizing standard departmental protocol. Sagittal and axial T1 weighted images were obtained. Axial T2 and flair weighted images were performed as well. Axial diffusion weighted and ADC trace mapping was performed.FINDINGSThe ventricles are symmetric. There is a patchy infarct involving the cortex of the left occipital lobe with mild restricted diffusion. There is high signal on FLAIR along the medial cortex of the posterior temporal occipital region that could correspond with subacute infarct more than 10 days. There is no restricted diffusion at the level.The main arterial and venous flow voids are present, no abnormal signal in the mastoid cells and included paranasal sinuses, no sellar masses.No nasopharyngeal masses, the cervicocranial junction is unremarkable, no abnormal signal in the mastoid cells.No abnormal intraparenchymal susceptibility artifact.IMPRESSIONHigh-signal signal on FLAIR along the medial aspect of the posterior left temporal lobe and the occipital lobe without restricted diffusion could represent subacute more than 10 days infarct with small areas of restricted diffusion along the posterior cortex of the left occipital lobe consistent with more acute infarct areas.No susceptibility artifact. No suspicious for acute bleed.Mild periventricular white matter changes likely microvascular ischemic disease.Electronically signed by: Clarisse Arroyo (Nov 28, 2022 13:16:17)
== END 2022-11-28 14:40 | disposition home or self-care (01) ==
LOC: MED/SURG
PROVIDERS: ADMIT Internal Medicine; ATTEND Internal Medicine
DX: H53.8 Other visual disturbances; R06.02 Shortness of breath; Z85.038 Personal history of other malignant neoplasm of large intestine; J44.9 Chronic obstructive pulmonary disease, unspecified; I73.9 Peripheral vascular disease, unspecified; N40.0 Benign prostatic hyperplasia without lower urinary tract symptoms

== ENCOUNTER 2023-07-31 15:50 | Observation (INO) ==
[2023-07-31] MEDS ORDERED: ZOFRAN INJ 4 MG VIAL IVP ONE (16:04)
[2023-07-31] MEDS ORDERED: PROTONIX INJ 40 MG VIAL IVP ONE (16:04)
--- NOTE | 2023-07-31 16:04 | DR.N/VMALE ---
HPI Time Seen Time Seen by Provider: 07/31/23 16:04 Complaints Chief Complaint Doctors Comments: 72 y/o male brought in by EMS for evaluation. He ate a meal late last night, and started vomiting prior to finishing. Has had frequent episodes of vomiting since. He has moved his bowels twice today with no problems. Denies any fevers or chills.. He is having some abdominal discomfort, mostly from where he recently had a lower extremity stent placed. No URI symptoms. Reviewed Nurses Notes Reviewed: Yes Source History Provided: Patient and EMS PMH PMH Past Medical History: Asthma, Dyslipidemia, GERD and PUD Past Surgical History: Yes Surgical History: Abdominal Surgery and Ortho Surgery Family History Family Medical History: Heart Failure and Hypertension Social History Do you use any recreational Drugs:: Yes (MARIJUANA) ROS Review of Systems Constitutional: Weakness Eyes: No Symptoms Reported ENTM: No Symptoms Reported Respiratoy: No Symptoms Reported Cardiovascular: No Symptoms Reported Gastrointestinal/Abdominal: Nausea and Vomiting Genitourinary: No Symptoms Reported Neurological: Weakness Musculoskeletal: No Symptoms Reported Integumentary: No Symptoms Reported All Other Systems: Reviewed and Negative PE Vital Signs Vitals: Vital Signs Temperature 98.5 F Pulse Rate 117 Pulse Rate 108 Pulse Rate 101 Pulse Rate 108 Pulse Rate 105 Pulse Rate 105 Pulse Rate 102 Pulse Rate 110 Pulse Rate 110 Pulse Rate 103 Respiratory Rate 41 Respiratory Rate 59 Respiratory Rate 36 Respiratory Rate 43 Respiratory Rate 50 Respiratory Rate 42 Respiratory Rate 37 Respiratory Rate 57 Respiratory Rate 60 Respiratory Rate 22 Blood Pressure 131/71 Blood Pressure 129/77 Blood Pressure 134/76 Blood Pressure 113/79 O2 Sat by Pulse Oximetry 96 O2 Sat by Pulse Oximetry 100 O2 Sat by Pulse Oximetry 100 O2 Sat by Pulse Oximetry 100 O2 Sat by Pulse Oximetry 100 O2 Sat by Pulse Oximetry 99 O2 Sat by Pulse Oximetry 99 O2 Sat by Pulse Oximetry 100 O2 Sat by Pulse Oximetry 100 O2 Sat by Pulse Oximetry 100 General General Appearance: Alert and In No Apparent Distress Eyes Eye exam: PERRL and EOMI ENT ENT Exam: Normal Oropharynx and Mucous Membranes Moist Neck Neck Exam: Normal Inspection and Full ROM; negative Tenderness Respiratory Respiratory Exam: Normal Lung Sounds Bilat; negative Accessory Muscle Use or Respiratory Distress Cardiovascular Cardiovascular Exam: Regular Rate, Normal Rhythm and Normal Heart Sounds Abdominal Exam Abdominal Exam: Normal Bowel Sounds, Soft and Tenderness (Epigastric region, left lower quadrant, no guarding) Extremities Extremities Exam: Normal Inspection Neurologic Neurological Exam: Alert, Oriented X3 and CN II-XII Intact; negative Motor Sensory Deficit Skin Skin Exam: Warm and Dry COURSE Treatment Treatment: 72 y/o male with persistent vomiting since last pm. Work-up initiated. Patient given IV Zofran by EMS, helped. Patient given additional IV Zofran/IV Protonix here, as well as IV fluids. Patient thirsty on arrival, wanted to drink. Given a few ice chips to start 1936 -patient overall feeling better. Work-up unremarkable. Has acceptable labs, including CBC, CMP, lipase and troponin. CT abd /pelvis with some thickening of the distal esophagus , no acute abnormalities. Patient states he has a chronic problem with swallowing. Currently no criteria for admission, based on his labs or CT. No further vomiting at present, patient would like to drink liquids. We will give patient a PO trial, up to 8 ounces of water, and will discharge home if he keeps it down. If not we will recommend observation admission for vomiting. 1946 - pt tried water, came up. Will admit. [facility] Labs Reviewed 08/01/23 04:27 08/01/23 04:27 Laboratory: WBC 8.7 X10^3/uL (3.6-10.0) 07/31/23 16:11 RBC 4.58 X10^6/uL (4.7-6.0) L 07/31/23 16:11 Hgb 14.0 g/dL (13.5-18.0) 07/31/23 16:11 Hct 42.8 % (42.0-54.0) 07/31/23 16:11 MCV 93.3 fL (80.0-100.0) 07/31/23 16:11 MCH 30.5 pg (27.0-34.0) 07/31/23 16:11 MCHC 32.7 g/dL (33.0-35.0) L 07/31/23 16:11 RDW 16.6 % (11.6-16.5) H 07/31/23 16:11 Plt Count 278 X10^3/uL (150.0-450.0) 07/31/23 16:11 Plt Count Comment Adequate (ADEQUATE) 07/31/23 16:11 MPV 7.3 fL (7.4-11.0) L 07/31/23 16:11 Neut % (Auto) 68.1 % (42.0-75.0) 07/31/23 16:11 Lymph % (Auto) 7.3 % (21.0-51.0) L 07/31/23 16:11 [place] % (Auto) 23.7 % (0.0-13.0) H 07/31/23 16:11 Eos % (Auto) 0.1 % (0.9-2.9) L 07/31/23 16:11 Baso % (Auto) 0.8 % (0.2-1.0) 07/31/23 16:11 Neut # (Auto) 5.9 x10^3/uL (2.2-4.8) H 07/31/23 16:11 Lymph # (Auto) 0.6 X10^3/uL (1.3-2.9) L 07/31/23 16:11 [place] # (Auto) 2.1 x10^3/uL (0.3-0.8) H 07/31/23 16:11 Eos # (Auto) 0.0 x10^3/uL (0.0-0.2) 07/31/23 16:11 Baso # (Auto) 0.1 X10^3/uL (0.0-0.1) 07/31/23 16:11 Absolute Nucleated RBC 0.0 /100WBC 07/31/23 16:11 Total Counted 100 07/31/23 16:11 Neutrophils % (Manual) 70 % (39-76) 07/31/23 16:11 Lymphocytes % (Manual) 8 % (13-43) L 07/31/23 16:11 Monocytes % (Manual) 22 % (4-9) H 07/31/23 16:11 Plt Morphology Comment Normal (NORMAL) 07/31/23 16:11 RBC Morphology Normal (NORMAL) 07/31/23 16:11 Sodium 143 mmol/L (136-145) 07/31/23 16:11 Corrected Sodium 143 mmol/L (136-145) 07/31/23 16:11 Potassium 3.4 mmol/L (3.5-5.1) L 07/31/23 16:11 Chloride 102 mmol/L (98-107) 07/31/23 16:11 Carbon Dioxide 30.8 mmol/L (21-32) 07/31/23 16:11 BUN 11 mg/dL (7-18) 07/31/23 16:11 Creatinine 0.74 mg/dL (0.70-1.30) 07/31/23 16:11 Est GFR (MDRD) Af Amer > 60 (>60) 07/31/23 16:11 Est GFR (MDRD) Non-Af > 60 (>60) 07/31/23 16:11 Glucose 116 mg/dL (65-99) H 07/31/23 16:11 Calcium 8.3 mg/dL (8.5-10.1) L 07/31/23 16:11 Corrected Calcium TNP 07/31/23 16:11 Magnesium 2.2 mg/dL (2.0-2.9) 07/31/23 16:11 Total Bilirubin 0.60 mg/dL (0.2-1.0) 07/31/23 16:11 AST 14 Units/L (15-37) L 07/31/23 16:11 ALT 18 Units/L (12-78) 07/31/23 16:11 Alkaline Phosphatase 71 Units/L (46-116) 07/31/23 16:11 Troponin I High Sens 7.0 ng/L (4.0-60.0) 07/31/23 16:11 Total Protein 7.5 g/dL (6.4-8.2) 07/31/23 16:11 Albumin 3.8 g/dL (3.4-5.0) 07/31/23 16:11 Globulin 3.7 g/dL (2.5-4.5) 07/31/23 16:11 Albumin/Globulin Ratio 1.0 Ratio (1.1-2.1) L 07/31/23 16:11 Lipase 30 Units/L (16-77) 07/31/23 16:11 EKG Rate: 102 Eldred: LAD Rhythm: ST ST: Nonsp Opioid Opioid Risk Tool Age (Herb box if 16-45): No History of Preadolescent Sexual Abuse: No Total: 0 Total Score Risk Category: Low Risk Copyright: Shine HODGE predicting aberrant behaviors Discharge Plan Diagnosis Discharge Problem: Intractable vomiting Discharge Plan Patient Disposition: 09 ADMITTED INPATIENT Condition: Stable
[2023-07-31] MEDS ORDERED: ZOFRAN INJ 4 MG VIAL ONE (16:11)
[2023-07-31] MEDS ORDERED: PROTONIX INJ 40 MG VIAL ONE (16:11)
[2023-07-31] MEDS ORDERED: NS 500 ML IV 500 ML IV ONE ×2 (16:11)
[2023-07-31 16:26] LABS: BASOPHILS # (AUTO) 0.1 X10^3/uL (0.0-0.1); BASOPHILS % (AUTO) 0.8 % (0.2-1.0); EOSINOPHILS % (AUTO) 0.1 % (0.9-2.9); HEMATOCRIT 42.8 % (42.0-54.0); LYMPHOCYTES # (AUTO) 0.6 X10^3/uL (1.3-2.9); LYMPHOCYTES % (AUTO) 7.3 % (21.0-51.0); MEAN CORPUSCULAR HEMOGLOBIN 30.5 pg (27.0-34.0); MEAN CORPUSCULAR HGB CONC 32.7 g/dL (33.0-35.0); MEAN CORPUSCULAR VOLUME 93.3 fL (80.0-100.0); MEAN PLATELET VOLUME 7.3 fL (7.4-11.0); MONOCYTES # (AUTO) 2.1 x10^3/uL (0.3-0.8); MONOCYTES % (AUTO) 23.7 % (0.0-13.0); NEUTROPHILS # (AUTO) 5.9 x10^3/uL (2.2-4.8); NEUTROPHILS % (AUTO) 68.1 % (42.0-75.0); PLATELET COUNT 278 X10^3/uL (150.0-450.0); RED BLOOD COUNT 4.58 X10^6/uL (4.7-6.0); RED CELL DISTRIBUTION WIDTH 16.6 % (11.6-16.5); WHITE BLOOD COUNT 8.7 X10^3/uL (3.6-10.0)
--- NOTE | 2023-07-31 16:28 | EKG ---
Test Reason : vomiting Blood Pressure : */* mmHG Vent. Rate : 102 BPM Atrial Rate : 102 BPM P-R Int : 130 ms QRS Dur : 90 ms QT Int : 386 ms P-R-T Axes : 91 -35 77 degrees QTc Int : 503 ms Sinus tachycardia with premature atrial complexes with aberrant conduction Left axis deviation Abnormal ECG When compared with ECG of 27-NOV-2022 20:40, aberrant conduction is now present QT has lengthened Confirmed by Casimiro Jones ([id number]) on 08/02/2023 4:29:13 PM Referred By: Confirmed By: Casimiro Jones
[2023-07-31 16:35] LABS: ALANINE AMINOTRANSFERASE 18 Units/L (12-78); ALBUMIN 3.8 g/dL (3.4-5.0); ALKALINE PHOSPHATASE 71 Units/L (46-116); ASPARTATE AMINO TRANSFERASE 14 Units/L (15-37); BLOOD UREA NITROGEN 11 mg/dL (7-18); CALCIUM 8.3 mg/dL (8.5-10.1); CARBON DIOXIDE 30.8 mmol/L (21-32); CHLORIDE 102 mmol/L (98-107); COR NA(FOR HYPERGLY) 143 mmol/L (136-145); CREATININE 0.74 mg/dL (0.70-1.30); GLUCOSE 116 mg/dL (65-99); LIPASE 30 Units/L (16-77); POTASSIUM 3.4 mmol/L (3.5-5.1); SODIUM 143 mmol/L (136-145); TOTAL PROTEIN 7.5 g/dL (6.4-8.2); eGFR NON BLACK RACES > 60 (>60)
[2023-07-31 17:08] LABS: PLATELET MORPHOLOGY COMMENT NORMAL (NORMAL)
[2023-07-31] MEDS ORDERED: OMNIPAQUE 350 mg/mL 100 mL BTL 100 ML ONE (17:41)
--- NOTE | 2023-07-31 18:18 | CT ---
EXAM:ABDCMEN/PELVIS WITH CONHISTORY:VomitingCOMPARISON:November 06, 2022TECHNIQUE:Axial CT images of the abdomen and pelvis were obtained after the administration of IV contrast and reformatted into coronal and sagittal planes for further evaluation.Radiation dose: 130.39 mGy-cm total DLPFINDINGS:Lung bases are clear.Distal esophageal wall thickening.Stomach appears normal.Solid visceral organs of the upper abdomen are unremarkable.Gallbladder appears normal with no biliary dilatation.Small bilateral renal cysts.Unremarkable appearance of the kidneys and ureters.Unremarkable appearance of the urinary bladder.Imaged reproductive structures are unremarkable.Anastomotic sutures in the colon. Otherwise, unremarkable appearance of the large and small bowel.Age indeterminate occlusion of the infrarenal abdominal aorta and iliac vessels. Vascular conduit in the subcutaneous tissues of the right thoracic/abdominal wall which extends to each femoral region across the subcutaneous tissues of the lower abdomen.No evidence of acute appendicitis.No pneumoperitoneum.No significant fluid collection.No adenopathy.No acute osseous abnormality.IMPRESSION:No acute intra-abdominal abnormality detected.Distal esophageal wall thickening could represent esophagitis..THIS IS AN ELECTRONICALLY VERIFIED FINAL [id number]/31/2023 6:15 PM - Electronically signed by Sherman Muro MD
--- NOTE | 2023-07-31 20:34 | RAD ---
EXAM: CHEST X-RAYHISTORY: Vomiting.TECHNIQUE: AP CXR dated July 31 2023 at 4:09 PM.COMPARISON: CXR dated November 28, 2022.FINDINGS:There is a left anterior chest wall chest port in situ with the distal tip in the distal SVC (adequate position).The heart size and mediastinum are within normal limits. There is lung parenchymal hyperinflation and hyperlucency in keeping with COPD/emphysema. There is no acute parenchymal infiltrate, pleural effusion, or pneumothorax seen. The visualized bony structures are within normal limits.IMPRESSION:1. No evidence for acute cardiopulmonary disease seen.2. Severe COPD/emphysema.4. No significant interval change seen.THIS IS AN ELECTRONICALLY VERIFIED FINAL [id number]/31/2023 8:31 PM - Electronically signed by Arnulfo John
[2023-07-31] MEDS ORDERED: NS 1,000 ML IV 1,000 ML IV SCH (21:00)
[2023-07-31] MEDS ORDERED: PROVENTIL NEB TX 0.083% 2.5MG/ 3ML ONE (21:14)
[2023-07-31] MEDS: PROVENTIL NEB TX 0.083% 2.5MG/ 3ML NEB SCH (21:22)
[2023-07-31] MEDS: D5 1/2 NS 1,000 ML 1,000 ML IV SCH (21:27)
[2023-07-31] MEDS: SEROquel TAB 25 mg PO SCH (21:27)
[2023-07-31] MEDS: MORPHINE SULFATE INJ 4 MG IVP PRN (21:42)
[2023-07-31] MEDS: ZOFRAN INJ 4 MG VIAL IVP PRN (21:42)
[2023-07-31 21:56] LABS: BILIRUBIN,URINE NEGATIVE (NEGATIVE); BLOOD/HEMOGLOBIN,URINE 1+ (NEGATIVE); GLUCOSE, URINE NEGATIVE (NEGATIVE); KETONES,URINE 3+ (NEGATIVE); LEUKOCYTE ESTERASE ,URINE NEGATIVE (NEGATIVE); NITRITES,URINE NEGATIVE (NEGATIVE); PROTEIN,URINE 2+ (NEGATIVE); UROBILINOGEN,URINE 2+ (NORMAL)
[2023-07-31 21:59] LABS: APPEARANCE,URINE CLEAR (CLEAR); COLOR,URINE DARK YELLOW (YELLOW)
[2023-07-31] MEDS ORDERED: CONSULT PHARMACY - POTASSIUM & MAGNESIUM XX SCH (22:00)
[2023-07-31 22:03] LABS: BACTERIA,URINE NEGATIVE /HPF (NEGATIVE); HYALINE CASTS, URINE RARE /LPF (NEGATIVE); RBC,URINE 0-2 /HPF (0-3); SQUAMOUS EPITHELIAL CELL,UR RARE /HPF (NEGATIVE)
[2023-07-31] MEDS ORDERED: K-DUR TAB 20 MEQ PO SCH (23:00)
[2023-08-01 05:01] LABS: BASOPHILS % (AUTO) 0.4 % (0.2-1.0); EOSINOPHILS % (AUTO) 0.2 % (0.9-2.9); HEMATOCRIT 34.3 % (42.0-54.0); LYMPHOCYTES # (AUTO) 0.9 X10^3/uL (1.3-2.9); LYMPHOCYTES % (AUTO) 12.5 % (21.0-51.0); MEAN CORPUSCULAR HEMOGLOBIN 30.4 pg (27.0-34.0); MEAN CORPUSCULAR VOLUME 92.1 fL (80.0-100.0); MEAN PLATELET VOLUME 7.8 fL (7.4-11.0); MONOCYTES # (AUTO) 2.1 x10^3/uL (0.3-0.8); MONOCYTES % (AUTO) 30.2 % (0.0-13.0); NEUTROPHILS # (AUTO) 3.9 x10^3/uL (2.2-4.8); NEUTROPHILS % (AUTO) 56.7 % (42.0-75.0); PLATELET COUNT 222 X10^3/uL (150.0-450.0); RED BLOOD COUNT 3.72 X10^6/uL (4.7-6.0); RED CELL DISTRIBUTION WIDTH 16.2 % (11.6-16.5); WHITE BLOOD COUNT 6.9 X10^3/uL (3.6-10.0)
[2023-08-01] MEDS: D5 1/2 NS 1,000 ML 1,000 ML IV SCH (05:03)
[2023-08-01 05:11] LABS: ALANINE AMINOTRANSFERASE 12 Units/L (12-78); ALBUMIN 2.8 g/dL (3.4-5.0); ALKALINE PHOSPHATASE 55 Units/L (46-116); ASPARTATE AMINO TRANSFERASE 12 Units/L (15-37); BLOOD UREA NITROGEN 9 mg/dL (7-18); CALCIUM 7.5 mg/dL (8.5-10.1); CARBON DIOXIDE 32.3 mmol/L (21-32); CHLORIDE 103 mmol/L (98-107); COR CA(FOR HYPOALB) 8.5 mg/dL (8.5-10.1); COR NA(FOR HYPERGLY) 142 mmol/L (136-145); CREATININE 0.59 mg/dL (0.70-1.30); GLUCOSE 126 mg/dL (65-99); POTASSIUM 3.2 mmol/L (3.5-5.1); SODIUM 141 mmol/L (136-145); TOTAL PROTEIN 5.9 g/dL (6.4-8.2); eGFR NON BLACK RACES > 60 (>60)
[2023-08-01 05:42] LABS: HEMOGLOBIN 11.3 g/dL (13.5-18.0)
[2023-08-01 05:43] LABS: PLATELET MORPHOLOGY COMMENT NORMAL (NORMAL)
[2023-08-01] MEDS ORDERED: CONSULT PHARMACY - POTASSIUM & MAGNESIUM XX SCH (06:00)
[2023-08-01] MEDS ORDERED: K-DUR TAB 20 MEQ PO SCH (06:00)
[2023-08-01] MEDS ORDERED: PROTONIX INJ 40 MG VIAL IVP SCH ×2 (09:00→21:00)
[2023-08-01] MEDS ORDERED: PriLOSEC PO SCH (09:00)
[2023-08-01] MEDS ORDERED: K-RIDER 10 MEQ/NS 100 ML 10 MEQ/100 ML BAG IV SCH (09:00)
[2023-08-01] MEDS: PROTONIX INJ 40 MG VIAL IVP SCH ×2 (09:54→21:54)
[2023-08-01] MEDS: NICOTINE PATCH TD SCH (09:55)
[2023-08-01] MEDS: D5 1/2 NS + KCL 20 MEQ/L 1,000 ML IV SCH ×2 (09:55→17:00)
[2023-08-01] MEDS: FLOMAX PO SCH ×2 (10:02→15:29)
[2023-08-01] MEDS: PLAVIX PO SCH ×2 (10:02→15:30)
[2023-08-01] MEDS: MORPHINE SULFATE INJ 4 MG IVP PRN ×2 (11:08→21:54)
[2023-08-01] MEDS ORDERED: D5 LR 1,000 ML 1,000 ML IV ONE (13:12)
[2023-08-01] MEDS ORDERED: DIPRIVAN VIAL 20 ML ONE (13:42)
[2023-08-01] MEDS ORDERED: NEO-SYNEPHRINE INJ ONE (13:58)
[2023-08-01 15:17] VITALS: BMI 17.0
--- NOTE | 2023-08-01 18:11 | DR.H&P ---
H&P History & Physical for Day of: H&P Date: 07/31/23 Chief Complaint Chief Complaint: vomiting Allergies Allergies Allergy/AdvReac Type Severity Reaction Status Date / Time No Known Drug Allergies Allergy Verified 01/24/23 09:43 History of Present Illness History of Present Illness: 72 y/o male brought in by EMS for evaluation. He ate a meal late last night, and started vomiting prior to finishing. Has had frequent episodes of vomiting since. He has moved his bowels twice today with no problems. Denies any fevers or chills.. He is having some abdominal di scomfort, mostly from where he recently had a lower extremity stent placed. Past Medical History Past Medical History: Asthma, Dyslipidemia, GERD and PUD Additional Medical History: colon cancer, PAD Past Surgical History Surgical History: Angioplasty/Stents and Ortho Surgery Additional Surgical History: axillofemoral bypass Family History Family Medical History: Heart Failure and Hypertension Social History Does patient currently use any type of tobacco product: Yes Have you used tobacco products in the last 12 months: Yes Type of Tobacco Use: Cigarettes How many years tobacco product used: 40 Packs per day or dips/chews per day: 1 pack per day Does any household member use tobacco: No Alcohol Use: DAILY Drug Use: None Medications Home Medications: Home Medications Medication Instructions Recorded Confirmed Type clopidogrel 75 mg tablet 75 mg PO QDAY 07/31/23 07/31/23 History hydrocodone 5 mg-acetaminophen 325 1 tab PO Q4-6H PRN pain 07/31/23 07/31/23 History mg tablet hydrocodone 7.5 mg-acetaminophen 1 tab PO BID PRN 07/31/23 07/31/23 History 325 mg tablet nicotine 21 mg/24 hr daily 1 patch QDAY 07/31/23 07/31/23 History transdermal patch omeprazole 20 mg capsule,delayed 20 mg PO QDAY 07/31/23 07/31/23 History release quetiapine 25 mg tablet 25 mg PO QPM 07/31/23 07/31/23 History tamsulosin 0.4 mg capsule 0.4 mg PO QDAY 07/31/23 07/31/23 History Labs 08/01/23 04:27 08/01/23 04:27 Labs: Laboratory WBC 6.9 X10^3/uL (3.6-10.0) 08/01/23 04:27 RBC 3.72 X10^6/uL (4.7-6.0) L 08/01/23 04:27 Hgb 11.3 g/dL (13.5-18.0) L D 08/01/23 04:27 Hct 34.3 % (42.0-54.0) L 08/01/23 04:27 MCV 92.1 fL (80.0-100.0) 08/01/23 04:27 MCH 30.4 pg (27.0-34.0) 08/01/23 04:27 MCHC 33.0 g/dL (33.0-35.0) 08/01/23 04:27 RDW 16.2 % (11.6-16.5) 08/01/23 04:27 Plt Count 222 X10^3/uL (150.0-450.0) 08/01/23 04:27 Plt Count Comment Adequate (ADEQUATE) 08/01/23 04:27 MPV 7.8 fL (7.4-11.0) 08/01/23 04:27 Neut % (Auto) 56.7 % (42.0-75.0) 08/01/23 04:27 Lymph % (Auto) 12.5 % (21.0-51.0) L 08/01/23 04:27 Power % (Auto) 30.2 % (0.0-13.0) H 08/01/23 04:27 Eos % (Auto) 0.2 % (0.9-2.9) L 08/01/23 04:27 Baso % (Auto) 0.4 % (0.2-1.0) 08/01/23 04:27 Neut # (Auto) 3.9 x10^3/uL (2.2-4.8) 08/01/23 04:27 Lymph # (Auto) 0.9 X10^3/uL (1.3-2.9) L 08/01/23 04:27 Power # (Auto) 2.1 x10^3/uL (0.3-0.8) H 08/01/23 04:27 Eos # (Auto) 0.0 x10^3/uL (0.0-0.2) 08/01/23 04:27 Baso # (Auto) 0.0 X10^3/uL (0.0-0.1) 08/01/23 04:27 Absolute Nucleated RBC 0.0 /100WBC 08/01/23 04:27 Total Counted 100 08/01/23 04:27 Neutrophils % (Manual) 57 % (39-76) 08/01/23 04:27 Lymphocytes % (Manual) 18 % (13-43) 08/01/23 04:27 Monocytes % (Manual) 25 % (4-9) H 08/01/23 04:27 Atypical Lymphocytes Few 08/01/23 04:27 Plt Morphology Comment Normal (NORMAL) 08/01/23 04:27 RBC Morphology Normal (NORMAL) 08/01/23 04:27 Sodium 141 mmol/L (136-145) 08/01/23 04:27 Corrected Sodium 142 mmol/L (136-145) 08/01/23 04:27 Potassium 3.2 mmol/L (3.5-5.1) L 08/01/23 04:27 Chloride 103 mmol/L (98-107) 08/01/23 04:27 Carbon Dioxide 32.3 mmol/L (21-32) H 08/01/23 04:27 BUN 9 mg/dL (7-18) 08/01/23 04:27 Creatinine 0.59 mg/dL (0.70-1.30) L 08/01/23 04:27 Est GFR (MDRD) Af Amer > 60 (>60) 08/01/23 04:27 Est GFR (MDRD) Non-Af > 60 (>60) 08/01/23 04:27 Glucose 126 mg/dL (65-99) H 08/01/23 04:27 Calcium 7.5 mg/dL (8.5-10.1) L 08/01/23 04:27 Corrected Calcium 8.5 mg/dL (8.5-10.1) 08/01/23 04:27 Magnesium 2.2 mg/dL (2.0-2.9) 07/31/23 16:11 Iron 79 ug/dL (50-175) 08/01/23 04:27 Total Bilirubin 0.40 mg/dL (0.2-1.0) 08/01/23 04:27 AST 12 Units/L (15-37) L 08/01/23 04:27 ALT 12 Units/L (12-78) 08/01/23 04:27 Alkaline Phosphatase 55 Units/L (46-116) 08/01/23 04:27 Troponin I High Sens 7.0 ng/L (4.0-60.0) 07/31/23 16:11 Total Protein 5.9 g/dL (6.4-8.2) L 08/01/23 04:27 Albumin 2.8 g/dL (3.4-5.0) L 08/01/23 04:27 Globulin 3.1 g/dL (2.5-4.5) 08/01/23 04:27 Albumin/Globulin Ratio 0.9 Ratio (1.1-2.1) L 08/01/23 04:27 Lipase 30 Units/L (16-77) 07/31/23 16:11 Specimen Type Clean catch urine 07/31/23 21:45 Urine Color Dark yellow (YELLOW) 07/31/23 21:45 Urine Appearance Clear (CLEAR) 07/31/23 21:45 Urine pH 5.0 (5.0 - 8.0) 07/31/23 21:45 Ur Specific [place] 1.010 (1.000-1.030) 07/31/23 21:45 Urine Protein 2+ (NEGATIVE) 07/31/23 21:45 Urine Glucose (UA) Negative (NEGATIVE) 07/31/23 21:45 Urine Ketones 3+ (NEGATIVE) 07/31/23 21:45 Urine Blood 1+ (NEGATIVE) 07/31/23 21:45 Urine Nitrite Negative (NEGATIVE) 07/31/23 21:45 Urine Bilirubin Negative (NEGATIVE) 07/31/23 21:45 Urine Urobilinogen 2+ (NORMAL) 07/31/23 21:45 Ur Leukocyte Esterase Negative (NEGATIVE) 07/31/23 21:45 Urine RBC 0-2 /HPF (0-3) 07/31/23 21:45 Urine WBC None seen /HPF (0-5) 07/31/23 21:45 Ur Squamous Epith Cells Rare /HPF (NEGATIVE) 07/31/23 21:45 Amorphous Sediment Trace /HPF (NEGATIVE) 07/31/23 21:45 Urine Bacteria Negative /HPF (NEGATIVE) 07/31/23 21:45 Hyaline Casts Rare /LPF (NEGATIVE) 07/31/23 21:45 Urine Mucus Rare /HPF (NEGATIVE) 07/31/23 21:45 Ur Culture Indicated? No/not indicated 07/31/23 21:45 Review of Systems Constitutional: Weakness Eyes: No Symptoms Reported ENT: Nose Congestion Respiratory: Shortness of Breath, SOB with Excertion and Wheezing Cardiovascular: Palpitations and Edema Gastrointestinal: Nausea and Vomiting; denies Diarrhea or Constipation Musculoskeletal: Back Pain Skin: No Symptoms Reported Neurological: Weakness Physical Exam Vital Signs: Vital Signs Temperature 98.2 F Temperature 98.4 F Pulse Rate [Right Radial] 95 Pulse Rate 88 Pulse Rate 88 Respiratory Rate 20 Respiratory Rate 20 Respiratory Rate 21 Respiratory Rate 21 Blood Pressure [Right Arm] 98/56 Blood Pressure 98/54 O2 Sat by Pulse Oximetry 94 O2 Sat by Pulse Oximetry 97 Oriented: Normal Eyes: Normal Ear: Normal Nose: Discharge Throat: Normal Respiratory: Diminished Throughout and Wheezes Throughout Cardiovascular: Normal : Frequency Auscultation: Bowel Sounds: Normal Palpation: Normal Tenderness: Diffuse Musculoskeletal: Shoulder and Back:Lumbar Psychiatric: Anxiety Affect: Anxious Speech Pattern: Clear Assessment/Plan (1) Esophagitis: Narrative Support Text: ADMIT, CT ABD/PELVIS IN ER IV HYDRATION, PAIN AND NAUSEA CONTROL GI CONSULT NPO AFTER MIDNIGHT VERIFY HOME MEDICATION RESP CONSULT BID PPI THERAPY Status: Acute (2) PAD (peripheral artery disease): Status: Acute (3) COPD (chronic obstructive pulmonary disease): Status: Acute (4) Rectal cancer: Narrative Support Text: history of... Status: Acute
[2023-08-01] MEDS: PROVENTIL NEB TX 0.083% 2.5MG/ 3ML NEB SCH (20:00)
[2023-08-01] MEDS: SEROquel TAB 25 mg PO SCH (21:53)
[2023-08-01] MEDS: ZOFRAN INJ 4 MG VIAL IVP PRN (21:54)
[2023-08-02] MEDS: D5 1/2 NS + KCL 20 MEQ/L 1,000 ML IV SCH ×6 (00:14→22:02)
[2023-08-02] MEDS: MORPHINE SULFATE INJ 4 MG IVP PRN ×4 (02:03→19:36)
[2023-08-02 05:10] LABS: BASOPHILS % (AUTO) 0.6 % (0.2-1.0); EOSINOPHILS % (AUTO) 0.3 % (0.9-2.9); HEMATOCRIT 31.2 % (42.0-54.0); HEMOGLOBIN 10.1 g/dL (13.5-18.0); LYMPHOCYTES # (AUTO) 1.1 X10^3/uL (1.3-2.9); MEAN CORPUSCULAR HEMOGLOBIN 30.4 pg (27.0-34.0); MEAN CORPUSCULAR HGB CONC 32.5 g/dL (33.0-35.0); MEAN CORPUSCULAR VOLUME 93.6 fL (80.0-100.0); MEAN PLATELET VOLUME 7.5 fL (7.4-11.0); MONOCYTES # (AUTO) 1.6 x10^3/uL (0.3-0.8); MONOCYTES % (AUTO) 30.3 % (0.0-13.0); NEUTROPHILS # (AUTO) 2.4 x10^3/uL (2.2-4.8); NEUTROPHILS % (AUTO) 46.8 % (42.0-75.0); PLATELET COUNT 195 X10^3/uL (150.0-450.0); RED BLOOD COUNT 3.33 X10^6/uL (4.7-6.0); RED CELL DISTRIBUTION WIDTH 16.3 % (11.6-16.5); WHITE BLOOD COUNT 5.2 X10^3/uL (3.6-10.0)
[2023-08-02 05:28] LABS: ALANINE AMINOTRANSFERASE 13 Units/L (12-78); ALBUMIN 2.5 g/dL (3.4-5.0); ALKALINE PHOSPHATASE 48 Units/L (46-116); ASPARTATE AMINO TRANSFERASE 15 Units/L (15-37); BLOOD UREA NITROGEN 5 mg/dL (7-18); CARBON DIOXIDE 30.1 mmol/L (21-32); CHLORIDE 100 mmol/L (98-107); COR CA(FOR HYPOALB) 8.2 mg/dL (8.5-10.1); COR NA(FOR HYPERGLY) 136 mmol/L (136-145); CREATININE 0.64 mg/dL (0.70-1.30); GLUCOSE 114 mg/dL (65-99); POTASSIUM 3.3 mmol/L (3.5-5.1); SODIUM 136 mmol/L (136-145); TOTAL PROTEIN 5.2 g/dL (6.4-8.2); eGFR NON BLACK RACES > 60 (>60)
[2023-08-02 05:57] LABS: PLATELET MORPHOLOGY COMMENT NORMAL (NORMAL)
[2023-08-02] MEDS: PROVENTIL NEB TX 0.083% 2.5MG/ 3ML NEB SCH ×2 (08:04→21:40)
[2023-08-02] MEDS: FLOMAX PO SCH (08:19)
[2023-08-02] MEDS: NICOTINE PATCH TD SCH (08:20)
[2023-08-02] MEDS: PLAVIX PO SCH (08:20)
[2023-08-02] MEDS: PROTONIX INJ 40 MG VIAL IVP SCH ×2 (08:21→21:14)
--- NOTE | 2023-08-02 09:50 | DR.PROGNOT ---
HOSPITAL PROGRESS NOTE Progress Note for Day of: Progress Note Date: 08/02/23 Chief Complaint Chief Complaint: Feeling somewhat better and able to swallow his meals, no further vomiting today. Patient had recent axillary bifemoral bypass graft with positive Doppler signals. Patient wants his port on the left chest wall to be removed which will be arranged in the future. Past Medical Family Social History Allergies: Allergies No Known Drug Allergies Allergy (Verified 01/24/23 09:43) Vital Signs Vital Signs: Vital Signs Temperature 98.4 F Pulse Rate [Right Radial] 92 Pulse Rate [Right Radial] 95 Respiratory Rate 18 Respiratory Rate 18 Respiratory Rate 18 Respiratory Rate 18 Blood Pressure [Right Arm] 97/54 Blood Pressure [Right Arm] 83/52 O2 Sat by Pulse Oximetry 93 Physical Exam Oriented: Normal Eyes: Normal Ear: Normal Nose: Discharge Throat: Normal Cardiovascular: Normal : Frequency GI:Auscultation: Normal GI:Palpation: Normal and Other (Soft and flat nontender abdomen with multiple incisional hernias on the lower abdomen and groins..) GI: Tenderness: Diffuse Musculoskeletal: Shoulder and Back:Lumbar Psychiatric: Anxiety Mood Description: Calm Affect: Anxious Speech Pattern: Clear and Appropriate Laboratory and Diagnostics 08/02/23 04:21 08/02/23 04:21 Labs: Laboratory WBC 5.2 X10^3/uL (3.6-10.0) 08/02/23 04:21 RBC 3.33 X10^6/uL (4.7-6.0) L 08/02/23 04:21 Hgb 10.1 g/dL (13.5-18.0) L 08/02/23 04:21 Hct 31.2 % (42.0-54.0) L 08/02/23 04:21 MCV 93.6 fL (80.0-100.0) 08/02/23 04:21 MCH 30.4 pg (27.0-34.0) 08/02/23 04:21 MCHC 32.5 g/dL (33.0-35.0) L 08/02/23 04:21 RDW 16.3 % (11.6-16.5) 08/02/23 04:21 Plt Count 195 X10^3/uL (150.0-450.0) 08/02/23 04:21 Plt Count Comment Adequate (ADEQUATE) 08/02/23 04:21 MPV 7.5 fL (7.4-11.0) 08/02/23 04:21 Neut % (Auto) 46.8 % (42.0-75.0) 08/02/23 04:21 Lymph % (Auto) 22.0 % (21.0-51.0) 08/02/23 04:21 [place] % (Auto) 30.3 % (0.0-13.0) H 08/02/23 04:21 Eos % (Auto) 0.3 % (0.9-2.9) L 08/02/23 04:21 Baso % (Auto) 0.6 % (0.2-1.0) 08/02/23 04:21 Neut # (Auto) 2.4 x10^3/uL (2.2-4.8) 08/02/23 04:21 Lymph # (Auto) 1.1 X10^3/uL (1.3-2.9) L 08/02/23 04:21 [place] # (Auto) 1.6 x10^3/uL (0.3-0.8) H 08/02/23 04:21 Eos # (Auto) 0.0 x10^3/uL (0.0-0.2) 08/02/23 04:21 Baso # (Auto) 0.0 X10^3/uL (0.0-0.1) 08/02/23 04:21 Absolute Nucleated RBC 0.0 /100WBC 08/02/23 04:21 Total Counted 100 08/02/23 04:21 Neutrophils % (Manual) 64 % (39-76) 08/02/23 04:21 Lymphocytes % (Manual) 19 % (13-43) 08/02/23 04:21 Monocytes % (Manual) 17 % (4-9) H 08/02/23 04:21 Atypical Lymphocytes Few 08/02/23 04:21 Plt Morphology Comment Normal (NORMAL) 08/02/23 04:21 RBC Morphology Normal (NORMAL) 08/02/23 04:21 Sodium 136 mmol/L (136-145) 08/02/23 04:21 Corrected Sodium 136 mmol/L (136-145) 08/02/23 04:21 Potassium 3.3 mmol/L (3.5-5.1) L 08/02/23 04:21 Chloride 100 mmol/L (98-107) 08/02/23 04:21 Carbon Dioxide 30.1 mmol/L (21-32) 08/02/23 04:21 BUN 5 mg/dL (7-18) L 08/02/23 04:21 Creatinine 0.64 mg/dL (0.70-1.30) L 08/02/23 04:21 Est GFR (MDRD) Af Amer > 60 (>60) 08/02/23 04:21 Est GFR (MDRD) Non-Af > 60 (>60) 08/02/23 04:21 Glucose 114 mg/dL (65-99) H 08/02/23 04:21 Calcium 7.0 mg/dL (8.5-10.1) L 08/02/23 04:21 Corrected Calcium 8.2 mg/dL (8.5-10.1) L 08/02/23 04:21 Magnesium 2.2 mg/dL (2.0-2.9) 07/31/23 16:11 Iron 79 ug/dL (50-175) 08/01/23 04:27 Total Bilirubin 0.30 mg/dL (0.2-1.0) 08/02/23 04:21 AST 15 Units/L (15-37) 08/02/23 04:21 ALT 13 Units/L (12-78) 08/02/23 04:21 Alkaline Phosphatase 48 Units/L (46-116) 08/02/23 04:21 Troponin I High Sens 7.0 ng/L (4.0-60.0) 07/31/23 16:11 Total Protein 5.2 g/dL (6.4-8.2) L 08/02/23 04:21 Albumin 2.5 g/dL (3.4-5.0) L 08/02/23 04:21 Globulin 2.7 g/dL (2.5-4.5) 08/02/23 04:21 Albumin/Globulin Ratio 0.9 Ratio (1.1-2.1) L 08/02/23 04:21 Lipase 30 Units/L (16-77) 07/31/23 16:11 Specimen Type Clean catch urine 07/31/23 21:45 Urine Color Dark yellow (YELLOW) 07/31/23 21:45 Urine Appearance Clear (CLEAR) 07/31/23 21:45 Urine pH 5.0 (5.0 - 8.0) 07/31/23 21:45 Ur Specific [place] 1.010 (1.000-1.030) 07/31/23 21:45 Urine Protein 2+ (NEGATIVE) 07/31/23 21:45 Urine Glucose (UA) Negative (NEGATIVE) 07/31/23: Urine Ketones 3+ (NEGATIVE) 07/31/23:45 Urine Blood 1+ (NEGATIVE) 07/31/23 21:45 Urine Nitrite Negative (NEGATIVE) 07/31/23 21:45 Urine Bilirubin Negative (NEGATIVE) 07/31/23 21:45 Urine Urobilinogen 2+ (NORMAL) 07/31/23 21:45 Ur Leukocyte Esterase Negative (NEGATIVE) 07/31/23 21:45 Urine RBC 0-2 /HPF (0-3) 07/31/23 21:45 Urine WBC None seen /HPF (0-5) 07/31/23 21:45 Ur Squamous Epith Cells Rare /HPF (NEGATIVE) 07/31/23 21:45 Amorphous Sediment Trace /HPF (NEGATIVE) 07/31/23 21:45 Urine Bacteria Negative /HPF (NEGATIVE) 07/31/23:45 Hyaline Casts Rare /LPF (NEGATIVE) 07/31/23:45 Urine Mucus Rare /HPF (NEGATIVE) 07/31/23 21:45 Ur Culture Indicated? No/not indicated 07/31/23 21:45 Assessment and Plan 1: Hiatal hernia with moderate reflux esophagitis and dysphagia, improved with dilation. Patient is on Protonix 40 twice a day and will be followed in the office in 3 weeks. 2: Status post recent extra anatomical axillary bifemoral bypass graft, positive pulses with Doppler. Problem Patient Problems: Patient Problems Intractable vomiting (Acute) R11.10
[2023-08-02] MEDS ORDERED: CONSULT PHARMACY - POTASSIUM & MAGNESIUM XX SCH (11:00)
[2023-08-02] MEDS ORDERED: K-DUR TAB 20 MEQ PO ONE (12:00)
[2023-08-02] MEDS: CARAFATE ORAL SUSP PO SCH ×3 (12:24→21:13)
[2023-08-02] MEDS: SEROquel TAB 25 mg PO SCH (21:13)
[2023-08-02] MEDS ORDERED: RESTORIL CAP 15 MG PO PRN (21:52)
[2023-08-03] MEDS: D5 1/2 NS + KCL 20 MEQ/L 1,000 ML IV SCH ×2 (00:16→08:51)
--- NOTE | 2023-08-03 01:24 | RAD ---
EXAM:CHEST, 1 VIEWHISTORY:COPD, COUGH; COLON CA, COPD, COLON HG, HERNIA, ORTHO, PACCOMPARISON:July 31, 2023TECHNIQUE:Chest radiographic imaging, AP portable projection, 1 imageFINDINGS:No cardiomegaly.No focal airspace disease.Lungs are hyperinflated consistent with COPD.Left chest port in place.Blunting of the costophrenic angles likely represent small effusions.Mild increased interstitial markings; similar to the previous exam.No pneumothorax.No acute osseous abnormality.IMPRESSION:No significant interval acute cardiopulmonary changes.THIS IS AN ELECTRONICALLY VERIFIED FINAL [id number]/03/2023 1:14 AM - Electronically signed by Sherman Muro MD
[2023-08-03] MEDS: MORPHINE SULFATE INJ 4 MG IVP PRN ×2 (03:28→07:29)
[2023-08-03 05:27] LABS: BASOPHILS % (AUTO) 0.6 % (0.2-1.0); EOSINOPHILS % (AUTO) 0.5 % (0.9-2.9); HEMATOCRIT 30.6 % (42.0-54.0); HEMOGLOBIN 10.2 g/dL (13.5-18.0); LYMPHOCYTES # (AUTO) 0.9 X10^3/uL (1.3-2.9); MEAN CORPUSCULAR HEMOGLOBIN 30.6 pg (27.0-34.0); MEAN CORPUSCULAR HGB CONC 33.2 g/dL (33.0-35.0); MEAN CORPUSCULAR VOLUME 92.2 fL (80.0-100.0); MEAN PLATELET VOLUME 7.7 fL (7.4-11.0); MONOCYTES # (AUTO) 1.1 x10^3/uL (0.3-0.8); MONOCYTES % (AUTO) 25.7 % (0.0-13.0); NEUTROPHILS # (AUTO) 2.2 x10^3/uL (2.2-4.8); NEUTROPHILS % (AUTO) 51.2 % (42.0-75.0); PLATELET COUNT 190 X10^3/uL (150.0-450.0); RED BLOOD COUNT 3.32 X10^6/uL (4.7-6.0); WHITE BLOOD COUNT 4.2 X10^3/uL (3.6-10.0)
[2023-08-03 05:30] LABS: ALANINE AMINOTRANSFERASE 10 Units/L (12-78); ALBUMIN 2.3 g/dL (3.4-5.0); ALKALINE PHOSPHATASE 52 Units/L (46-116); ASPARTATE AMINO TRANSFERASE 13 Units/L (15-37); BLOOD UREA NITROGEN 3 mg/dL (7-18); CALCIUM 6.9 mg/dL (8.5-10.1); CARBON DIOXIDE 30.1 mmol/L (21-32); CHLORIDE 102 mmol/L (98-107); COR CA(FOR HYPOALB) 8.3 mg/dL (8.5-10.1); CREATININE 0.52 mg/dL (0.70-1.30); GLUCOSE 110 mg/dL (65-99); POTASSIUM 3.3 mmol/L (3.5-5.1); SODIUM 137 mmol/L (136-145); eGFR NON BLACK RACES > 60 (>60)
[2023-08-03 05:54] LABS: BAND NEUTROPHILS % 2 % (0-10); PLATELET MORPHOLOGY COMMENT NORMAL (NORMAL)
[2023-08-03] MEDS: CARAFATE ORAL SUSP PO SCH ×2 (06:03→11:26)
[2023-08-03] MEDS ORDERED: CONSULT PHARMACY - POTASSIUM & MAGNESIUM XX SCH (08:00)
[2023-08-03] MEDS: PROVENTIL NEB TX 0.083% 2.5MG/ 3ML NEB SCH (08:14)
[2023-08-03] MEDS: K-DUR TAB 20 MEQ PO SCH ×2 (08:49→11:26)
[2023-08-03] MEDS: PLAVIX PO SCH (08:49)
[2023-08-03] MEDS: NICOTINE PATCH TD SCH (08:50)
[2023-08-03] MEDS: PROTONIX INJ 40 MG VIAL IVP SCH (08:50)
[2023-08-03] MEDS: FLOMAX PO SCH (08:50)
[2023-08-03 13:33] VITALS: BP 138/74; PULSE 69; RESP 20; TEMP 98; O2SAT 97
== END 2023-08-03 13:25 | disposition home or self-care (01) ==
LOC: ER 15:50 → MED/SURG 15:50
PROVIDERS: ADMIT Family Medicine; ATTEND Internal Medicine

== ENCOUNTER 2023-12-01 08:47 | Inpatient (IN) ==
--- NOTE | 2023-12-01 08:58 | DR.SOBA ---
HPI Time Seen Time Seen by Provider: 12/01/23 08:50 Complaints Chief Complaint Doctors Comments: Patient has a h/o COPD.For 3 days he has had a nonproductive cough, sob,chest pain.Patient states that he is 02 dependent on 2L 02. Patient denies:headache,syncope,nausea,vomiting,back pain,abdl pain. PMH PMH Past Medical History: Asthma, Dyslipidemia, GERD and PUD Past Surgical History: Yes Surgical History: Angioplasty/Stents and Ortho Surgery Family History Family Medical History: Heart Failure and Hypertension Social History Do you use any recreational Drugs:: Yes (MARIJUANA) ROS Review of Systems Constitutional: Weakness Eyes: No Symptoms Reported ENTM: No Symptoms Reported Respiratoy: Dry Cough Cardiovascular: Chest Pain and Palpitations Gastrointestinal/Abdominal: No Symptoms Reported Genitourinary: No Symptoms Reported Neurological: No Symptoms Reported Musculoskeletal: No Symptoms Reported Integumentary: No Symptoms Reported Hematologic/Lymphatic: No Symptoms Reported Endocrine: No Symptoms Reported Psychiatric: No Symptoms Reported All Other Systems: Reviewed and Negative PE Vital Signs Vitals: Vital Signs Temperature 99 F Pulse Rate 108 Pulse Rate 118 Pulse Rate 119 Pulse Rate 119 Pulse Rate 140 Pulse Rate 134 Pulse Rate 119 Pulse Rate 129 Pulse Rate 130 Pulse Rate 119 Pulse Rate 120 Respiratory Rate 20 Respiratory Rate 48 Respiratory Rate 46 Respiratory Rate 42 Respiratory Rate 39 Respiratory Rate 37 Respiratory Rate 18 Blood Pressure 155/68 Blood Pressure 152/85 Blood Pressure 133/98 Blood Pressure 123/63 Blood Pressure 123/63 Blood Pressure 123/63 Blood Pressure 135/65 Blood Pressure 135/65 O2 Sat by Pulse Oximetry 91 O2 Sat by Pulse Oximetry 92 O2 Sat by Pulse Oximetry 91 O2 Sat by Pulse Oximetry 94 O2 Sat by Pulse Oximetry 96 O2 Sat by Pulse Oximetry 96 O2 Sat by Pulse Oximetry 99 O2 Sat by Pulse Oximetry 99 General Limitations: No Limitations General Appearance: Alert and In No Apparent Distress Head Head Exam: Normal Inspection Eyes Eye exam: Normal Appearance ENT ENT Exam: Normal Exam Neck Neck Exam: Normal Inspection Chest Chest Inspection: Normal Inspection Respiratory Respiratory Exam: Normal Lung Sounds Bilat Respiratory Exam: Bilateral: Rhonchi Cardiovascular Cardiovascular Exam: Normal Rhythm and Tachycardia Abdominal Exam Abdominal Exam: Normal Inspection, Normal Bowel Sounds and Soft Extremities Extremities Exam: Normal Inspection Back Back Exam: Normal Inspection Neurologic Neurological Exam: Alert and Oriented X3 Psychiatric Psychiatric Exam: Normal Affect and Normal Mood Skin Skin Exam: Warm, Dry, Intact and Normal Color MDM Differential Diagnosis Differential Diagnosis: CHF, COPD, Pneumonia and Other (electrolyte disorder) COURSE Treatment Treatment: 08:50 Patient was brought to a monitored room.He was placed on 4L nc ,given an albuterol neb tx,and given solumedrol 125mg iv en route to the ED. 09:00 Labs/tests were ordered.CXR revealed bilaterl opacities and left pleural effusion 09:30 Patient has increased tachypnea and was given magnesium 2g iv. He was also given zosyn 3.375g iv and azithromycin 500mg iv after blood cx were done. 09:55 Patient was on 6L during the neb tx and was decreased to 3L then 2L [place] pplemenatl 02 10:15 A second abg was ordered on the 2L nc. Patient's labs were reviewed: ABG PH 7.5/PC02 34/P02 56/02SAT 92%,trop 8.6,BNP 59.1,lactic acid 3.0,CRP 31.5,covid panel neg,Wbc 14.4.EKG revealed tachycardiabut no acute ischemic changes. 10:34 Discussed patient's case with Dr Barreto. Dr Barreto has accepted patient to his service for further inpatient evaluation. ROR Labs Reviewed Laboratory Results Reviewed?: Yes 12/01/23 09:20 12/01/23 09:20 Laboratory: WBC 14.4 X10^3/uL (3.6-10.0) H 12/01/23 09:20 RBC 4.53 X10^6/uL (4.7-6.0) L 12/01/23 09:20 Hgb 12.3 g/dL (13.5-18.0) L 12/01/23 09:20 Hct 37.6 % (42.0-54.0) L 12/01/23 09:20 MCV 83.0 fL (80.0-100.0) 12/01/23 09:20 MCH 27.1 pg (27.0-34.0) 12/01/23 09:20 MCHC 32.7 g/dL (33.0-35.0) L 12/01/23 09:20 RDW 18.5 % (11.6-16.5) H 12/01/23 09:20 Plt Count 249 X10^3/uL (150.0-450.0) 12/01/23 09:20 MPV 7.3 fL (7.4-11.0) L 12/01/23 09:20 Neut % (Auto) 80.6 % (42.0-75.0) H 12/01/23 09:20 Lymph % (Auto) 3.9 % (21.0-51.0) L 12/01/23 09:20 [place] % (Auto) 14.9 % (0.0-13.0) H 12/01/23 09:20 Eos % (Auto) 0.0 % (0.9-2.9) L 12/01/23 09:20 Baso % (Auto) 0.6 % (0.2-1.0) 12/01/23 09:20 Neut # (Auto) 11.6 x10^3/uL (2.2-4.8) H 12/01/23 09:20 Lymph # (Auto) 0.6 X10^3/uL (1.3-2.9) L 12/01/23 09:20 [place] # (Auto) 2.1 x10^3/uL (0.3-0.8) H 12/01/23 09:20 Eos # (Auto) 0.0 x10^3/uL (0.0-0.2) 12/01/23 09:20 Baso # (Auto) 0.1 X10^3/uL (0.0-0.1) 12/01/23 09:20 Absolute Nucleated RBC 0.1 /100WBC 12/01/23 09:20 Sample Site [place] 12/01/23 10:23 ABG pH 7.520 (7.35-7.45) H 12/01/23 10:23 ABG pCO2 34.0 mmHg (35.0-45.0) L 12/01/23 10:23 ABG pO2 56.0 mmHg (80.0-100.0) L 12/01/23 10:23 ABG HCO3 27.8 mmol/L (22-26) H 12/01/23 10:23 ABG O2 Saturation 92.0 % (90-100) 12/01/23 10:23 ABG Base Excess 5.0 mmol/L (-2.0-2.0) H 12/01/23 10:23 Fernando Test Pos 12/01/23 10:23 A-a Gradient 101.0 mmHg 12/01/23 10:23 FiO2 28.0 12/01/23 10:23 Blood Gas Comments Pt neeru well. kg 12/01/23 10:23 Sodium 139 mmol/L (136-145) 12/01/23 09:20 Corrected Sodium TNP 12/01/23 09:20 Potassium 3.6 mmol/L (3.5-5.1) 12/01/23 09:20 Chloride 97 mmol/L (98-107) L 12/01/23 09:20 Carbon Dioxide 30.0 mmol/L (21-32) 12/01/23 09:20 BUN 8 mg/dL (7-18) 12/01/23 09:20 Creatinine 0.59 mg/dL (0.70-1.30) L 12/01/23 09:20 Est GFR (MDRD) Af Amer > 60 (>60) 12/01/23 09:20 Est GFR (MDRD) Non-Af > 60 (>60) 12/01/23 09:20 Glucose 107 mg/dL (65-99) H 12/01/23 09:20 Lactic Acid 3.0 mmol/L (0.4-2.0) H 12/01/23 09:20 Calcium 8.0 mg/dL (8.5-10.1) L 12/01/23 09:20 Corrected Calcium TNP 12/01/23 09:20 Total Bilirubin 0.80 mg/dL (0.2-1.0) 12/01/23 09:20 AST 39 Units/L (15-37) H 12/01/23 09:20 ALT 35 Units/L (12-78) 12/01/23 09:20 Alkaline Phosphatase 81 Units/L (46-116) 12/01/23 09:20 Creatine Kinase 222 Units/L (39-308) 12/01/23 09:20 Troponin I High Sens 8.6 ng/L (4.0-60.0) 12/01/23 09:20 C-Reactive Protein 31.50 mg/L (0-3.0) H 12/01/23 09:20 B-Natriuretic Peptide 59.1 pg/mL (0-79) 12/01/23 09:20 Total Protein 7.5 g/dL (6.4-8.2) 12/01/23 09:20 Albumin 3.4 g/dL (3.4-5.0) 12/01/23 09:20 Globulin 4.1 g/dL (2.5-4.5) 12/01/23 09:20 Albumin/Globulin Ratio 0.8 Ratio (1.1-2.1) L 12/01/23 09:20 SARS-CoV-2 (PCR) Negative (NEGATIVE) 12/01/23 09:08 Influenza Type A (PCR) Negative (NEGATIVE) 12/01/23 09:08 Influenza Type B (PCR) Negative (NEGATIVE) 12/01/23 09:08 RSV (PCR) Negative (NEGATIVE) 12/01/23 09:08 EKG Compared to prior EKG Dated: 12/01/23 Rate: 121 [place]: LAD Rhythm: ST Opioid Opioid Risk Tool Age (Herb box if 16-45): No History of Preadolescent Sexual Abuse: No Total: 0 Total Score Risk Category: Low Risk Copyright: Shine HODGE predicting aberrant behaviors Discharge Plan Diagnosis Discharge Problem: Pneumonia, Acute exacerbation of chronic obstructive pulmonary disease, Hypoxemia Discharge Plan Patient Disposition: ADMITTED INPATIENT Condition: Stable Orders to Discharge Patient Discharge Orders: Transfer (Routine); Ordered 12/01/23 Ordered By: Kary Coker
[2023-12-01] MEDS ORDERED: XOPENEX 1.25 MG/3 ML NEBULE NEB ONE (09:01)
[2023-12-01] MEDS: DUONEB 0.5 MG/3 MG (3 mL) NEB ONE (09:06)
[2023-12-01] MEDS: XOPENEX 1.25 MG/3 ML NEBULE NEB ONE ×3 (09:06→09:12)
[2023-12-01 09:19] LABS: ABG BASE EXCESS 7.8 mmol/L (-2.0-2.0)
[2023-12-01 09:20] LABS: ABG HCO3 30.9 mmol/L (22-26)
[2023-12-01] MEDS ORDERED: MAGNESIUM SULFATE 1 GRAM/100 mL PREMIX 1 G/100 ML BAG IV ONE (09:37)
--- NOTE | 2023-12-01 09:41 | EKG ---
Test Reason : sob Blood Pressure : */* mmHG Vent. Rate : 121 BPM Atrial Rate : 121 BPM P-R Int : 128 ms QRS Dur : 76 ms QT Int : 334 ms P-R-T Axes : 92 -47 64 degrees QTc Int : 474 ms Sinus tachycardia Left anterior fascicular block Cannot rule out Anterior infarct , age undetermined Abnormal ECG When compared with ECG of 31-JUL-2023 16:25, aberrant conduction is no longer present Minimal criteria for Anterior infarct are now present Confirmed by Chele Gonzalez MD ([id number]) on 12/02/2023 7:34:23 AM Referred By: Confirmed By: Chele Gonzalez MD
[2023-12-01] MEDS: MAGNESIUM SULFATE 1 GRAM/100 mL PREMIX 1 G/100 ML BAG IV ONE (09:42)
[2023-12-01 09:47] LABS: BASOPHILS # (AUTO) 0.1 X10^3/uL (0.0-0.1); BASOPHILS % (AUTO) 0.6 % (0.2-1.0); HEMATOCRIT 37.6 % (42.0-54.0); HEMOGLOBIN 12.3 g/dL (13.5-18.0); LYMPHOCYTES # (AUTO) 0.6 X10^3/uL (1.3-2.9); LYMPHOCYTES % (AUTO) 3.9 % (21.0-51.0); MEAN CORPUSCULAR HEMOGLOBIN 27.1 pg (27.0-34.0); MEAN CORPUSCULAR HGB CONC 32.7 g/dL (33.0-35.0); MEAN PLATELET VOLUME 7.3 fL (7.4-11.0); MONOCYTES # (AUTO) 2.1 x10^3/uL (0.3-0.8); MONOCYTES % (AUTO) 14.9 % (0.0-13.0); NEUTROPHILS # (AUTO) 11.6 x10^3/uL (2.2-4.8); NEUTROPHILS % (AUTO) 80.6 % (42.0-75.0); PLATELET COUNT 249 X10^3/uL (150.0-450.0); RED BLOOD COUNT 4.53 X10^6/uL (4.7-6.0); RED CELL DISTRIBUTION WIDTH 18.5 % (11.6-16.5); WHITE BLOOD COUNT 14.4 X10^3/uL (3.6-10.0)
[2023-12-01] MEDS ORDERED: ZOSYN VIAL 3.375 GRAMS IV ONE (09:51)
[2023-12-01] MEDS ORDERED: NS 100 ML IV 100 ML ONE (09:52)
[2023-12-01] MEDS ORDERED: ZITHROMAX INJ 500 MG VIAL IV ONE (09:52)
[2023-12-01] MEDS ORDERED: NS 250 ML IV 250 ML IV ONE (09:52)
[2023-12-01 10:01] LABS: ALANINE AMINOTRANSFERASE 35 Units/L (12-78); ALBUMIN 3.4 g/dL (3.4-5.0); ALKALINE PHOSPHATASE 81 Units/L (46-116); ASPARTATE AMINO TRANSFERASE 39 Units/L (15-37); BLOOD UREA NITROGEN 8 mg/dL (7-18); CHLORIDE 97 mmol/L (98-107); CREATININE 0.59 mg/dL (0.70-1.30); GLUCOSE 107 mg/dL (65-99); POTASSIUM 3.6 mmol/L (3.5-5.1); SODIUM 139 mmol/L (136-145); TOTAL PROTEIN 7.5 g/dL (6.4-8.2); eGFR NON BLACK RACES > 60 (>60)
[2023-12-01] MEDS: ZITHROMAX INJ 500 MG VIAL 500 MG in NS 250 ML IV 250 ML IV SCH (10:11)
[2023-12-01] MEDS: ZOSYN VIAL 3.375 GRAMS 3.375 G in NS 100 ML IV 100 ML IV SCH (10:11)
[2023-12-01 10:28] LABS: ABG ALLEN TEST POS; ABG HCO3 27.8 mmol/L (22-26)
[2023-12-01] MEDS ORDERED: NS 1,000 ML IV 1,000 ML ONE (11:10)
[2023-12-01] MEDS: NS 1,000 ML IV 1,000 ML IV SCH (11:15)
--- NOTE | 2023-12-01 11:48 | EKG ---
Test Reason : sob Blood Pressure : */* mmHG Vent. Rate : 111 BPM Atrial Rate : 111 BPM P-R Int : 128 ms QRS Dur : 84 ms QT Int : 366 ms P-R-T Axes : 78 -30 67 degrees QTc Int : 497 ms Sinus tachycardia Left axis deviation Nonspecific T wave abnormality Abnormal ECG When compared with ECG of 01-DEC-2023 09:37, (Unconfirmed) fusion complexes are now present Minimal criteria for Anterior infarct are no longer present Confirmed by Chele Gonzalez MD ([id number]) on 12/02/2023 7:34:13 AM Referred By: Confirmed By: Chele Gonzalez MD
[2023-12-01] MEDS: NICOTINE PATCH TD SCH (13:12)
[2023-12-01] MEDS: Atrovent NEB TX 0.02% NEB SCH (13:14)
[2023-12-01] MEDS: PROVENTIL NEB TX 0.083% 2.5MG/ 3ML NEB SCH (13:14)
[2023-12-01 13:33] VITALS: BMI 18.6
[2023-12-01] MEDS: NORCO 7.5/325 MG TAB PO PRN (14:59)
--- NOTE | 2023-12-01 18:10 | RAD ---
EXAM: CHEST x-ray, 1 VIEW HISTORY: SOB; HX-COPD - COMPARISON: X-ray 08/06/2023 FINDINGS: There is probable left lower lobe pneumonia. Prominent COPD persists. Possible small left pleural e ffusion has developed. Port catheter terminates in the region of the proximal SVC. No pneumothorax is seen. Stable calcified granuloma are seen in the right lung. IMPRESSION: Left lower lobe pneumonia is suspected. Continued x-ray follow-up to document resolution is recommen ded. THIS IS AN ELECTRONICALLY VERIFIED FINAL REPORT 12/01/2023 6:07 PM - Electronically signed by Negrito Galindo MD
[2023-12-01] MEDS ORDERED: DUONEB 0.5 MG/3 MG (3 mL) NEB ONE (19:12)
[2023-12-01] MEDS: DUONEB 0.5 MG/3 MG (3 mL) NEB SCH (20:00)
[2023-12-01] MEDS ORDERED: DUONEB 0.5 MG/3 MG (3 mL) NEB SCH (21:00)
[2023-12-01] MEDS: MORPHINE SULFATE INJ 2 MG INJ IVP ONE (21:30)
[2023-12-01] MEDS: NS 250 ML IV 250 ML IV ONE (21:33)
--- NOTE | 2023-12-01 22:04 | EKG ---
Test Reason : Tachycardia, SOB Blood Pressure : */* mmHG Vent. Rate : 117 BPM Atrial Rate : 117 BPM P-R Int : 132 ms QRS Dur : 78 ms QT Int : 334 ms P-R-T Axes : 60 -47 46 degrees QTc Int : 465 ms Sinus tachycardia Left axis deviation Abnormal ECG When compared with ECG of 01-DEC-2023 11:41, (Unconfirmed) fusion complexes are no longer present Confirmed by Chele Gonzalez MD ([id number]) on 12/02/2023 7:32:38 AM Referred By: Confirmed By: Chele Gonzalez MD
[2023-12-02 06:25] LABS: ALANINE AMINOTRANSFERASE 36 Units/L (12-78); ALKALINE PHOSPHATASE 69 Units/L (46-116); ASPARTATE AMINO TRANSFERASE 39 Units/L (15-37); BLOOD UREA NITROGEN 9 mg/dL (7-18); CALCIUM 8.9 mg/dL (8.5-10.1); CARBON DIOXIDE 29.1 mmol/L (21-32); CHLORIDE 99 mmol/L (98-107); COR CA(FOR HYPOALB) 9.7 mg/dL (8.5-10.1); CREATININE 0.56 mg/dL (0.70-1.30); GLUCOSE 99 mg/dL (65-99); MAGNESIUM 2.3 mg/dL (2.0-2.9); POTASSIUM 4.7 mmol/L (3.5-5.1); SODIUM 140 mmol/L (136-145); TOTAL PROTEIN 7.5 g/dL (6.4-8.2); eGFR NON BLACK RACES > 60 (>60)
[2023-12-02 06:55] LABS: BASOPHILS # (AUTO) 0.1 X10^3/uL (0.0-0.1); BASOPHILS % (AUTO) 0.2 % (0.2-1.0); HEMATOCRIT 36.7 % (42.0-54.0); HEMOGLOBIN 11.8 g/dL (13.5-18.0); LYMPHOCYTES # (AUTO) 0.4 X10^3/uL (1.3-2.9); LYMPHOCYTES % (AUTO) 1.5 % (21.0-51.0); MEAN CORPUSCULAR HGB CONC 32.2 g/dL (33.0-35.0); MEAN PLATELET VOLUME 7.4 fL (7.4-11.0); MONOCYTES # (AUTO) 2.5 x10^3/uL (0.3-0.8); MONOCYTES % (AUTO) 9.6 % (0.0-13.0); NEUTROPHILS # (AUTO) 22.8 x10^3/uL (2.2-4.8); NEUTROPHILS % (AUTO) 88.7 % (42.0-75.0); PLATELET COUNT 202 X10^3/uL (150.0-450.0); RED BLOOD COUNT 4.37 X10^6/uL (4.7-6.0); RED CELL DISTRIBUTION WIDTH 18.7 % (11.6-16.5); WHITE BLOOD COUNT 25.7 X10^3/uL (3.6-10.0)
[2023-12-02 07:27] LABS: ANISOCYTOSIS SLIGHT; BAND NEUTROPHILS % 9 % (0-10); PLATELET MORPHOLOGY COMMENT NORMAL (NORMAL)
[2023-12-02] MEDS ORDERED: PROTONIX TAB 40 MG PO SCH (09:00)
[2023-12-02] MEDS: FLOMAX PO SCH (09:32)
[2023-12-02] MEDS: PLAVIX PO SCH (09:32)
[2023-12-02] MEDS: PriLOSEC PO SCH (09:33)
[2023-12-02] MEDS: LIPITOR TAB 10 MG PO SCH (09:33)
[2023-12-02] MEDS: LOVENOX INJ 40 MG SYR SC SCH (09:34)
[2023-12-02] MEDS: SOLU-Medrol 40 MG VIAL IVP SCH (11:34)
--- NOTE | 2023-12-02 13:16 | DR.H&P ---
H&P History & Physical for Day of: H&P Date: 12/02/23 Chief Complaint Chief Complaint: shortness of breath and cough Allergies Allergies Allergy/AdvReac Type Severity Reaction Status Date / Time No Known Drug Allergies Allergy Verified 12/01/23 08:49 History of Present Illness History of Present Illness: Mr. Shah is a 73-year-old male who presented with worsening shortness of breath and cough. He has a history of peripheral vascular disease, COPD/asthma, hyperlipidemia and GERD. He uses 2 L continuous home oxygen. He reports having worsening shortness of breath for the past few days. He states he had to turn up his oxygen to 4 L but he kept feeling worse. He is coughing up thick mucus. In the ER, chest x-ray showed left lobe pneumonia. He was started on IV antibiotics and bronchodilators. He was admitted for further management. He is currently on 3 L nasal cannula. Labs/imaging reviewed -Hemoglobin 11.8 WBC 25.7 lactic acid trending down troponin x 4 negative -Chest x-ray: Left lobe pneumonia Plan: Continue IV antibiotics Zosyn and azithromycin. Will add Solu-Medrol 40 mg every 8. Continue bronchodilators. Wean oxygen as tolerated. Order sputum culture. PT OT as tolerated. Resume home medications. Patient reports having bypass done on his leg few months ago. He is currently on Plavix. Continue daily nicotine patch. Monitor a.m. labs and imaging. Past Medical History Past Medical History: Asthma, Dyslipidemia, GERD and PUD Additional Medical History: colon cancer, PAD Past Surgical History Surgical History: Angioplasty/Stents and Ortho Surgery Additional Surgical History: axillofemoral bypass Family History Family Medical History: Heart Failure and Hypertension Social History Does patient currently use any type of tobacco product: Yes Have you used tobacco products in the last 12 months: Yes Type of Tobacco Use: Cigarettes Does any household member use tobacco: Yes Alcohol Use: Heavy Drug Use: Marijuana Medications Home Medications: Home Medications Medication Instructions Recorded Confirmed Type albuterol sulfate 90 mcg/actuation 2 puff inhalation Q4H PRN 12/01/23 12/01/23 History aerosol inhaler atorvastatin 10 mg tablet 10 mg PO QDAY 12/01/23 12/01/23 History clopidogrel 75 mg tablet 75 mg PO QDAY 12/01/23 12/01/23 History hydrocodone 7.5 mg-acetaminophen 1 tab PO 1-2XD PRN 12/01/23 12/01/23 History 325 mg tablet omeprazole 20 mg capsule,delayed 20 mg PO QDAY 12/01/23 12/01/23 History release pantoprazole 40 mg tablet,delayed 40 mg PO QDAY 12/01/23 12/01/23 History release quetiapine 50 mg tablet 50 - 100 mg PO QPM 12/01/23 12/01/23 History tamsulosin 0.4 mg capsule 0.4 mg PO QDAY 12/01/23 12/01/23 History Labs 12/02/23 06:48 12/02/23 05:27 Labs: Laboratory WBC 25.7 X10^3/uL (3.6-10.0) H D 12/02/23 06:48 RBC 4.37 X10^6/uL (4.7-6.0) L 12/02/23 06:48 Hgb 11.8 g/dL (13.5-18.0) L 12/02/23 06:48 Hct 36.7 % (42.0-54.0) L 12/02/23 06:48 MCV 84.0 fL (80.0-100.0) 12/02/23 06:48 MCH 27.0 pg (27.0-34.0) 12/02/23 06:48 MCHC 32.2 g/dL (33.0-35.0) L 12/02/23 06:48 RDW 18.7 % (11.6-16.5) H 12/02/23 06:48 Plt Count 202 X10^3/uL (150.0-450.0) 12/02/23 06:48 Plt Count Comment Adequate (ADEQUATE) 12/02/23 06:48 MPV 7.4 fL (7.4-11.0) 12/02/23 06:48 Neut % (Auto) 88.7 % (42.0-75.0) H 12/02/23 06:48 Lymph % (Auto) 1.5 % (21.0-51.0) L 12/02/23 06:48 [place] % (Auto) 9.6 % (0.0-13.0) 12/02/23 06:48 Eos % (Auto) 0.0 % (0.9-2.9) L 12/02/23 06:48 Baso % (Auto) 0.2 % (0.2-1.0) 12/02/23 06:48 Neut # (Auto) 22.8 x10^3/uL (2.2-4.8) H 12/02/23 06:48 Lymph # (Auto) 0.4 X10^3/uL (1.3-2.9) L 12/02/23 06:48 [place] # (Auto) 2.5 x10^3/uL (0.3-0.8) H 12/02/23 06:48 Eos # (Auto) 0.0 x10^3/uL (0.0-0.2) 12/02/23 06:48 Baso # (Auto) 0.1 X10^3/uL (0.0-0.1) 12/02/23 06:48 Absolute Nucleated RBC 0.0 /100WBC 12/02/23 06:48 Total Counted 100 12/02/23 06:48 Neutrophils % (Manual) 83 % (39-76) H 12/02/23 06:48 Band Neutrophils % 9 % (0-10) 12/02/23 06:48 Lymphocytes % (Manual) 5 % (13-43) L 12/02/23 06:48 Monocytes % (Manual) 3 % (4-9) L 12/02/23 06:48 Plt Morphology Comment Normal (NORMAL) 12/02/23 06:48 RBC Morphology Abnormal (NORMAL) 12/02/23 06:48 Anisocytosis Slight A 12/02/23 06:48 Sample Site Lrad 12/01/23 10:23 ABG pH 7.520 (7.35-7.45) H 12/01/23 10:23 ABG pCO2 34.0 mmHg (35.0-45.0) L 12/01/23 10:23 ABG pO2 56.0 mmHg (80.0-100.0) L 12/01/23 10:23 ABG HCO3 27.8 mmol/L (22-26) H 12/01/23 10:23 ABG O2 Saturation 92.0 % (90-100) 12/01/23 10:23 ABG Base Excess 5.0 mmol/L (-2.0-2.0) H 12/01/23 10:23 Fernando Test Pos 12/01/23 10:23 A-a Gradient 101.0 mmHg 12/01/23 10:23 FiO2 28.0 12/01/23 10:23 Blood Gas Comments Pt neeru well. kg 12/01/23 10:23 Sodium 140 mmol/L (136-145) 12/02/23 05:27 Corrected Sodium TNP 12/02/23 05:27 Potassium 4.7 mmol/L (3.5-5.1) 12/02/23 05:27 Chloride 99 mmol/L (98-107) 12/02/23 05:27 Carbon Dioxide 29.1 mmol/L (21-32) 12/02/23 05:27 BUN 9 mg/dL (7-18) 12/02/23 05:27 Creatinine 0.56 mg/dL (0.70-1.30) L 12/02/23 05:27 Est GFR (MDRD) Af Amer > 60 (>60) 12/02/23 05:27 Est GFR (MDRD) Non-Af > 60 (>60) 12/02/23 05:27 Glucose 99 mg/dL (65-99) 12/02/23 05:27 Lactic Acid 1.8 mmol/L (0.4-2.0) 12/01/23 20:30 Calcium 8.9 mg/dL (8.5-10.1) 12/02/23 05:27 Corrected Calcium 9.7 mg/dL (8.5-10.1) 12/02/23 05:27 Magnesium 2.3 mg/dL (2.0-2.9) 12/02/23 05:27 Total Bilirubin 1.20 mg/dL (0.2-1.0) H 12/02/23 05:27 AST 39 Units/L (15-37) H 12/02/23 05:27 ALT 36 Units/L (12-78) 12/02/23 05:27 Alkaline Phosphatase 69 Units/L (46-116) 12/02/23 05:27 Creatine Kinase 222 Units/L (39-308) 12/01/23 09:20 Troponin I High Sens 8.7 ng/L (4.0-60.0) 12/01/23 21:36 C-Reactive Protein 31.50 mg/L (0-3.0) H 12/01/23 09:20 B-Natriuretic Peptide 59.1 pg/mL (0-79) 12/01/23 09:20 Total Protein 7.5 g/dL (6.4-8.2) 12/02/23 05:27 Albumin 3.0 g/dL (3.4-5.0) L 12/02/23 05:27 Globulin 4.5 g/dL (2.5-4.5) 12/02/23 05:27 Albumin/Globulin Ratio 0.7 Ratio (1.1-2.1) L 12/02/23 05:27 SARS-CoV-2 (PCR) Negative (NEGATIVE) 12/01/23 09:08 Influenza Type A (PCR) Negative (NEGATIVE) 12/01/23 09:08 Influenza Type B (PCR) Negative (NEGATIVE) 12/01/23 09:08 RSV (PCR) Negative (NEGATIVE) 12/01/23 09:08 Review of Systems Constitutional: Malaise Eyes: No Symptoms Reported ENT: No Symptoms Reported Respiratory: Cough, Shortness of Breath, SOB with Excertion and Sputum Cardiovascular: No Symptoms Reported Gastrointestinal: No Symptoms Reported Genitourinary: No Symptoms Reported Musculoskeletal: No Symptoms Reported Skin: No Symptoms Reported Neurological: No Symptoms Reported Physical Exam Vital Signs: Vital Signs Temperature 97.9 F Temperature 98.4 F Pulse Rate [Brachial] 118 Pulse Rate [Brachial] 86 Pulse Rate 102 Pulse Rate 89 Respiratory Rate 22 Respiratory Rate 18 Respiratory Rate 20 Respiratory Rate 19 Blood Pressure [Right Arm] 100/62 Blood Pressure [Left Arm] 140/66 O2 Sat by Pulse Oximetry 97 O2 Sat by Pulse Oximetry 95 O2 Sat by Pulse Oximetry 98 O2 Sat by Pulse Oximetry 98 Oriented: Normal Eyes: Normal Ear: Normal Nose: Normal Throat: Normal Respiratory: Diminished Throughout Cardiovascular: Normal and Tachycardia Auscultation: Bowel Sounds: Normal Palpation: Normal Tenderness: Normal Skin: Normal Musculoskeletal: Normal Psychiatric: Normal Mood Description: Calm Affect: Normal Speech Pattern: Clear and Appropriate Assessment/Plan (1) Pneumonia: Qualifiers: Pneumonia type: due to unspecified organism Laterality: left Lung l ocation: lower lobe of lung Qualified Code(s): J18.9 - Pneumonia, unspecified organism Status: Acute (2) Acute exacerbation of chronic obstructive pulmonary disease: Status: Acute (3) Hypoxemia: Status: Acute (4) PAD (peripheral artery disease): Status: Acute (5) COPD (chronic obstructive pulmonary disease): Status: Acute Review H&P Reviewed: Yes Patient was examined?: Yes
[2023-12-02] MEDS: FLONASE NASAL SPRAY ENOSTRIL SCH (15:19)
--- NOTE | 2023-12-03 05:35 | RAD ---
EXAM:CHEST, 1 VIEWHISTORY:PNEUMONIA, PLEURAL EFFUSION ; ASTHMA, PUD, GERD SX: ANGIO/STENTS, ORTHOCOMPARISON:12/01/2023FINDINGS:The trachea is midline. Left Port-A-Cath tip in SVC. The cardiac silhouette is unremarkable. COPD. There are increased interstitial markings in the left lung base consistent with infiltrate. The right lung is clear.. The bony thorax is unremarkable.IMPRESSION:COPD.Left lower lobe pneumonia.THIS IS AN ELECTRONICALLY VERIFIED FINAL REPORT12/03/2023 5:31 AM - Electronically signed by Desean Eagle MD
[2023-12-03 05:48] LABS: BASOPHILS % (AUTO) 0.3 % (0.2-1.0); EOSINOPHILS % (AUTO) 0.1 % (0.9-2.9); HEMATOCRIT 32.2 % (42.0-54.0); HEMOGLOBIN 10.5 g/dL (13.5-18.0); LYMPHOCYTES # (AUTO) 0.3 X10^3/uL (1.3-2.9); LYMPHOCYTES % (AUTO) 2.2 % (21.0-51.0); MEAN CORPUSCULAR HEMOGLOBIN 27.5 pg (27.0-34.0); MEAN CORPUSCULAR HGB CONC 32.7 g/dL (33.0-35.0); MEAN PLATELET VOLUME 8.4 fL (7.4-11.0); MONOCYTES # (AUTO) 0.4 x10^3/uL (0.3-0.8); MONOCYTES % (AUTO) 2.9 % (0.0-13.0); NEUTROPHILS % (AUTO) 94.5 % (42.0-75.0); PLATELET COUNT 184 X10^3/uL (150.0-450.0); RED BLOOD COUNT 3.83 X10^6/uL (4.7-6.0); RED CELL DISTRIBUTION WIDTH 18.2 % (11.6-16.5); WHITE BLOOD COUNT 14.8 X10^3/uL (3.6-10.0)
[2023-12-03 05:53] LABS: ALANINE AMINOTRANSFERASE 30 Units/L (12-78); ALBUMIN 2.3 g/dL (3.4-5.0); ALKALINE PHOSPHATASE 52 Units/L (46-116); BLOOD UREA NITROGEN 9 mg/dL (7-18); CALCIUM 8.1 mg/dL (8.5-10.1); CARBON DIOXIDE 24.8 mmol/L (21-32); CHLORIDE 99 mmol/L (98-107); COR CA(FOR HYPOALB) 9.5 mg/dL (8.5-10.1); COR NA(FOR HYPERGLY) 136 mmol/L (136-145); CREATININE 0.51 mg/dL (0.70-1.30); GLUCOSE 115 mg/dL (65-99); SODIUM 136 mmol/L (136-145); TOTAL PROTEIN 6.4 g/dL (6.4-8.2); eGFR NON BLACK RACES > 60 (>60)
[2023-12-03 05:57] LABS: POTASSIUM 4.2 mmol/L (3.5-5.1)
[2023-12-03 05:58] LABS: ASPARTATE AMINO TRANSFERASE 34 Units/L (15-37)
[2023-12-03 06:25] LABS: PLATELET MORPHOLOGY COMMENT NORMAL (NORMAL)
[2023-12-03] MEDS ORDERED: ZITHROMAX INJ 500 MG VIAL IV ONE (09:01)
--- NOTE | 2023-12-03 10:04 | PCM.PROG ---
Progress Note Progress Note for Day of Date of Exam: 12/03/23 Subjective Subjective: Patient seen at bedside, no acute events overnight. He states he feels better this morning. He is currently admitted for COPD exacerbation and pneumonia. He remains on 3L NC. He does use O2 at home. He is currently on Zosyn, Azithromycin and Solumedrol. Labs/imaging reviewed -WBC 14.8 Hgb 10.5 BUN/Cr: 9/0.51 - CXR: COPD changes, LLL pneumonia Plan: Continue IV antibiotics and steroids. Wean O2 as tolerated. PT/OT as tolerated. Continue bronchodilators. Continue home medications. Monitor AM labs/imaging Past Medical Family Social History Allergies: Allergies No Known Drug Allergies Allergy (Verified 12/01/23 08:49) Vital Signs and I&O's Vital Signs: Vital Signs Temperature 97.8 F Pulse Rate [Brachial] 110 Pulse Rate 108 Pulse Rate 104 Respiratory Rate 20 Blood Pressure [Left Arm] 123/75 O2 Sat by Pulse Oximetry 96 O2 Sat by Pulse Oximetry 98 O2 Sat by Pulse Oximetry 98 Intake and Output: Intake & Output 11/30/23 12/01/23 12/02/23 12/03/23 23:59 23:59 23:59 23:59 Intake Total 1461 / 1461 1038 / 1038 1153 / 1153 Output Total 750 / 750 1050 / 1050 Balance 711 / 711 -12 / -12 1153 / 1153 Physical Exam Oriented: Normal Eyes: Normal Ear: Normal Nose: Normal Throat: Normal Respiratory: Generalized, Diminished and Rales Cardiovascular: Normal and Tachycardia Auscultation: Bowel Sounds: Normal Palpation: Normal Tenderness: Normal Skin: Normal Musculoskeletal: Normal Psychiatric: Normal Mood Description: Calm Affect: Normal Speech Pattern: Clear and Appropriate Laboratory and Diagnostics 12/03/23 05:25 12/03/23 05:25 Labs: 12/01/23 09:28 Blood Blood Culture - Preliminary 12/01/23 09:20 Blood Blood Culture - Preliminary 12/02/23 11:17 Sputum - Expectorated Sputum Sputum Culture - Preliminary 12/02/23 11:17 Sputum - Expectorated Sputum - Final Laboratory WBC 14.8 X10^3/uL (3.6-10.0) H D 12/03/23 05:25 RBC 3.83 X10^6/uL (4.7-6.0) L 12/03/23 05:25 Hgb 10.5 g/dL (13.5-18.0) L 12/03/23 05:25 Hct 32.2 % (42.0-54.0) L 12/03/23 05:25 MCV 84.0 fL (80.0-100.0) 12/03/23 05:25 MCH 27.5 pg (27.0-34.0) 12/03/23 05:25 MCHC 32.7 g/dL (33.0-35.0) L 12/03/23 05:25 RDW 18.2 % (11.6-16.5) H 12/03/23 05:25 Plt Count 184 X10^3/uL (150.0-450.0) 12/03/23 05:25 Plt Count Comment Adequate (ADEQUATE) 12/03/23 05:25 MPV 8.4 fL (7.4-11.0) 12/03/23 05:25 Neut % (Auto) 94.5 % (42.0-75.0) H 12/03/23 05:25 Lymph % (Auto) 2.2 % (21.0-51.0) L 12/03/23 05:25 [place] % (Auto) 2.9 % (0.0-13.0) 12/03/23 05:25 Eos % (Auto) 0.1 % (0.9-2.9) L 12/03/23 05:25 Baso % (Auto) 0.3 % (0.2-1.0) 12/03/23 05:25 Neut # (Auto) 14.0 x10^3/uL (2.2-4.8) H 12/03/23 05:25 Lymph # (Auto) 0.3 X10^3/uL (1.3-2.9) L 12/03/23 05:25 [place] # (Auto) 0.4 x10^3/uL (0.3-0.8) 12/03/23 05:25 Eos # (Auto) 0.0 x10^3/uL (0.0-0.2) 12/03/23 05:25 Baso # (Auto) 0.0 X10^3/uL (0.0-0.1) 12/03/23 05:25 Absolute Nucleated RBC 0.0 /100WBC 12/03/23 05:25 Total Counted 100 12/03/23 05:25 Neutrophils % (Manual) 99 % (39-76) H 12/03/23 05:25 Band Neutrophils % 9 % (0-10) 12/02/23 06:48 Lymphocytes % (Manual) 1 % (13-43) L 12/03/23 05:25 Monocytes % (Manual) 3 % (4-9) L 12/02/23 06:48 Plt Morphology Comment Normal (NORMAL) 12/03/23 05:25 RBC Morphology Normal (NORMAL) 12/03/23 05:25 Anisocytosis Slight A 12/02/23 06:48 Sample Site Lrad 12/01/23 10:23 ABG pH 7.520 (7.35-7.45) H 12/01/23 10:23 ABG pCO2 34.0 mmHg (35.0-45.0) L 12/01/23 10:23 ABG pO2 56.0 mmHg (80.0-100.0) L 12/01/23 10:23 ABG HCO3 27.8 mmol/L (22-26) H 12/01/23 10:23 ABG O2 Saturation 92.0 % (90-100) 12/01/23 10:23 ABG Base Excess 5.0 mmol/L (-2.0-2.0) H 12/01/23 10:23 Fernando Test Pos 12/01/23 10:23 A-a Gradient 101.0 mmHg 12/01/23 10:23 FiO2 28.0 12/01/23 10:23 Blood Gas Comments Pt neeru well. kg 12/01/23 10:23 Sodium 136 mmol/L (136-145) 12/03/23 05:25 Corrected Sodium 136 mmol/L (136-145) 12/03/23 05:25 Potassium 4.2 mmol/L (3.5-5.1) 12/03/23 05:25 Chloride 99 mmol/L (98-107) 12/03/23 05:25 Carbon Dioxide 24.8 mmol/L (21-32) 12/03/23 05:25 BUN 9 mg/dL (7-18) 12/03/23 05:25 Creatinine 0.51 mg/dL (0.70-1.30) L 12/03/23 05:25 Est GFR (MDRD) Af Amer > 60 (>60) 12/03/23 05:25 Est GFR (MDRD) Non-Af > 60 (>60) 12/03/23 05:25 Glucose 115 mg/dL (65-99) H 12/03/23 05:25 Lactic Acid 1.8 mmol/L (0.4-2.0) 12/01/23 20:30 Calcium 8.1 mg/dL (8.5-10.1) L 12/03/23 05:25 Corrected Calcium 9.5 mg/dL (8.5-10.1) 12/03/23 05:25 Magnesium 2.3 mg/dL (2.0-2.9) 12/02/23 05:27 Total Bilirubin 0.80 mg/dL (0.2-1.0) 12/03/23 05:25 AST 34 Units/L (15-37) 12/03/23 05:25 ALT 30 Units/L (12-78) 12/03/23 05:25 Alkaline Phosphatase 52 Units/L (46-116) 12/03/23 05:25 Creatine Kinase 222 Units/L (39-308) 12/01/23 09:20 Troponin I High Sens 8.7 ng/L (4.0-60.0) 12/01/23 21:36 C-Reactive Protein 31.50 mg/L (0-3.0) H 12/01/23 09:20 B-Natriuretic Peptide 59.1 pg/mL (0-79) 12/01/23 09:20 Total Protein 6.4 g/dL (6.4-8.2) 12/03/23 05:25 Albumin 2.3 g/dL (3.4-5.0) L 12/03/23 05:25 Globulin 4.1 g/dL (2.5-4.5) 12/03/23 05:25 Albumin/Globulin Ratio 0.6 Ratio (1.1-2.1) L 12/03/23 05:25 SARS-CoV-2 (PCR) Negative (NEGATIVE) 12/01/23 09:08 Influenza Type A (PCR) Negative (NEGATIVE) 12/01/23 09:08 Influenza Type B (PCR) Negative (NEGATIVE) 12/01/23 09:08 RSV (PCR) Negative (NEGATIVE) 12/01/23 09:08 Plan (1) Pneumonia: Status: Acute Qualifiers: Laterality: left Lung location: lower lobe of lung Pneumonia type: due to unspecified organism Qualified Code(s): J18.9 - Pneumonia, unspecified organism (2) Acute exacerbation of chronic obstructive pulmonary disease: Status: Acute (3) Hypoxemia: Status: Acute (4) PAD (peripheral artery disease): Status: Acute (5) COPD (chronic obstructive pulmonary disease): Status: Acute
[2023-12-03] MEDS: ROBITUSSIN DM PO PRN (12:24)
[2023-12-03] MEDS ORDERED: VISTARIL PO PRN (13:49)
[2023-12-03] MEDS: VALIUM PO PRN (14:58)
[2023-12-04 05:42] LABS: BASOPHILS % (AUTO) 0.2 % (0.2-1.0); HEMATOCRIT 30.5 % (42.0-54.0); LYMPHOCYTES # (AUTO) 0.1 X10^3/uL (1.3-2.9); MEAN CORPUSCULAR HEMOGLOBIN 27.4 pg (27.0-34.0); MEAN CORPUSCULAR HGB CONC 32.6 g/dL (33.0-35.0); MEAN PLATELET VOLUME 8.1 fL (7.4-11.0); MONOCYTES # (AUTO) 0.3 x10^3/uL (0.3-0.8); NEUTROPHILS # (AUTO) 6.1 x10^3/uL (2.2-4.8); NEUTROPHILS % (AUTO) 93.8 % (42.0-75.0); PLATELET COUNT 167 X10^3/uL (150.0-450.0); RED BLOOD COUNT 3.63 X10^6/uL (4.7-6.0); RED CELL DISTRIBUTION WIDTH 18.5 % (11.6-16.5); WHITE BLOOD COUNT 6.5 X10^3/uL (3.6-10.0)
[2023-12-04 05:50] LABS: ALANINE AMINOTRANSFERASE 27 Units/L (12-78); ALBUMIN 2.1 g/dL (3.4-5.0); ALKALINE PHOSPHATASE 44 Units/L (46-116); ASPARTATE AMINO TRANSFERASE 19 Units/L (15-37); BLOOD UREA NITROGEN 7 mg/dL (7-18); CALCIUM 7.9 mg/dL (8.5-10.1); CARBON DIOXIDE 30.8 mmol/L (21-32); CHLORIDE 104 mmol/L (98-107); COR CA(FOR HYPOALB) 9.4 mg/dL (8.5-10.1); COR NA(FOR HYPERGLY) 140 mmol/L (136-145); CREATININE 0.46 mg/dL (0.70-1.30); GLUCOSE 128 mg/dL (65-99); POTASSIUM 3.9 mmol/L (3.5-5.1); SODIUM 139 mmol/L (136-145); TOTAL PROTEIN 5.8 g/dL (6.4-8.2); eGFR NON BLACK RACES > 60 (>60)
[2023-12-04 06:04] LABS: ANISOCYTOSIS SLIGHT; BAND NEUTROPHILS % 1 % (0-10); PLATELET MORPHOLOGY COMMENT NORMAL (NORMAL)
[2023-12-04] MEDS: Atrovent NEB TX 0.02% NEB SCH (08:50)
[2023-12-04] MEDS: XOPENEX 1.25 MG/3 ML NEBULE NEB SCH (08:50)
--- NOTE | 2023-12-04 08:55 | EKG ---
Test Reason : tachycardia Blood Pressure : */* mmHG Vent. Rate : 126 BPM Atrial Rate : 126 BPM P-R Int : 132 ms QRS Dur : 80 ms QT Int : 314 ms P-R-T Axes : 15 -35 89 degrees QTc Int : 454 ms Sinus tachycardia with premature atrial complexes Left axis deviation Low voltage QRS Cannot rule out Anterior infarct , age undetermined Abnormal ECG When compared with ECG of 01-DEC-2023 21:44, premature atrial complexes are now present Minimal criteria for Anterior infarct are now present Confirmed by Chele Gonzalez MD ([id number]) on 12/04/2023 8:48:13 AM Referred By: Confirmed By: Chele Gonzalez MD
[2023-12-04] MEDS: VALIUM PO SCH (09:10)
[2023-12-04] MEDS: TOPROL XL PO SCH (09:10)
[2023-12-04] MEDS: LOPRESSOR INJ 5 MG AMP IVP ONE (09:26)
[2023-12-04 12:20] VITALS: BP 107/56; PULSE 95; RESP 18; TEMP 97.9; O2SAT 92
[2023-12-04] MEDS: LOPRESSOR INJ 5 MG AMP IVP STA (12:24)
== END 2023-12-04 14:10 | disposition home or self-care (01) | DRG 194 ==
LOC: ER 08:47 → MED/SURG 11:01
PROVIDERS: ADMIT Family Medicine; ATTEND Obstetrics & Gynecology Obstetrics
DX: B95.3 Streptococcus pneumoniae as the cause of diseases classified elsewhere; J44.1 Chronic obstructive pulmonary disease with (acute) exacerbation; R26.89 Other abnormalities of gait and mobility; R06.02 Shortness of breath; I73.9 Peripheral vascular disease, unspecified; J18.8 Other pneumonia, unspecified organism; Z20.822 Contact with and (suspected) exposure to COVID-19; R07.89 Other chest pain; R79.82 Elevated C-reactive protein (CRP); B96.89 Other specified bacterial agents as the cause of diseases classified elsewhere; K21.9 Gastro-esophageal reflux disease without esophagitis; R79.89 Other specified abnormal findings of blood chemistry; I73.89 Other specified peripheral vascular diseases; R00.0 Tachycardia, unspecified; E78.5 Hyperlipidemia, unspecified; J90 Pleural effusion, not elsewhere classified; R09.02 Hypoxemia; Z99.81 Dependence on supplemental oxygen

== ENCOUNTER 2025-05-06 21:18 | Observation (INO) ==
[2025-05-06 21:35] LABS: MEAN PLATELET VOLUME 7.3 fL (7.4-11.0); RED CELL DISTRIBUTION WIDTH 18.7 % (11.6-16.5)
--- NOTE | 2025-05-06 21:37 | EKG ---
Test Reason : sob Blood Pressure : */* mmHG Vent. Rate : 118 BPM Atrial Rate : 118 BPM P-R Int : 144 ms QRS Dur : 84 ms QT Int : 342 ms P-R-T Axes : 75 -59 66 degrees QTc Int : 479 ms Sinus tachycardia Left axis deviation Low voltage QRS Inferior infarct , age undetermined Cannot rule out Anterior infarct , age undetermined Abnormal ECG When compared with ECG of 16-JUN-2024 20:18, premature supraventricular complexes are no longer present Minimal criteria for Anterior infarct are now present Inferior infarct is now present Nonspecific T wave abnormality no longer evident in Inferior leads Confirmed by Chele Gonzalez MD ([id number]) on 05/07/2025 6:15:45 AM Referred By: Confirmed By: Chele Gonzalez MD
[2025-05-06 21:46] LABS: BLOOD/HEMOGLOBIN,URINE 1+ (NEGATIVE); LEUKOCYTE ESTERASE ,URINE NEGATIVE (NEGATIVE); NITRITES,URINE NEGATIVE (NEGATIVE)
[2025-05-06 21:47] LABS: APPEARANCE,URINE SLIGHTLY HAZY (CLEAR)
[2025-05-06 21:50] LABS: COR CA(FOR HYPOALB) 9.5 mg/dL (8.5-10.1); COR NA(FOR HYPERGLY) 135 mmol/L (136-145); CREATININE 0.45 mg/dL (0.70-1.30); eGFR NON BLACK RACES > 60 (>60)
[2025-05-06 21:50] LABS: SQUAMOUS EPITHELIAL CELL,UR RARE /HPF (NEGATIVE)
--- NOTE | 2025-05-06 22:05 | CT ---
EXAM: CHEST W/O CON HISTORY: pt to ER via ems with complaint of Shortness of breath for a few days ; ASTHMA, CHF, COPD, GERD SX: ANGIO/STENTS, COLON CA, RECTAL CA, HERNIA, PROSTATECTOMY COMPARISON: April 16, 2022 and chest radiograph series from June 16, 2024 TECHNIQUE: Axial non-contrast images of the chest with coronal and sagittal reformats. Radiation dose: 174.58 mGy-cm total DLP FINDINGS: Trace nonspecific pericardial effusion. Aorta and pulmonary arteries are normal in caliber. No hilar or mediastinal adenopathy. Thyroid appears normal. Central airways are widely patent. Esophagus appears normal. Imaged portion of the upper abdomen is unremarkable. Infiltrate in the lingula and left lower lobe. Moderate to severe centrilobular emphysema. No focal concerning lung parenchymal lesion identified. No pneumothorax or effusion. No acute osseous abnormality. IMPRESSION: 1. Infiltrate in the lingula and left lower lobe is concerning for pneumonia. Differential diagnosis includes aspiration. 2. Moderate to severe centrilobular emphysema. THIS IS AN ELECTRONICALLY VERIFIED FINAL REPORT 05/06/2025 10:02 PM - Electronically signed by Sherman Muro MD
[2025-05-06 22:28] LABS: ABG BASE EXCESS 14.1 mmol/L (-2.0-2.0); ABG OXYGEN SATURATION 89.0 % (90-100); ABG PH 7.440 (7.35-7.45); ABG PO2 54.0 mmHg (80.0-100.0)
[2025-05-06 22:29] LABS: ABG ALLEN TEST POS; ABG HCO3 40.8 mmol/L (22-26); ABG PCO2 60.0 mmHg (35.0-45.0)
[2025-05-07 00:22] LABS: ABG BASE EXCESS 17.5 mmol/L (-2.0-2.0); ABG OXYGEN SATURATION 93.0 % (90-100); ABG PCO2 59.0 mmHg (35.0-45.0); ABG PH 7.480 (7.35-7.45); ABG PO2 61.0 mmHg (80.0-100.0)
[2025-05-07 00:23] LABS: ABG ALLEN TEST POS; ABG HCO3 43.9 mmol/L (22-26)
[2025-05-07] MEDS ORDERED: DUONEB 0.5 MG/3 MG (3 mL) NEB ONE (00:29)
[2025-05-07] MEDS: DUONEB 0.5 MG/3 MG (3 mL) NEB ONE ×3 (00:38→06:07)
--- NOTE | 2025-05-07 01:16 | DR.SOBA ---
HPI Time Seen Time Seen by Provider: 05/06/25 21:20 Primary Care Physician Primary Care Physician: mckinney Complaints Chief Complaint Doctors Comments: Patient to ER via EMS with several days of shortness of breath. Patient does have a history of COPD. Patient uses oxygen at home at 3.5 L via nasal cannula. Denies fever. Denies chest pain. Chief Complaint:: pt to ER via ems with complaint of Shortness of breath for a few days COVID-19 Coronavirus risk:travel/contact w/high risk person: No Has patient experienced Coronavirus symptoms: No Source History Provided: Patient Mode of Arrival Mode of Arrival: EMS Timing Onset of Chief Complaint: 05/04/25 PMH PMH Past Medical History: Yes Past Medical History: Asthma, CHF, COPD, Depression, Dyslipidemia, GERD and PUD Past Surgical History: Yes Surgical History: Angioplasty/Stents Past Surgical History Comment: colon CA, rectal CA hernia, prostatectomy Family History History of Family Medical Conditions: Yes Family Medical History: Heart Failure and Hypertension Social History Does patient currently use any type of tobacco product: Yes Have you used tobacco products in the last 12 months: Yes Type of Tobacco Use: Cigarettes Does any household member use tobacco: Yes Alcohol Use: DAILY Do you use any recreational Drugs:: Yes (THC) Lives With: Family Lives Where: Home Travel Risk Coronavirus risk:travel/contact w/high risk person: No Has patient experienced Coronavirus symptoms: No Infectious screening In the last 2 months have you had wt loss of >10#?: NO Have you had fever, night sweats or hemotysis?: No Have you traveled outside the country in the last 6 months?: No Isolation: Standard ROS Review of Systems Constitutional: No Symptoms Reported; negative Fever Eyes: No Symptoms Reported ENTM: No Symptoms Reported Respiratoy: Non-Productive Cough, Short of Breath and Wheezing Cardiovascular: No Symptoms Reported; negative Chest Pain, Edema, Palpitations or Syncope Gastrointestinal/Abdominal: No Symptoms Reported Genitourinary: No Symptoms Reported Neurological: No Symptoms Reported Musculoskeletal: No Symptoms Reported Integumentary: No Symptoms Reported Hematologic/Lymphatic: No Symptoms Reported Endocrine: No Symptoms Reported Psychiatric: No Symptoms Reported All Other Systems: Reviewed and Negative PE Vital Signs Vitals: Vital Signs Temperature 98.2 F Pulse Rate 106 Pulse Rate 113 Pulse Rate 110 Pulse Rate 104 Pulse Rate 104 Pulse Rate 99 Pulse Rate 110 Pulse Rate 113 Pulse Rate 105 Pulse Rate 106 Pulse Rate 109 Pulse Rate 116 Pulse Rate 116 Pulse Rate 109 Pulse Rate 112 Pulse Rate 116 Respiratory Rate 24 Respiratory Rate 24 Respiratory Rate 20 Respiratory Rate 26 Blood Pressure 143/84 Blood Pressure 143/84 Blood Pressure 143/84 Blood Pressure 136/67 O2 Sat by Pulse Oximetry 96 O2 Sat by Pulse Oximetry 97 O2 Sat by Pulse Oximetry 100 O2 Sat by Pulse Oximetry 96 O2 Sat by Pulse Oximetry 95 O2 Sat by Pulse Oximetry 95 O2 Sat by Pulse Oximetry 95 O2 Sat by Pulse Oximetry 94 O2 Sat by Pulse Oximetry 95 O2 Sat by Pulse Oximetry 97 O2 Sat by Pulse Oximetry 97 O2 Sat by Pulse Oximetry 100 O2 Sat by Pulse Oximetry 100 O2 Sat by Pulse Oximetry 96 O2 Sat by Pulse Oximetry 99 O2 Sat by Pulse Oximetry 92 General Limitations: No Limitations General Appearance: Alert and In No Apparent Distress Head Head Exam: Normal Inspection Eyes Eye exam: Normal Appearance ENT ENT Exam: Normal Exam Neck Neck Exam: Normal Inspection Chest Chest Inspection: Normal Inspection Respiratory Respiratory Exam: Respiratory Distress and Other (Coarse bilaterally and diminished on left lower lung.) Cardiovascular Cardiovascular Exam: Regular Rate and Normal Rhythm Abdominal Exam Abdominal Exam: Normal Inspection, Normal Bowel Sounds and Soft Extremities Extremities Exam: Normal Inspection Back Back Exam: Normal Inspection Neurologic Neurological Exam: Alert and Oriented X3 Psychiatric Psychiatric Exam: Normal Affect and Normal Mood Skin Skin Exam: Warm, Dry, Intact and Normal Color COURSE Treatment Treatment: Discussed results of workup with patient. Improvement in oxygenation with BiPAP. Started antibiotic with Zosyn. Consultation Consultation Comments: Discussed case with Dr. Jaime and she is agreeable to admission ROR Labs Reviewed Laboratory Results Reviewed?: Yes 05/06/25 21:28 05/06/25 21:28 Laboratory: WBC 13.5 X10^3/uL (3.6-10.0) H 05/06/25 21: RBC 3.97 X10^6/uL (4.7-6.0) L 05/06/25 21:28 Hgb 11.2 g/dL (13.5-18.0) L 05/06/25 21: Hct 35.0 % (42.0-54.0) L 05/06/25 21: MCV 88.3 fL (80.0-100.0) 05/06/25 21: MCH 28.1 pg (27.0-34.0) 05/06/25: MCHC 31.9 g/dL (33.0-35.0) L 05/06/25: RDW 18.7 % (11.6-16.5) H 05/06/25: Plt Count 283 X10^3/uL (150.0-450.0) 05/06/25: MPV 7.3 fL (7.4-11.0) L 05/06/25: Neut % (Auto) 78.2 % (42.0-75.0) H 05/06/25: Lymph % (Auto) 5.6 % (21.0-51.0) L 05/06/25: Stone % (Auto) 14.8 % (0.0-13.0) H 05/06/25: Eos % (Auto) 0.1 % (0.9-2.9) L 05/06/25: Baso % (Auto) 1.3 % (0.2-1.0) H 05/06/25: Neut # (Auto) 10.5 x10^3/uL (2.2-4.8) H 05/06/25: Lymph # (Auto) 0.8 X10^3/uL (1.3-2.9) L 05/06/25: Stone # (Auto) 2.0 x10^3/uL (0.3-0.8) H 05/06/25: Eos # (Auto) 0.0 x10^3/uL (0.0-0.2) 05/06/25: Baso # (Auto) 0.2 X10^3/uL (0.0-0.1) H 05/06/25: Absolute Nucleated RBC 0.0 /100WBC 05/06/25: Sample Site Lr 05/07/25 00:10 ABG pH 7.480 (7.35-7.45) H 05/07/25 00:10 ABG pCO2 59.0 mmHg (35.0-45.0) H* 05/07/25 00:10 ABG pO2 61.0 mmHg (80.0-100.0) L 05/07/25 00:10 ABG HCO3 43.9 mmol/L (22-26) H* 05/07/25 00:10 ABG O2 Saturation 93.0 % (90-100) 05/07/25 00:10 ABG Base Excess 17.5 mmol/L (-2.0-2.0) H 05/07/25 00:10 Fernando Test Pos 05/07/25 00:10 A-a Gradient 65.0 mmHg 05/07/25 00:10 FiO2 28.0 05/07/25 00:10 Blood Gas Comments Samm well sw 05/07/25 00:10 Sodium 135 mmol/L (136-145) L 05/06/25 21:28 Corrected Sodium 135 mmol/L (136-145) L 05/06/25 21: Potassium 3.5 mmol/L (3.5-5.1) 05/06/25 21: Chloride 90 mmol/L (98-107) L 05/06/25 21: Carbon Dioxide 40.8 mmol/L (21-32) H 05/06/25 21: BUN 6 mg/dL (7-18) L 05/06/25 21: Creatinine 0.45 mg/dL (0.70-1.30) L 05/06/25 21:28 Est GFR (MDRD) Af Amer > 60 (>60) 05/06/25 21: Est GFR (MDRD) Non-Af > 60 (>60) 05/06/25 21: Glucose 117 mg/dL (65-99) H 05/06/25 21: Calcium 8.5 mg/dL (8.5-10.1) 05/06/25 21: Corrected Calcium 9.5 mg/dL (8.5-10.1) 05/06/25 21: Magnesium 1.9 mg/dL (2.0-2.9) L 05/06/25 21: Total Bilirubin 0.80 mg/dL (0.2-1.0) 05/06/25 21: AST 17 Units/L (15-37) 05/06/25 21: ALT 19 Units/L (12-78) 05/06/25 21: Alkaline Phosphatase 81 Units/L (46-116) 05/06/25 21: Creatine Kinase 82 Units/L (39-308) 05/06/25 21: Troponin I High Sens 21.0 ng/L (4.0-60.0) 05/06/25: B-Natriuretic Peptide 168 pg/mL (0-79) H 05/06/25 21: Total Protein 8.2 g/dL (6.4-8.2) 05/06/25: Albumin 2.8 g/dL (3.4-5.0) L 05/06/25: Globulin 5.4 g/dL (2.5-4.5) H 05/06/25: Albumin/Globulin Ratio 0.5 Ratio (1.1-2.1) L 05/06/25: Specimen Type Clean catch urine 05/06/25: Urine Color Dark yellow (YELLOW) 05/06/25: Urine Appearance Slightly hazy (CLEAR) 05/06/25: Urine pH 6.0 (5.0 - 8.0) 05/06/25: Ur Specific [place] 1.020 (1.000-1.030) 05/06/25: Urine Protein 2+ (NEGATIVE) 05/06/25: Urine Glucose (UA) Negative (NEGATIVE) 05/06/25 Urine Ketones 3+ (NEGATIVE) 05/06/25: Urine Blood 1+ (NEGATIVE) 05/06/25: Urine Nitrite Negative (NEGATIVE) 05/06/25: Urine Bilirubin 1+ (NEGATIVE) 05/06/25: Urine Urobilinogen 3+ (NORMAL) 05/06/25: Ur Leukocyte Esterase Negative (NEGATIVE) 05/06/25: Urine RBC 5-10 /HPF (0-3) A 05/06/25: Urine WBC 0-2 /HPF (0-5) 05/06/25: Ur Squamous Epith Cells Rare /HPF (NEGATIVE) 05/06/25: Urine Bacteria Negative /HPF (NEGATIVE) 05/06/25: Urine Mucus Moderate /HPF (NEGATIVE) 05/06/25: Ur Culture Indicated? No/not indicated 05/06/25 Urine Opiates Screen Positive (NEG=<300) 05/06/25 21:34 Urine Methadone Screen Negative (NEG=<300) 05/06/25 21:34 Ur Barbiturates Screen Negative (NEG=<200) 05/06/25 21:34 Ur Phencyclidine Scrn Negative (NEG=<25) 05/06/25 21:34 Ur Amphetamines Screen Negative (NEG=<1000) 05/06/25 21:34 U Benzodiazepines Scrn Positive (NEG=<200) 05/06/25 21:34 Urine Cocaine Screen Negative (NEG=<300) 05/06/25 21:34 U Marijuana (THC) Screen Negative (NEG=<50) 05/06/25 21:34 Ethyl Alcohol mg/dL < 10 mg/dL (0-19.9) 05/06/25 21:28 SARS-CoV-2 (PCR) Negative (NEGATIVE) 05/06/25 22:05 Influenza Type A (PCR) Negative (NEGATIVE) 05/06/25 22:05 Influenza Type B (PCR) Negative (NEGATIVE) 05/06/25 22:05 RSV (PCR) Negative (NEGATIVE) 05/06/25 22:05 Other Results Comments: Name: DIMITRIOS WOODARD : 1950 Sex: M Location: ER Order Number(s): [id number] Procedure(s):CHEST CT W/O CON Ordering Physician: Denilson Greco Primary Care: NFD,None Service Date: 05/06/25 Service Time: 2119 EXAM: CHEST W/O CON HISTORY: pt to ER via ems with complaint of Shortness of breath for a few days ; ASTHMA, CHF, COPD, GERD SX: ANGIO/STENTS, COLON CA, RECTAL CA, HERNIA, PROSTATECTOMY COMPARISON: April 16, 2022 and chest radiograph series from June 16, 2024 TECHNIQUE: Axial non-contrast images of the chest with coronal and sagittal reformats. Radiation dose: 174.58 mGy-cm total DLP FINDINGS: Trace nonspecific pericardial effusion. Aorta and pulmonary arteries are normal in caliber. No hilar or mediastinal adenopathy. Thyroid appears normal. Central airways are widely patent. Esophagus appears normal. Imaged portion of the upper abdomen is unremarkable. Infiltrate in the lingula and left lower lobe. Moderate to severe centrilobular emphysema. No focal concerning lung parenchymal lesion identified. No pneumothorax or effusion. No acute osseous abnormality. IMPRESSION: 1. Infiltrate in the lingula and left lower lobe is concerning for pneumonia. Differential diagnosis includes aspiration. 2. Moderate to severe centrilobular emphysema. THIS IS AN ELECTRONICALLY VERIFIED FINAL REPORT 05/06/2025 10:02 PM - Electronically signed by Sherman Muro MD EKG Rate: 118 [place]: LAD Rhythm: ST ST: Normal Opioid Opioid Risk Tool Age (Herb box if 16-45): No History of Preadolescent Sexual Abuse: No Total: 0 Total Score Risk Category: Low Risk Copyright: [facility] predicting aberrant behaviors Discharge Plan Diagnosis Discharge Problem: COPD exacerbation, Pneumonia Discharge Plan Patient Disposition: 09 ADMITTED INPATIENT Condition: Stable Prescriptions: No Action albuterol sulfate 2.5 mg /3 mL (0.083 %) solution for nebulization 2.5 mg inhalation Q6H PRN metoprolol succinate 50 mg tablet extended release 24 hr 75 mg PO QAM clopidogrel 75 mg tablet 75 mg PO QDAY alprazolam 0.25 mg tablet 0.25 mg PO QDAY tamsulosin 0.4 mg capsule 0.4 mg PO DAILY hydrocodone-acetaminophen 7.5-325 mg tablet 1 tab PO TID PRN pantoprazole 40 mg tablet,delayed release (DR/EC) 40 mg PO QDAY promethazine 25 mg tablet 25 mg PO DAILY PRN misoprostol 100 mcg tablet 100 mcg PO BID furosemide 20 mg tablet 20 mg PO QDAY albuterol sulfate 90 mcg/actuation HFA aerosol inhaler 2 puff inhalation Q4H PRN fluticasone propionate 50 mcg/actuation spray,suspension 50 mcg INTRANASAL BID Patient Comments: [NO ORIGINAL SIG] escitalopram oxalate 10 mg tablet 10 mg PO QAM quetiapine 50 mg tablet 50 - 100 mg PO QPM Linzess 145 mcg capsule 145 mcg PO QDAY Trelegy Ellipta 100-62.5-25 mcg blister with device 1 ea INHALATION QDAY Health Concerns: Post Hospitalization: new medications and changes needed to prevent readmission or further decline. Pt educated and given instructions on all concerns. Plan of Treatment: Continue with present treatment and follow up plan. Pt is to keep follow up appointment as instructed and take medications as ordered. Orders to Discharge Patient Discharge Orders: Transfer (Routine); Ordered 05/07/25 Ordered By: Denilson Greco Follow ups/Referrals Follow ups/Referrals: PAMELA MCKINNEY [Primary Care Provider, MEDICAL] - 3 days Instructions Stand Alone Forms: Find Help Web Site, Post Hospital Follow Up Care Print Language: MALDIVIAN
[2025-05-07] MEDS: CIPRO IV 400 MG PREMIX* 400 MG/200 ML IV.SOLN. IV ONE ×2 (01:26→04:45)
[2025-05-07] MEDS: ZOSYN VIAL 3.375 GRAMS 3.375 G in NS 100 ML IV 100 ML IV SCH ×2 (02:18→15:19)
[2025-05-07] MEDS: ZOSYN VIAL 3.375 GRAMS IV ONE (04:45)
[2025-05-07] MEDS: NS 100 ML IV 100 ML ONE (04:45)
[2025-05-07] MEDS ORDERED: NS 250 ML IV 25 ML IV PRN (04:47)
[2025-05-07] MEDS ORDERED: TYLENOL 325 MG TAB PO PRN (04:47)
[2025-05-07] MEDS: NS 1,000 ML IV 1,000 ML IV SCH ×2 (04:52→06:15)
[2025-05-07] MEDS: ZOSYN VIAL 3.375 GRAMS 3.375 G in NS 100 ML IV 100 ML IV ONE (04:52)
[2025-05-07] MEDS: DUONEB 0.5 MG/3 MG (3 mL) NEB SCH (04:55)
[2025-05-07 06:01] VITALS: BMI 19.8
[2025-05-07] MEDS: CONSULT PHARMACY - POTASSIUM & MAGNESIUM XX SCH (06:07)
[2025-05-07 07:24] LABS: COR NA(FOR HYPERGLY) 136 mmol/L (136-145); CREATININE 0.40 mg/dL (0.70-1.30); eGFR NON BLACK RACES > 60 (>60)
[2025-05-07 07:41] LABS: MEAN PLATELET VOLUME 7.6 fL (7.4-11.0); RED CELL DISTRIBUTION WIDTH 18.4 % (11.6-16.5)
[2025-05-07 08:14] LABS: BASOPHILS % (MANUAL) 0 % (0-1); METAMYELOCYTES % 1; PLATELET MORPHOLOGY COMMENT NORMAL (NORMAL)
[2025-05-07] MEDS ORDERED: LEXAPRO ONE (08:24)
[2025-05-07] MEDS: TOPROL XL PO SCH (08:36)
[2025-05-07] MEDS: VISBIOME PROBIOTIC CAP 112.5 B or equivalent PO SCH (08:36)
[2025-05-07] MEDS: CYTOTEC PO SCH (08:36)
[2025-05-07] MEDS: LINZESS PO SCH (08:37)
[2025-05-07] MEDS: FLOMAX PO SCH (08:38)
[2025-05-07] MEDS: LASIX PO SCH (08:38)
[2025-05-07] MEDS: LEXAPRO PO SCH (08:38)
[2025-05-07] MEDS: ALPRAZOLAM ODT PO SCH (08:39)
[2025-05-07] MEDS: PROTONIX TAB 40 MG PO SCH (08:39)
[2025-05-07] MEDS: NORCO 5/325 MG TAB PO PRN (08:45)
[2025-05-07] MEDS ORDERED: PATIENT'S HOME MEDICATION (Alprazolam 0.25 mg tablet) PO SCH (09:00)
[2025-05-07] MEDS: PULMICORT NEB TX 0.5 MG NEB SCH (09:41)
[2025-05-07] MEDS: ASPIRIN EC 81 MG PO SCH (11:31)
[2025-05-07] MEDS: FLONASE NASAL SPRAY ENOSTRIL SCH (11:41)
[2025-05-07] MEDS: LOVENOX INJ 40 MG SYR SC SCH (11:41)
[2025-05-07] MEDS: PREDNISONE TAB 20 MG PO SCH (11:42)
[2025-05-07] MEDS: NORCO 7.5/325 MG TAB PO PRN (14:01)
[2025-05-07] MEDS: NICOTINE PATCH TD SCH (14:01)
[2025-05-07] MEDS: NS 250 ML IV 25 ML IV PRN (15:19)
[2025-05-07] MEDS: NORCO 10/325 TAB PO PRN (17:43)
[2025-05-07] MEDS: CHLORASEPTIC SPRAY MT PRN (17:44)
[2025-05-07] MEDS: PHARMACY CONSULT XX SCH (19:49)
[2025-05-07] MEDS: PLAVIX PO SCH (19:49)
[2025-05-08] MEDS ORDERED: LEXAPRO ONE (07:26)
[2025-05-08 07:30] LABS: MEAN PLATELET VOLUME 7.0 fL (7.4-11.0); RED CELL DISTRIBUTION WIDTH 18.1 % (11.6-16.5)
[2025-05-08] MEDS: ZOFRAN INJ 4 MG VIAL IVP PRN (07:40)
[2025-05-08 07:44] LABS: COR CA(FOR HYPOALB) 9.5 mg/dL (8.5-10.1); CREATININE 0.40 mg/dL (0.70-1.30); eGFR NON BLACK RACES > 60 (>60)
[2025-05-08] MEDS: ULTRAM PO PRN (09:16)
[2025-05-08] MEDS ORDERED: CONSULT PHARMACY - POTASSIUM & MAGNESIUM XX SCH (18:00)
[2025-05-08] MEDS ORDERED: ROBITUSSIN DM PO PRN (18:16)
[2025-05-08] MEDS ORDERED: TUSSIONEX PENNKINETIC SUSP PO PRN (18:16)
[2025-05-08] MEDS ORDERED: ROBITUSSIN DM ONE (18:24)
[2025-05-08] MEDS ORDERED: POTASSIUM CHLORIDE LIQ PO SCH (21:00)
[2025-05-09] MEDS: POTASSIUM CHLORIDE LIQ ONE (04:05)
[2025-05-09 04:58] LABS: MEAN PLATELET VOLUME 7.0 fL (7.4-11.0); RED CELL DISTRIBUTION WIDTH 18.3 % (11.6-16.5)
[2025-05-09 05:03] LABS: COR CA(FOR HYPOALB) 9.3 mg/dL (8.5-10.1); CREATININE 0.45 mg/dL (0.70-1.30); eGFR NON BLACK RACES > 60 (>60)
[2025-05-09 05:09] LABS: METAMYELOCYTES % 1; MYELOCYTES % 1; PLATELET MORPHOLOGY COMMENT NORMAL (NORMAL)
[2025-05-09 06:37] VITALS: RESP 19
[2025-05-09] MEDS ORDERED: CONSULT PHARMACY - POTASSIUM & MAGNESIUM XX SCH (07:00)
[2025-05-09] MEDS: MAG-OX TAB PO SCH (08:19)
[2025-05-09] MEDS: K-DUR TAB 20 MEQ PO SCH (08:19)
[2025-05-09 08:22] VITALS: BP 111/54; TEMP 97.8; O2SAT 92
[2025-05-09] MEDS: LEXAPRO ONE (08:28)
[2025-05-09 09:30] VITALS: PULSE 87
[2025-05-09] MEDS: LEVAQUIN TAB 500 MG PO ONE (10:18)
[2025-05-09] MEDS: PREDNISONE TAB 20 MG PO SCH (10:19)
== END 2025-05-09 11:35 | disposition home or self-care (01) ==
LOC: SUPCPDRO → MED/SURG 21:18 → ER 21:18 → MED/SURG 05-07 05:25
PROVIDERS: ADMIT Internal Medicine; ATTEND Obstetrics & Gynecology Obstetrics
DX: Z99.81 Dependence on supplemental oxygen; B96.3 Hemophilus influenzae [H. influenzae] as the cause of diseases classified elsewhere; R73.09 Other abnormal glucose; F10.90 Alcohol use, unspecified, uncomplicated; J44.1 Chronic obstructive pulmonary disease with (acute) exacerbation; Z59.86 Financial insecurity; R06.02 Shortness of breath; F19.90 Other psychoactive substance use, unspecified, uncomplicated; E78.5 Hyperlipidemia, unspecified; R94.31 Abnormal electrocardiogram [ECG] [EKG]; Z72.0 Tobacco use; Z16.29 Resistance to other single specified antibiotic; R00.0 Tachycardia, unspecified; K21.9 Gastro-esophageal reflux disease without esophagitis; J18.8 Other pneumonia, unspecified organism; F11.90 Opioid use, unspecified, uncomplicated; E87.1 Hypo-osmolality and hyponatremia; Z03.818 Encounter for observation for suspected exposure to other biological agents ruled out; E83.42 Hypomagnesemia; F12.90 Cannabis use, unspecified, uncomplicated